=== PATIENT | male | born 1965 | race Caucasian/White ===

== ENCOUNTER 2017-02-12 08:46 | Observation (INO) | payer MEDICAID, SELFPAY ==
[2017-02-12] VITALS (17 sets, daily range): BP systolic 129–164; BP diastolic 74–84; PULSE 72–109; RESP 16–27; TEMP 36.2–36.5; O2SAT 93–100; BMI 53.9; BMI 54.1
--- NOTE | 2017-02-12 09:08 | EKG12_ITS ---
Test Reason : Blood Pressure : / mmHG Vent. Rate : 099 BPM Atrial Rate : 099 BPM P-R Int : 132 ms QRS Dur : 088 ms QT Int : 342 ms P-R-T Axes : 042 042 032 degrees QTc Int : 438 ms Normal sinus rhythm Poor R wave progression Confirmed by PAUL WINSTON, GENI ([id number]), story editor BOAZ SANTOS ([id number]) on 02/14/2017 3:32:41 PM Referred By: CHRISTAL Confirmed By:GENI MILLER MD
--- NOTE | 2017-02-12 09:09 | CT_ITS ---
STUDY: CTA CHEST REASON FOR EXAM: Male, 51 years old. Shortness of breath. Chest pain. History of lung cancer. RADIATION DOSAGE (If Supplied By Facility): CTDIvol = ( 24.25 ) mGy, DLP = ( 1231.60 ) mGycm TECHNIQUE: The examination was performed with the intravenous administration of 100ml ml of Isovue 370 contrast material. Post-processing of the angiographic images was performed, with multiplanar reformation and 3D reconstruction. Individualized dose optimization techniques were used for this CT. COMPARISON: Comparison is made with prior study dated January 03, 2017. FINDINGS: Normal enhancement of the main pulmonary artery and right and left pulmonary arteries. Normal enhancement of the bilateral peripheral pulmonary arteries. There is no demonstrated pulmonary embolism. There is narrowing of the superior vena cava. Collateral venous circulation is seen in the overlying subcutaneous tissues. Partial vena cava obstruction and vena caval syndrome should be ruled out. There is narrowing of the trachea. There is no demonstrated aortic dissection. Normal heart and pericardium. Diffuse mediastinal lymphadenopathy involving the anterior and middle mediastinum as well as the right paratracheal and subcarinal regions. This extends into both hilar regions worse on the right side. Normal visualized trachea and bronchi. There is elevation of the right hemidiaphragm. Airspace disease is seen in the right lower lobe. Mild increased markings in the right middle lobe. Normal pleura. Normal chest wall structures. There are degenerative changes of thoracic spine. Fluid distention of the stomach. CT/CTA Chest W/WO Contrast IMPRESSION: Since prior study, there has been progression of the diffuse mediastinal and bilateral hilar lymphadenopathy worse on the right side. Infiltration in the right lower lobe. Electronically Signed: Fabricio Lyn MD at 11:32 EST Tel [phone], Service support ,
--- NOTE | 2017-02-12 09:10 | ED.VISSUMM ---
- ER Visit Summary Date of Service: 02/12/17 Chief Complaint: [Chest pain] History of Present Illness: The patient is a 51 M [resents the emergency department with chief complaint of chest discomfort that started about a half an hour ago. Patient describes the pain as sharp and stabbing. Patient was at the cancer center next door when he developed the discomfort. Patient was supposed to have a PET scan performed today which was delayed a week. Patient has not had a fever. He denies any significant cough. Patient states that in December he was diagnosed with small cell lung cancer involving upper lobes of both lungs. Patient states that he is also had a stress test, and an echocardiogram within the last several months all of which were unremarkable. Patient states that he has had this similar type pain in the past but just has not lasted as long. Patient states that moving around certain way sometimes helps to relieve the pain. She denies any hemoptysis or fever.] Physical Examination: [HEENT-PERRLA, EOMI. Cranial nerves II through XII grossly intact. TMs clear. Mucous membranes moist. No adenopathy. Cardiovascular-regular rate and rhythm without murmur or ectopy Lungs-diminished bilaterally. Patient has some faint expiratory wheezes noted bilaterally. Patient has some mild tachypnea. No accessory muscle use or retractions. Abdomen-normoactive bowel sounds, soft, nontender, no rebound or rigidity, no peritoneal signs. Patient is morbidly obese. Extremities-intact ?4, normal range of motion, normal pulses, atraumatic] Test Results: [] Emergency Department Course and Treatment: [] Treatment Plan: [] Disposition: [] Impression: [] This note was generated with Micro[employer] dictation software. It may contain incorrect words, spelling, and punctuation that were not noted in review of the chart prior to signing ED Disposition - Plan for ED Patient: Chief Complaint: Chest Pain Referrals: Gray Kelley [Primary Care Provider] -
[2017-02-12] MEDS: Ipratropium/Albuterol Sulfate 3 ML AMPUL.NEB INHALATION ×3 (09:16→23:00)
[2017-02-12 09:20] LABS: Absolute Lymphocyte Count 1.72 X10^3/ul (0.83-4.51); Absolute Neutrophil Count 13.2 X10^3/uL (2.0-7.7); Basophil# 0.03 X10^3/uL; Basophil% 0.2 % (0-1); Eosinophil# 0.05 X10^3/uL; Eosinophils% 0.3 % (0-5); Hematocrit 44.3 % (40-54); Hemoglobin 13.8 g/dl (13.0-16.5); Lymphocyte # 1.72 X10^3/ul (4.0); Lymphocyte % 10.3 % (19-41); Mean Corp Hgb Conc 31.2 g/gl (32-36); Mean Corpuscular Hgb 30.5 pg (27.0-32.0); Mean Platelet Vol. 11.8 fl (6.2-12.0); Monocyte# 1.64 X10^3/uL; Monocyte% 9.8 % (0-10); Neutrophil # 13.23 X10^3/uL (2.7-7.7); Platelet Count 263 K/mm3 (150-450); RBC Distribution Width CV 14.8 % (11.6-14.6); RBC Distribution Width SD 51.6 fl (35.1-43.9); Red Blood Count 4.52 M/mm3 (4.6-6.2); White Blood Count 16.7 K/mm3 (4.4-11.0)
[2017-02-12 09:22] LABS: Differential Indicated SCAN CRITERIA MET; POSITIVE COUNT NO; POSITIVE DIFFERENTIAL YES; POSITIVE MORPHOLOGY NO
[2017-02-12 09:32] LABS: Anion Gap 4 (5-15); BUN 15 mg/dL (7-18); BUN/Creat Ratio 23.4 RATIO (10-20); Calcium,Total 9.4 mg/dL (8.5-10.1); Chloride 97 mmol/L (98-107); Creatinine, Serum 0.64 mg/dL (0.70-1.30); EST Glomerular Filtration Rate 140 mL/min (>60); Est Glom Filt Rate - Afr Amer 169 mL/min (>60); Estimated Creatinine Clearance 149.88 ml/min; Glucose 120 mg/dL (70-110); Potassium 4.4 mmol/L (3.5-5.1); Sodium Level 139 mmol/L (136-145)
[2017-02-12] MEDS: 0.9% Normal Saline 1,000 ML 150 ML IV (10:54)
[2017-02-12] MEDS: Ondansetron 4 MG/2 ML Vial IV (10:55)
--- NOTE | 2017-02-12 12:41 | ED.VISSUMM ---
- ER Visit Summary Date of Service: 02/12/17 Chief Complaint: [Chest pain] History of Present Illness: The patient is a 51 M [presents to the emergency department via EMS from the [facility] with complaint of chest discomfort.] Patient states that he was at the [facility] to have a PET scan performed to evaluate his small cell lung cancer. Patient developed discomfort in the mid to right chest that he has had in the past. Patient states the pain more persistent than usual. Patient states he has a large mass in his right lower lobe. Patient does complain of cough that at times is productive and also complains of exertional dyspnea. Patient has not had any chemo or radiation for his cancer as of yet. Patient is normally on 2-3 L of oxygen. Patient denies any fevers. Physical Examination: [HEENT-PERRLA, EOMI. Cranial nerves II through XII grossly intact. TMs clear. Mucous membranes moist. No adenopathy. Cardiovascular-regular rate and rhythm without murmur or ectopy Lungs-John bilaterally with expiratory wheezes throughout. Patient is tachypneic. No accessory muscle use or retractions. Abdomen-normoactive bowel sounds, soft, nontender, no rebound or rigidity, no peritoneal signs. Extremities-intact ?4, normal range of motion, normal pulses, atraumatic] Test Results: [EKG obtained on arrival shows sinus rhythm with a rate of 99 bpm. CBC with differential showed an elevated white blood cell count 16.7, hemoglobin 13.8, hematocrit 44, platelets 263. Chemistries unremarkable. Troponin was less than 0.02. Chest CT was obtained to rule out PE this was negative for PE however he did have increase in his adenopathy as well as partial compression of his vena cava. Patient has right lower lobe infiltrate noted.] Emergency Department Course and Treatment: [Patient was started on Levaquin IV. Patient also received a DuoNeb aerosol.] Treatment Plan: [] Disposition: [Admit] Impression: [Pneumonia Chest pain Small cell lung cancer] This note was generated with T[employer] dictation software. It may contain incorrect words, spelling, and punctuation that were not noted in review of the chart prior to signing ED Disposition - Plan for ED Patient: Chief Complaint: Chest Pain Referrals: Gray Kelley [Primary Care Provider] -
--- NOTE | 2017-02-12 12:46 | ED.DCSUM_ITS ---
- ER Visit Summary Date of Service: 02/12/17 Chief Complaint: [Chest pain] History of Present Illness: The patient is a 51 M [presents to the emergency department via EMS from the [facility] center with complaint of chest discomfort.] Patient states that he was at the [facility] to have a PET scan performed to evaluate his small cell lung cancer. Patient developed discomfort in the mid to right chest that he has had in the past. Patient states the pain more persistent than usual. Patient states he has a large mass in his right lower lobe. Patient does complain of cough that at times is productive and also complains of exertional dyspnea. Patient has not had any chemo or radiation for his cancer as of yet. Patient is normally on 2-3 L of oxygen. Patient denies any fevers. Physical Examination: [HEENT-PERRLA, EOMI. Cranial nerves II through XII grossly intact. TMs clear. Mucous membranes moist. No adenopathy. Cardiovascular-regular rate and rhythm without murmur or ectopy Lungs-John bilaterally with expiratory wheezes throughout. Patient is tachypneic. No accessory muscle use or retractions. Abdomen-normoactive bowel sounds, soft, nontender, no rebound or rigidity, no peritoneal signs. Extremities-intact ?4, normal range of motion, normal pulses, atraumatic] Test Results: [EKG obtained on arrival shows sinus rhythm with a rate of 99 bpm. CBC with differential showed an elevated white blood cell count 16.7, hemoglobin 13.8, hematocrit 44, platelets 263. Chemistries unremarkable. Troponin was less than 0.02. Chest CT was obtained to rule out PE this was negative for PE however he did have increase in his adenopathy as well as partial compression of his vena cava. Patient has right lower lobe infiltrate noted.] Emergency Department Course and Treatment: [Patient was started on Levaquin IV. Patient also received a DuoNeb aerosol.] Treatment Plan: [] Disposition: [Admit] Impression: [Pneumonia Chest pain Small cell lung cancer] This note was generated with Gr[employer] dictation software. It may contain incorrect words, spelling, and punctuation that were not noted in review of the chart prior to signing ED Disposition - Plan for ED Patient: Chief Complaint: Chest Pain Referrals: Gray Kelley [Primary Care Provider] -
--- NOTE | 2017-02-12 14:52 | NURSING ---
Diet order left on vm as per pts wishes.
--- NOTE | 2017-02-12 17:38 | ONC.CONSUL2 ---
(1) SCLC (small cell lung carcinoma) Status: Acute (2) Regional lymph node metastasis present Status: Acute (3) Chest pain Status: Acute (4) SVC obstruction Status: Acute (5) Sepsis Status: Acute (6) Pneumonia Status: Acute Consult Referring Physician: Dr Bermudez Consult Results: Lung cancer Subjective Date of Service:: 02/12/17 Chief Complaint: Chest pain History of Present Illness: Patient is a 51-year-old male with newly diagnosed small cell lung cancer admitted because of right sided pleuritic type chest pain and increasing dyspnea. His medical history is notable for being a smoker, COPD, oxygen dependent chronic respiratory failure, morbid obesity. He presented end of December 2016 was acute on chronic respiratory failure and at that time a large right hilar mediastinal mass was seen. After stabilization he underwent an EPS on January 2019 with FNA at lymph node stations 4L and 7 both of which revealed metastatic small cell lung cancer. Patient was first seen by me on February 07 and scheduled for a staging PET/CT on the morning of February 12. That morning patient presented to the outpatient facility for his scheduled PET/CT however he had forgotten his instructions to be n.p.o. and the study had to be rescheduled and incidentally complained of increasing dyspnea and right sided pleuritic type chest pain which prompted sending him to the ER and admitted with a suspected right lower lobe pneumonia and sepsis. Power of Mold Hoister: No Living Will: No Health History: Social History Smoking Status Former smoker Allergies/Adverse Reactions: Allergy/AdvReac Type Severity Reaction Status Date / Time bee pollen Allergy Swelling Verified 02/12/17 08:53 Home Medications Medication Instructions Recorded Losartan Potassium [Cozaar] 100 mg PO DAILY 01/03/17 Ipratropium/Albuterol Sulfate 3 ml INHALATION Q6H PRN PRN #60 01/07/17 [Duoneb] ampul.neb Omeprazole Magnesium [Prilosec Otc] 20 mg PO DAILY 01/17/17 umeclidinium 62.5 mcg/actuation 1 inh INHALATION DAILY #1 device 01/30/17 blister powder for inhalation Albuterol Sulfate [Ventolin Hfa] 2 puff INHALATION Q4H PRN 02/12/17 Fluticasone/Vilanterol [Breo 1 inh INHALATION Q24H 02/12/17 Ellipta 200-25 Mcg INH] Prednisone 60 mg PO QDAY 02/12/17 Review of Systems Constitutional:: Reports: Weakness, Fatigue, Weight loss, Appetite change, Pain - Right side of the chest sharp stabbing worse with inspiration, - - Lady friend reported recent increasing facial puffiness. Denies: Fever, Sweats, Chills Cardiovascular:: Reports: Ankle swelling, Dyspnea on exertion, Orthopnea - Cannot lay flat, ongoing for months, partly attributed to his size, Peripheral edema, Shortness of breath. Denies: Chest pain - No retrosternal chest pain, Palpitations, PND Respiratory: Reports: Cough, Pleuritic Pain, Shortness of Breath, Shortness of breath at rest, Shortness of breath upon exertion, Wheezing. Denies: Hemoptysis Gastrointestinal:: Reports: Constipation. Denies: Abdominal pain, Nausea, Vomiting, Diarrhea, Hematochezia Genitourinary: Denies: Dysuria, Hematuria, 15, Flank pain Musculoskeletal:: Denies: Back pain, Myalgia, Arthralgia Skin: Denies: Rash, Skin Changes, Wounds Neurological:: Denies: Headache, Dizziness, Visual changes, Tinnitus, Hearing loss Psychiatric: Denies: Anxiety, Depression, Homicidal Ideations, Suicidal Ideations Vital Signs Height 6 ft Weight: 181 kg Weight in Pounds 399.0 lbs Pulse Ox 100 Temperature 97.2 F Pulse Rate 102 Respiratory Rate 20 Blood Pressure 132/84 Blood Pressure Position Semi-Fowlers - Physical Exam General: Alert, Oriented x3, Cooperative, - - Morbidly obese, on oxygen, face is puffy HEENT: Atraumatic, PERRLA, EOMI, Normocephalic, - - Facial puffiness Oropharynx:: Dry mucosa - Coated tongue Neck:: Supple, - - JVD cannot be assessed due to body habitus Cardiac:: Regular rate, Regular rhythm, Normal S1, Normal S2. Negative for: Murmur Lungs: Diminished, Excusion symmetrical Abdomen:: Soft, Non-tender, Non-distended. Negative for: Hepatosplenomegaly Extremities:: Edema - Gross nonpitting. Negative for: Cyanosis Neurological: Neuro grossly intact Skin:: Negative for: Lesions, Rash, Petechiae, Ecchymosis Psychiatric:: Anxious, Appropriate affect Lymphatics:: Negative for: Supraclavicular lymphadenopathy, Axillary lymphadenopathy Diagnostic Data: Diagnostic Data Chest CTA 02/12/17 09:09 IMPRESSION: Since prior study, there has been progression of the diffuse mediastinal and bilateral hilar lymphadenopathy worse on the right side. Infiltration in the right lower lobe. Electronically Signed: Fabricio Lyn MD at 11:32 EST Tel [phone], Service support , I personally reviewed patient's CT images and concur with reported findings Assessment and Plan 51-year-old male smoker with small cell lung cancer presenting with increasing mediastinal adenopathy and impending SVC compression. Patient was scheduled for outpatient staging PET/CT the morning he was admitted which had to be canceled when the patient forgot to remain n.p.o. for the study. He presented with right-sided pleuritic type chest pain with what appears to be a right lower lobe infiltrate, possible pneumonia with sepsis on top of his progressive and aggressive lung cancer. Comorbid conditions include morbid obesity, active smoker, severe COPD with chronic oxygen requiring respiratory failure. Plan: #1 CT scan of the abdomen and pelvis and bone scan to stage the disease while inpatient. No #2 Treat pneumonia and sepsis as by hospitalist service #3 Obtain adequate venous access in anticipation for need to start systemic chemotherapy soon as felt safe due to impending SVC complete compression Patient was seen with his lady friend impression and plan discussed. Discussed with attending hospitalist. Medications: Prescriptions This Visit Medication Instructions Recorded Albuterol Sulfate [Ventolin Hfa] 2 puff INHALATION Q4H PRN 02/12/17 Fluticasone/Vilanterol [Breo 1 inh INHALATION Q24H 02/12/17 Ellipta 200-25 Mcg INH] Prednisone 60 mg PO QDAY 02/12/17 Medications Added to Medication List This Visit Category Date Time Status 0.9% Saline Lock Med 02/12/17 16:07 Active 5 - 30 ml IV UD PRN Acetaminophen [Tylenol] Med 02/12/17 15:33 Active 650 mg PO Q6H PRN PRN Albuterol Aerosols [Ventolin Aerosols] Med 02/12/17 15:33 Active 2.5 mg INHALATION Q2H PRN PRN Albuterol Aerosols [Ventolin Aerosols] Med 02/12/17 15:45 Hold 2.5 mg INHALATION Q6HWA.RT Budesonide Aerosol [Pulmicort Aerosol] Med 02/12/17 15:45 Active 0.5 mg INHALATION Q12H.RT Enoxaparin [Lovenox] Med 02/13/17 10:00 Active 40 mg SC DAILY@1000 Guaifenesin [Mucinex] Med 02/12/17 22:00 Active 1,200 mg PO BID Ipratropium/Albuterol Sulfate [Duoneb] Med 02/12/17 15:33 Active 3 ml INHALATION Q4H.RT Levofloxacin [Levaquin] Med 02/13/17 10:00 Active 750 mg in 150 ml IV Q24 Magnesium Hydroxide [Milk Of Magnesia] Med 02/12/17 15:33 Active 30 ml PO DAILY PRN Ondansetron [Zofran] Med 02/12/17 15:33 Active 4 mg IV Q8H PRN PRN Primary Care Provider: Gray Kelley Referring Provider:
--- NOTE | 2017-02-12 17:39 | NM_ITS ---
CLINICAL: 51-year-old male with reported history of carcinoma of the lung. WHOLE BODY 99m Tc MDP RADIONUCLIDE BONE SCINTIGRAPHY COMPARISON: CTA of the chest report 02/12/2017, CT of the abdomen pelvis report 02/13/2017 FINDINGS: Following the intravenous administration of 26.0 mCi of 99m Tc MDP, whole body bone images reveal: 1. Increased radiopharmaceutical concentration is identified in the region of the left posterior eighth-ninth ribs, left glenoid and right posterior sacrum. 2. Enhanced uptake appears evident in the acromioclavicular compartment of the right shoulder, sternoclavicular compartments of both shoulders, the bilateral knees, left sacroiliac joint. 3. The remaining skeletal structures are scintigraphically unremarkable with normal-appearing renal images and urinary bladder activity identified. NM/Bone Scan Whole Body IMPRESSION: 1. The increase in radiopharmaceutical concentration identified in the left posterior eighth-ninth ribs, left glenoid, right posterior sacrum may represent limited skeletal metastatic disease. Plain film radiography correlation is recommended in the setting of known lung carcinoma.. 2. Degenerative arthritis is otherwise defined in the right shoulder, bilateral knees, the left sacroiliac joint. Electronically Signed: Sonido Tobias DO at 14:23 EST Tel , Service support ,
--- NOTE | 2017-02-12 18:47 | HP.PCM_ITS ---
Problem List (1) Sepsis Status: Acute (2) Pneumonia Status: Acute (3) DM (diabetes mellitus) Status: Chronic (4) SCLC (small cell lung carcinoma) Status: Acute (5) Regional lymph node metastasis present Status: Acute (6) COPD (chronic obstructive pulmonary disease) Status: Chronic (7) Sleep disorder breathing Status: Chronic (8) Tobacco dependence in remission Status: Chronic (9) Morbid obesity with BMI of 50.0-59.9, adult Status: Chronic (10) Hypertension Status: Chronic (11) Asthmatic bronchitis with exacerbation Status: Acute History of Present Illness Date of Admission: 02/12/17 Chief Complaint: shortness of breath The patient is a 51 year old M w known h/o SCLC presents with 4 day h/o SOB. Had a CTA, no PE, but RLL infiltrate. Started on LVQ.[] Past Medical History Past Medical History (Chronic Problems): Chronic Problems (Last Reviewed 02/09/17 @ 14:49 by Rachell Martinez) DM (diabetes mellitus) (Chronic) COPD (chronic obstructive pulmonary disease) (Chronic) Sleep disorder breathing (Chronic) Tobacco dependence in remission (Chronic) Dyspnea (Chronic) Chronic hypoxemic respiratory failure (Chronic) Morbid obesity with BMI of 50.0-59.9, adult (Chronic) Hypertension (Chronic) Allergies bee pollen Allergy (Verified 02/12/17 08:53) Swelling Home Medications: Ambulatory Orders Medication Instructions Recorded Losartan Potassium [Cozaar] 100 mg PO DAILY 01/03/17 Ipratropium/Albuterol Sulfate 3 ml INHALATION Q6H PRN PRN #60 01/07/17 [Duoneb] ampul.neb Omeprazole Magnesium [Prilosec Otc] 20 mg PO DAILY 01/17/17 umeclidinium 62.5 mcg/actuation 1 inh INHALATION DAILY #1 device 01/30/17 blister powder for inhalation Albuterol Sulfate [Ventolin Hfa] 2 puff INHALATION Q4H PRN 02/12/17 Fluticasone/Vilanterol [Breo 1 inh INHALATION Q24H 02/12/17 Ellipta 200-25 Mcg INH] Prednisone 60 mg PO QDAY 02/12/17 Surgical History: no surgical history - Reported Psychiatric History: No pertinent psych hx Smoking Status: Former smoker - *Family History Maternal Family History: Family History (Last Reviewed 02/09/17 @ 14:49 by Rachell Martinez) Other Adopted History Items: Hypertension Review of Systems Constitutional: Denies: Chills, Fever Eyes: Denies: Blurred vision, Double vision HEENT: Denies: Head Aches, Sinus Congestion, Sinus Drainage Cardiovascular: Reports: Chest Pain Respiratory: Reports: Cough, Shortness of Breath Gastrointestinal: Denies: Abdominal Pain, Nausea, Vomiting Genitourinary: Denies: Dysuria Musculoskeletal: Denies: Joint Pain, Joint Tenderness Skin: Denies: Rash, Wounds Neurological: Denies: Numbness, Tingling, Focal weakness Psychiatric: Denies: Anxiety, Depression, Homicidal Ideations, Suicidal Ideations Hematologic/ Lymphatic: Denies: Easy Bruising, Easy Bleeding, Hx of blood clot VTE Information - Inpt Only VTE Present on Admission: No VTE Pharm Prophylaxis ordered?: Yes Patient Problems: Active and Suspected Problems (Last Reviewed 02/09/17 @ 14:49 by Rachell Martinez) Sepsis (Acute) Pneumonia (Acute) - Physical Exam General: Alert, Cooperative, No apparent distress HEENT: Atraumatic, Normocephalic Neck: No Nodes, Thyroid Normal Size and Texture Lungs: Diminished, - - crackles RLL Cardiovascular: Regular rate, Regular Rhythm, Normal S1, Normal S2, No murmurs Abdomen: Bowel Sounds Present, Soft, Non Tender, Non-Distended, No Hepato- splenomegaly Extremities: No Calf Tenderness, Edema - trace Skin: - - stasis dermatitis BLE Musculoskeletal: No Tenderness to Palpation of Joints or Extremities, No Muscle Wasting Psych/Mental Status: Normal Affect, Appropriate Vital Signs Temp Pulse Resp BP Pulse Ox 36.2 C L 102 H 20 H 132/84 H 100 02/12/17 15:49 02/12/17 16:35 02/12/17 16:08 02/12/17 15:49 02/12/17 15:49 Oxygen Flow Rate 4 Oxygen Delivery Method Nasal Cannula Weight: 181 kg Body Mass Index (BMI) 54.1 Laboratory Tests Past 24 Hrs 02/12/17 16:56 Troponin I < 0.02 Assessment/Plan Active and Suspected Problems (Last Reviewed 02/09/17 @ 14:49 by Rachell Martinez) Sepsis (Acute) Pneumonia (Acute) 1. sepsis POA 2/2 pneumonia 2. pneumonia, presumed Pneumococcal lvq BDs 3. SCLC d/w oncology CT a/p, bone scan, picc chemo pending those results (for staging) and if pt improved from pneumonia 4. DVT proph: LMWH. Code Visit Inpatient E&M: 26814 Init Hosp L2
[2017-02-12] MEDS: Budesonide Respules 0.5 MG/2 ML AMPUL.NEB. INHALATION (19:23)
[2017-02-12] MEDS: guaiFENesin 600 MG Tablet 1200 MG PO (22:18)
[2017-02-13] VITALS (15 sets, daily range): BP systolic 130–180; BP diastolic 69–90; PULSE 94–110; RESP 16–22; TEMP 36.3–36.8; O2SAT 95–98
[2017-02-13] MEDS: Ipratropium/Albuterol Sulfate 3 ML AMPUL.NEB INHALATION ×5 (04:31→22:16)
--- NOTE | 2017-02-13 05:55 | CT_ITS ---
STUDY: CT ABDOMEN AND PELVIS WITH CONTRAST REASON FOR EXAM: Male, 51 years old. Staging for lung cancer. RADIATION DOSAGE (If Supplied By Facility): CTDIvol = ( 24.33 ) mGy, DLP = ( 2185.08 ) mGycm TECHNIQUE: Transaxial images were obtained from the dome of the diaphragm to the symphysis pubis with oral contrast. 100 ml of Isovue 300 contrast was administered. Sagittal and coronal images were reconstructed. Individualized dose optimization techniques were used for this CT. COMPARISON: None. FINDINGS: Infiltration in the right middle lobe and right lower lobe. Mediastinal lymphadenopathy. Right hilar lymphadenopathy. This was seen on prior CT chest examination. Pericardial thickening in keeping with a small pericardial effusion. There is decreased attenuation of the liver consistent with steatosis. Normal gallbladder and extrahepatic biliary system. Normal spleen. Normal pancreas. Normal bilateral adrenal glands. Normal right kidney. Normal left kidney. There is a small hiatal hernia. Normal small intestine. Normal colon. The appendix is visualized and appears normal. Normal abdominal aorta. Normal inferior vena cava. There is borderline retroperitoneal lymphadenopathy with enlarged nodes no greater than 10mm in the short axis diameter. Normal urinary bladder. There are prostatic calcifications. There is a small umbilical hernia containing fat. Small benign-appearing bilateral inguinal lymph nodes. There are diffuse degenerative changes of the visualized lumbar spine. CT/Abdomen/Pelvis WITH Contrast IMPRESSION: Mediastinal and right hilar lymphadenopathy. Right middle lobe and right lower lobe infiltration. Electronically Signed: Fabricio Lyn MD at 12:45 EST Tel [phone], Service support ,
[2017-02-13] MEDS: Budesonide Respules 0.5 MG/2 ML AMPUL.NEB. INHALATION (07:33)
[2017-02-13 08:15] LABS: Hematocrit 43.8 % (40-54); Hemoglobin 13.5 g/dl (13.0-16.5); Mean Corp Hgb Conc 30.8 g/gl (32-36); Mean Corpuscular Hgb 30.8 pg (27.0-32.0); Mean Platelet Vol. 11.8 fl (6.2-12.0); Platelet Count 192 K/mm3 (150-450); RBC Distribution Width CV 14.5 % (11.6-14.6); RBC Distribution Width SD 52.3 fl (35.1-43.9); Red Blood Count 4.38 M/mm3 (4.6-6.2); White Blood Count 14.2 K/mm3 (4.4-11.0)
[2017-02-13 08:19] LABS: Scan Indicated on CBC? Y/N NO
[2017-02-13 08:26] LABS: Anion Gap 9 (5-15); BUN 12 mg/dL (7-18); BUN/Creat Ratio 17.6 RATIO (10-20); Calcium,Total 9.4 mg/dL (8.5-10.1); Chloride 93 mmol/L (98-107); Creatinine, Serum 0.68 mg/dL (0.70-1.30); EST Glomerular Filtration Rate 130 mL/min (>60); Est Glom Filt Rate - Afr Amer 157 mL/min (>60); Estimated Creatinine Clearance 141.06 ml/min; Glucose 125 mg/dL (70-110); Potassium 4.3 mmol/L (3.5-5.1); Sodium Level 138 mmol/L (136-145)
[2017-02-13] MEDS: Losartan Potassium 100 MG Tablet PO (09:23)
[2017-02-13] MEDS: Pantoprazole Sodium 20 MG Tablet PO (09:23)
[2017-02-13] MEDS: Enoxaparin 40 MG/0.4 ML Syringe SC (09:23)
[2017-02-13] MEDS: guaiFENesin 600 MG Tablet 1200 MG PO ×2 (09:23→21:11)
[2017-02-13] MEDS: Allopurinol 300 MG Tablet PO (10:44)
[2017-02-13] MEDS: 0.9% NaCl Peripheral Flush Adult/Peds IV ×2 (10:46→21:12)
--- NOTE | 2017-02-13 13:42 | CASEMGMT ---
Face to Face with patient for initial transition planning/care coordination assessment. AISHA KC introduced self and role at [facility], pt voices understanding and consents to assessment at this time. Pt sitting up in bed with venti mask in place in no distress at this time. Pt A/O x4 at this time and answers all questions appropriately at this time. Care providers, pharmacy, and demographics verified. See attached link. Pt voices no further concerns/needs at this time. Advised pt to ask for CM for any further questions/concerns/needs arise, voices understanding. CM to follow for any further discharge planning/needs. PLAN: [place] AISHA [facility]
--- NOTE | 2017-02-13 13:59 | PCM.PN.HOSP ---
Patient Problems: Active and Suspected Problems (Last Reviewed 02/09/17 @ 14:49 by Rachell Martinez) Chest pain (Acute) SVC obstruction (Acute) Sepsis (Acute) Pneumonia (Acute) Subjective: Put on nonrebreather but states that he is breathing better overall. Vitals/I&O's: Vital Signs Temp Pulse Resp BP Pulse Ox 36.8 C 103 H 16 180/90 H 97 02/13/17 09:20 02/13/17 12:54 02/13/17 11:01 02/13/17 09:20 02/13/17 09:20 Oxygen Flow Rate 4 Oxygen Delivery Method Venturi Mask Weight: 181 kg Body Mass Index (BMI) 54.1 Intake and Output for Last 24 Hours 02/11/17 02/12/17 02/13/17 23:59 23:59 23:59 Intake Total 890 / 890 Balance 890 / 890 General: Alert, Cooperative HEENT: Atraumatic, Normocephalic Neck: No Nodes, Thyroid Normal Size and Texture Lungs: Diminished, - - Crackles in the bases Cardiovascular: Regular rate, Regular Rhythm, Normal S1, Normal S2, - - Distant heart sounds Abdomen: Bowel Sounds Present, Soft, Non Tender, Non-Distended Extremities: No Calf Tenderness, Edema Psych/Mental Status: Normal Affect, Appropriate Microbiology Past 72 Hours 02/12/17 17:30 Urine, Clean Catch Streptococcus pneumoniae Antigen (M - Final 02/12/17 17:30 Urine, Clean Catch Legionella Antigen - Final Laboratory Results 02/12/17 16:56: Troponin I < 0.02 02/12/17 20:46: Troponin I < 0.02 02/13/17 07:37: WBC 14.2 H, RBC 4.38 L, Hgb 13.5, Hct 43.8, MCV 100.0 H, MCH 30.8, MCHC 30.8 L, RDW 14.5, RDW Differential 52.3 H, Plt Count 192, MPV 11.8 02/13/17 07:37: Sodium 138, Potassium 4.3, Chloride 93 L, Carbon Dioxide 36.0 H, Anion Gap 9, BUN 12, Creatinine 0.68 L, Estim Creat Clear Calc 141.06, Est GFR (MDRD) Af Amer 157, Est GFR (MDRD) Non-Af 130, BUN/Creatinine Ratio 17.6, Glucose 125 H, Calcium 9.4 Current Medications Acetaminophen (Tylenol) 650 mg PO Q6H PRN PRN PRN Reason: Mild Pain (1-3)/Temp > 100.7 F Albuterol Sulfate (Ventolin Aerosols) 2.5 mg INHALATION Q2H PRN PRN PRN Reason: SHORTNESS OF BREATH Albuterol Sulfate (Ventolin Aerosols) 2.5 mg INHALATION Q6HWA.RT [facility] Albuterol/Ipratropium (Duoneb) 3 ml INHALATION Q4H.RT [facility] Last Admin: 02/13/17 10:56 Dose: 3 ml Allopurinol (Zyloprim) 300 mg PO DAILYCM [facility] Stop: 02/20/17 08:01 Last Admin: 02/13/17 10:44 Dose: 300 mg Budesonide (Pulmicort Aerosol) 0.5 mg INHALATION Q12H.RT [facility] Last Admin: 02/13/17 07:33 Dose: 0.5 mg Enoxaparin Sodium (Lovenox) 40 mg SC DAILY@1000 [facility] Last Admin: 02/13/17 09:23 Dose: 40 mg Guaifenesin (Mucinex) 1,200 mg PO BID [facility] Last Admin: 02/13/17 09:23 Dose: 1,200 mg Levofloxacin (Levaquin) 750 mg in 150 mls @ 100 mls/hr IV Q24 [facility] Last Admin: 02/13/17 10:46 Dose: 100 mls/hr Ipratropium [place] (Atrovent) 0.5 mg INHALATION Q6HWA.RT [facility] Losartan Potassium (Cozaar) 100 mg PO DAILY [facility] Last Admin: 02/13/17 09:23 Dose: 100 mg Magnesium Hydroxide (Milk Of Magnesia) 30 ml PO DAILY PRN PRN Reason: Constipation Ondansetron HCl (Zofran) 4 mg IV Q8H PRN PRN PRN Reason: NAUSEA Pantoprazole Sodium (Protonix) 20 mg PO DAILY [facility] Last Admin: 02/13/17 09:23 Dose: 20 mg Prednisone (Prednisone) 60 mg PO DAILY@0800 [facility] Last Admin: 02/13/17 08:00 Dose: 60 mg Sodium Chloride () 5 - 30 ml IV UD PRN PRN Reason: SALINE FLUSH Last Admin: 02/13/17 10:46 Dose: 20 ml Assessment/Plan Active and Suspected Problems (Last Reviewed 02/09/17 @ 14:49 by Rachell Martinez) Chest pain (Acute) SVC obstruction (Acute) Sepsis (Acute) Pneumonia (Acute) 1. sepsis POA 2/2 pneumonia 2. pneumonia, presumed Pneumococcal lvq BDs Legionella and strep antigens negative Sputum culture ordered, not obtained yet. 3. SCLC d/w oncology CT of the abdomen pelvis showed no acute process. Bone scan currently pending. 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 chemo pending those results (for staging) and if pt improved from pneumonia 4. DVT proph: LMWH. Code Visit Inpatient E&M: 20426 Subs Hosp L2
--- NOTE | 2017-02-13 14:02 | PN_ITS ---
Patient Problems: Active and Suspected Problems (Last Reviewed 02/09/17 @ 14:49 by Rachell Martinez) Chest pain (Acute) SVC obstruction (Acute) Sepsis (Acute) Pneumonia (Acute) Subjective: Put on nonrebreather but states that he is breathing better overall. Vitals/I&O's: Vital Signs Temp Pulse Resp BP Pulse Ox 36.8 C 103 H 16 180/90 H 97 02/13/17 09:20 02/13/17 12:54 02/13/17 11:01 02/13/17 09:20 02/13/17 09:20 Oxygen Flow Rate 4 Oxygen Delivery Method Venturi Mask Weight: 181 kg Body Mass Index (BMI) 54.1 Intake and Output for Last 24 Hours 02/11/17 02/12/17 02/13/17 23:59 23:59 23:59 Intake Total 890 / 890 Balance 890 / 890 General: Alert, Cooperative HEENT: Atraumatic, Normocephalic Neck: No Nodes, Thyroid Normal Size and Texture Lungs: Diminished, - - Crackles in the bases Cardiovascular: Regular rate, Regular Rhythm, Normal S1, Normal S2, - - Distant heart sounds Abdomen: Bowel Sounds Present, Soft, Non Tender, Non-Distended Extremities: No Calf Tenderness, Edema Psych/Mental Status: Normal Affect, Appropriate Microbiology Past 72 Hours 02/12/17 17:30 Urine, Clean Catch Streptococcus pneumoniae Antigen (M - Final 02/12/17 17:30 Urine, Clean Catch Legionella Antigen - Final Laboratory Results 02/12/17 16:56: Troponin I < 0.02 02/12/17 20:46: Troponin I < 0.02 02/13/17 07:37: WBC 14.2 H, RBC 4.38 L, Hgb 13.5, Hct 43.8, MCV 100.0 H, MCH 30.8, MCHC 30.8 L, RDW 14.5, RDW Differential 52.3 H, Plt Count 192, MPV 11.8 02/13/17 07:37: Sodium 138, Potassium 4.3, Chloride 93 L, Carbon Dioxide 36.0 H , Anion Gap 9, BUN 12, Creatinine 0.68 L, Estim Creat Clear Calc 141.06, Est GFR (MDRD) Af Amer 157, Est GFR (MDRD) Non-Af 130, BUN/Creatinine Ratio 17.6, Glucose 125 H, Calcium 9.4 Current Medications Acetaminophen (Tylenol) 650 mg PO Q6H PRN PRN PRN Reason: Mild Pain (1-3)/Temp > 100.7 F Albuterol Sulfate (Ventolin Aerosols) 2.5 mg INHALATION Q2H PRN PRN PRN Reason: SHORTNESS OF BREATH Albuterol Sulfate (Ventolin Aerosols) 2.5 mg INHALATION Q6HWA.RT [facility] Albuterol/Ipratropium (Duoneb) 3 ml INHALATION Q4H.RT [facility] Last Admin: 02/13/17 10:56 Dose: 3 ml Allopurinol (Zyloprim) 300 mg PO DAILYCM [facility] Stop: 02/20/17 08:01 Last Admin: 02/13/17 10:44 Dose: 300 mg Budesonide (Pulmicort Aerosol) 0.5 mg INHALATION Q12H.RT [facility] Last Admin: 02/13/17 07:33 Dose: 0.5 mg Enoxaparin Sodium (Lovenox) 40 mg SC DAILY@1000 [facility] Last Admin: 02/13/17 09:23 Dose: 40 mg Guaifenesin (Mucinex) 1,200 mg PO BID [facility] Last Admin: 02/13/17 09:23 Dose: 1,200 mg Levofloxacin (Levaquin) 750 mg in 150 mls @ 100 mls/hr IV Q24 [facility] Last Admin: 02/13/17 10:46 Dose: 100 mls/hr Ipratropium [place] (Atrovent) 0.5 mg INHALATION Q6HWA.RT [facility] Losartan Potassium (Cozaar) 100 mg PO DAILY [facility] Last Admin: 02/13/17 09:23 Dose: 100 mg Magnesium Hydroxide (Milk Of Magnesia) 30 ml PO DAILY PRN PRN Reason: Constipation Ondansetron HCl (Zofran) 4 mg IV Q8H PRN PRN PRN Reason: NAUSEA Pantoprazole Sodium (Protonix) 20 mg PO DAILY [facility] Last Admin: 02/13/17 09:23 Dose: 20 mg Prednisone (Prednisone) 60 mg PO DAILY@0800 [facility] Last Admin: 02/13/17 08:00 Dose: 60 mg Sodium Chloride () 5 - 30 ml IV UD PRN PRN Reason: SALINE FLUSH Last Admin: 02/13/17 10:46 Dose: 20 ml Assessment/Plan Active and Suspected Problems (Last Reviewed 02/09/17 @ 14:49 by Rachell Martinez) Chest pain (Acute) SVC obstruction (Acute) Sepsis (Acute) Pneumonia (Acute) 1. sepsis POA 2/2 pneumonia 2. pneumonia, presumed Pneumococcal lvq BDs Legionella and strep antigens negative Sputum culture ordered, not obtained yet. 3. SCLC d/w oncology CT of the abdomen pelvis showed no acute process. Bone scan currently pending. 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 chemo pending those results (for staging) and if pt improved from pneumonia 4. DVT proph: LMWH. Code Visit Inpatient E&M: 45641 Subs Hosp L2
--- NOTE | 2017-02-13 17:52 | PCM.PROGNOTE ---
Patient Problems: Active and Suspected Problems (Last Updated 02/13/17 @ 17:53 by Bob Fofana MD) Bone lesion (Acute) Chest pain (Acute) SVC obstruction (Acute) Sepsis (Acute) Pneumonia (Acute) SCLC (small cell lung carcinoma) (Acute) Regional lymph node metastasis present (Acute) Subjective: No fevers Remains tired and weak, anorexic Dyspneic, cough no hemoptysis. Cannot lay flat due to increasing dyspnea (chronic) No midsternal chest pain and right-sided chest pain is better controlled No nausea or vomiting, positive constipation No urinary complaints No skin rash or itch No headache or other focal [employer] complaints No no bone pain - Physical Exam General: Alert, Oriented x3, Cooperative, - - Morbidly obese ECOG 4 HEENT: Atraumatic, PERRLA, EOMI, Normocephalic, - - Face remains puffy Neck: - - JVD cannot be assessed due to body habitus Lungs: Diminished, Short of Breath Cardiovascular: Regular rate, No murmurs Abdomen: Soft, Non Tender Extremities: Edema - Gross nonpitting Skin: No rashes, No breakdown Lymphatic: - - No cervical or supraclavicular adenopathy Neurological: Cranial nerves II-XII grossly intact Psych/Mental Status: Appropriate, Anxious Vital Signs Temp Pulse Resp BP Pulse Ox 97.4 F L 101 H 20 H 155/84 H 98 02/13/17 14:50 02/13/17 15:29 02/13/17 14:50 02/13/17 14:50 02/13/17 14:50 Oxygen Flow Rate 4 Oxygen Delivery Method Nasal Cannula Weight: 181 kg Body Mass Index (BMI) 54.1 Intake and Output for Last 24 Hours 02/11/17 02/12/17 02/13/17 23:59 23:59 23:59 Intake Total 1740 / 1740 Balance 1740 / 1740 Microbiology Past 72 Hours 02/12/17 17:30 Streptococcus pneumoniae Antigen (M - Final Urine, Clean Catch 02/12/17 17:30 Legionella Antigen - Final Urine, Clean Catch Laboratory Tests Past 24 Hrs 02/12/17 02/13/17 02/13/17 20:46 07:37 07:37 WBC 14.2 H RBC 4.38 L Hgb 13.5 Hct 43.8 MCV 100.0 H MCH 30.8 MCHC 30.8 L RDW 14.5 RDW Differential 52.3 H Plt Count 192 MPV 11.8 Sodium 138 Potassium 4.3 Chloride 93 L Carbon Dioxide 36.0 H Anion Gap 9 BUN 12 Creatinine 0.68 L Estim Creat Clear Calc 141.06 Est GFR (MDRD) Af Amer 157 Est GFR (MDRD) Non-Af 130 BUN/Creatinine Ratio 17.6 Glucose 125 H Calcium 9.4 Troponin I < 0.02 CT scan of the abdomen and pelvis showed no evidence of metastatic disease in the abdominal organs. Bone scan showed multiple nonspecific abnormalities in the ribs, glenoid and sacrum and plain x-ray films to correlate for the Assessment/Plan Active and Suspected Problems (Last Updated 02/13/17 @ 17:53 by Bob Fofana MD) Bone lesion (Acute) Chest pain (Acute) SVC obstruction (Acute) Sepsis (Acute) Pneumonia (Acute) SCLC (small cell lung carcinoma) (Acute) Regional lymph node metastasis present (Acute) 51-year-old male smoker with small cell lung cancer presenting with increasing mediastinal adenopathy and impending SVC compression. Patient was scheduled for outpatient staging PET/CT the morning he was admitted which had to be canceled when the patient forgot to remain n.p.o. for the study. He presented with right-sided pleuritic type chest pain with what appears to be a right lower lobe infiltrate, possible pneumonia with sepsis on top of his progressive and aggressive lung cancer. Staging CT scan of the abdomen did not show metastases in the liver or adrenals. Bone scan showed nonspecific abnormalities that further workup with his correlation was plain imaging to rule out bone metastatic disease. Comorbid conditions include morbid obesity, active smoker, severe COPD with chronic oxygen requiring respiratory failure. Plan: 1. we will start systemic chemotherapy was carboplatin etoposide on February 14 without delay due to progressive SVC compression and worsening respiratory status. Discussed with his primary hospitalist service and agreed on no further delay of treatment. 2. Continue treatment for possible pneumonia and sepsis as per primary service. 3. Patient has a bulky chemotherapy sensitive disease and therefore tumor lysis prophylaxis started February 13. 4. Supported with steroids, antiemetics and primary prophylaxis against febrile neutropenia with growth factor support. Patient was seen with 2 of his sons at the bedside impression and plan discussed. Risks of therapy discussed and the rationale for starting treatment before completely clearing a possible pneumonia discussed due to risk of a rapid downhill spiral was progression of his aggressive disease if treatment is not initiated as soon as can be. Discussed with attending hospitalist.
[2017-02-14] VITALS (19 sets, daily range): BP systolic 127–162; BP diastolic 65–86; PULSE 88–112; RESP 16–20; TEMP 36.4–37.1; O2SAT 93–97
[2017-02-14] MEDS: ALPRAZolam 0.5 MG Tablet PO ×2 (00:16→22:27)
[2017-02-14] MEDS: Ipratropium/Albuterol Sulfate 3 ML AMPUL.NEB INHALATION ×5 (02:57→23:25)
[2017-02-14 07:15] LABS: Basophil# 0.02 X10^3/uL; Basophil% 0.2 % (0-1); Eosinophil# 0.07 X10^3/uL; Eosinophils% 0.5 % (0-5); Hematocrit 45.2 % (40-54); Hemoglobin 13.7 g/dl (13.0-16.5); Lymphocyte % 11.4 % (19-41); Mean Corp Hgb Conc 30.3 g/gl (32-36); Mean Corpuscular Hgb 30.5 pg (27.0-32.0); Mean Corpuscular Volume 100.7 fL (80-94); Mean Platelet Vol. 11.3 fl (6.2-12.0); Monocyte# 1.51 X10^3/uL; Monocyte% 11.5 % (0-10); Neutrophil # 9.99 X10^3/uL (2.7-7.7); Neutrophil % 76.1 % (47-70); Platelet Count 209 K/mm3 (150-450); RBC Distribution Width CV 14.5 % (11.6-14.6); RBC Distribution Width SD 52.6 fl (35.1-43.9); Red Blood Count 4.49 M/mm3 (4.6-6.2); White Blood Count 13.1 K/mm3 (4.4-11.0)
[2017-02-14 07:16] LABS: Differential Indicated SCAN CRITERIA MET; POSITIVE COUNT NO; POSITIVE DIFFERENTIAL YES; POSITIVE MORPHOLOGY NO
[2017-02-14] MEDS: Budesonide Respules 0.5 MG/2 ML AMPUL.NEB. INHALATION ×2 (07:26→19:37)
[2017-02-14 07:28] LABS: Anion Gap 2 (5-15); BUN 15 mg/dL (7-18); BUN/Creat Ratio 21.9 RATIO (10-20); Calcium,Total 9.6 mg/dL (8.5-10.1); Chloride 94 mmol/L (98-107); Creatinine, Serum 0.69 mg/dL (0.70-1.30); EST Glomerular Filtration Rate 129 mL/min (>60); Est Glom Filt Rate - Afr Amer 156 mL/min (>60); Estimated Creatinine Clearance 139.02 ml/min; Glucose 126 mg/dL (70-110); Potassium 4.1 mmol/L (3.5-5.1); Sodium Level 137 mmol/L (136-145)
[2017-02-14 07:46] LABS: Differential Comment SCANNED; Platelet Estimate ADEQUATE (ADEQ); Platelet Morphology LARGE
[2017-02-14] MEDS: Allopurinol 300 MG Tablet PO (09:27)
[2017-02-14] MEDS: Losartan Potassium 100 MG Tablet PO (09:28)
[2017-02-14] MEDS: guaiFENesin 600 MG Tablet 1200 MG PO ×2 (09:29→22:27)
[2017-02-14] MEDS: Enoxaparin 40 MG/0.4 ML Syringe SC (09:30)
[2017-02-14] MEDS: 0.9% Normal Saline 1,000 ML 100 ML IV ×2 (09:30→19:27)
[2017-02-14] MEDS: Pantoprazole Sodium 20 MG Tablet PO (09:30)
--- NOTE | 2017-02-14 10:31 | PCM.PN.HOSP ---
Patient Problems: Active and Suspected Problems (Last Updated 02/13/17 @ 17:53 by Bob Fofana MD) Bone lesion (Acute) Chest pain (Acute) SVC obstruction (Acute) Sepsis (Acute) Pneumonia (Acute) SCLC (small cell lung carcinoma) (Acute) Regional lymph node metastasis present (Acute) Subjective: Weaned down to nasal cannula but still short of breath. No other new complaints at this time. States that he cannot cough anything up at this time. Vitals/I&O's: Vital Signs Temp Pulse Resp BP Pulse Ox 36.6 C 107 H 16 155/65 H 93 02/14/17 09:12 02/14/17 09:12 02/14/17 09:12 02/14/17 09:12 02/14/17 09:12 Oxygen Flow Rate 3.5 Oxygen Delivery Method Nasal Cannula Weight: 181 kg Body Mass Index (BMI) 54.1 Intake and Output for Last 24 Hours 02/12/17 02/13/17 02/14/17 23:59 23:59 23:59 Intake Total 2290 / 2290 700 / 700 Balance 2290 / 2290 700 / 700 General: Alert, Cooperative, No apparent distress HEENT: Atraumatic, Normocephalic Neck: No Nodes, Thyroid Normal Size and Texture Lungs: Normal air movement, No wheeze, Diminished Cardiovascular: Regular rate, Regular Rhythm, Normal S1, Normal S2 Abdomen: Bowel Sounds Present, Soft, Non Tender, Non-Distended, Obese Extremities: No Calf Tenderness, Edema Psych/Mental Status: Normal Affect, Appropriate Microbiology Past 72 Hours 02/12/17 17:30 Urine, Clean Catch Streptococcus pneumoniae Antigen (M - Final 02/12/17 17:30 Urine, Clean Catch Legionella Antigen - Final Laboratory Results 02/14/17 06:50: WBC 13.1 H, RBC 4.49 L, Hgb 13.7, Hct 45.2, MCV 100.7 H, MCH 30.5, MCHC 30.3 L, RDW 14.5, RDW Differential 52.6 H, Plt Count 209, MPV 11.3, Immature Gran % (Auto) 0.300, Neut % (Auto) 76.1 H, Lymph % (Auto) 11.4 L, [place] % (Auto) 11.5 H, Eos % (Auto) 0.5, Baso % (Auto) 0.2, Absolute Neuts (auto) 10.0 H, Absolute Lymphs (auto) 1.50, Total Counted Not Reportable, Differential Comment SCANNED, Platelet Estimate ADEQUATE, Plt Morphology Comment LARGE 02/14/17 06:50: Sodium 137, Potassium 4.1, Chloride 94 L, Carbon Dioxide 41.0 H, Anion Gap 2 L, BUN 15, Creatinine 0.69 L, Estim Creat Clear Calc 139.02, Est GFR (MDRD) Af Amer 156, Est GFR (MDRD) Non-Af 129, BUN/Creatinine Ratio 21.9 H, Glucose 126 H, Calcium 9.6 Current Medications Acetaminophen (Tylenol) 650 mg PO Q6H PRN PRN PRN Reason: Mild Pain (1-3)/Temp > 100.7 F Albuterol Sulfate (Ventolin Aerosols) 2.5 mg INHALATION Q2H PRN PRN PRN Reason: SHORTNESS OF BREATH Albuterol Sulfate (Ventolin Aerosols) 2.5 mg INHALATION Q6HWA.RT [facility] Albuterol/Ipratropium (Duoneb) 3 ml INHALATION Q4H.RT [facility] Last Admin: 02/14/17 07:26 Dose: 3 ml Allopurinol (Zyloprim) 300 mg PO DAILYCM [facility] Stop: 02/20/17 08:01 Last Admin: 02/14/17 09:27 Dose: 300 mg Alprazolam (Xanax) 0.5 mg PO BID PRN PRN PRN Reason: ANXIETY Last Admin: 02/14/17 00:16 Dose: 0.5 mg Budesonide (Pulmicort Aerosol) 0.5 mg INHALATION Q12H.RT [facility] Last Admin: 02/14/17 07:26 Dose: 0.5 mg Enoxaparin Sodium (Lovenox) 40 mg SC DAILY@1000 [facility] Last Admin: 02/14/17 09:30 Dose: 40 mg Guaifenesin (Mucinex) 1,200 mg PO BID [facility] Last Admin: 02/14/17 09:29 Dose: 1,200 mg Levofloxacin (Levaquin) 750 mg in 150 mls @ 100 mls/hr IV Q24 [facility] Last Admin: 02/14/17 09:40 Dose: 100 mls/hr Sodium Chloride () 1,000 mls @ 100 mls/hr IV .Q10H [facility] Stop: 02/17/17 06:00 Last Admin: 02/14/17 09:30 Dose: 100 mls/hr Ipratropium [place] (Atrovent) 0.5 mg INHALATION Q6HWA.RT [facility] Losartan Potassium (Cozaar) 100 mg PO DAILY [facility] Last Admin: 02/14/17 09:28 Dose: 100 mg Magnesium Hydroxide (Milk Of Magnesia) 30 ml PO DAILY PRN PRN Reason: Constipation Ondansetron HCl (Zofran) 4 mg IV Q8H PRN PRN PRN Reason: NAUSEA Pantoprazole Sodium (Protonix) 20 mg PO DAILY [facility] Last Admin: 02/14/17 09:30 Dose: 20 mg Prednisone (Prednisone) 60 mg PO DAILY@0800 [facility] Last Admin: 02/14/17 09:27 Dose: 60 mg Sodium Chloride () 5 - 30 ml IV UD PRN PRN Reason: SALINE FLUSH Last Admin: 02/13/17 21:12 Dose: 10 ml Assessment/Plan Active and Suspected Problems (Last Updated 02/13/17 @ 17:53 by Bob Fofana MD) Bone lesion (Acute) Chest pain (Acute) SVC obstruction (Acute) Sepsis (Acute) Pneumonia (Acute) SCLC (small cell lung carcinoma) (Acute) Regional lymph node metastasis present (Acute) 1. sepsis POA 2/2 pneumonia 2. pneumonia, presumed Pneumococcal lvq BDs Legionella and strep antigens negative Sputum culture ordered, not obtained yet. Could be a post obstructive process or even malignancy itself causing pneumonia. 3. SCLC d/w oncology CT of the abdomen pelvis showed no acute process. Bone scan showing increased concentration in the left posterior eighth and ninth ribs, left glenoid, right posterior sacrum may be related with metastatic disease. 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 So in light of the pneumonia feel that the benefits of chemotherapy outweigh the risk of immunosuppression at this time so patient will have chemotherapy today. This is DrSom discussed with oncology yesterday. The patient will be monitored in the hospital to assess for progression. Anticipate patient remaining in the hospital for at least another 48-72 hours from this time. 4. DVT proph: LMWH. Code Visit Inpatient E&M: 73974 Subs Hosp L2
--- NOTE | 2017-02-14 10:35 | PN_ITS ---
Patient Problems: Active and Suspected Problems (Last Updated 02/13/17 @ 17:53 by Bob Fofana MD) Bone lesion (Acute) Chest pain (Acute) SVC obstruction (Acute) Sepsis (Acute) Pneumonia (Acute) SCLC (small cell lung carcinoma) (Acute) Regional lymph node metastasis present (Acute) Subjective: Weaned down to nasal cannula but still short of breath. No other new complaints at this time. States that he cannot cough anything up at this time. Vitals/I&O's: Vital Signs Temp Pulse Resp BP Pulse Ox 36.6 C 107 H 16 155/65 H 93 02/14/17 09:12 02/14/17 09:12 02/14/17 09:12 02/14/17 09:12 02/14/17 09:12 Oxygen Flow Rate 3.5 Oxygen Delivery Method Nasal Cannula Weight: 181 kg Body Mass Index (BMI) 54.1 Intake and Output for Last 24 Hours 02/12/17 02/13/17 02/14/17 23:59 23:59 23:59 Intake Total 2290 / 2290 700 / 700 Balance 2290 / 2290 700 / 700 General: Alert, Cooperative, No apparent distress HEENT: Atraumatic, Normocephalic Neck: No Nodes, Thyroid Normal Size and Texture Lungs: Normal air movement, No wheeze, Diminished Cardiovascular: Regular rate, Regular Rhythm, Normal S1, Normal S2 Abdomen: Bowel Sounds Present, Soft, Non Tender, Non-Distended, Obese Extremities: No Calf Tenderness, Edema Psych/Mental Status: Normal Affect, Appropriate Microbiology Past 72 Hours 02/12/17 17:30 Urine, Clean Catch Streptococcus pneumoniae Antigen (M - Final 02/12/17 17:30 Urine, Clean Catch Legionella Antigen - Final Laboratory Results 02/14/17 06:50: WBC 13.1 H, RBC 4.49 L, Hgb 13.7, Hct 45.2, MCV 100.7 H, MCH 30.5, MCHC 30.3 L, RDW 14.5, RDW Differential 52.6 H, Plt Count 209, MPV 11.3, Immature Gran % (Auto) 0.300, Neut % (Auto) 76.1 H, Lymph % (Auto) 11.4 L, [place] % (Auto) 11.5 H, Eos % (Auto) 0.5, Baso % (Auto) 0.2, Absolute Neuts (auto) 10.0 H, Absolute Lymphs (auto) 1.50, Total Counted Not Reportable, Differential Comment SCANNED, Platelet Estimate ADEQUATE, Plt Morphology Comment LARGE 02/14/17 06:50: Sodium 137, Potassium 4.1, Chloride 94 L, Carbon Dioxide 41.0 H , Anion Gap 2 L, BUN 15, Creatinine 0.69 L, Estim Creat Clear Calc 139.02, Est GFR (MDRD) Af Amer 156, Est GFR (MDRD) Non-Af 129, BUN/Creatinine Ratio 21.9 H, Glucose 126 H, Calcium 9.6 Current Medications Acetaminophen (Tylenol) 650 mg PO Q6H PRN PRN PRN Reason: Mild Pain (1-3)/Temp > 100.7 F Albuterol Sulfate (Ventolin Aerosols) 2.5 mg INHALATION Q2H PRN PRN PRN Reason: SHORTNESS OF BREATH Albuterol Sulfate (Ventolin Aerosols) 2.5 mg INHALATION Q6HWA.RT JULIANNE Albuterol/Ipratropium (Duoneb) 3 ml INHALATION Q4H.RT [facility] Last Admin: 02/14/17 07:26 Dose: 3 ml Allopurinol (Zyloprim) 300 mg PO DAILYCM JULIANNE Stop: 02/20/17 08:01 Last Admin: 02/14/17 09:27 Dose: 300 mg Alprazolam (Xanax) 0.5 mg PO BID PRN PRN PRN Reason: ANXIETY Last Admin: 02/14/17 00:16 Dose: 0.5 mg Budesonide (Pulmicort Aerosol) 0.5 mg INHALATION Q12H.RT [facility] Last Admin: 02/14/17 07:26 Dose: 0.5 mg Enoxaparin Sodium (Lovenox) 40 mg SC DAILY@1000 JULIANNE Last Admin: 02/14/17 09:30 Dose: 40 mg Guaifenesin (Mucinex) 1,200 mg PO BID [facility] Last Admin: 02/14/17 09:29 Dose: 1,200 mg Levofloxacin (Levaquin) 750 mg in 150 mls @ 100 mls/hr IV Q24 JULIANNE Last Admin: 02/14/17 09:40 Dose: 100 mls/hr Sodium Chloride () 1,000 mls @ 100 mls/hr IV .Q10H JULIANNE Stop: 02/17/17 06:00 Last Admin: 02/14/17 09:30 Dose: 100 mls/hr Ipratropium [place] (Atrovent) 0.5 mg INHALATION Q6HWA.RT [facility] Losartan Potassium (Cozaar) 100 mg PO DAILY [facility] Last Admin: 02/14/17 09:28 Dose: 100 mg Magnesium Hydroxide (Milk Of Magnesia) 30 ml PO DAILY PRN PRN Reason: Constipation Ondansetron HCl (Zofran) 4 mg IV Q8H PRN PRN PRN Reason: NAUSEA Pantoprazole Sodium (Protonix) 20 mg PO DAILY [facility] Last Admin: 02/14/17 09:30 Dose: 20 mg Prednisone (Prednisone) 60 mg PO DAILY@0800 [facility] Last Admin: 02/14/17 09:27 Dose: 60 mg Sodium Chloride () 5 - 30 ml IV UD PRN PRN Reason: SALINE FLUSH Last Admin: 02/13/17 21:12 Dose: 10 ml Assessment/Plan Active and Suspected Problems (Last Updated 02/13/17 @ 17:53 by Bob Fofana MD) Bone lesion (Acute) Chest pain (Acute) SVC obstruction (Acute) Sepsis (Acute) Pneumonia (Acute) SCLC (small cell lung carcinoma) (Acute) Regional lymph node metastasis present (Acute) 1. sepsis POA 2/2 pneumonia 2. pneumonia, presumed Pneumococcal lvq BDs Legionella and strep antigens negative Sputum culture ordered, not obtained yet. Could be a post obstructive process or even malignancy itself causing pneumonia. 3. SCLC d/w oncology CT of the abdomen pelvis showed no acute process. Bone scan showing increased concentration in the left posterior eighth and ninth ribs, left glenoid, right posterior sacrum may be related with metastatic disease. 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 So in light of the pneumonia feel that the benefits of chemotherapy outweigh the risk of immunosuppression at this time so patient will have chemotherapy today. This is DrSom discussed with oncology yesterday. The patient will be monitored in the hospital to assess for progression. Anticipate patient remaining in the hospital for at least another 48-72 hours from this time. 4. DVT proph: LMWH. Code Visit Inpatient E&M: 04742 Subs Hosp L2
--- NOTE | 2017-02-14 13:27 | CHAPLAIN ---
Type of Pastoral Visit _x__ Initial Visit ___ Follow-up Visit ___ On-call Visit ___ General Patient Visit ___ Spiritual Assessment ___ Family Conference ___ Bereavement ___ Rapid Response ___ Code Blue ___ Other (describe below) Pastoral Care Referral From _x__ Patient ___ Family _x__ Nurse ___ Physician ___ Classroom Instructional Aide ___ Judicial Law Clerk ___ Other (describe below) Sacrament/Intervention _x__ Active listening ___ Anointing ___ Alevism ___ Bereavement ___ Communion _x__ Bessie exploration ___ ___ Life review _x__ Prayer ___ Reconciliation ___ Sacrament of Sick _x__ Supportive presence ___ Wedding ___ Other (describe below) Pastoral Comments patient requested support from business support specialist after learning of diagnosis and advanced degree of cancer; pt is tearful with difficulty even speaking the words; pt has questions about his future; pt expresses I will not give up; parents of pt are with him during this visit; mother of pt expresses bessie in God and says that son was brought up in voodoo; pt admits to having a foundation of bessie but has not practiced that in recent years; pt admits to praying a lot right now; we discuss prayer and seeking God for his life at this time; time and presence given so pt can reveal his feelings and needs; pt says that his family is his greatest source of support; pt has a girlfriend and children/grandchildren; offer of support given for the future; prayer is welcomed by pt
[2017-02-14] MEDS: Palonosetron HCl 0.25 MG/5 ML Vial IV (14:42)
--- NOTE | 2017-02-14 15:07 | PCM.PROGNOTE ---
Patient Problems: Active and Suspected Problems (Last Updated 02/13/17 @ 17:53 by Bob Fofana MD) Bone lesion (Acute) Chest pain (Acute) SVC obstruction (Acute) Sepsis (Acute) Pneumonia (Acute) SCLC (small cell lung carcinoma) (Acute) Regional lymph node metastasis present (Acute) Subjective: No fevers Remains tired and weak, anorexic Dyspneic, cough no hemoptysis. Cannot lay flat due to increasing dyspnea (chronic) No midsternal chest pain and right-sided chest pain is better controlled No nausea or vomiting, positive constipation No urinary complaints No skin rash or itch No headache or other focal MANAGER MISSION complaints No no bone pain - Physical Exam General: Alert, Oriented x3, Cooperative HEENT: Atraumatic, PERRLA, EOMI, Normocephalic, - - Facial puffiness unchanged Vital Signs Temp Pulse Resp BP Pulse Ox 98.4 F 101 H 18 162/79 H 94 02/14/17 12:17 02/14/17 14:49 02/14/17 14:49 02/14/17 12:17 02/14/17 12:17 Oxygen Flow Rate 3.5 Oxygen Delivery Method Nasal Cannula Weight: 181 kg Body Mass Index (BMI) 54.1 Intake and Output for Last 24 Hours 02/12/17 02/13/17 02/14/17 23:59 23:59 23:59 Intake Total 2290 / 2290 1512 / 1512 Balance 2290 / 2290 1512 / 1512 Microbiology Past 72 Hours 02/12/17 17:30 Streptococcus pneumoniae Antigen (M - Final Urine, Clean Catch 02/12/17 17:30 Legionella Antigen - Final Urine, Clean Catch Laboratory Tests Past 24 Hrs 02/14/17 02/14/17 06:50 06:50 WBC 13.1 H RBC 4.49 L Hgb 13.7 Hct 45.2 MCV 100.7 H MCH 30.5 MCHC 30.3 L RDW 14.5 RDW Differential 52.6 H Plt Count 209 MPV 11.3 Immature Gran % (Auto) 0.300 Neut % (Auto) 76.1 H Lymph % (Auto) 11.4 L [place] % (Auto) 11.5 H Eos % (Auto) 0.5 Baso % (Auto) 0.2 Absolute Neuts (auto) 10.0 H Absolute Lymphs (auto) 1.50 Total Counted Not Reportable Differential Comment SCANNED Platelet Estimate ADEQUATE Plt Morphology Comment LARGE Sodium 137 Potassium 4.1 Chloride 94 L Carbon Dioxide 41.0 H Anion Gap 2 L BUN 15 Creatinine 0.69 L Estim Creat Clear Calc 139.02 Est GFR (MDRD) Af Amer 156 Est GFR (MDRD) Non-Af 129 BUN/Creatinine Ratio 21.9 H Glucose 126 H Calcium 9.6 Assessment/Plan Active and Suspected Problems (Last Updated 02/13/17 @ 17:53 by Bob Fofana MD) Bone lesion (Acute) Chest pain (Acute) SVC obstruction (Acute) Sepsis (Acute) Pneumonia (Acute) SCLC (small cell lung carcinoma) (Acute) Regional lymph node metastasis present (Acute) 51-year-old male smoker with small cell lung cancer presenting with increasing mediastinal adenopathy and impending SVC compression. Patient was scheduled for outpatient staging PET/CT the morning he was admitted which had to be canceled when the patient forgot to remain n.p.o. for the study. He presented with right-sided pleuritic type chest pain with what appears to be a right lower lobe infiltrate, possible pneumonia with sepsis on top of his progressive and aggressive lung cancer. Staging CT scan of the abdomen did not show metastases in the liver or adrenals. Bone scan showed nonspecific abnormalities that further workup with his correlation was plain imaging to rule out bone metastatic disease. Comorbid conditions include morbid obesity, active smoker, severe COPD with chronic oxygen requiring respiratory failure. Plan: 1. Day 1 of systemic chemotherapy was carboplatin etoposide without delay due to progressive SVC compression and worsening respiratory status. 2. Continue treatment for possible pneumonia and sepsis as per primary service. 3. Patient has a bulky chemotherapy sensitive disease and therefore tumor lysis prophylaxis was started February 13. 4. Supported with steroids, antiemetics and primary prophylaxis against febrile neutropenia with growth factor support. Patient was seen with lady friend. Risks of therapy discussed and the rationale for starting treatment before completely clearing a possible pneumonia discussed due to risk of a rapid downhill spiral was progression of his aggressive disease if treatment is not initiated as soon as can be.Do not advise primary R.T. unless unresponsive to chemotherapy (large radiation field, unable to lay down, and would leave metastatic disease unchecked)
--- NOTE | 2017-02-14 18:57 | NURSING ---
REVIEWED AND AGREED WEmmy LEBLANC'S CHARTING.
[2017-02-15] VITALS (16 sets, daily range): BP systolic 148–156; BP diastolic 72–96; PULSE 98–115; RESP 18–24; TEMP 36.2–36.8; O2SAT 92–100
[2017-02-15] MEDS: 0.9% Normal Saline 1,000 ML 100 ML IV ×2 (04:20→18:40)
[2017-02-15] MEDS: 0.9% NaCl Peripheral Flush Adult/Peds IV ×2 (05:24→05:25)
[2017-02-15 06:38] LABS: ALB/GLOB Ratio 0.9 RATIO (0.9-2.4); AST(SGOT) 37 U/L (15-37); Alanine Aminotransfer ALT/SGPT 91 U/L (12-78); Albumin, Serum 3.5 g/dL (3.4-5.0); Alkaline Phosphatase 44 U/L (45-117); Anion Gap 7 (5-15); BUN 13 mg/dL (7-18); BUN/Creat Ratio 21.8 RATIO (10-20); Calcium,Total 8.9 mg/dL (8.5-10.1); Chloride 93 mmol/L (98-107); EST Glomerular Filtration Rate 152 mL/min (>60); Est Glom Filt Rate - Afr Amer 184 mL/min (>60); Estimated Creatinine Clearance 159.87 ml/min; Glucose 133 mg/dL (70-110); Potassium 4.3 mmol/L (3.5-5.1); Protein, Total 7.5 g/dL (6.4-8.2); Sodium Level 138 mmol/L (136-145)
[2017-02-15 06:53] LABS: Absolute Lymphocyte Count 0.56 X10^3/ul (0.83-4.51); Absolute Neutrophil Count 10.4 X10^3/uL (2.0-7.7); Hematocrit 45.9 % (40-54); Hemoglobin 13.5 g/dl (13.0-16.5); Lymphocyte # 0.56 X10^3/ul (4.0); Lymphocyte % 4.8 % (19-41); Mean Corp Hgb Conc 29.4 g/gl (32-36); Mean Corpuscular Hgb 30.2 pg (27.0-32.0); Mean Corpuscular Volume 102.7 fL (80-94); Monocyte# 0.65 X10^3/uL; Monocyte% 5.6 % (0-10); Neutrophil # 10.36 X10^3/uL (2.7-7.7); Neutrophil % 89.3 % (47-70); Platelet Count 219 K/mm3 (150-450); RBC Distribution Width CV 14.5 % (11.6-14.6); RBC Distribution Width SD 54.2 fl (35.1-43.9); Red Blood Count 4.47 M/mm3 (4.6-6.2); White Blood Count 11.6 K/mm3 (4.4-11.0)
[2017-02-15 06:55] LABS: Differential Indicated SCAN CRITERIA MET; POSITIVE COUNT NO; POSITIVE DIFFERENTIAL YES; POSITIVE MORPHOLOGY NO
[2017-02-15] MEDS: Allopurinol 300 MG Tablet PO (08:03)
[2017-02-15] MEDS: Losartan Potassium 100 MG Tablet PO (10:37)
[2017-02-15] MEDS: Enoxaparin 40 MG/0.4 ML Syringe SC (10:37)
[2017-02-15] MEDS: guaiFENesin 600 MG Tablet 1200 MG PO ×2 (10:37→22:00)
[2017-02-15] MEDS: Pantoprazole Sodium 20 MG Tablet PO (10:38)
[2017-02-15] MEDS: Furosemide 20 MG/2 ML VIAL IV (11:57)
--- NOTE | 2017-02-15 15:45 | RAD_ITS ---
STUDY: X-RAY BONE SURVEY COMPLETE REASON FOR EXAM: Male, 51 years old. Small cell lung cancer. TECHNIQUE: One view of the pelvis was obtained. 2 views of the cervical spine were obtained. 2 views of the thoracic spine were obtained. 2 views of the lumbar spine were obtained. 2 views of the femur. 2 views of the humerus. : 2 views of the skull were obtained. COMPARISON: None. FINDINGS: CHEST: The lungs are clear and expanded. There is no demonstrated pleural abnormality. Normal size heart. Normal mediastinum and mary. Normal visualized pulmonary arteries. Normal visualized aortic arch and descending thoracic aorta. Normal visualized thoracic spine. Normal visualized ribs, clavicles, and shoulders. There is no demonstrated abnormality of the visualized soft tissue structures of the upper abdomen. PELVIS: There is a non-specific bowel gas pattern. Normal visualized soft tissue structures. Normal bilateral iliac wings, sacroiliac joints and visualized sacrum. Normal visualized bilateral superior and inferior pubic rami. Normal pubic symphysis. Normal ischial tuberosities. Normal visualized right femoral head. Normal right acetabulum. Normal right hip joint. Normal visualized left femoral head. Normal left acetabulum. Normal left hip joint. CERVICAL SPINE: Normal anterior atlantoaxial articulation. Normal odontoid process. Normal cervical lordosis. There is multi-level endplate spondylosis. There is multi-level degenerative disc disease with multilevel disc space narrowing. Normal visualized intervertebral neuroforamina. The soft tissue structures are unremarkable. THORACIC SPINE: Normal kyphosis of the thoracic spine. There is no substantial scoliosis. Normal thoracic vertebrae and endplates. There is multilevel disc space narrowing of the thoracic spine. The soft tissue structures are unremarkable. LUMBAR SPINE: Normal lumbar lordosis. There is a dextroscoliosis of the lumbar spine. There is a normal alignment of the vertebrae. There is multilevel endplate spondylosis of the lumbar vertebrae. There is multi-level degenerative disc disease with multi-level disc space narrowing. The soft tissue structures are unremarkable. RIGHT FEMUR: Normal visualized femur. Normal visualized soft tissue structure. LEFT FEMUR: Normal visualized femur. Normal visualized soft tissue structure. RIGHT HUMERUS :Normal visualized humerus. There is no demonstrated fracture or osseous destructive process. There is no demonstrated soft tissue abnormality. LEFT HUMERUS:Normal visualized humerus. There is no demonstrated fracture or osseous destructive process. There is no demonstrated soft tissue abnormality. SKULL: There is no demonstrated soft tissue swelling. Normal osseous calvarium. Normal visualized facial bones. Normal visualized paranasal sinuses. RAD/Bone Survey Limited IMPRESSION: No radiographic evidence of metastatic disease. Electronically Signed: Fabricio Lyn MD at 10:48 EST Tel [phone], Service support ,
--- NOTE | 2017-02-15 15:51 | PN_ITS ---
Patient Problems: Active and Suspected Problems (Last Updated 02/13/17 @ 17:53 by Bob Fofana MD) Bone lesion (Acute) SVC obstruction (Acute) Sepsis (Acute) Pneumonia (Acute) SCLC (small cell lung carcinoma) (Acute) Regional lymph node metastasis present (Acute) Subjective: No fevers Remains tired and weak, anorexic Dyspneic, cough no hemoptysis. Cannot lay flat due to increasing dyspnea ( chronic) No midsternal chest pain and right-sided chest pain is better controlled No nausea or vomiting, positive constipation No urinary complaints No skin rash or itch No headache or other focal BRIM BUSTER complaints No no bone pain Objective: General: Alert, Oriented x3, Cooperative, - - Morbidly obese, on oxygen, face is puffy HEENT: Atraumatic, PERRLA, EOMI, Normocephalic, - - Facial puffiness Oropharynx:: Dry mucosa - Coated tongue Neck:: Supple, - - JVD cannot be assessed due to body habitus Cardiac:: Regular rate, Regular rhythm, Normal S1, Normal S2. Negative for: Murmur Lungs: Diminished, Excusion symmetrical Abdomen:: Soft, Non-tender, Non-distended. Extremities:: Edema - Gross nonpitting. Negative for: Cyanosis Neurological: Neuro grossly intact Skin:: Negative for: Lesions, Rash, Petechiae, Ecchymosis Psychiatric:: Anxious, Appropriate affect Lymphatics:: Negative for: Supraclavicular lymphadenopathy, but exam is limited by body habitus - Physical Exam Vital Signs Temp Pulse Resp BP Pulse Ox 97.7 F L 104 H 18 156/96 H 100 02/15/17 11:58 02/15/17 11:58 02/15/17 11:58 02/15/17 11:58 02/15/17 11:58 Oxygen Flow Rate 3.5 Oxygen Delivery Method Room Air Weight: 180.847 kg Body Mass Index (BMI) 54.1 Intake and Output for Last 24 Hours 02/13/17 02/14/17 02/15/17 23:59 23:59 23:59 Intake Total 2290 / 2290 2399 / 2399 1895 / 1895 Balance 2290 / 2290 2399 / 2399 1895 / 1895 Microbiology Past 72 Hours 02/12/17 17:30 Streptococcus pneumoniae Antigen (M - Final Urine, Clean Catch 02/12/17 17:30 Legionella Antigen - Final Urine, Clean Catch Laboratory Tests Past 24 Hrs 02/15/17 02/15/17 05:00 05:00 WBC 11.6 H RBC 4.47 L Hgb 13.5 Hct 45.9 MCV 102.7 H MCH 30.2 MCHC 29.4 L RDW 14.5 RDW Differential 54.2 H Plt Count 219 MPV 12.0 Immature Gran % (Auto) 0.300 Neut % (Auto) 89.3 H Lymph % (Auto) 4.8 L [place] % (Auto) 5.6 Eos % (Auto) 0.0 Baso % (Auto) 0.0 Absolute Neuts (auto) 10.4 H Absolute Lymphs (auto) 0.56 L Total Counted Not Reportable Sodium 138 Potassium 4.3 Chloride 93 L Carbon Dioxide 38.0 H Anion Gap 7 BUN 13 Creatinine 0.60 L Estim Creat Clear Calc 159.87 Est GFR (MDRD) Af Amer 184 Est GFR (MDRD) Non-Af 152 BUN/Creatinine Ratio 21.8 H Glucose 133 H Calcium 8.9 Total Bilirubin 0.60 AST 37 ALT 91 H Alkaline Phosphatase 44 L Total Protein 7.5 Albumin 3.5 Globulin 4.0 Albumin/Globulin Ratio 0.9 Assessment/Plan Active and Suspected Problems (Last Updated 02/13/17 @ 17:53 by Bob Fofana MD) Bone lesion (Acute) SVC obstruction (Acute) Sepsis (Acute) Pneumonia (Acute) SCLC (small cell lung carcinoma) (Acute) Regional lymph node metastasis present (Acute) 51-year-old male smoker with small cell lung cancer presenting with increasing mediastinal adenopathy and impending SVC compression. Patient was scheduled for outpatient staging PET/CT the morning he was admitted which had to be canceled when the patient forgot to remain n.p.o. for the study. He presented with right-sided pleuritic type chest pain with what appears to be a right lower lobe infiltrate, possible pneumonia with sepsis on top of his progressive and aggressive lung cancer. Staging CT scan of the abdomen did not show metastases in the liver or adrenals. Bone scan showed nonspecific abnormalities that with further workup and correlation was plain and CT imaging do not suggest metastatic disease to bone. Based on this information he appears to have a local regional bulky disease with extensive mediastinal and supraclavicular adenopathy making a radiation field at this time extensive and toxic (discussed on courtesy basis with Dr. Epperson) Comorbid conditions include morbid obesity, active smoker, severe COPD with chronic oxygen requiring respiratory failure. Plan: 1. Day 2 of systemic chemotherapy was carboplatin etoposide without delay due to progressive SVC compression and worsening respiratory status. 2. Continue treatment for possible pneumonia and sepsis as per primary service. 3. Patient has a bulky chemotherapy sensitive disease and therefore tumor lysis prophylaxis was started February 13. We will continue with oral and IV fluid hydration with Lasix added as needed to maintain fluid balance 4. Supported with steroids, antiemetics and primary prophylaxis against febrile neutropenia with growth factor support (Neulasta as outpatient on February 19, if patient still hospitalized will use short acting Neupogen daily for 10 days starting then as pair insurance coverage guidelines). Patient was seen with lady friend.
--- NOTE | 2017-02-15 16:31 | PCM.PN.HOSP ---
Patient Problems: Active and Suspected Problems (Last Updated 02/15/17 @ 15:50 by Bob Fofana MD) Bone lesion (Acute) SVC obstruction (Acute) Sepsis (Acute) Pneumonia (Acute) SCLC (small cell lung carcinoma) (Acute) Regional lymph node metastasis present (Acute) Subjective: Heartedly 1 day of chemotherapy and states that he is feeling much better today breathing better overall. Vitals/I&O's: Vital Signs Temp Pulse Resp BP Pulse Ox 36.5 C L 107 H 18 156/96 H 100 02/15/17 11:58 02/15/17 15:09 02/15/17 11:58 02/15/17 11:58 02/15/17 11:58 Oxygen Flow Rate 3.5 Oxygen Delivery Method Room Air Weight: 180.847 kg Body Mass Index (BMI) 54.1 Intake and Output for Last 24 Hours 02/13/17 02/14/17 02/15/17 23:59 23:59 23:59 Intake Total 2290 / 2290 2399 / 2399 1895 / 1895 Balance 2290 / 2290 2399 / 2399 1895 / 1895 General: Alert, Cooperative, No apparent distress HEENT: Atraumatic, Normocephalic Neck: No Nodes, Thyroid Normal Size and Texture Lungs: Normal air movement, - - Coarse upper respiratory breath sounds bilaterally Cardiovascular: Regular rate, Regular Rhythm, Normal S1, Normal S2, No murmurs Abdomen: Bowel Sounds Present, Soft, Non Tender, Non-Distended, Obese Extremities: No Calf Tenderness, Edema Psych/Mental Status: Normal Affect, Appropriate Microbiology Past 72 Hours 02/12/17 17:30 Urine, Clean Catch Streptococcus pneumoniae Antigen (M - Final 02/12/17 17:30 Urine, Clean Catch Legionella Antigen - Final Laboratory Results 02/15/17 05:00: WBC 11.6 H, RBC 4.47 L, Hgb 13.5, Hct 45.9, MCV 102.7 H, MCH 30.2, MCHC 29.4 L, RDW 14.5, RDW Differential 54.2 H, Plt Count 219, MPV 12.0, Immature Gran % (Auto) 0.300, Neut % (Auto) 89.3 H, Lymph % (Auto) 4.8 L, [place] % (Auto) 5.6, Eos % (Auto) 0.0, Baso % (Auto) 0.0, Absolute Neuts (auto) 10.4 H, Absolute Lymphs (auto) 0.56 L, Total Counted Not Reportable 02/15/17 05:00: Sodium 138, Potassium 4.3, Chloride 93 L, Carbon Dioxide 38.0 H, Anion Gap 7, BUN 13, Creatinine 0.60 L, Estim Creat Clear Calc 159.87, Est GFR (MDRD) Af Amer 184, Est GFR (MDRD) Non-Af 152, BUN/Creatinine Ratio 21.8 H, Glucose 133 H, Calcium 8.9, Total Bilirubin 0.60, AST 37, ALT 91 H, Alkaline Phosphatase 44 L, Total Protein 7.5, Albumin 3.5, Globulin 4.0, Albumin/Globulin Ratio 0.9 Current Medications Acetaminophen (Tylenol) 650 mg PO Q6H PRN PRN PRN Reason: Mild Pain (1-3)/Temp > 100.7 F Albuterol Sulfate (Ventolin Aerosols) 2.5 mg INHALATION Q2H PRN PRN PRN Reason: SHORTNESS OF BREATH Albuterol Sulfate (Ventolin Aerosols) 2.5 mg INHALATION Q6HWA.RT [facility] Albuterol/Ipratropium (Duoneb) 3 ml INHALATION Q4H.RT [facility] Last Admin: 02/15/17 15:22 Dose: Not Given Allopurinol (Zyloprim) 300 mg PO DAILYCM [facility] Stop: 02/20/17 08:01 Last Admin: 02/15/17 08:03 Dose: 300 mg Alprazolam (Xanax) 0.5 mg PO BID PRN PRN PRN Reason: ANXIETY Last Admin: 02/14/17 22:27 Dose: 0.5 mg Budesonide (Pulmicort Aerosol) 0.5 mg INHALATION Q12H.RT [facility] Last Admin: 02/15/17 07:05 Dose: Not Given Diphenhydramine HCl (Benadryl) 50 mg IV UD PRN PRN Reason: Hypersensitivity Reaction Enoxaparin Sodium (Lovenox) 40 mg SC DAILY@1000 [facility] Last Admin: 02/15/17 10:37 Dose: 40 mg Epinephrine HCl (Epi Pen) 0.3 mg IM UD PRN PRN Reason: Anaphylaxis Reaction Guaifenesin (Mucinex) 1,200 mg PO BID [facility] Last Admin: 02/15/17 10:37 Dose: 1,200 mg Hydrocortisone Sodium Succinate (Solu-Cortef) 100 mg IV UD PRN PRN Reason: Hypersensitivity Reaction Levofloxacin (Levaquin) 750 mg in 150 mls @ 100 mls/hr IV Q24 [facility] Last Admin: 02/15/17 10:43 Dose: 100 mls/hr Sodium Chloride () 1,000 mls @ 100 mls/hr IV .Q10H [facility] Stop: 02/17/17 06:00 Last Admin: 02/15/17 04:20 Dose: 100 mls/hr Ipratropium [place] (Atrovent) 0.5 mg INHALATION Q6HWA.RT [facility] Losartan Potassium (Cozaar) 100 mg PO DAILY [facility] Last Admin: 02/15/17 10:37 Dose: 100 mg Magnesium Hydroxide (Milk Of Magnesia) 30 ml PO DAILY PRN PRN Reason: Constipation Ondansetron HCl (Zofran) 4 mg IV Q8H PRN PRN PRN Reason: NAUSEA Pantoprazole Sodium (Protonix) 20 mg PO DAILY [facility] Last Admin: 02/15/17 10:38 Dose: 20 mg Prednisone (Prednisone) 60 mg PO DAILY@0800 [facility] Last Admin: 02/15/17 08:03 Dose: 60 mg Sodium Chloride () 5 - 30 ml IV UD PRN PRN Reason: SALINE FLUSH Last Admin: 02/15/17 05:25 Dose: 10 ml Assessment/Plan Active and Suspected Problems (Last Updated 02/15/17 @ 15:50 by Bob Fofana MD) Bone lesion (Acute) SVC obstruction (Acute) Sepsis (Acute) Pneumonia (Acute) SCLC (small cell lung carcinoma) (Acute) Regional lymph node metastasis present (Acute) 1. sepsis POA 2/2 pneumonia 2. pneumonia, presumed Pneumococcal lvq BDs Legionella and strep antigens negative Sputum culture ordered, not obtained yet. Could be a post obstructive process or even malignancy itself causing pneumonia. 3. SCLC d/w oncology CT of the abdomen pelvis showed no acute process. Bone scan showing increased concentration in the left posterior eighth and ninth ribs, left glenoid, right posterior sacrum may be related with metastatic disease. 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 So in light of the pneumonia feel that the benefits of chemotherapy outweigh the risk of immunosuppression at this time so patient will have chemotherapy today. This is discussed with oncology yesterday. The patient will be monitored in the hospital to assess for progression. Patient on day 2 of systemic chemotherapy. On IV fluids and allopurinol to help prevent tumor lysis syndrome. 4. DVT proph: LMWH. Code Visit Inpatient E&M: 05038 Subs Hosp L2
--- NOTE | 2017-02-15 16:34 | PN_ITS ---
Patient Problems: Active and Suspected Problems (Last Updated 02/15/17 @ 15:50 by Bob Fofana MD) Bone lesion (Acute) SVC obstruction (Acute) Sepsis (Acute) Pneumonia (Acute) SCLC (small cell lung carcinoma) (Acute) Regional lymph node metastasis present (Acute) Subjective: Heartedly 1 day of chemotherapy and states that he is feeling much better today breathing better overall. Vitals/I&O's: Vital Signs Temp Pulse Resp BP Pulse Ox 36.5 C L 107 H 18 156/96 H 100 02/15/17 11:58 02/15/17 15:09 02/15/17 11:58 02/15/17 11:58 02/15/17 11:58 Oxygen Flow Rate 3.5 Oxygen Delivery Method Room Air Weight: 180.847 kg Body Mass Index (BMI) 54.1 Intake and Output for Last 24 Hours 02/13/17 02/14/17 02/15/17 23:59 23:59 23:59 Intake Total 2290 / 2290 2399 / 2399 1895 / 1895 Balance 2290 / 2290 2399 / 2399 1895 / 1895 General: Alert, Cooperative, No apparent distress HEENT: Atraumatic, Normocephalic Neck: No Nodes, Thyroid Normal Size and Texture Lungs: Normal air movement, - - Coarse upper respiratory breath sounds bilaterally Cardiovascular: Regular rate, Regular Rhythm, Normal S1, Normal S2, No murmurs Abdomen: Bowel Sounds Present, Soft, Non Tender, Non-Distended, Obese Extremities: No Calf Tenderness, Edema Psych/Mental Status: Normal Affect, Appropriate Microbiology Past 72 Hours 02/12/17 17:30 Urine, Clean Catch Streptococcus pneumoniae Antigen (M - Final 02/12/17 17:30 Urine, Clean Catch Legionella Antigen - Final Laboratory Results 02/15/17 05:00: WBC 11.6 H, RBC 4.47 L, Hgb 13.5, Hct 45.9, MCV 102.7 H, MCH 30.2, MCHC 29.4 L, RDW 14.5, RDW Differential 54.2 H, Plt Count 219, MPV 12.0, Immature Gran % (Auto) 0.300, Neut % (Auto) 89.3 H, Lymph % (Auto) 4.8 L, [place] % (Auto) 5.6, Eos % (Auto) 0.0, Baso % (Auto) 0.0, Absolute Neuts (auto) 10.4 H , Absolute Lymphs (auto) 0.56 L, Total Counted Not Reportable 02/15/17 05:00: Sodium 138, Potassium 4.3, Chloride 93 L, Carbon Dioxide 38.0 H , Anion Gap 7, BUN 13, Creatinine 0.60 L, Estim Creat Clear Calc 159.87, Est GFR (MDRD) Af Amer 184, Est GFR (MDRD) Non-Af 152, BUN/Creatinine Ratio 21.8 H, Glucose 133 H, Calcium 8.9, Total Bilirubin 0.60, AST 37, ALT 91 H, Alkaline Phosphatase 44 L, Total Protein 7.5, Albumin 3.5, Globulin 4.0, Albumin/ Globulin Ratio 0.9 Current Medications Acetaminophen (Tylenol) 650 mg PO Q6H PRN PRN PRN Reason: Mild Pain (1-3)/Temp > 100.7 F Albuterol Sulfate (Ventolin Aerosols) 2.5 mg INHALATION Q2H PRN PRN PRN Reason: SHORTNESS OF BREATH Albuterol Sulfate (Ventolin Aerosols) 2.5 mg INHALATION Q6HWA.RT [facility] Albuterol/Ipratropium (Duoneb) 3 ml INHALATION Q4H.RT [facility] Last Admin: 02/15/17 15:22 Dose: Not Given Allopurinol (Zyloprim) 300 mg PO DAILYCM [facility] Stop: 02/20/17 08:01 Last Admin: 02/15/17 08:03 Dose: 300 mg Alprazolam (Xanax) 0.5 mg PO BID PRN PRN PRN Reason: ANXIETY Last Admin: 02/14/17 22:27 Dose: 0.5 mg Budesonide (Pulmicort Aerosol) 0.5 mg INHALATION Q12H.RT [facility] Last Admin: 02/15/17 07:05 Dose: Not Given Diphenhydramine HCl (Benadryl) 50 mg IV UD PRN PRN Reason: Hypersensitivity Reaction Enoxaparin Sodium (Lovenox) 40 mg SC DAILY@1000 [facility] Last Admin: 02/15/17 10:37 Dose: 40 mg Epinephrine HCl (Epi Pen) 0.3 mg IM UD PRN PRN Reason: Anaphylaxis Reaction Guaifenesin (Mucinex) 1,200 mg PO BID [facility] Last Admin: 02/15/17 10:37 Dose: 1,200 mg Hydrocortisone Sodium Succinate (Solu-Cortef) 100 mg IV UD PRN PRN Reason: Hypersensitivity Reaction Levofloxacin (Levaquin) 750 mg in 150 mls @ 100 mls/hr IV Q24 [facility] Last Admin: 02/15/17 10:43 Dose: 100 mls/hr Sodium Chloride () 1,000 mls @ 100 mls/hr IV .Q10H [facility] Stop: 02/17/17 06:00 Last Admin: 02/15/17 04:20 Dose: 100 mls/hr Ipratropium [place] (Atrovent) 0.5 mg INHALATION Q6HWA.RT [facility] Losartan Potassium (Cozaar) 100 mg PO DAILY [facility] Last Admin: 02/15/17 10:37 Dose: 100 mg Magnesium Hydroxide (Milk Of Magnesia) 30 ml PO DAILY PRN PRN Reason: Constipation Ondansetron HCl (Zofran) 4 mg IV Q8H PRN PRN PRN Reason: NAUSEA Pantoprazole Sodium (Protonix) 20 mg PO DAILY [facility] Last Admin: 02/15/17 10:38 Dose: 20 mg Prednisone (Prednisone) 60 mg PO DAILY@0800 [facility] Last Admin: 02/15/17 08:03 Dose: 60 mg Sodium Chloride () 5 - 30 ml IV UD PRN PRN Reason: SALINE FLUSH Last Admin: 02/15/17 05:25 Dose: 10 ml Assessment/Plan Active and Suspected Problems (Last Updated 02/15/17 @ 15:50 by Bob Fofana MD) Bone lesion (Acute) SVC obstruction (Acute) Sepsis (Acute) Pneumonia (Acute) SCLC (small cell lung carcinoma) (Acute) Regional lymph node metastasis present (Acute) 1. sepsis POA 2/2 pneumonia 2. pneumonia, presumed Pneumococcal lvq BDs Legionella and strep antigens negative Sputum culture ordered, not obtained yet. Could be a post obstructive process or even malignancy itself causing pneumonia. 3. SCLC d/w oncology CT of the abdomen pelvis showed no acute process. Bone scan showing increased concentration in the left posterior eighth and ninth ribs, left glenoid, right posterior sacrum may be related with metastatic disease. 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 So in light of the pneumonia feel that the benefits of chemotherapy outweigh the risk of immunosuppression at this time so patient will have chemotherapy today. This is discussed with oncology yesterday. The patient will be monitored in the hospital to assess for progression. Patient on day 2 of systemic chemotherapy. On IV fluids and allopurinol to help prevent tumor lysis syndrome. 4. DVT proph: LMWH. Code Visit Inpatient E&M: 10728 Subs Hosp L2
[2017-02-15] MEDS: Ipratropium/Albuterol Sulfate 3 ML AMPUL.NEB INHALATION ×3 (16:48→22:19)
--- NOTE | 2017-02-15 18:39 | NURSING ---
REVIEWED AND AGREED WEmmy LEBLANC'S CHARTING.
[2017-02-15] MEDS: Budesonide Respules 0.5 MG/2 ML AMPUL.NEB. INHALATION (19:14)
--- NOTE | 2017-02-15 22:28 | CPS ---
Pt stated he does PEP on own
[2017-02-16] VITALS (22 sets, daily range): BP systolic 115–158; BP diastolic 65–100; PULSE 98–115; RESP 16–24; TEMP 36.3–36.9; O2SAT 3–95
[2017-02-16] MEDS: 0.9% Normal Saline 1,000 ML 100 ML IV ×2 (04:27→14:45)
[2017-02-16 05:46] LABS: Anion Gap 4 (5-15); BUN 17 mg/dL (7-18); BUN/Creat Ratio 31.1 RATIO (10-20); Calcium,Total 8.6 mg/dL (8.5-10.1); Chloride 94 mmol/L (98-107); Creatinine, Serum 0.55 mg/dL (0.70-1.30); EST Glomerular Filtration Rate 168 mL/min (>60); Est Glom Filt Rate - Afr Amer 203 mL/min (>60); Glucose 124 mg/dL (70-110); Potassium 4.5 mmol/L (3.5-5.1); Sodium Level 136 mmol/L (136-145)
[2017-02-16] MEDS: Ipratropium/Albuterol Sulfate 3 ML AMPUL.NEB INHALATION ×5 (07:10→23:00)
[2017-02-16] MEDS: Budesonide Respules 0.5 MG/2 ML AMPUL.NEB. INHALATION ×2 (07:10→19:55)
[2017-02-16 07:20] LABS: Absolute Neutrophil Count 11.3 X10^3/uL (2.0-7.7); Eosinophil# 0.01 X10^3/uL; Eosinophils% 0.1 % (0-5); Hematocrit 45.3 % (40-54); Hemoglobin 13.3 g/dl (13.0-16.5); Lymphocyte % 5.2 % (19-41); Mean Corp Hgb Conc 29.4 g/gl (32-36); Mean Corpuscular Hgb 30.1 pg (27.0-32.0); Mean Corpuscular Volume 102.5 fL (80-94); Mean Platelet Vol. 11.5 fl (6.2-12.0); Monocyte# 1.35 X10^3/uL; Monocyte% 10.1 % (0-10); Neutrophil # 11.25 X10^3/uL (2.7-7.7); Neutrophil % 84.4 % (47-70); Platelet Count 194 K/mm3 (150-450); RBC Distribution Width CV 14.4 % (11.6-14.6); RBC Distribution Width SD 54.2 fl (35.1-43.9); Red Blood Count 4.42 M/mm3 (4.6-6.2); White Blood Count 13.3 K/mm3 (4.4-11.0)
[2017-02-16 07:32] LABS: POSITIVE COUNT NO; POSITIVE DIFFERENTIAL NO; POSITIVE MORPHOLOGY NO
--- NOTE | 2017-02-16 09:03 | PCM.PN.HOSP ---
Patient Problems: Active and Suspected Problems (Last Updated 02/15/17 @ 15:50 by Bob Fofana MD) Sepsis (Acute) Pneumonia (Acute) Subjective: Feels tired today. Short of breath. Feels worse when he did yesterday when I had seen him. Coughing up some clear phlegm. Vitals/I&O's: Vital Signs Temp Pulse Resp BP Pulse Ox 36.6 C 102 H 20 H 143/78 H 95 02/16/17 04:52 02/16/17 07:15 02/16/17 07:15 02/16/17 04:52 02/16/17 07:47 Oxygen Flow Rate 4 Oxygen Delivery Method Nasal Cannula Weight: 182.3 kg Body Mass Index (BMI) 54.1 Intake and Output for Last 24 Hours 02/14/17 02/15/17 02/16/17 23:59 23:59 23:59 Intake Total 2399 / 2399 3622 / 3622 1379 / 1379 Balance 2399 / 2399 3622 / 3622 1379 / 1379 General: Alert, Cooperative, No apparent distress, - - Listless. Afebrile. HEENT: Atraumatic, Normocephalic Neck: No Nodes, Thyroid Normal Size and Texture Lungs: Diminished, - - Course of her respiratory breath sounds radiate to her lung aguilar. Cardiovascular: Regular rate, Regular Rhythm, Normal S1, Normal S2 Abdomen: Bowel Sounds Present, Soft, Non Tender, Distended, Obese Extremities: No Calf Tenderness, Edema Skin: No rashes, No breakdown Psych/Mental Status: Normal Affect, Appropriate Laboratory Results 02/16/17 05:15: WBC Cancelled, Corrected WBC Cancelled, RBC Cancelled, Hgb Cancelled, Hct Cancelled, MCV Cancelled, MCH Cancelled, MCHC Cancelled, RDW Cancelled, RDW Differential Cancelled, Plt Count Cancelled, MPV Cancelled, Immature Gran % (Auto) Cancelled, Neut % (Auto) Cancelled, Lymph % (Auto) Cancelled, [place] % (Auto) Cancelled, Eos % (Auto) Cancelled, Baso % (Auto) Cancelled, Immature Gran # (Auto) Cancelled, Absolute Neuts (auto) Cancelled, Absolute Lymphs (auto) Cancelled, Absolute Monos (auto) Cancelled, Total Counted Cancelled, Neutrophils % (Manual) Cancelled, Band Neutrophils % Cancelled, Lymphocytes % (Manual) Cancelled, Monocytes % (Manual) Cancelled, Eosinophils % (Manual) Cancelled, Basophils % (Manual) Cancelled, Metamyelocytes % Cancelled, Myelocytes % Cancelled, Promyelocytes % Cancelled, Blast Cells % Cancelled, Plasma Cell % (Manual) Cancelled, Other Cells % Cancelled, Lymphocytes # Cancelled, Nucleated RBCs/100 WBC Cancelled, Differential Comment Cancelled, Diff Path Review Cancelled, Hypersegmented Neuts Cancelled, Atypical Lymphocytes Cancelled, Reactive Lymphocytes Cancelled, Smudge Cells Cancelled, Eosinophilia # Cancelled, Basophilia # Cancelled, Toxic Granulation Cancelled, Dohle Bodies Cancelled, Donato Rods Cancelled, Platelet Estimate Cancelled, Plt Morphology Comment Cancelled, RBC Morphology Cancelled, Polychromasia Cancelled, Hypochromasia Cancelled, Poikilocytosis Cancelled, Basophilic Stippling Cancelled, Anisocytosis Cancelled, Microcytosis Cancelled, Macrocytosis Cancelled, Spherocytes Cancelled, Sickle Cells Cancelled, Target Cells Cancelled, Tear Drop Cells Cancelled, Ovalocytes Cancelled, Stomatocytes Cancelled, [place] Bodies Cancelled, Cristina Cells Cancelled, Bite Cells Cancelled, Acanthocytes (Spur) Cancelled, Rouleaux Cancelled, Schistocytes Cancelled 02/16/17 05:15: Sodium 136, Potassium 4.5, Chloride 94 L, Carbon Dioxide 38.0 H, Anion Gap 4 L, BUN 17, Creatinine 0.55 L, Estim Creat Clear Calc 174.40, Est GFR (MDRD) Af Amer 203, Est GFR (MDRD) Non-Af 168, BUN/Creatinine Ratio 31.1 H, Glucose 124 H, Calcium 8.6 02/16/17 07:05: WBC 13.3 H, RBC 4.42 L, Hgb 13.3, Hct 45.3, MCV 102.5 H, MCH 30.1, MCHC 29.4 L, RDW 14.4, RDW Differential 54.2 H, Plt Count 194, MPV 11.5, Immature Gran % (Auto) 0.200, Neut % (Auto) 84.4 H, Lymph % (Auto) 5.2 L, [place] % (Auto) 10.1 H, Eos % (Auto) 0.1, Baso % (Auto) 0.0, Absolute Neuts (auto) 11.3 H, Absolute Lymphs (auto) 0.70 L, Total Counted Not Reportable Current Medications Acetaminophen (Tylenol) 650 mg PO Q6H PRN PRN PRN Reason: Mild Pain (1-3)/Temp > 100.7 F Albuterol Sulfate (Ventolin Aerosols) 2.5 mg INHALATION Q2H PRN PRN PRN Reason: SHORTNESS OF BREATH Albuterol Sulfate (Ventolin Aerosols) 2.5 mg INHALATION Q6HWA.RT [facility] Albuterol/Ipratropium (Duoneb) 3 ml INHALATION Q4H.RT [facility] Last Admin: 02/16/17 07:10 Dose: 3 ml Allopurinol (Zyloprim) 300 mg PO DAILYCM [facility] Stop: 02/20/17 08:01 Last Admin: 02/15/17 08:03 Dose: 300 mg Alprazolam (Xanax) 0.5 mg PO BID PRN PRN PRN Reason: ANXIETY Last Admin: 02/14/17 22:27 Dose: 0.5 mg Budesonide (Pulmicort Aerosol) 0.5 mg INHALATION Q12H.RT [facility] Last Admin: 02/16/17 07:10 Dose: 0.5 mg Diphenhydramine HCl (Benadryl) 50 mg IV UD PRN PRN Reason: Hypersensitivity Reaction Enoxaparin Sodium (Lovenox) 40 mg SC DAILY@1000 [facility] Last Admin: 02/15/17 10:37 Dose: 40 mg Epinephrine HCl (Epi Pen) 0.3 mg IM UD PRN PRN Reason: Anaphylaxis Reaction Guaifenesin (Mucinex) 1,200 mg PO BID [facility] Last Admin: 02/15/17 22:00 Dose: 1,200 mg Hydrocortisone Sodium Succinate (Solu-Cortef) 100 mg IV UD PRN PRN Reason: Hypersensitivity Reaction Levofloxacin (Levaquin) 750 mg in 150 mls @ 100 mls/hr IV Q24 [facility] Last Admin: 02/15/17 10:43 Dose: 100 mls/hr Sodium Chloride () 1,000 mls @ 100 mls/hr IV .Q10H [facility] Stop: 02/17/17 06:00 Last Admin: 02/16/17 04:27 Dose: 100 mls/hr Dexamethasone Sodium Phosphate (20 mg/ Sodium Chloride) 55 mls @ 220 mls/hr IV X1 ONE PRN Reason: 220 MLS/HR Stop: 02/16/17 11:44 Ipratropium [place] (Atrovent) 0.5 mg INHALATION Q6HWA.RT [facility] Losartan Potassium (Cozaar) 100 mg PO DAILY [facility] Last Admin: 02/15/17 10:37 Dose: 100 mg Magnesium Hydroxide (Milk Of Magnesia) 30 ml PO DAILY PRN PRN Reason: Constipation Ondansetron HCl (Zofran) 4 mg IV Q8H PRN PRN PRN Reason: NAUSEA Pantoprazole Sodium (Protonix) 20 mg PO DAILY [facility] Last Admin: 02/15/17 10:38 Dose: 20 mg Prednisone (Prednisone) 60 mg PO DAILY@0800 [facility] Last Admin: 02/15/17 08:03 Dose: 60 mg Sodium Chloride () 5 - 30 ml IV UD PRN PRN Reason: SALINE FLUSH Last Admin: 02/15/17 05:25 Dose: 10 ml Assessment/Plan Active and Suspected Problems (Last Updated 02/15/17 @ 15:50 by Bob Fofana MD) Sepsis (Acute) Pneumonia (Acute) 1. sepsis POA 2/2 pneumonia 2. pneumonia, presumed Pneumococcal lvq BDs Legionella and strep antigens negative Sputum culture ordered, not obtained yet. Could be a post obstructive process or even malignancy itself causing pneumonia. 3. SCLC d/w oncology CT of the abdomen pelvis showed no acute process. Bone scan showing increased concentration in the left posterior eighth and ninth ribs, left glenoid, right posterior sacrum may be related with metastatic disease. 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 So in light of the pneumonia feel that the benefits of chemotherapy outweigh the risk of immunosuppression at this time so patient will have chemotherapy today. This is DrSom discussed with oncology yesterday. The patient will be monitored in the hospital to assess for progression. Patient on day 2 of systemic chemotherapy. On IV fluids and allopurinol to help prevent tumor lysis syndrome. 4. Edema Patient has been on for 2 kg since his admission. Patient's seems to think that he is put on 30 pounds but I would not dispute that. Patient is chronically more edematous than he had been. Will initiate IV Lasix. Check an echocardiogram. 5. DVT proph: LMWH. Discussed with the patient's at bedside. Code Visit Inpatient E&M: 70997 Subs Hosp L2
--- NOTE | 2017-02-16 09:06 | PN_ITS ---
Patient Problems: Active and Suspected Problems (Last Updated 02/15/17 @ 15:50 by Bob Fofana MD) Sepsis (Acute) Pneumonia (Acute) Subjective: Feels tired today. Short of breath. Feels worse when he did yesterday when I had seen him. Coughing up some clear phlegm. Vitals/I&O's: Vital Signs Temp Pulse Resp BP Pulse Ox 36.6 C 102 H 20 H 143/78 H 95 02/16/17 04:52 02/16/17 07:15 02/16/17 07:15 02/16/17 04:52 02/16/17 07:47 Oxygen Flow Rate 4 Oxygen Delivery Method Nasal Cannula Weight: 182.3 kg Body Mass Index (BMI) 54.1 Intake and Output for Last 24 Hours 02/14/17 02/15/17 02/16/17 23:59 23:59 23:59 Intake Total 2399 / 2399 3622 / 3622 1379 / 1379 Balance 2399 / 2399 3622 / 3622 1379 / 1379 General: Alert, Cooperative, No apparent distress, - - Listless. Afebrile. HEENT: Atraumatic, Normocephalic Neck: No Nodes, Thyroid Normal Size and Texture Lungs: Diminished, - - Course of her respiratory breath sounds radiate to her lung aguilar. Cardiovascular: Regular rate, Regular Rhythm, Normal S1, Normal S2 Abdomen: Bowel Sounds Present, Soft, Non Tender, Distended, Obese Extremities: No Calf Tenderness, Edema Skin: No rashes, No breakdown Psych/Mental Status: Normal Affect, Appropriate Laboratory Results 02/16/17 05:15: WBC Cancelled, Corrected WBC Cancelled, RBC Cancelled, Hgb Cancelled, Hct Cancelled, MCV Cancelled, MCH Cancelled, MCHC Cancelled, RDW Cancelled, RDW Differential Cancelled, Plt Count Cancelled, MPV Cancelled, Immature Gran % (Auto) Cancelled, Neut % (Auto) Cancelled, Lymph % (Auto) Cancelled, [place] % (Auto) Cancelled, Eos % (Auto) Cancelled, Baso % (Auto) Cancelled, Immature Gran # (Auto) Cancelled, Absolute Neuts (auto) Cancelled, Absolute Lymphs (auto) Cancelled, Absolute Monos (auto) Cancelled, Total Counted Cancelled, Neutrophils % (Manual) Cancelled, Band Neutrophils % Cancelled, Lymphocytes % (Manual) Cancelled, Monocytes % (Manual) Cancelled, Eosinophils % (Manual) Cancelled, Basophils % (Manual) Cancelled, Metamyelocytes % Cancelled, Myelocytes % Cancelled, Promyelocytes % Cancelled, Blast Cells % Cancelled, Plasma Cell % (Manual) Cancelled, Other Cells % Cancelled, Lymphocytes # Cancelled, Nucleated RBCs/100 WBC Cancelled, Differential Comment Cancelled, Diff Path Review Cancelled, Hypersegmented Neuts Cancelled, Atypical Lymphocytes Cancelled, Reactive Lymphocytes Cancelled , Smudge Cells Cancelled, Eosinophilia # Cancelled, Basophilia # Cancelled, Toxic Granulation Cancelled, Dohle Bodies Cancelled, Donato Rods Cancelled, Platelet Estimate Cancelled, Plt Morphology Comment Cancelled, RBC Morphology Cancelled, Polychromasia Cancelled, Hypochromasia Cancelled, Poikilocytosis Cancelled, Basophilic Stippling Cancelled, Anisocytosis Cancelled, Microcytosis Cancelled, Macrocytosis Cancelled, Spherocytes Cancelled, Sickle Cells Cancelled , Target Cells Cancelled, Tear Drop Cells Cancelled, Ovalocytes Cancelled, Stomatocytes Cancelled, [place] Bodies Cancelled, [place] Cells Cancelled, Bite Cells Cancelled, Acanthocytes (Spur) Cancelled, Rouleaux Cancelled, Schistocytes Cancelled 02/16/17 05:15: Sodium 136, Potassium 4.5, Chloride 94 L, Carbon Dioxide 38.0 H , Anion Gap 4 L, BUN 17, Creatinine 0.55 L, Estim Creat Clear Calc 174.40, Est GFR (MDRD) Af Amer 203, Est GFR (MDRD) Non-Af 168, BUN/Creatinine Ratio 31.1 H, Glucose 124 H, Calcium 8.6 02/16/17 07:05: WBC 13.3 H, RBC 4.42 L, Hgb 13.3, Hct 45.3, MCV 102.5 H, MCH 30.1, MCHC 29.4 L, RDW 14.4, RDW Differential 54.2 H, Plt Count 194, MPV 11.5, Immature Gran % (Auto) 0.200, Neut % (Auto) 84.4 H, Lymph % (Auto) 5.2 L, [place] % (Auto) 10.1 H, Eos % (Auto) 0.1, Baso % (Auto) 0.0, Absolute Neuts (auto) 11.3 H, Absolute Lymphs (auto) 0.70 L, Total Counted Not Reportable Current Medications Acetaminophen (Tylenol) 650 mg PO Q6H PRN PRN PRN Reason: Mild Pain (1-3)/Temp > 100.7 F Albuterol Sulfate (Ventolin Aerosols) 2.5 mg INHALATION Q2H PRN PRN PRN Reason: SHORTNESS OF BREATH Albuterol Sulfate (Ventolin Aerosols) 2.5 mg INHALATION Q6HWA.RT [facility] Albuterol/Ipratropium (Duoneb) 3 ml INHALATION Q4H.RT [facility] Last Admin: 02/16/17 07:10 Dose: 3 ml Allopurinol (Zyloprim) 300 mg PO DAILYCM [facility] Stop: 02/20/17 08:01 Last Admin: 02/15/17 08:03 Dose: 300 mg Alprazolam (Xanax) 0.5 mg PO BID PRN PRN PRN Reason: ANXIETY Last Admin: 02/14/17 22:27 Dose: 0.5 mg Budesonide (Pulmicort Aerosol) 0.5 mg INHALATION Q12H.RT [facility] Last Admin: 02/16/17 07:10 Dose: 0.5 mg Diphenhydramine HCl (Benadryl) 50 mg IV UD PRN PRN Reason: Hypersensitivity Reaction Enoxaparin Sodium (Lovenox) 40 mg SC DAILY@1000 [facility] Last Admin: 02/15/17 10:37 Dose: 40 mg Epinephrine HCl (Epi Pen) 0.3 mg IM UD PRN PRN Reason: Anaphylaxis Reaction Guaifenesin (Mucinex) 1,200 mg PO BID [facility] Last Admin: 02/15/17 22:00 Dose: 1,200 mg Hydrocortisone Sodium Succinate (Solu-Cortef) 100 mg IV UD PRN PRN Reason: Hypersensitivity Reaction Levofloxacin (Levaquin) 750 mg in 150 mls @ 100 mls/hr IV Q24 [facility] Last Admin: 02/15/17 10:43 Dose: 100 mls/hr Sodium Chloride () 1,000 mls @ 100 mls/hr IV .Q10H [facility] Stop: 02/17/17 06:00 Last Admin: 02/16/17 04:27 Dose: 100 mls/hr Dexamethasone Sodium Phosphate (20 mg/ Sodium Chloride) 55 mls @ 220 mls/hr IV X1 ONE PRN Reason: 220 MLS/HR Stop: 02/16/17 11:44 Ipratropium [place] (Atrovent) 0.5 mg INHALATION Q6HWA.RT JULIANNE Losartan Potassium (Cozaar) 100 mg PO DAILY [facility] Last Admin: 02/15/17 10:37 Dose: 100 mg Magnesium Hydroxide (Milk Of Magnesia) 30 ml PO DAILY PRN PRN Reason: Constipation Ondansetron HCl (Zofran) 4 mg IV Q8H PRN PRN PRN Reason: NAUSEA Pantoprazole Sodium (Protonix) 20 mg PO DAILY [facility] Last Admin: 02/15/17 10:38 Dose: 20 mg Prednisone (Prednisone) 60 mg PO DAILY@0800 [facility] Last Admin: 02/15/17 08:03 Dose: 60 mg Sodium Chloride () 5 - 30 ml IV UD PRN PRN Reason: SALINE FLUSH Last Admin: 02/15/17 05:25 Dose: 10 ml Assessment/Plan Active and Suspected Problems (Last Updated 02/15/17 @ 15:50 by Bob Fofana MD) Sepsis (Acute) Pneumonia (Acute) 1. sepsis POA 2/2 pneumonia 2. pneumonia, presumed Pneumococcal lvq BDs Legionella and strep antigens negative Sputum culture ordered, not obtained yet. Could be a post obstructive process or even malignancy itself causing pneumonia. 3. SCLC d/w oncology CT of the abdomen pelvis showed no acute process. Bone scan showing increased concentration in the left posterior eighth and ninth ribs, left glenoid, right posterior sacrum may be related with metastatic disease. 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 So in light of the pneumonia feel that the benefits of chemotherapy outweigh the risk of immunosuppression at this time so patient will have chemotherapy today. This is DrSom discussed with oncology yesterday. The patient will be monitored in the hospital to assess for progression. Patient on day 2 of systemic chemotherapy. On IV fluids and allopurinol to help prevent tumor lysis syndrome. 4. Edema Patient has been on for 2 kg since his admission. Patient's seems to think that he is put on 30 pounds but I would not dispute that. Patient is chronically more edematous than he had been. Will initiate IV Lasix. Check an echocardiogram. 5. DVT proph: LMWH. Discussed with the patient's at bedside. Code Visit Inpatient E&M: 44386 Subs Hosp L2
[2017-02-16] MEDS: Allopurinol 300 MG Tablet PO (09:25)
--- NOTE | 2017-02-16 10:27 | ONC.PN.ESTAB ---
- Date of Service Date of Service:: 02/16/17 - Chief Complaint f/u for SCLC therapy. - History of Present Illness Patient is a 51-year-old male with newly diagnosed small cell lung cancer admitted because of right sided pleuritic type chest pain and increasing dyspnea. His medical history is notable for being a smoker, COPD, oxygen dependent chronic respiratory failure, morbid obesity. He presented end of December 2016 was acute on chronic respiratory failure and at that time a large right hilar mediastinal mass was seen. After stabilization he underwent an EPS on January 2019 with FNA at lymph node stations 4L and 7 both of which revealed metastatic small cell lung cancer. Patient was first seen by me on February 07 and scheduled for a staging PET/CT on the morning of February 12. That morning patient presented to the outpatient facility for his scheduled PET/CT however he had forgotten his instructions to be n.p.o. and the study had to be rescheduled and incidentally complained of increasing dyspnea and right sided pleuritic type chest pain which prompted sending him to the ER and admitted with a suspected right lower lobe pneumonia and sepsis. He started chemotherapy with Carboplatin and Etoposide on 02/14/2017, due for C1D3 Etoposide today. - Past Medical/Social History Social History Smoking Status Former smoker Review of Systems Constitutional:: Reports: Fatigue. Denies: Fever, Sweats Cardiovascular:: Denies: Chest pain, Palpitations, Dyspnea on exertion, Orthopnea, PND, Shortness of breath Respiratory: Denies: Cough, Hemoptysis, Shortness of Breath, Wheezing Gastrointestinal:: Denies: Abdominal pain, Nausea, Vomiting, Diarrhea, Constipation, Hematochezia Genitourinary: Denies: Dysuria, Hematuria, 15, Flank pain Vital Signs Height 6 ft Weight: 182.3 kg Weight in Pounds 401.9 lbs Pulse Ox 95 Temperature 97.8 F Pulse Rate 102 Respiratory Rate 20 Blood Pressure 143/78 Blood Pressure Position Semi-Fowlers - Physical Exam General: Alert, Oriented x3, No apparent distress, - - Obese. HEENT: Atraumatic, PERRLA, EOMI, Normocephalic Neck:: Supple, Trachea midline. Negative for: JVD, bilateral Cardiac:: Regular rate, Regular rhythm, Normal S1, Normal S2. Negative for: Murmur Lungs: Clear to auscultation, Excusion symmetrical. Negative for: Rhonchi, Wheezes Lymphatics:: Supraclavicular lymphadenopathy - Right supraclavicular Laboratory Data: Laboratory Tests 02/16/17 02/16/17 02/16/17 Range/Units 07:05 05:15 05:15 WBC 13.3 H Cancelled Corrected WBC Cancelled RBC 4.42 L Cancelled Hgb 13.3 Cancelled Hct 45.3 Cancelled MCV 102.5 H Cancelled MCH 30.1 Cancelled MCHC 29.4 L Cancelled RDW 14.4 Cancelled RDW Differential 54.2 H Cancelled Plt Count 194 Cancelled MPV 11.5 Cancelled Immature Gran % (Auto) 0.200 Cancelled Neut % (Auto) 84.4 H Cancelled Lymph % (Auto) 5.2 L Cancelled [place] % (Auto) 10.1 H Cancelled Eos % (Auto) 0.1 Cancelled Baso % (Auto) 0.0 Cancelled Immature Gran # (Auto) Cancelled Absolute Neuts (auto) 11.3 H Cancelled Absolute Lymphs (auto) 0.70 L Cancelled Absolute Monos (auto) Cancelled Total Counted Not Reportable Cancelled Neutrophils % (Manual) Cancelled Band Neutrophils % Cancelled Lymphocytes % (Manual) Cancelled Monocytes % (Manual) Cancelled Eosinophils % (Manual) Cancelled Basophils % (Manual) Cancelled Metamyelocytes % Cancelled Myelocytes % Cancelled Promyelocytes % Cancelled Blast Cells % Cancelled Plasma Cell % (Manual) Cancelled Other Cells % Cancelled Lymphocytes # Cancelled Nucleated RBCs/100 WBC Cancelled Differential Comment Cancelled Diff Path Review Cancelled Hypersegmented Neuts Cancelled Atypical Lymphocytes Cancelled Reactive Lymphocytes Cancelled Smudge Cells Cancelled Eosinophilia # Cancelled Basophilia # Cancelled Toxic Granulation Cancelled Dohle Bodies Cancelled [place] Rods Cancelled Platelet Estimate Cancelled Plt Morphology Comment Cancelled RBC Morphology Cancelled Polychromasia Cancelled Hypochromasia Cancelled Poikilocytosis Cancelled Basophilic Stippling Cancelled Anisocytosis Cancelled Microcytosis Cancelled Macrocytosis Cancelled Spherocytes Cancelled Sickle Cells Cancelled Target Cells Cancelled Tear Drop Cells Cancelled Ovalocytes Cancelled Stomatocytes Cancelled [place] Bodies Cancelled [place] Cells Cancelled Bite Cells Cancelled Acanthocytes (Spur) Cancelled Rouleaux Cancelled Schistocytes Cancelled Sodium 136 (136-145) mmol/L Potassium 4.5 (3.5-5.1) mmol/L Chloride 94 L (98-107) mmol/L Carbon Dioxide 38.0 H (21.0-32.0) mmol/L Anion Gap 4 L (5-15) BUN 17 (7-18) mg/dL Creatinine 0.55 L (0.70-1.30) mg/dL Estim Creat Clear Calc 174.40 ml/min Est GFR (MDRD) Af Amer 203 (>60) mL/min Est GFR (MDRD) Non-Af 168 (>60) mL/min BUN/Creatinine Ratio 31.1 H (10-20) RATIO Glucose 124 H (70-110) mg/dL Calcium 8.6 (8.5-10.1) mg/dL Diagnostic Data: Diagnostic Data Chest CTA 02/12/17 09:09 IMPRESSION: Since prior study, there has been progression of the diffuse mediastinal and bilateral hilar lymphadenopathy worse on the right side. Infiltration in the right lower lobe. Electronically Signed: Fabricio Lyn MD at 11:32 EST Tel [phone], Service support , Bone Scan Nuclear Medicine 02/12/17 17:39 IMPRESSION: 1. The increase in radiopharmaceutical concentration identified in the left posterior eighth-ninth ribs, left glenoid, right posterior sacrum may represent limited skeletal metastatic disease. Plain film radiography correlation is recommended in the setting of known lung carcinoma.. 2. Degenerative arthritis is otherwise defined in the right shoulder, bilateral knees, the left sacroiliac joint. Electronically Signed: Sonido Tobias DO at 14:23 EST Tel , Service support , Abdomen/Pelvis CT 02/13/17 05:55 IMPRESSION: Mediastinal and right hilar lymphadenopathy. Right middle lobe and right lower lobe infiltration. Electronically Signed: Fabricio Lyn MD at 12:45 EST Tel [phone], Service support , Bone Osseous Survey 02/15/17 15:45 IMPRESSION: No radiographic evidence of metastatic disease. Electronically Signed: Fabricio Lyn MD at 10:48 EST Tel [phone], Service support , Assessment and Plan Small cell lung cancer-Extensive disease with SVC syndrome, Right pleural effusion, Left perivascular and paraaortic adenopathy. Respiratory distress. Prognosis is guarded, depends on response to chemotherapy. He is due for C1D3 Etoposide today. Plan is to proceed with C1D3 Etoposide infusion today. If he is clinically stable, can be discharge home and follow up in the clinic on Sunday02/19/2017. Medications: Prescriptions This Visit Medication Instructions Recorded Albuterol Sulfate [Ventolin Hfa] 2 puff INHALATION Q4H PRN 02/12/17 Fluticasone/Vilanterol [Breo 1 inh INHALATION Q24H 02/12/17 Ellipta 200-25 Mcg INH] Prednisone 60 mg PO QDAY 02/12/17 Medications Added to Medication List This Visit Category Date Time Status Dexamethasone [Decadron] 20 mg Med 02/16/17 11:30 Active 0.9% Normal Saline 50 ml IV X1 Furosemide [Lasix] Med 02/16/17 10:00 Active 40 mg IV BID@1000,1800 (1) Regional lymph node metastasis present Status: Acute (2) SCLC (small cell lung carcinoma) Status: Acute (3) SVC obstruction Status: Acute Code Visit Inpatient E&M: 58888 Subs Hosp L3
--- NOTE | 2017-02-16 10:39 | PN_ITS ---
- Date of Service Date of Service:: 02/16/17 - Chief Complaint f/u for SCLC therapy. - History of Present Illness Patient is a 51-year-old male with newly diagnosed small cell lung cancer admitted because of right sided pleuritic type chest pain and increasing dyspnea. His medical history is notable for being a smoker, COPD, oxygen dependent chronic respiratory failure, morbid obesity. He presented end of December 2016 was acute on chronic respiratory failure and at that time a large right hilar mediastinal mass was seen. After stabilization he underwent an EPS on January 2019 with FNA at lymph node stations 4L and 7 both of which revealed metastatic small cell lung cancer. Patient was first seen by me on February 07 and scheduled for a staging PET/CT on the morning of February 12. That morning patient presented to the outpatient facility for his scheduled PET/CT however he had forgotten his instructions to be n.p.o. and the study had to be rescheduled and incidentally complained of increasing dyspnea and right sided pleuritic type chest pain which prompted sending him to the ER and admitted with a suspected right lower lobe pneumonia and sepsis. He started chemotherapy with Carboplatin and Etoposide on 02/14/2017, due for C1D3 Etoposide today. - Past Medical/Social History Social History Smoking Status Former smoker Review of Systems Constitutional:: Reports: Fatigue. Denies: Fever, Sweats Cardiovascular:: Denies: Chest pain, Palpitations, Dyspnea on exertion, Orthopnea, PND, Shortness of breath Respiratory: Denies: Cough, Hemoptysis, Shortness of Breath, Wheezing Gastrointestinal:: Denies: Abdominal pain, Nausea, Vomiting, Diarrhea, Constipation, Hematochezia Genitourinary: Denies: Dysuria, Hematuria, 15, Flank pain Vital Signs Height 6 ft Weight: 182.3 kg Weight in Pounds 401.9 lbs Pulse Ox 95 Temperature 97.8 F Pulse Rate 102 Respiratory Rate 20 Blood Pressure 143/78 Blood Pressure Position Semi-Fowlers - Physical Exam General: Alert, Oriented x3, No apparent distress, - - Obese. HEENT: Atraumatic, PERRLA, EOMI, Normocephalic Neck:: Supple, Trachea midline. Negative for: JVD, bilateral Cardiac:: Regular rate, Regular rhythm, Normal S1, Normal S2. Negative for: Murmur Lungs: Clear to auscultation, Excusion symmetrical. Negative for: Rhonchi, Wheezes Lymphatics:: Supraclavicular lymphadenopathy - Right supraclavicular Laboratory Data: Laboratory Tests 3 02/16/17 02/16/17 02/16/17 Range/Units 07:05 05:15 05:15 WBC 13.3 H Cancelled Corrected WBC Cancelled RBC 4.42 L Cancelled Hgb 13.3 Cancelled Hct 45.3 Cancelled MCV 102.5 H Cancelled MCH 30.1 Cancelled MCHC 29.4 L Cancelled RDW 14.4 Cancelled RDW Differential 54.2 H Cancelled Plt Count 194 Cancelled MPV 11.5 Cancelled Immature Gran % (Auto) 0.200 Cancelled Neut % (Auto) 84.4 H Cancelled Lymph % (Auto) 5.2 L Cancelled [place] % (Auto) 10.1 H Cancelled Eos % (Auto) 0.1 Cancelled Baso % (Auto) 0.0 Cancelled Immature Gran # (Auto) Cancelled Absolute Neuts (auto) 11.3 H Cancelled Absolute Lymphs (auto) 0.70 L Cancelled Absolute Monos (auto) Cancelled Total Counted Not Reportable Cancelled Neutrophils % (Manual) Cancelled Band Neutrophils % Cancelled Lymphocytes % (Manual) Cancelled Monocytes % (Manual) Cancelled Eosinophils % (Manual) Cancelled Basophils % (Manual) Cancelled Metamyelocytes % Cancelled Myelocytes % Cancelled Promyelocytes % Cancelled Blast Cells % Cancelled Plasma Cell % (Manual) Cancelled Other Cells % Cancelled Lymphocytes # Cancelled Nucleated RBCs/100 WBC Cancelled Differential Comment Cancelled Diff Path Review Cancelled Hypersegmented Neuts Cancelled Atypical Lymphocytes Cancelled Reactive Lymphocytes Cancelled Sm[place] Cells Cancelled Eosinophilia # Cancelled Basophilia # Cancelled Toxic Granulation Cancelled Dohle Bodies Cancelled [place] Rods Cancelled Platelet Estimate Cancelled Plt Morphology Comment Cancelled RBC Morphology Cancelled Polychromasia Cancelled Hypochromasia Cancelled Poikilocytosis Cancelled Basophilic Stippling Cancelled Anisocytosis Cancelled Microcytosis Cancelled Macrocytosis Cancelled Spherocytes Cancelled Sickle Cells Cancelled Target Cells Cancelled Tear Drop Cells Cancelled Ovalocytes Cancelled Stomatocytes Cancelled [place] Bodies Cancelled [place] Cells Cancelled Bite Cells Cancelled Acanthocytes (Spur) Cancelled Rouleaux Cancelled Schistocytes Cancelled Sodium 136 (136-145) mmol/L Potassium 4.5 (3.5-5.1) mmol/L Chloride 94 L (98-107) mmol/L Carbon Dioxide 38.0 H (21.0-32.0) mmol/L Anion Gap 4 L (5-15) BUN 17 (7-18) mg/dL Creatinine 0.55 L (0.70-1.30) mg/dL Estim Creat Clear Calc 174.40 ml/min Est GFR (MDRD) Af Amer 203 (>60) mL/min Est GFR (MDRD) Non-Af 168 (>60) mL/min BUN/Creatinine Ratio 31.1 H (10-20) RATIO Glucose 124 H (70-110) mg/dL Calcium 8.6 (8.5-10.1) mg/dL Diagnostic Data: Diagnostic Data Chest CTA 02/12/17 09:09 IMPRESSION: Since prior study, there has been progression of the diffuse mediastinal and bilateral hilar lymphadenopathy worse on the right side. Infiltration in the right lower lobe. Electronically Signed: Fabricio Lyn MD at 11:32 EST Tel [phone], Service support , Bone Scan Nuclear Medicine 02/12/17 17:39 IMPRESSION: 1. The increase in radiopharmaceutical concentration identified in the left posterior eighth-ninth ribs, left glenoid, right posterior sacrum may represent limited skeletal metastatic disease. Plain film radiography correlation is recommended in the setting of known lung carcinoma.. 2. Degenerative arthritis is otherwise defined in the right shoulder, bilateral knees, the left sacroiliac joint. Electronically Signed: Sonido Tobias DO at 14:23 EST Tel , Service support , Abdomen/Pelvis CT 02/13/17 05:55 IMPRESSION: Mediastinal and right hilar lymphadenopathy. Right middle lobe and right lower lobe infiltration. Electronically Signed: Fabricio Lyn MD at 12:45 EST Tel [phone], Service support , Bone Osseous Survey 02/15/17 15:45 IMPRESSION: No radiographic evidence of metastatic disease. Electronically Signed: Fabricio Lyn MD at 10:48 EST Tel [phone], Service support , Assessment and Plan Small cell lung cancer-Extensive disease with SVC syndrome, Right pleural effusion, Left perivascular and paraaortic adenopathy. Respiratory distress. Prognosis is guarded, depends on response to chemotherapy. He is due for C1D3 Etoposide today. Plan is to proceed with C1D3 Etoposide infusion today. If he is clinically stable, can be discharge home and follow up in the clinic on Sunday02/19/2017. Medications: Prescriptions This Visit Medication Instructions Recorded Albuterol Sulfate [Ventolin Hfa] 2 puff INHALATION Q4H PRN 02/12/17 Fluticasone/Vilanterol [Breo 1 inh INHALATION Q24H 02/12/17 Ellipta 200-25 Mcg INH] Prednisone 60 mg PO QDAY 02/12/17 Medications Added to Medication List This Visit Category Date Time Status Dexamethasone [Decadron] 20 mg Med 02/16/17 11:30 Active 0.9% Normal Saline 50 ml IV X1 Furosemide [Lasix] Med 02/16/17 10:00 Active 40 mg IV BID@1000,1800 (1) Regional lymph node metastasis present Status: Acute (2) SCLC (small cell lung carcinoma) Status: Acute (3) SVC obstruction Status: Acute Code Visit Inpatient E&M: 40601 Subs Hosp L3
[2017-02-16] MEDS: guaiFENesin 600 MG Tablet 1200 MG PO ×2 (11:02→21:59)
[2017-02-16] MEDS: Losartan Potassium 100 MG Tablet PO (11:02)
[2017-02-16] MEDS: Enoxaparin 40 MG/0.4 ML Syringe SC (11:02)
[2017-02-16] MEDS: Pantoprazole Sodium 20 MG Tablet PO (11:02)
[2017-02-16] MEDS: Furosemide 40 MG/4 ML Vial IV ×2 (11:25→17:06)
[2017-02-17] VITALS (19 sets, daily range): BP systolic 118–159; BP diastolic 73–95; PULSE 98–114; RESP 18–24; TEMP 36.6–36.8; O2SAT 93–95
[2017-02-17] MEDS: 0.9% Normal Saline 1,000 ML 100 ML IV (03:13)
[2017-02-17] MEDS: Ipratropium/Albuterol Sulfate 3 ML AMPUL.NEB INHALATION ×5 (07:33→22:58)
[2017-02-17] MEDS: Budesonide Respules 0.5 MG/2 ML AMPUL.NEB. INHALATION ×2 (07:33→19:25)
[2017-02-17] MEDS: Allopurinol 300 MG Tablet PO (07:58)
[2017-02-17] MEDS: Pantoprazole Sodium 20 MG Tablet PO (08:49)
[2017-02-17] MEDS: Furosemide 40 MG/4 ML Vial IV (08:49)
[2017-02-17] MEDS: Enoxaparin 40 MG/0.4 ML Syringe SC (08:49)
[2017-02-17] MEDS: guaiFENesin 600 MG Tablet 1200 MG PO ×2 (08:49→21:09)
[2017-02-17] MEDS: Losartan Potassium 100 MG Tablet PO (08:49)
[2017-02-17 08:58] LABS: Absolute Lymphocyte Count 1.12 X10^3/ul (0.83-4.51); Absolute Neutrophil Count 8.5 X10^3/uL (2.0-7.7); Eosinophil# 0.01 X10^3/uL; Eosinophils% 0.1 % (0-5); Hematocrit 42.3 % (40-54); Lymphocyte # 1.12 X10^3/ul (4.0); Lymphocyte % 10.8 % (19-41); Mean Corp Hgb Conc 30.7 g/gl (32-36); Mean Corpuscular Hgb 31.4 pg (27.0-32.0); Mean Corpuscular Volume 102.2 fL (80-94); Mean Platelet Vol. 11.1 fl (6.2-12.0); Monocyte# 0.75 X10^3/uL; Monocyte% 7.2 % (0-10); Neutrophil # 8.47 X10^3/uL (2.7-7.7); Neutrophil % 81.8 % (47-70); Platelet Count 174 K/mm3 (150-450); RBC Distribution Width CV 14.1 % (11.6-14.6); RBC Distribution Width SD 52.1 fl (35.1-43.9); Red Blood Count 4.14 M/mm3 (4.6-6.2); White Blood Count 10.4 K/mm3 (4.4-11.0)
[2017-02-17 08:59] LABS: POSITIVE COUNT NO; POSITIVE DIFFERENTIAL NO; POSITIVE MORPHOLOGY NO
[2017-02-17 09:11] LABS: Anion Gap 5 (5-15); BUN 19 mg/dL (7-18); BUN/Creat Ratio 28.7 RATIO (10-20); Chloride 90 mmol/L (98-107); Creatinine, Serum 0.66 mg/dL (0.70-1.30); EST Glomerular Filtration Rate 134 mL/min (>60); Est Glom Filt Rate - Afr Amer 162 mL/min (>60); Estimated Creatinine Clearance 145.34 ml/min; Glucose 125 mg/dL (70-110); Potassium 4.2 mmol/L (3.5-5.1); Sodium Level 136 mmol/L (136-145)
--- NOTE | 2017-02-17 10:32 | PCM.PN.HOSP ---
Patient Problems: Active and Suspected Problems (Last Updated 02/15/17 @ 15:50 by Bob Fofana MD) Sepsis (Acute) Pneumonia (Acute) Subjective: Breathing better today. Decrease edema today. Has been coughing up some phlegm but denies any vomiting. Vitals/I&O's: Vital Signs Temp Pulse Resp BP Pulse Ox 36.6 C 106 H 20 H 155/87 H 95 02/17/17 08:56 02/17/17 08:56 02/17/17 08:56 02/17/17 08:56 02/17/17 08:56 Oxygen Flow Rate 4 Oxygen Delivery Method Nasal Cannula Weight: 182.3 kg Body Mass Index (BMI) 54.1 Intake and Output for Last 24 Hours 02/15/17 02/16/17 02/17/17 23:59 23:59 23:59 Intake Total 3622 / 3622 4286 / 4286 1417 / 1417 Balance 3622 / 3622 4286 / 4286 1417 / 1417 General: Alert, Cooperative, No apparent distress, - - Seen hunched over a garbage pale. HEENT: Atraumatic, Normocephalic Neck: No Nodes, Thyroid Normal Size and Texture Lungs: Diminished, - - Bibasilar crackles Cardiovascular: Regular rate, Regular Rhythm, Normal S1, Normal S2 Abdomen: Bowel Sounds Present, Soft, Non Tender, Non-Distended, Obese Extremities: No Calf Tenderness, Edema - Decreased from yesterday. Skin: No rashes, No breakdown Psych/Mental Status: Normal Affect, Appropriate Laboratory Results 02/17/17 08:35: WBC 10.4, RBC 4.14 L, Hgb 13.0, Hct 42.3, MCV 102.2 H, MCH 31.4, MCHC 30.7 L, RDW 14.1, RDW Differential 52.1 H, Plt Count 174, MPV 11.1, Immature Gran % (Auto) 0.100, Neut % (Auto) 81.8 H, Lymph % (Auto) 10.8 L, [place] % (Auto) 7.2, Eos % (Auto) 0.1, Baso % (Auto) 0.0, Absolute Neuts (auto) 8.5 H, Absolute Lymphs (auto) 1.12, Total Counted Not Reportable 02/17/17 08:35: Sodium 136, Potassium 4.2, Chloride 90 L, Carbon Dioxide 41.0 H, Anion Gap 5, BUN 19 H, Creatinine 0.66 L, Estim Creat Clear Calc 145.34, Est GFR (MDRD) Af Amer 162, Est GFR (MDRD) Non-Af 134, BUN/Creatinine Ratio 28.7 H, Glucose 125 H, Calcium 9.0 Current Medications Acetaminophen (Tylenol) 650 mg PO Q6H PRN PRN PRN Reason: Mild Pain (1-3)/Temp > 100.7 F Albuterol Sulfate (Ventolin Aerosols) 2.5 mg INHALATION Q2H PRN PRN PRN Reason: SHORTNESS OF BREATH Albuterol/Ipratropium (Duoneb) 3 ml INHALATION Q4H.RT [facility] Last Admin: 02/17/17 07:33 Dose: 3 ml Allopurinol (Zyloprim) 300 mg PO DAILYCM [facility] Stop: 02/20/17 08:01 Last Admin: 02/17/17 07:58 Dose: 300 mg Alprazolam (Xanax) 0.5 mg PO BID PRN PRN PRN Reason: ANXIETY Last Admin: 02/14/17 22:27 Dose: 0.5 mg Budesonide (Pulmicort Aerosol) 0.5 mg INHALATION Q12H.RT [facility] Last Admin: 02/17/17 07:33 Dose: 0.5 mg Diphenhydramine HCl (Benadryl) 50 mg IV UD PRN PRN Reason: Hypersensitivity Reaction Enoxaparin Sodium (Lovenox) 40 mg SC DAILY@1000 [facility] Last Admin: 02/17/17 08:49 Dose: 40 mg Epinephrine HCl (Epi Pen) 0.3 mg IM UD PRN PRN Reason: Anaphylaxis Reaction Furosemide (Lasix) 40 mg IV BID@1000,1800 [facility] Last Admin: 02/17/17 08:49 Dose: 40 mg Guaifenesin (Mucinex) 1,200 mg PO BID [facility] Last Admin: 02/17/17 08:49 Dose: 1,200 mg Hydrocortisone Sodium Succinate (Solu-Cortef) 100 mg IV UD PRN PRN Reason: Hypersensitivity Reaction Levofloxacin (Levaquin) 750 mg in 150 mls @ 100 mls/hr IV Q24 [facility] Last Admin: 02/17/17 08:52 Dose: 100 mls/hr Losartan Potassium (Cozaar) 100 mg PO DAILY [facility] Last Admin: 02/17/17 08:49 Dose: 100 mg Magnesium Hydroxide (Milk Of Magnesia) 30 ml PO DAILY PRN PRN Reason: Constipation Ondansetron HCl (Zofran) 4 mg IV Q8H PRN PRN PRN Reason: NAUSEA Pantoprazole Sodium (Protonix) 20 mg PO DAILY [facility] Last Admin: 02/17/17 08:49 Dose: 20 mg Prednisone (Prednisone) 60 mg PO DAILY@0800 [facility] Last Admin: 02/17/17 07:58 Dose: 60 mg Sodium Chloride () 5 - 30 ml IV UD PRN PRN Reason: SALINE FLUSH Last Admin: 02/15/17 05:25 Dose: 10 ml Assessment/Plan Active and Suspected Problems (Last Updated 02/15/17 @ 15:50 by Bob Fofana MD) Sepsis (Acute) Pneumonia (Acute) 1. sepsis POA 2/2 pneumonia 2. pneumonia, presumed Pneumococcal lvq continue with IV Y is here for better tissue perfusion. Transition over to oral upon discharge. Patient will be on it through the . BDs Legionella and strep antigens negative Sputum culture ordered, not obtained yet. Could be a post obstructive process or even malignancy itself causing pneumonia. 3. SCLC d/w oncology CT of the abdomen pelvis showed no acute process. Bone scan showing increased concentration in the left posterior eighth and ninth ribs, left glenoid, right posterior sacrum may be related with metastatic disease. 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 So in light of the pneumonia feel that the benefits of chemotherapy outweigh the risk of immunosuppression at this time so patient will have chemotherapy today. This is DrSom discussed with oncology yesterday. The patient will be monitored in the hospital to assess for progression. Patient on day 2 of systemic chemotherapy. On IV fluids and allopurinol to help prevent tumor lysis syndrome. 4. Edema Patient has been on for 2 kg since his admission. Patient's seems to think that he is put on 30 pounds but I would not dispute that. Patient is chronically more edematous than he had been. Will initiate IV Lasix. Check an echocardiogram. Edema improved today. Transition the patient over to oral Lasix. 5. DVT proph: LMWH. Discussed with the patient's at bedside. Plan watch patient overnight and if he is doing well anticipate him being discharged tomorrow. I discussed also that the patient may have some obstructive sleep apnea and follow-up with pulmonology and have a polysomnogram as outpatient. The part of that will depend on goals of care and patient's overall response. If the patient is not responding to chemotherapy then polysomnogram sent to be futile. Code Visit Inpatient E&M: 77261 Subs Hosp L2
--- NOTE | 2017-02-17 10:35 | PN_ITS ---
Patient Problems: Active and Suspected Problems (Last Updated 02/15/17 @ 15:50 by Bob Fofana MD) Sepsis (Acute) Pneumonia (Acute) Subjective: Breathing better today. Decrease edema today. Has been coughing up some phlegm but denies any vomiting. Vitals/I&O's: Vital Signs Temp Pulse Resp BP Pulse Ox 36.6 C 106 H 20 H 155/87 H 95 02/17/17 08:56 02/17/17 08:56 02/17/17 08:56 02/17/17 08:56 02/17/17 08:56 Oxygen Flow Rate 4 Oxygen Delivery Method Nasal Cannula Weight: 182.3 kg Body Mass Index (BMI) 54.1 Intake and Output for Last 24 Hours 02/15/17 02/16/17 02/17/17 23:59 23:59 23:59 Intake Total 3622 / 3622 4286 / 4286 1417 / 1417 Balance 3622 / 3622 4286 / 4286 1417 / 1417 General: Alert, Cooperative, No apparent distress, - - Seen hunched over a garbage pale. HEENT: Atraumatic, Normocephalic Neck: No Nodes, Thyroid Normal Size and Texture Lungs: Diminished, - - Bibasilar crackles Cardiovascular: Regular rate, Regular Rhythm, Normal S1, Normal S2 Abdomen: Bowel Sounds Present, Soft, Non Tender, Non-Distended, Obese Extremities: No Calf Tenderness, Edema - Decreased from yesterday. Skin: No rashes, No breakdown Psych/Mental Status: Normal Affect, Appropriate Laboratory Results 02/17/17 08:35: WBC 10.4, RBC 4.14 L, Hgb 13.0, Hct 42.3, MCV 102.2 H, MCH 31.4 , MCHC 30.7 L, RDW 14.1, RDW Differential 52.1 H, Plt Count 174, MPV 11.1, Immature Gran % (Auto) 0.100, Neut % (Auto) 81.8 H, Lymph % (Auto) 10.8 L, [place] % (Auto) 7.2, Eos % (Auto) 0.1, Baso % (Auto) 0.0, Absolute Neuts (auto) 8.5 H, Absolute Lymphs (auto) 1.12, Total Counted Not Reportable 02/17/17 08:35: Sodium 136, Potassium 4.2, Chloride 90 L, Carbon Dioxide 41.0 H , Anion Gap 5, BUN 19 H, Creatinine 0.66 L, Estim Creat Clear Calc 145.34, Est GFR (MDRD) Af Amer 162, Est GFR (MDRD) Non-Af 134, BUN/Creatinine Ratio 28.7 H, Glucose 125 H, Calcium 9.0 Current Medications Acetaminophen (Tylenol) 650 mg PO Q6H PRN PRN PRN Reason: Mild Pain (1-3)/Temp > 100.7 F Albuterol Sulfate (Ventolin Aerosols) 2.5 mg INHALATION Q2H PRN PRN PRN Reason: SHORTNESS OF BREATH Albuterol/Ipratropium (Duoneb) 3 ml INHALATION Q4H.RT [facility] Last Admin: 02/17/17 07:33 Dose: 3 ml Allopurinol (Zyloprim) 300 mg PO DAILYCM [facility] Stop: 02/20/17 08:01 Last Admin: 02/17/17 07:58 Dose: 300 mg Alprazolam (Xanax) 0.5 mg PO BID PRN PRN PRN Reason: ANXIETY Last Admin: 02/14/17 22:27 Dose: 0.5 mg Budesonide (Pulmicort Aerosol) 0.5 mg INHALATION Q12H.RT [facility] Last Admin: 02/17/17 07:33 Dose: 0.5 mg Diphenhydramine HCl (Benadryl) 50 mg IV UD PRN PRN Reason: Hypersensitivity Reaction Enoxaparin Sodium (Lovenox) 40 mg SC DAILY@1000 [facility] Last Admin: 02/17/17 08:49 Dose: 40 mg Epinephrine HCl (Epi Pen) 0.3 mg IM UD PRN PRN Reason: Anaphylaxis Reaction Furosemide (Lasix) 40 mg IV BID@1000,1800 [facility] Last Admin: 02/17/17 08:49 Dose: 40 mg Guaifenesin (Mucinex) 1,200 mg PO BID [facility] Last Admin: 02/17/17 08:49 Dose: 1,200 mg Hydrocortisone Sodium Succinate (Solu-Cortef) 100 mg IV UD PRN PRN Reason: Hypersensitivity Reaction Levofloxacin (Levaquin) 750 mg in 150 mls @ 100 mls/hr IV Q24 [facility] Last Admin: 02/17/17 08:52 Dose: 100 mls/hr Losartan Potassium (Cozaar) 100 mg PO DAILY [facility] Last Admin: 02/17/17 08:49 Dose: 100 mg Magnesium Hydroxide (Milk Of Magnesia) 30 ml PO DAILY PRN PRN Reason: Constipation Ondansetron HCl (Zofran) 4 mg IV Q8H PRN PRN PRN Reason: NAUSEA Pantoprazole Sodium (Protonix) 20 mg PO DAILY [facility] Last Admin: 02/17/17 08:49 Dose: 20 mg Prednisone (Prednisone) 60 mg PO DAILY@0800 [facility] Last Admin: 02/17/17 07:58 Dose: 60 mg Sodium Chloride () 5 - 30 ml IV UD PRN PRN Reason: SALINE FLUSH Last Admin: 02/15/17 05:25 Dose: 10 ml Assessment/Plan Active and Suspected Problems (Last Updated 02/15/17 @ 15:50 by Bob Fofana MD) Sepsis (Acute) Pneumonia (Acute) 1. sepsis POA 2/2 pneumonia 2. pneumonia, presumed Pneumococcal lvq continue with IV Y is here for better tissue perfusion. Transition over to oral upon discharge. Patient will be on it through the . BDs Legionella and strep antigens negative Sputum culture ordered, not obtained yet. Could be a post obstructive process or even malignancy itself causing pneumonia. 3. SCLC d/w oncology CT of the abdomen pelvis showed no acute process. Bone scan showing increased concentration in the left posterior eighth and ninth ribs, left glenoid, right posterior sacrum may be related with metastatic disease. 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 So in light of the pneumonia feel that the benefits of chemotherapy outweigh the risk of immunosuppression at this time so patient will have chemotherapy today. This is DrSom discussed with oncology yesterday. The patient will be monitored in the hospital to assess for progression. Patient on day 2 of systemic chemotherapy. On IV fluids and allopurinol to help prevent tumor lysis syndrome. 4. Edema Patient has been on for 2 kg since his admission. Patient's seems to think that he is put on 30 pounds but I would not dispute that. Patient is chronically more edematous than he had been. Will initiate IV Lasix. Check an echocardiogram. Edema improved today. Transition the patient over to oral Lasix. 5. DVT proph: LMWH. Discussed with the patient's at bedside. Plan watch patient overnight and if he is doing well anticipate him being discharged tomorrow. I discussed also that the patient may have some obstructive sleep apnea and follow-up with pulmonology and have a polysomnogram as outpatient. The part of that will depend on goals of care and patient's overall response. If the patient is not responding to chemotherapy then polysomnogram sent to be futile. Code Visit Inpatient E&M: 94746 Subs Hosp L2
[2017-02-18] VITALS (8 sets, daily range): BP systolic 114–133; BP diastolic 57–68; PULSE 103–109; RESP 18–20; TEMP 36.1–36.8; O2SAT 90–96
[2017-02-18 06:16] LABS: Absolute Lymphocyte Count 1.45 X10^3/ul (0.83-4.51); Absolute Neutrophil Count 6.3 X10^3/uL (2.0-7.7); Eosinophil# 0.03 X10^3/uL; Eosinophils% 0.4 % (0-5); Hematocrit 43.1 % (40-54); Hemoglobin 13.2 g/dl (13.0-16.5); Lymphocyte # 1.45 X10^3/ul (4.0); Mean Corp Hgb Conc 30.6 g/gl (32-36); Mean Corpuscular Hgb 31.1 pg (27.0-32.0); Mean Corpuscular Volume 101.4 fL (80-94); Monocyte# 0.27 X10^3/uL; Monocyte% 3.3 % (0-10); Neutrophil % 78.2 % (47-70); Platelet Count 169 K/mm3 (150-450); RBC Distribution Width CV 14.2 % (11.6-14.6); RBC Distribution Width SD 52.2 fl (35.1-43.9); Red Blood Count 4.25 M/mm3 (4.6-6.2); White Blood Count 8.1 K/mm3 (4.4-11.0)
[2017-02-18 06:26] LABS: POSITIVE COUNT NO; POSITIVE DIFFERENTIAL NO; POSITIVE MORPHOLOGY NO
[2017-02-18 06:31] LABS: Anion Gap 6 (5-15); BUN 19 mg/dL (7-18); BUN/Creat Ratio 29.5 RATIO (10-20); Calcium,Total 8.8 mg/dL (8.5-10.1); Chloride 89 mmol/L (98-107); Creatinine, Serum 0.64 mg/dL (0.70-1.30); EST Glomerular Filtration Rate 139 mL/min (>60); Est Glom Filt Rate - Afr Amer 168 mL/min (>60); Estimated Creatinine Clearance 149.88 ml/min; Glucose 120 mg/dL (70-110); Potassium 3.8 mmol/L (3.5-5.1); Sodium Level 135 mmol/L (136-145)
[2017-02-18] MEDS: Budesonide Respules 0.5 MG/2 ML AMPUL.NEB. INHALATION (07:20)
[2017-02-18] MEDS: Ipratropium/Albuterol Sulfate 3 ML AMPUL.NEB INHALATION ×2 (07:20→10:59)
[2017-02-18] MEDS: Furosemide 40 MG Tablet PO (08:50)
[2017-02-18] MEDS: Allopurinol 300 MG Tablet PO (08:50)
[2017-02-18] MEDS: Losartan Potassium 100 MG Tablet PO (08:50)
[2017-02-18] MEDS: Enoxaparin 40 MG/0.4 ML Syringe SC (08:51)
[2017-02-18] MEDS: Pantoprazole Sodium 20 MG Tablet PO (08:51)
[2017-02-18] MEDS: guaiFENesin 600 MG Tablet 1200 MG PO (08:51)
--- NOTE | 2017-02-18 09:35 | PCM.PN.HOSP ---
Patient Problems: Active and Suspected Problems (Last Updated 02/15/17 @ 15:50 by Bob Fofana MD) Sepsis (Acute) Pneumonia (Acute) Subjective: Breathing better. Still with lower extremity edema. No new events. Vitals/I&O's: Vital Signs Temp Pulse Resp BP Pulse Ox 36.5 C L 107 H 18 123/68 H 93 02/18/17 08:47 02/18/17 08:47 02/18/17 08:47 02/18/17 08:47 02/18/17 08:47 Oxygen Flow Rate 4 Oxygen Delivery Method Nasal Cannula Weight: 182.4 kg Body Mass Index (BMI) 54.1 Intake and Output for Last 24 Hours 02/16/17 02/17/17 02/18/17 23:59 23:59 23:59 Intake Total 4286 / 4286 2213 / 2213 120 / 120 Balance 4286 / 4286 2213 / 2213 120 / 120 General: Alert HEENT: Atraumatic, Normocephalic Neck: No Nodes, Thyroid Normal Size and Texture Lungs: Normal air movement, - - Coarse breath sounds bilaterally Cardiovascular: Regular rate, Regular Rhythm, Normal S1, Normal S2 Abdomen: Bowel Sounds Present, Soft, Non Tender, Non-Distended, Obese Extremities: No Calf Tenderness, Edema Psych/Mental Status: Normal Affect, Appropriate Laboratory Results 02/18/17 05:28: WBC 8.1, RBC 4.25 L, Hgb 13.2, Hct 43.1, MCV 101.4 H, MCH 31.1, MCHC 30.6 L, RDW 14.2, RDW Differential 52.2 H, Plt Count 169, MPV 12.0, Immature Gran % (Auto) 0.100, Neut % (Auto) 78.2 H, Lymph % (Auto) 18.0 L, [place] % (Auto) 3.3, Eos % (Auto) 0.4, Baso % (Auto) 0.0, Absolute Neuts (auto) 6.3, Absolute Lymphs (auto) 1.45, Total Counted Not Reportable 02/18/17 05:28: Sodium 135 L, Potassium 3.8, Chloride 89 L, Carbon Dioxide 40.0 H, Anion Gap 6, BUN 19 H, Creatinine 0.64 L, Estim Creat Clear Calc 149.88, Est GFR (MDRD) Af Amer 168, Est GFR (MDRD) Non-Af 139, BUN/Creatinine Ratio 29.5 H, Glucose 120 H, Calcium 8.8 Current Medications Acetaminophen (Tylenol) 650 mg PO Q6H PRN PRN PRN Reason: Mild Pain (1-3)/Temp > 100.7 F Albuterol Sulfate (Ventolin Aerosols) 2.5 mg INHALATION Q2H PRN PRN PRN Reason: SHORTNESS OF BREATH Albuterol/Ipratropium (Duoneb) 3 ml INHALATION Q4H.RT [facility] Last Admin: 02/18/17 07:20 Dose: 3 ml Allopurinol (Zyloprim) 300 mg PO DAILYCM [facility] Stop: 02/20/17 08:01 Last Admin: 02/18/17 08:50 Dose: 300 mg Alprazolam (Xanax) 0.5 mg PO BID PRN PRN PRN Reason: ANXIETY Last Admin: 02/14/17 22:27 Dose: 0.5 mg Budesonide (Pulmicort Aerosol) 0.5 mg INHALATION Q12H.RT [facility] Last Admin: 02/18/17 07:20 Dose: 0.5 mg Diphenhydramine HCl (Benadryl) 50 mg IV UD PRN PRN Reason: Hypersensitivity Reaction Enoxaparin Sodium (Lovenox) 40 mg SC DAILY@1000 [facility] Last Admin: 02/18/17 08:51 Dose: 40 mg Epinephrine HCl (Epi Pen) 0.3 mg IM UD PRN PRN Reason: Anaphylaxis Reaction Furosemide (Lasix) 40 mg PO DAILY [facility] Last Admin: 02/18/17 08:50 Dose: 40 mg Guaifenesin (Mucinex) 1,200 mg PO BID [facility] Last Admin: 02/18/17 08:51 Dose: 1,200 mg Hydrocortisone Sodium Succinate (Solu-Cortef) 100 mg IV UD PRN PRN Reason: Hypersensitivity Reaction Levofloxacin (Levaquin) 750 mg in 150 mls @ 100 mls/hr IV Q24 [facility] Last Admin: 02/18/17 08:51 Dose: 100 mls/hr Losartan Potassium (Cozaar) 100 mg PO DAILY [facility] Last Admin: 02/18/17 08:50 Dose: 100 mg Magnesium Hydroxide (Milk Of Magnesia) 30 ml PO DAILY PRN PRN Reason: Constipation Ondansetron HCl (Zofran) 4 mg IV Q8H PRN PRN PRN Reason: NAUSEA Pantoprazole Sodium (Protonix) 20 mg PO DAILY [facility] Last Admin: 02/18/17 08:51 Dose: 20 mg Prednisone (Prednisone) 60 mg PO DAILY@0800 [facility] Last Admin: 02/18/17 08:50 Dose: 60 mg Sodium Chloride () 5 - 30 ml IV UD PRN PRN Reason: SALINE FLUSH Last Admin: 02/15/17 05:25 Dose: 10 ml Assessment/Plan Active and Suspected Problems (Last Updated 02/15/17 @ 15:50 by Bob Fofana MD) Sepsis (Acute) Pneumonia (Acute) 1. sepsis POA 2/2 pneumonia 2. pneumonia, presumed Pneumococcal lvq continue with IV Y is here for better tissue perfusion. Transition over to oral upon discharge. Patient will be on it through the . BDs Legionella and strep antigens negative Sputum culture ordered, not obtained yet. Could be a post obstructive process or even malignancy itself causing pneumonia. 3. SCLC d/w oncology CT of the abdomen pelvis showed no acute process. Bone scan showing increased concentration in the left posterior eighth and ninth ribs, left glenoid, right posterior sacrum may be related with metastatic disease. 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 So in light of the pneumonia feel that the benefits of chemotherapy outweigh the risk of immunosuppression at this time so patient will have chemotherapy today. This is Dr. discussed with oncology yesterday. The patient will be monitored in the hospital to assess for progression. Patient pleaded 3 days of systemic chemotherapy. Continue with allopurinol to help prevent tumor lysis syndrome. 4. Edema Patient has been on for 2 kg since his admission. Patient's seems to think that he is put on 30 pounds but I would not dispute that. Patient is chronically more edematous than he had been. Will initiate IV Lasix. Echocardiogram done but not interpreted Edema improved today. Continue with oral Lasix. 5. DVT proph: LMWH. Discussed with the patient's at bedside. Discharge home. Patient already has oxygen at home with condenser and tanks.
--- NOTE | 2017-02-18 09:39 | PN_ITS ---
Patient Problems: Active and Suspected Problems (Last Updated 02/15/17 @ 15:50 by Bob Fofana MD) Sepsis (Acute) Pneumonia (Acute) Subjective: Breathing better. Still with lower extremity edema. No new events. Vitals/I&O's: Vital Signs Temp Pulse Resp BP Pulse Ox 36.5 C L 107 H 18 123/68 H 93 02/18/17 08:47 02/18/17 08:47 02/18/17 08:47 02/18/17 08:47 02/18/17 08:47 Oxygen Flow Rate 4 Oxygen Delivery Method Nasal Cannula Weight: 182.4 kg Body Mass Index (BMI) 54.1 Intake and Output for Last 24 Hours 02/16/17 02/17/17 02/18/17 23:59 23:59 23:59 Intake Total 4286 / 4286 2213 / 2213 120 / 120 Balance 4286 / 4286 2213 / 2213 120 / 120 General: Alert HEENT: Atraumatic, Normocephalic Neck: No Nodes, Thyroid Normal Size and Texture Lungs: Normal air movement, - - Coarse breath sounds bilaterally Cardiovascular: Regular rate, Regular Rhythm, Normal S1, Normal S2 Abdomen: Bowel Sounds Present, Soft, Non Tender, Non-Distended, Obese Extremities: No Calf Tenderness, Edema Psych/Mental Status: Normal Affect, Appropriate Laboratory Results 02/18/17 05:28: WBC 8.1, RBC 4.25 L, Hgb 13.2, Hct 43.1, MCV 101.4 H, MCH 31.1, MCHC 30.6 L, RDW 14.2, RDW Differential 52.2 H, Plt Count 169, MPV 12.0, Immature Gran % (Auto) 0.100, Neut % (Auto) 78.2 H, Lymph % (Auto) 18.0 L, [place] % (Auto) 3.3, Eos % (Auto) 0.4, Baso % (Auto) 0.0, Absolute Neuts (auto) 6.3, Absolute Lymphs (auto) 1.45, Total Counted Not Reportable 02/18/17 05:28: Sodium 135 L, Potassium 3.8, Chloride 89 L, Carbon Dioxide 40.0 H, Anion Gap 6, BUN 19 H, Creatinine 0.64 L, Estim Creat Clear Calc 149.88, Est GFR (MDRD) Af Amer 168, Est GFR (MDRD) Non-Af 139, BUN/Creatinine Ratio 29.5 H, Glucose 120 H, Calcium 8.8 Current Medications Acetaminophen (Tylenol) 650 mg PO Q6H PRN PRN PRN Reason: Mild Pain (1-3)/Temp > 100.7 F Albuterol Sulfate (Ventolin Aerosols) 2.5 mg INHALATION Q2H PRN PRN PRN Reason: SHORTNESS OF BREATH Albuterol/Ipratropium (Duoneb) 3 ml INHALATION Q4H.RT [facility] Last Admin: 02/18/17 07:20 Dose: 3 ml Allopurinol (Zyloprim) 300 mg PO DAILYCM [facility] Stop: 02/20/17 08:01 Last Admin: 02/18/17 08:50 Dose: 300 mg Alprazolam (Xanax) 0.5 mg PO BID PRN PRN PRN Reason: ANXIETY Last Admin: 02/14/17 22:27 Dose: 0.5 mg Budesonide (Pulmicort Aerosol) 0.5 mg INHALATION Q12H.RT [facility] Last Admin: 02/18/17 07:20 Dose: 0.5 mg Diphenhydramine HCl (Benadryl) 50 mg IV UD PRN PRN Reason: Hypersensitivity Reaction Enoxaparin Sodium (Lovenox) 40 mg SC DAILY@1000 [facility] Last Admin: 02/18/17 08:51 Dose: 40 mg Epinephrine HCl (Epi Pen) 0.3 mg IM UD PRN PRN Reason: Anaphylaxis Reaction Furosemide (Lasix) 40 mg PO DAILY [facility] Last Admin: 02/18/17 08:50 Dose: 40 mg Guaifenesin (Mucinex) 1,200 mg PO BID [facility] Last Admin: 02/18/17 08:51 Dose: 1,200 mg Hydrocortisone Sodium Succinate (Solu-Cortef) 100 mg IV UD PRN PRN Reason: Hypersensitivity Reaction Levofloxacin (Levaquin) 750 mg in 150 mls @ 100 mls/hr IV Q24 [facility] Last Admin: 02/18/17 08:51 Dose: 100 mls/hr Losartan Potassium (Cozaar) 100 mg PO DAILY [facility] Last Admin: 02/18/17 08:50 Dose: 100 mg Magnesium Hydroxide (Milk Of Magnesia) 30 ml PO DAILY PRN PRN Reason: Constipation Ondansetron HCl (Zofran) 4 mg IV Q8H PRN PRN PRN Reason: NAUSEA Pantoprazole Sodium (Protonix) 20 mg PO DAILY [facility] Last Admin: 02/18/17 08:51 Dose: 20 mg Prednisone (Prednisone) 60 mg PO DAILY@0800 [facility] Last Admin: 02/18/17 08:50 Dose: 60 mg Sodium Chloride () 5 - 30 ml IV UD PRN PRN Reason: SALINE FLUSH Last Admin: 02/15/17 05:25 Dose: 10 ml Assessment/Plan Active and Suspected Problems (Last Updated 02/15/17 @ 15:50 by Bob Fofana MD) Sepsis (Acute) Pneumonia (Acute) 1. sepsis POA 2/2 pneumonia 2. pneumonia, presumed Pneumococcal lvq continue with IV Y is here for better tissue perfusion. Transition over to oral upon discharge. Patient will be on it through the . BDs Legionella and strep antigens negative Sputum culture ordered, not obtained yet. Could be a post obstructive process or even malignancy itself causing pneumonia. 3. SCLC d/w oncology CT of the abdomen pelvis showed no acute process. Bone scan showing increased concentration in the left posterior eighth and ninth ribs, left glenoid, right posterior sacrum may be related with metastatic disease. 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 So in light of the pneumonia feel that the benefits of chemotherapy outweigh the risk of immunosuppression at this time so patient will have chemotherapy today. This is Dr. discussed with oncology yesterday. The patient will be monitored in the hospital to assess for progression. Patient pleaded 3 days of systemic chemotherapy. Continue with allopurinol to help prevent tumor lysis syndrome. 4. Edema Patient has been on for 2 kg since his admission. Patient's seems to think that he is put on 30 pounds but I would not dispute that. Patient is chronically more edematous than he had been. Will initiate IV Lasix. Echocardiogram done but not interpreted Edema improved today. Continue with oral Lasix. 5. DVT proph: LMWH. Discussed with the patient's at bedside. Discharge home. Patient already has oxygen at home with condenser and tanks.
--- NOTE | 2017-02-18 09:43 | PCM.DC ---
- Discharge Diagnoses Current Active Problems: Current Active and Chronic Problems (Last Updated 02/15/17 @ 15:50 by Bob Fofana MD) Sepsis (Acute) Pneumonia (Acute) DM (diabetes mellitus) (Chronic) You will use the following diet at home:: Cardiac Your food should be the consistency of: Regular Your liquids should be the consistency of: Regular/Thin Discharge Activity: Return to Normal Activity Call your doctor if you observe: Fever of 101 or Higher, Shortness of breath Additional Dressing/Incision Instructions:: oxygen continuous 2-4 liters/minute Allergies/Adverse Reactions: Allergies bee pollen Allergy (Verified 02/12/17 08:53) Swelling Medications to take at Discharge Losartan Potassium [Cozaar] 100 mg PO DAILY 01/03/17 Omeprazole Magnesium [Prilosec Otc] 20 mg PO DAILY 01/17/17 umeclidinium 62.5 mcg/actuation blister powder for inhalation 1 inh INHALATION DAILY #1 device 01/30/17 Fluticasone/Vilanterol [Breo Ellipta 200-25 Mcg INH] 1 inh INHALATION Q24H 02/12/17 Prednisone 60 mg PO QDAY 02/12/17 Acetaminophen [Tylenol Tablet] 650 mg PO Q6H PRN PRN tablet 02/18/17 Albuterol Aerosols [Ventolin Aerosols] 2.5 mg INHALATION Q2H PRN PRN #30 vial.neb. 02/18/17 Albuterol Sulfate [Ventolin Hfa] 2 puff INHALATION Q4H PRN #1 hfa.aer.ad 02/18/17 Allopurinol [Zyloprim] 300 mg PO DAILYCM #30 tab 02/18/17 Furosemide [Lasix] 40 mg PO DAILY #30 tablet 02/18/17 Guaifenesin [Mucinex] 1,200 mg PO BID #10 tab 02/18/17 Ipratropium/Albuterol Sulfate [Duoneb] 3 ml INHALATION Q6H PRN #60 ampul.neb 02/18/17 Levofloxacin [Levaquin] 750 mg PO DAILY #2 tab 02/18/17 The following prescriptions were given: Albuterol Aerosols [Ventolin Aerosols] 2.5 mg INHALATION Q2H PRN PRN #30 vial.neb. PRN Reason: Shortness Of Breath Ipratropium/Albuterol Sulfate [Duoneb] 3 ml INHALATION Q6H PRN #60 ampul.neb Albuterol Sulfate [Ventolin Hfa] 2 puff INHALATION Q4H PRN #1 hfa.aer.ad PRN Reason: Sob &/Or Wheezing Allopurinol [Zyloprim] 300 mg PO DAILYCM #30 tab Levofloxacin [Levaquin] 750 mg PO DAILY #2 tab Guaifenesin [Mucinex] 1,200 mg PO BID #10 tab Primary Care Physician: Gray Kelley [Primary Care Provider] - Within 2 Weeks Please Follow Up With: Bob Fofana MD When: 1-2 weeks Proposed Discharge Date: 02/18/17
--- NOTE | 2017-02-18 09:46 | DCINST_ITS ---
- Discharge Diagnoses Current Active Problems: Current Active and Chronic Problems (Last Updated 02/15/17 @ 15:50 by Bob Fofana MD) Sepsis (Acute) Pneumonia (Acute) DM (diabetes mellitus) (Chronic) You will use the following diet at home:: Cardiac Your food should be the consistency of: Regular Your liquids should be the consistency of: Regular/Thin Discharge Activity: Return to Normal Activity Call your doctor if you observe: Fever of 101 or Higher, Shortness of breath Additional Dressing/Incision Instructions:: oxygen continuous 2-4 liters/minute Allergies/Adverse Reactions: Allergies bee pollen Allergy (Verified 02/12/17 08:53) Swelling Medications to take at Discharge Losartan Potassium [Cozaar] 100 mg PO DAILY 01/03/17 Omeprazole Magnesium [Prilosec Otc] 20 mg PO DAILY 01/17/17 umeclidinium 62.5 mcg/actuation blister powder for inhalation 1 inh INHALATION DAILY #1 device 01/30/17 Fluticasone/Vilanterol [Breo Ellipta 200-25 Mcg INH] 1 inh INHALATION Q24H 02/12 Prednisone 60 mg PO QDAY 02/12/17 Acetaminophen [Tylenol Tablet] 650 mg PO Q6H PRN PRN tablet 02/18/17 Albuterol Aerosols [Ventolin Aerosols] 2.5 mg INHALATION Q2H PRN PRN #30 vial.neb. 02/18/17 Albuterol Sulfate [Ventolin Hfa] 2 puff INHALATION Q4H PRN #1 hfa.aer.ad Allopurinol [Zyloprim] 300 mg PO DAILYCM #30 tab 02/18/17 Furosemide [Lasix] 40 mg PO DAILY #30 tablet 02/18/17 Guaifenesin [Mucinex] 1,200 mg PO BID #10 tab 02/18/17 Ipratropium/Albuterol Sulfate [Duoneb] 3 ml INHALATION Q6H PRN #60 ampul.neb Levofloxacin [Levaquin] 750 mg PO DAILY #2 tab 02/18/17 The following prescriptions were given: Albuterol Aerosols [Ventolin Aerosols] 2.5 mg INHALATION Q2H PRN PRN #30 vial.neb. PRN Reason: Shortness Of Breath Ipratropium/Albuterol Sulfate [Duoneb] 3 ml INHALATION Q6H PRN #60 ampul.neb Albuterol Sulfate [Ventolin Hfa] 2 puff INHALATION Q4H PRN #1 hfa.aer.ad PRN Reason: Sob &/Or Wheezing Allopurinol [Zyloprim] 300 mg PO DAILYCM #30 tab Levofloxacin [Levaquin] 750 mg PO DAILY #2 tab Guaifenesin [Mucinex] 1,200 mg PO BID #10 tab Primary Care Physician: Gray Kelley [Primary Care Provider] - Within 2 Weeks Please Follow Up With: Bob Fofana MD When: 1-2 weeks Proposed Discharge Date: 02/18/17
--- NOTE | 2017-02-18 09:46 | PCM.DC.SUM ---
Discharge Date and Diagnosis - Problem List Patient Problems: Active and Suspected Problems (Last Updated 02/15/17 @ 15:50 by Bob Fofana MD) Sepsis (Acute) Pneumonia (Acute) Date of Admission: 02/12/17 Date of Discharge: 02/18/17 - Primary Discharge Diagnosis Active and Suspected Problems (Last Updated 02/15/17 @ 15:50 by Bob Fofana MD) Sepsis (Acute) Pneumonia (Acute) 1. sepsis POA 2/2 pneumonia 2. pneumonia, presumed Pneumococcal Levaquin through the . BDs Legionella and strep antigens negative Sputum culture ordered, not obtained yet. Could be a post obstructive process or even malignancy itself causing pneumonia. 3. SCLC d/w oncology CT of the abdomen pelvis showed no acute process. Bone scan showing increased concentration in the left posterior eighth and ninth ribs, left glenoid, right posterior sacrum may be related with metastatic disease. 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 So in light of the pneumonia feel that the benefits of chemotherapy outweigh the risk of immunosuppression at this time so patient will have chemotherapy today. This is DrSom discussed with oncology yesterday. The patient will be monitored in the hospital to assess for progression. Patient pleaded 3 days of systemic chemotherapy. Continue with allopurinol to help prevent tumor lysis syndrome. 4. Edema Patient has been on for 2 kg since his admission. Patient's seems to think that he is put on 30 pounds but I would not dispute that. Patient is chronically more edematous than he had been. Will initiate IV Lasix. Echocardiogram done but not interpreted Edema improved today. Continue with oral Lasix. - Secondary Discharge Diagnosis Chronic Problems (Last Updated 02/15/17 @ 15:50 by Bob Fofana MD) DM (diabetes mellitus) (Chronic) COPD (chronic obstructive pulmonary disease) (Chronic) Sleep disorder breathing (Chronic) Tobacco dependence in remission (Chronic) Dyspnea (Chronic) Chronic hypoxemic respiratory failure (Chronic) Morbid obesity with BMI of 50.0-59.9, adult (Chronic) Hypertension (Chronic) Hospital Course and Treatment Imaging Results: Clinical Impression(s) from Imaging Studies Chest CTA 02/12/17 09:09 IMPRESSION: Since prior study, there has been progression of the diffuse mediastinal and bilateral hilar lymphadenopathy worse on the right side. Infiltration in the right lower lobe. Electronically Signed: Fabricio Lyn MD at 11:32 EST Tel [phone], Service support , Bone Scan Nuclear Medicine 02/12/17 17:39 IMPRESSION: 1. The increase in radiopharmaceutical concentration identified in the left posterior eighth-ninth ribs, left glenoid, right posterior sacrum may represent limited skeletal metastatic disease. Plain film radiography correlation is recommended in the setting of known lung carcinoma.. 2. Degenerative arthritis is otherwise defined in the right shoulder, bilateral knees, the left sacroiliac joint. Electronically Signed: Sonido Tobias DO at 14:23 EST Tel , Service support , Abdomen/Pelvis CT 02/13/17 05:55 IMPRESSION: Mediastinal and right hilar lymphadenopathy. Right middle lobe and right lower lobe infiltration. Electronically Signed: Fabricio Lyn MD at 12:45 EST Tel [phone], Service support , Bone Osseous Survey 02/15/17 15:45 IMPRESSION: No radiographic evidence of metastatic disease. Electronically Signed: Fabricio Lyn MD at 10:48 EST Tel [phone], Service support , [place] Operations: None Procedures: 2-D Echocardiogram Summary of Care Provided: The patient is a 51 year old M with known history of small cell lung cancer presents with 4 day history of shortness of breath. Patient had a CT injury of the chest in the emergency room that did not show PE but did show right lower lobe infiltrate. Patient was started on Levaquin. 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 So oncology was consulted and patient was started on chemotherapy because it felt that the benefits would outweigh the risks. Patient did note improvement of his symptoms though slowly did have slight effervescence while he was here but overall has improved. Patient will continue with Levaquin for 2 more days. Patient was septic upon arrival as well. Patient had completed his first round of 3 days of chemotherapy for small cell lung cancer. Patient will follow up with oncology as outpatient and resume his second round likely in 3 weeks after the first round. Patient did note some edema in his legs patient was getting fluids to help prevent tumor lysis syndrome patient is also on allopurinol to help with tumor lysis syndrome as well. Patient has been given some Lasix which has helped his edema somewhat patient will continue with Lasix as well. Patient is otherwise doing well and will be discharged home. Patient is on oxygen but does have oxygen set up already at home. Patient also has what sounds like sleep apnea. Goals of care and progression response to chemotherapy was really way into whether or not there be any utility to getting a polysomnogram as outpatient or not. [] Discharge Diet: Low fat/ Low Cholesterol Discharge Activity: Return to Normal Activity Call your doctor if you observe: Fever of 101 or Higher, Shortness of breath Additional Dressing/Incision Instructions:: oxygen continuous 2-4 liters/minute Home Medications: Medications to take at Discharge Losartan Potassium [Cozaar] 100 mg PO DAILY 01/03/17 Omeprazole Magnesium [Prilosec Otc] 20 mg PO DAILY 01/17/17 umeclidinium 62.5 mcg/actuation blister powder for inhalation 1 inh INHALATION DAILY #1 device 01/30/17 Fluticasone/Vilanterol [Breo Ellipta 200-25 Mcg INH] 1 inh INHALATION Q24H 02/12/17 Prednisone 60 mg PO QDAY 02/12/17 Acetaminophen [Tylenol Tablet] 650 mg PO Q6H PRN PRN tablet 02/18/17 Albuterol Aerosols [Ventolin Aerosols] 2.5 mg INHALATION Q2H PRN PRN #30 vial.neb. 02/18/17 Albuterol Sulfate [Ventolin Hfa] 2 puff INHALATION Q4H PRN #1 hfa.aer.ad 02/18/17 Allopurinol [Zyloprim] 300 mg PO DAILYCM #30 tab 02/18/17 Furosemide [Lasix] 40 mg PO DAILY #30 tablet 02/18/17 Guaifenesin [Mucinex] 1,200 mg PO BID #10 tab 02/18/17 Ipratropium/Albuterol Sulfate [Duoneb] 3 ml INHALATION Q6H PRN #60 ampul.neb 02/18/17 Levofloxacin [Levaquin] 750 mg PO DAILY #2 tab 02/18/17 Following Prescrptions Were Given to Patient: Albuterol Aerosols [Ventolin Aerosols] 2.5 mg INHALATION Q2H PRN PRN #30 vial.neb. PRN Reason: Shortness Of Breath Ipratropium/Albuterol Sulfate [Duoneb] 3 ml INHALATION Q6H PRN #60 ampul.neb Albuterol Sulfate [Ventolin Hfa] 2 puff INHALATION Q4H PRN #1 hfa.aer.ad PRN Reason: Sob &/Or Wheezing Allopurinol [Zyloprim] 300 mg PO DAILYCM #30 tab Levofloxacin [Levaquin] 750 mg PO DAILY #2 tab Guaifenesin [Mucinex] 1,200 mg PO BID #10 tab Primary Care Physician: Gray Kelley [Primary Care Provider] - Within 2 Weeks Please Follow Up With: Bob Fofana MD When: 1-2 weeks Disposition: Home Minutes spent on discharge:: 35 Patient Condition:: Fair Meaningful Use Info Meaningful Use Diagnoses (Choose all that apply): None applicable Code Visit Inpatient E&M: 52132 Disch Hosp
--- NOTE | 2017-02-18 09:50 | DS.PCM_ITS ---
Discharge Date and Diagnosis - Problem List Patient Problems: Active and Suspected Problems (Last Updated 02/15/17 @ 15:50 by Bob Fofana MD) Sepsis (Acute) Pneumonia (Acute) Date of Admission: 02/12/17 Date of Discharge: 02/18/17 - Primary Discharge Diagnosis Active and Suspected Problems (Last Updated 02/15/17 @ 15:50 by Bob Fofana MD) Sepsis (Acute) Pneumonia (Acute) 1. sepsis POA 2/2 pneumonia 2. pneumonia, presumed Pneumococcal Levaquin through the . BDs Legionella and strep antigens negative Sputum culture ordered, not obtained yet. Could be a post obstructive process or even malignancy itself causing pneumonia. 3. SCLC d/w oncology CT of the abdomen pelvis showed no acute process. Bone scan showing increased concentration in the left posterior eighth and ninth ribs, left glenoid, right posterior sacrum may be related with metastatic disease. 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 So in light of the pneumonia feel that the benefits of chemotherapy outweigh the risk of immunosuppression at this time so patient will have chemotherapy today. This is DrSom discussed with oncology yesterday. The patient will be monitored in the hospital to assess for progression. Patient pleaded 3 days of systemic chemotherapy. Continue with allopurinol to help prevent tumor lysis syndrome. 4. Edema Patient has been on for 2 kg since his admission. Patient's seems to think that he is put on 30 pounds but I would not dispute that. Patient is chronically more edematous than he had been. Will initiate IV Lasix. Echocardiogram done but not interpreted Edema improved today. Continue with oral Lasix. - Secondary Discharge Diagnosis Chronic Problems (Last Updated 02/15/17 @ 15:50 by Bob Fofana MD) DM (diabetes mellitus) (Chronic) COPD (chronic obstructive pulmonary disease) (Chronic) Sleep disorder breathing (Chronic) Tobacco dependence in remission (Chronic) Dyspnea (Chronic) Chronic hypoxemic respiratory failure (Chronic) Morbid obesity with BMI of 50.0-59.9, adult (Chronic) Hypertension (Chronic) Hospital Course and Treatment Imaging Results: Clinical Impression(s) from Imaging Studies Chest CTA 02/12/17 09:09 IMPRESSION: Since prior study, there has been progression of the diffuse mediastinal and bilateral hilar lymphadenopathy worse on the right side. Infiltration in the right lower lobe. Electronically Signed: Fabricio Lyn MD at 11:32 EST Tel [phone], Service support , Bone Scan Nuclear Medicine 02/12/17 17:39 IMPRESSION: 1. The increase in radiopharmaceutical concentration identified in the left posterior eighth-ninth ribs, left glenoid, right posterior sacrum may represent limited skeletal metastatic disease. Plain film radiography correlation is recommended in the setting of known lung carcinoma.. 2. Degenerative arthritis is otherwise defined in the right shoulder, bilateral knees, the left sacroiliac joint. Electronically Signed: Sonido Tobias DO at 14:23 EST Tel , Service support , Abdomen/Pelvis CT 02/13/17 05:55 IMPRESSION: Mediastinal and right hilar lymphadenopathy. Right middle lobe and right lower lobe infiltration. Electronically Signed: Fabricio Lyn MD at 12:45 EST Tel [phone], Service support , Bone Osseous Survey 02/15/17 15:45 IMPRESSION: No radiographic evidence of metastatic disease. Electronically Signed: Fabricio Lyn MD at 10:48 EST Tel [phone], Service support , [place] Operations: None Procedures: 2-D Echocardiogram Summary of Care Provided: The patient is a 51 year old M with known history of small cell lung cancer presents with 4 day history of shortness of breath. Patient had a CT injury of the chest in the emergency room that did not show PE but did show right lower lobe infiltrate. Patient was started on Levaquin. 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 So oncology was consulted and patient was started on chemotherapy because it felt that the benefits would outweigh the risks. Patient did note improvement of his symptoms though slowly did have slight effervescence while he was here but overall has improved. Patient will continue with Levaquin for 2 more days. Patient was septic upon arrival as well. Patient had completed his first round of 3 days of chemotherapy for small cell lung cancer. Patient will follow up with oncology as outpatient and resume his second round likely in 3 weeks after the first round. Patient did note some edema in his legs patient was getting fluids to help prevent tumor lysis syndrome patient is also on allopurinol to help with tumor lysis syndrome as well. Patient has been given some Lasix which has helped his edema somewhat patient will continue with Lasix as well. Patient is otherwise doing well and will be discharged home. Patient is on oxygen but does have oxygen set up already at home. Patient also has what sounds like sleep apnea. Goals of care and progression response to chemotherapy was really way into whether or not there be any utility to getting a polysomnogram as outpatient or not. [] Discharge Diet: Low fat/ Low Cholesterol Discharge Activity: Return to Normal Activity Call your doctor if you observe: Fever of 101 or Higher, Shortness of breath Additional Dressing/Incision Instructions:: oxygen continuous 2-4 liters/minute Home Medications: Medications to take at Discharge Losartan Potassium [Cozaar] 100 mg PO DAILY 01/03/17 Omeprazole Magnesium [Prilosec Otc] 20 mg PO DAILY 01/17/17 umeclidinium 62.5 mcg/actuation blister powder for inhalation 1 inh INHALATION DAILY #1 device 01/30/17 Fluticasone/Vilanterol [Breo Ellipta 200-25 Mcg INH] 1 inh INHALATION Q24H 02/12 Prednisone 60 mg PO QDAY 02/12/17 Acetaminophen [Tylenol Tablet] 650 mg PO Q6H PRN PRN tablet 02/18/17 Albuterol Aerosols [Ventolin Aerosols] 2.5 mg INHALATION Q2H PRN PRN #30 vial.neb. 02/18/17 Albuterol Sulfate [Ventolin Hfa] 2 puff INHALATION Q4H PRN #1 hfa.aer.ad Allopurinol [Zyloprim] 300 mg PO DAILYCM #30 tab 02/18/17 Furosemide [Lasix] 40 mg PO DAILY #30 tablet 02/18/17 Guaifenesin [Mucinex] 1,200 mg PO BID #10 tab 02/18/17 Ipratropium/Albuterol Sulfate [Duoneb] 3 ml INHALATION Q6H PRN #60 ampul.neb Levofloxacin [Levaquin] 750 mg PO DAILY #2 tab 02/18/17 Following Prescrptions Were Given to Patient: Albuterol Aerosols [Ventolin Aerosols] 2.5 mg INHALATION Q2H PRN PRN #30 vial.neb. PRN Reason: Shortness Of Breath Ipratropium/Albuterol Sulfate [Duoneb] 3 ml INHALATION Q6H PRN #60 ampul.neb Albuterol Sulfate [Ventolin Hfa] 2 puff INHALATION Q4H PRN #1 hfa.aer.ad PRN Reason: Sob &/Or Wheezing Allopurinol [Zyloprim] 300 mg PO DAILYCM #30 tab Levofloxacin [Levaquin] 750 mg PO DAILY #2 tab Guaifenesin [Mucinex] 1,200 mg PO BID #10 tab Primary Care Physician: Gray Kelley [Primary Care Provider] - Within 2 Weeks Please Follow Up With: Bob Fofana MD When: 1-2 weeks Disposition: Home Minutes spent on discharge:: 35 Patient Condition:: Fair Meaningful Use Info Meaningful Use Diagnoses (Choose all that apply): None applicable Code Visit Inpatient E&M: 81592 Disch Hosp
== END 2017-02-18 12:31 | disposition home or self-care (01) | DRG 416 ==
LOC: ED 09:20 → PCU 18:52
PROVIDERS: Emergency Provider Emergency Medicine; Family Provider Physician Assistant; PCP Physician Assistant
DX: A41.9 Sepsis, unspecified organism (principal); J96.11 Chronic respiratory failure with hypoxia; J18.9 Pneumonia, unspecified organism; C77.9 Secondary and unspecified malignant neoplasm of lymph node, unspecified; Z99.81 Dependence on supplemental oxygen; C34.90 Malignant neoplasm of unspecified part of unspecified bronchus or lung; E66.01 Morbid (severe) obesity due to excess calories; Z68.43 Body mass index [BMI] 50.0-59.9, adult; Z87.891 Personal history of nicotine dependence; J44.0 Chronic obstructive pulmonary disease with (acute) lower respiratory infection; Z79.899 Other long term (current) drug therapy; Z79.52 Long term (current) use of systemic steroids; E11.9 Type 2 diabetes mellitus without complications; I10 Essential (primary) hypertension
CPT/HCPCS: 36415; 71275; 74177; 77074; 78306; 80048; 80053; 84484; 85025; 85027; 87449; 93005; 93306; 94640; 94667; 94668; 96365; 96366; 96367; 96372; 96375; 96376; 97802; 99218; 99285; J7030; J7040; J9045; Q9957; Q9967; A4216; C8929; G0378; J1940; J2405; J2469; J3490; J9181

== ENCOUNTER 2017-03-06 08:32 | Day surgery (SDC) | payer MEDICAID, SELFPAY ==
[2017-03-01 11:31] VITALS: BMI 53.3
[2017-03-06 09:05] VITALS: BP 154/95; PULSE 101; RESP 22; TEMP 36.4; O2SAT 96; BMI 54.0
[2017-03-06 09:16] LABS: Bedside Glucose 154 mg/dL (70-110)
[2017-03-06 11:38] VITALS: BP 154/95; BP 159/88; PULSE 103; RESP 20; TEMP 36.1; O2SAT 93
--- NOTE | 2017-03-06 11:44 | PCM.DC.POR ---
Discharge Diet: No Restrictions - Pain medication may cause nausea. You should typically eat light foods as you take your pain medication. Discharge Activity: Return to Normal Activity, May Shower - with your bandage in place in 1-2 days after surgery. DO NOT SHOWER WHEN YOUR PORT IS ACCESSED. Call your doctor if your incision/area has: Continuous Slow Oozing, Sudden Increased Bleeding, Increased Pain/ Swelling, Increased Redness Call your doctor if you observe: Fever of 101 or Higher Remove Dressing in (days):: 1 - ok to use port Allergies/Adverse Reactions: Allergies bee pollen Allergy (Verified 03/05/17 08:42) Swelling Medications to take at Discharge Omeprazole Magnesium [Prilosec Otc] 20 mg PO DAILY 01/17/17 umeclidinium 62.5 mcg/actuation blister powder for inhalation 1 inh INHALATION DAILY #1 device 01/30/17 Fluticasone/Vilanterol [Breo Ellipta 200-25 Mcg INH] 1 inh INHALATION Q24H 02/12/17 Prednisone 30 mg PO QDAY 02/12/17 Acetaminophen [Tylenol Tablet] 650 mg PO Q6H PRN PRN tablet 02/18/17 Albuterol Aerosols [Ventolin Aerosols] 2.5 mg INHALATION Q2H PRN PRN #30 vial.neb. 02/18/17 Albuterol Sulfate [Ventolin Hfa] 2 puff INHALATION Q4H PRN #1 hfa.aer.ad 02/18/17 Allopurinol [Zyloprim] 300 mg PO DAILYCM #30 tab 02/18/17 Furosemide [Lasix] 40 mg PO DAILY #30 tablet 02/18/17 Guaifenesin [Mucinex] 1,200 mg PO BID #10 tab 02/18/17 Ipratropium/Albuterol Sulfate [Duoneb] 3 ml INHALATION Q6H PRN #60 ampul.neb 02/18/17 Hydrocodone/Acetaminophen [[place] 5-325 Tablet] 1 each PO Q4H PRN PRN 03/05/17 Insulin Glargine [Lantus (BKC)] 1 - 2 units SC DAILY PRN PRN 03/05/17 Primary Care Physician: Gray Kelley [Primary Care Provider] - Please Follow Up With: Zack Santana MD When: call tomorrow to make 10 day follow up appt [phone]
[2017-03-06 11:45] VITALS: BP 148/101; BP 154/95; PULSE 102; RESP 20; O2SAT 92
[2017-03-06 11:50] VITALS: BP 154/95; BP 170/80; PULSE 101; RESP 18; O2SAT 92
--- NOTE | 2017-03-06 11:54 | OP.PCM_ITS ---
Problem List (1) Encounter for adjustment or management of vascular access device Status: Acute (2) SCLC (small cell lung carcinoma) Status: Acute Qualifiers: Laterality: unspecified laterality Qualified Code(s): C34.90 - Malignant neoplasm of unspecified part of unspecified bronchus or lung Report of Operation Date of Procedure: 03/06/17 Pre-Operative Diagnosis: Small cell lung carcinoma, need for port for chemotherapy Post-Operative Diagnosis: Same Surgery/Procedure Performed:: Ultrasound and fluoroscopy-guided placement of left arm port Description of Procedure: After discussing the procedure in detail with the patient including the risks, benefits and alternatives, the patient was brought back to the operating room. The patient's left arm was selected as the site of port insertion. The patient due to his lung cancer had to sit at a 45? angle for the procedure. He was unable to lay flat. Ultrasound was used to evaluate several veins in the arm for port placement and the brachial vein was selected. Next, 1% lidocaine with epinephrine was injected into the skin, and a small david was made with 11 blade scalpel. The micropuncture needle was used to cannulate the brachial vein. The 0.018 guidewire was advanced into the vein and observed under fluoroscopy. Next, the needle was removed and the micropuncture sheath was advanced over the guidewire. The inner sheath and guidewire were removed and a Bentson wire was introduced into the micro-sheath. This was guided to the superior vena cava under fluoroscopy. Next, local anesthesia was injected in the area distal to the puncture site where the pocket was to be formed. An 11 blade scalpel was used to make a transverse incision at the puncture site. Metzenbaum scissors were used to form a pocket large enough to fit the pad of the index finger. Next, the hub of the port was placed into the pocket to ensure that it fit and then it was removed. Next, the micro-sheath was removed and the introducer is placed over the Bentson wire. The catheter was flushed and then placed over the Bentson wire and positioned in the left subclavian under fluoroscopy. I did not want to place the catheter all the way into the SVC due to his disease and tightness of his SVC. The introducer was removed, and the port hub was attached to the catheter and locked in place with the locking piece. The catheter was then flushed with saline. Using 2-0 Vicryl suture, port was secured in place and placed into the pocket. Next, the skin was closed with interrupted subdermal 3-0 Vicryl sutures, and 3-0 nylon sutures externally. The port was then flushed with heparin and dressing was applied. The port was left accessed as the patient is going to have chemotherapy tomorrow. The patient was taken to PACU in stable condition. X-rays were taken of the final placement of the chest and of the port in the arm. Grafts/Implants Used: 6.6 [place] arm port - Complications None - Admit VTE Documentation VTE Mechan Device Prophylaxis: SCD's
[2017-03-06 11:55] VITALS: BP 154/95; BP 177/87; PULSE 102; RESP 20; TEMP 36.1; O2SAT 92
[2017-03-06 12:39] VITALS: BP 154/95
== END 2017-03-06 12:41 | disposition home or self-care (01) ==
LOC: SDC 08:32 → AC 08:33
PROVIDERS: Family Provider Physician Assistant; PCP Physician Assistant; Visit Provider Surgery
PROC: (CPT 36561; principal; 2017-03-06 09:45)
DX: Z45.2 Encounter for adjustment and management of vascular access device (principal); C34.12 Malignant neoplasm of upper lobe, left bronchus or lung; C34.11 Malignant neoplasm of upper lobe, right bronchus or lung; C77.9 Secondary and unspecified malignant neoplasm of lymph node, unspecified; J96.11 Chronic respiratory failure with hypoxia; J44.9 Chronic obstructive pulmonary disease, unspecified; E11.9 Type 2 diabetes mellitus without complications; I10 Essential (primary) hypertension; G25.81 Restless legs syndrome; K21.9 Gastro-esophageal reflux disease without esophagitis; E66.01 Morbid (severe) obesity due to excess calories; Z68.43 Body mass index [BMI] 50.0-59.9, adult; Z99.81 Dependence on supplemental oxygen; Z79.52 Long term (current) use of systemic steroids; Z79.899 Other long term (current) drug therapy; Z87.891 Personal history of nicotine dependence
CPT/HCPCS: 36561; 76937; 77001; 82962; J7120

== ENCOUNTER → 2017-03-12 12:03 | Outpatient (CLI) | payer MEDICAID, SELFPAY ==
[2017-03-01 11:31] VITALS: BMI 53.3
[2017-03-12 12:03] VITALS: BP 136/77; BMI 53.1
--- NOTE | 2017-03-12 12:05 | RAD_ITS ---
STUDY: X-RAY CHEST REASON FOR EXAM: Male, 51 years old. Bilateral lung cancer. Shortness of breath. TECHNIQUE: PA and lateral chest. COMPARISON: Chest x-ray January 17, 2017. PET/CT scan February 26, 2017. FINDINGS: Borderline cardiomegaly. Widening of the mediastinum compatible with extensive lymphadenopathy. Inferior trachea is slightly deviated to the right. Elevated right hemidiaphragm. Right middle and right lower lobe subsegmental atelectasis. A small right pleural effusion cannot be excluded. Linear right upper lobe density representing subsegmental atelectasis unchanged. Left lung well aerated. No pneumothorax. Normal visualized thoracic spine. Normal visualized ribs, clavicles, and shoulders. There is no demonstrated abnormality of the visualized soft tissue structures of the upper abdomen. RAD/Chest PA and Lateral IMPRESSION: Known extensive mediastinal lymphadenopathy. Elevated right hemidiaphragm with right lower lobe and right middle lobe subsegmental atelectasis not significantly changed as compared to the PET CT scan. A small right pleural effusion may be present. Electronically Signed: Luis Carlos Villalpando MD at 7:26 EST , Service support ,
== END ==
PROVIDERS: Family Provider Physician Assistant; PCP Physician Assistant; Visit Provider Nurse Practitioner Acute Care
DX: R06.00 Dyspnea, unspecified (principal)
CPT/HCPCS: 71046

== ENCOUNTER → 2017-03-21 12:33 | Outpatient (CLI) | payer MEDICAID, SELFPAY ==
[2017-03-01 11:31] VITALS: BMI 53.3
[2017-03-12 10:17] VITALS: BP 136/77; BMI 53.1
--- NOTE | 2017-03-21 13:07 | CT_ITS ---
STUDY: CT BRAIN WITH AND WITHOUT CONTRAST REASON FOR EXAM: Male, 51 years old. Small cell lung CA RADIATION DOSAGE (If Supplied By Facility): CTDIvol = ( 44.99 ) mGy, DLP = ( 1693.46 ) mGycm TECHNIQUE: Transaxial CT imaging of the brain was performed pre and post contrast administration. The examination was performed with intravenous administration of 50ML ml of Isovue 370 contrast material. Individualized dose optimization techniques were used for this CT. COMPARISON: None. FINDINGS: Normal soft tissue structures. Normal calvarium. Normal size ventricles and extra-axial spaces for the patient's age. Normal white matter tracts of the cerebral hemispheres. Normal basal ganglia and thalami. Normal brainstem. Normal cerebellum. There is no intracranial hemorrhage. There are no findings of an acute ischemic infarction. Probable retention cyst in the left maxillary sinus. CT/Brain/Head W/WO Contrast IMPRESSION: Normal unenhanced and enhanced CT scan of the brain. Electronically Signed: Sly Back DO at 23:39 EST Tel [phone], Service support ,
[2017-03-21 13:38] VITALS: PULSE 107; PULSE 110; PULSE 113; PULSE 114; PULSE 116; PULSE 118; PULSE 119; O2SAT 91; O2SAT 92; O2SAT 93; O2SAT 95
--- NOTE | 2017-03-21 13:42 | CPS ---
Patient wears 3-4 lpm continuous at home, wears 6 lpm demand dose when out. Patient was 87-88% on room air. Placed patient back on own 6 lpm demand dose for testing. Patient took several breaks and did not walk between the 3rd and 4th minute. Patient was obviously short of breath and tried to walk again as soon as he could.
--- NOTE | 2017-03-23 11:30 | PCM.PSN.6M ---
PSN 6 Minute Walk Test - 6 Minute Walk Test 6 Minute Walk Test: 6 Minute Walk Test PSN:6-Minute Walk Test Start: 03/21/17 13:38 Freq: Status: Active Protocol: RESP.6MINW Document 03/21/17 13:38 RUBY (Rec: 03/21/17 14:02 AUBREYON [id number]) 6 Minute Walk Test Date Performed 03/21/17 Time Performed 12:45 Height 6 ft Weight: 395 lb Weight in Pounds 395.[address]: Devin Kennedy Assistive device used: Cane Pre-test Oxygen Flow Rate (L/min) 6 Oxygen Delivery Method Nasal Cannula Pulse Ox (%) 93 Pulse Rate (60-100 beats/min) 107 H Dyspnea Denita Scale (0-10) 0 Exertion Denita Scale (6-20) 6 1st minute Oxygen Flow Rate (L/min) 6 Oxygen Delivery Method Nasal Cannula Pulse Ox (%) 91 Pulse Rate (60-100 beats/min) 110 H Number of Rests Taken 2 2nd minute Oxygen Flow Rate (L/min) 6 Oxygen Delivery Method Nasal Cannula Pulse Ox (%) 91 Pulse Rate (60-100 beats/min) 114 H Number of Rests Taken 1 3rd minute Oxygen Flow Rate (L/min) 6 Oxygen Delivery Method Nasal Cannula Pulse Ox (%) 91 Pulse Rate (60-100 beats/min) 119 H Number of Rests Taken 1 4th minute Oxygen Flow Rate (L/min) 6 Oxygen Delivery Method Nasal Cannula Pulse Ox (%) 92 Pulse Rate (60-100 beats/min) 118 H Number of Rests Taken 1 5th minute Oxygen Flow Rate (L/min) 6 Oxygen Delivery Method Nasal Cannula Pulse Ox (%) 93 Pulse Rate (60-100 beats/min) 116 H 6th minute Oxygen Flow Rate (L/min) 6 Oxygen Delivery Method Nasal Cannula Pulse Ox (%) 91 Pulse Rate (60-100 beats/min) 118 H Dyspnea Denita Scale (0-10) 5 Exertion Denita Scale (6-20) 14 Post-test Oxygen Flow Rate (L/min) 6 Oxygen Delivery Method Nasal Cannula Pulse Ox (%) 95 Pulse Rate (60-100 beats/min) 113 H Full Laps Walked 4 Partial Lap, Number of Tiles Walked 48 Total Distance Walked (ft) 284 03/21/17 13:42 Cardiopulmonary Services by Ashley Alvarez Patient wears 3-4 lpm continuous at home, wears 6 lpm demand dose when out. Patient was 87-88% on room air. Placed patient back on own 6 lpm demand dose for testing. Patient took several breaks and did not walk between the 3rd and 4th minute. Patient was obviously short of breath and tried to walk again as soon as he could. Initialized on 03/21/17 13:42 - END OF NOTE - Interpretation Interpretation: The patient ambulated 284 feet over the course of 6 minutes beginning on room air with the use of a cane. Pretesting oxygen saturation was noted to be 87-88% on room air. Prior to the initiation of the test, the patient was placed back on his 6 L/min demand flow. Oxygen saturation improved to 93%. With ambulation, the karine oxygen saturation was 91%. The patient did take several breaks and was notably short of breath with ambulation. This test demonstrates the presence of resting and exertional hypoxia, along with impaired walk distance. - Recommendations Recommendations: 6 L/min of supplemental oxygen should be utilized both at rest and with exertion.
--- NOTE | 2017-03-23 11:33 | WT_ITS ---
PSN 6 Minute Walk Test - 6 Minute Walk Test 6 Minute Walk Test: 6 Minute Walk Test PSN:6-Minute Walk Test Start: 03/21/17 13: 38 Freq: Status: Active Protocol: RESP.6MINW Document 03/21/17 13:38 RUBY (Rec: 03/21/17 14:02 AUBREYON [id number]) 6 Minute Walk Test Date Performed 03/21/17 Time Performed 12:45 Height 6 ft Weight: 395 lb Weight in Pounds 395.[address]: Devin Kennedy Assistive device used: Cane Pre-test Oxygen Flow Rate (L/min) 6 Oxygen Delivery Method Nasal Cannula Pulse Ox (%) 93 Pulse Rate (60-100 beats/min) 107 H Dyspnea Denita Scale (0-10) 0 Exertion Denita Scale (6-20) 6 1st minute Oxygen Flow Rate (L/min) 6 Oxygen Delivery Method Nasal Cannula Pulse Ox (%) 91 Pulse Rate (60-100 beats/min) 110 H Number of Rests Taken 2 2nd minute Oxygen Flow Rate (L/min) 6 Oxygen Delivery Method Nasal Cannula Pulse Ox (%) 91 Pulse Rate (60-100 beats/min) 114 H Number of Rests Taken 1 3rd minute Oxygen Flow Rate (L/min) 6 Oxygen Delivery Method Nasal Cannula Pulse Ox (%) 91 Pulse Rate (60-100 beats/min) 119 H Number of Rests Taken 1 4th minute Oxygen Flow Rate (L/min) 6 Oxygen Delivery Method Nasal Cannula Pulse Ox (%) 92 Pulse Rate (60-100 beats/min) 118 H Number of Rests Taken 1 5th minute Oxygen Flow Rate (L/min) 6 Oxygen Delivery Method Nasal Cannula Pulse Ox (%) 93 Pulse Rate (60-100 beats/min) 116 H 6th minute Oxygen Flow Rate (L/min) 6 Oxygen Delivery Method Nasal Cannula Pulse Ox (%) 91 Pulse Rate (60-100 beats/min) 118 H Dyspnea Denita Scale (0-10) 5 Exertion Denita Scale (6-20) 14 Post-test Oxygen Flow Rate (L/min) 6 Oxygen Delivery Method Nasal Cannula Pulse Ox (%) 95 Pulse Rate (60-100 beats/min) 113 H Full Laps Walked 4 Partial Lap, Number of Tiles Walked 48 Total Distance Walked (ft) 284 03/21/17 13:42 Cardiopulmonary Services by Ashley Alvarez Patient wears 3-4 lpm continuous at home, wears 6 lpm demand dose when out. Patient was 87-88% on room air. Placed patient back on own 6 lpm demand dose for testing. Patient took several breaks and did not walk between the 3rd and 4th minute. Patient was obviously short of breath and tried to walk again as soon as he could. Initialized on 03/21/17 13:42 - END OF NOTE - Interpretation Interpretation: The patient ambulated 284 feet over the course of 6 minutes beginning on room air with the use of a cane. Pretesting oxygen saturation was noted to be 87-88 % on room air. Prior to the initiation of the test, the patient was placed back on his 6 L/min demand flow. Oxygen saturation improved to 93%. With ambulation, the karine oxygen saturation was 91%. The patient did take several breaks and was notably short of breath with ambulation. This test demonstrates the presence of resting and exertional hypoxia, along with impaired walk distance. - Recommendations Recommendations: 6 L/min of supplemental oxygen should be utilized both at rest and with exertion.
== END ==
PROVIDERS: Family Provider Physician Assistant; PCP Physician Assistant; Visit Provider Nurse Practitioner Acute Care
DX: C34.90 Malignant neoplasm of unspecified part of unspecified bronchus or lung (principal); R06.00 Dyspnea, unspecified
CPT/HCPCS: 70470; 94618; Q9967

== ENCOUNTER 2017-04-28 20:29 | Emergency (ER) | payer MEDICAID, SELFPAY ==
[2017-03-01 11:31] VITALS: BMI 53.3
[2017-04-28 20:30] VITALS: BP 145/99; PULSE 119; RESP 16; TEMP 37; O2SAT 97; BMI 46.0
[2017-04-28] MEDS: 0.9% Normal Saline 1,000 ML 1000 ML IV ×2 (21:47→22:38)
[2017-04-28] MEDS: Ondansetron 4 MG/2 ML Vial IV (21:57)
[2017-04-28 22:30] LABS: Anion Gap 10 (5-15); BUN 15 mg/dL (7-18); BUN/Creat Ratio 31.1 RATIO (10-20); Calcium,Total 8.8 mg/dL (8.5-10.1); Chloride 100 mmol/L (98-107); Creatinine, Serum 0.48 mg/dL (0.70-1.30); EST Glomerular Filtration Rate 194 mL/min (>60); Est Glom Filt Rate - Afr Amer 234 mL/min (>60); Estimated Creatinine Clearance 199.84 ml/min; Glucose 114 mg/dL (74-106); Potassium 3.9 mmol/L (3.5-5.1); Sodium Level 142 mmol/L (136-145)
[2017-04-28 22:32] LABS: Absolute Lymphocyte Count 0.15 X10^3/ul (0.83-4.51); Absolute Neutrophil Count 7.3 X10^3/uL (2.0-7.7); Basophil# 0.01 X10^3/uL; Basophil% 0.1 % (0-1); Eosinophil# 0.05 X10^3/uL; Eosinophils% 0.7 % (0-5); Hematocrit 41.4 % (40-54); Hemoglobin 12.8 g/dl (13.0-16.5); Lymphocyte # 0.15 X10^3/ul (4.0); Mean Corp Hgb Conc 30.9 g/gl (32-36); Mean Corpuscular Hgb 30.6 pg (27.0-32.0); Mean Platelet Vol. 10.4 fl (6.2-12.0); Monocyte# 0.04 X10^3/uL; Monocyte% 0.5 % (0-10); Neutrophil # 7.33 X10^3/uL (2.7-7.7); Neutrophil % 96.6 % (47-70); Platelet Count 153 K/mm3 (150-450); RBC Distribution Width CV 16.1 % (11.6-14.6); RBC Distribution Width SD 57.1 fl (35.1-43.9); Red Blood Count 4.18 M/mm3 (4.6-6.2); White Blood Count 7.6 K/mm3 (4.4-11.0)
[2017-04-28 22:33] LABS: Differential Indicated SCAN CRITERIA MET; POSITIVE COUNT NO; POSITIVE DIFFERENTIAL YES; POSITIVE MORPHOLOGY NO
[2017-04-28 22:37] VITALS: BP 131/96; PULSE 105; O2SAT 98
[2017-04-28 22:56] LABS: Differential Comment SCANNED
[2017-04-28] MEDS: proMETHazine 25 MG/ML Syringe 12.5 MG IV (23:33)
--- NOTE | 2017-04-28 23:41 | NURSING ---
PATIENT DID END UP DRY HEAVING AFTER ICE CHIPS. DR. MCCAULEY MADE AWARE AND ORDERED PHENERGAN FOR THE PATIENT.
--- NOTE | 2017-04-28 23:52 | ED.VISSUMM ---
- ER Visit Summary Date of Service: 04/28/17 Chief Complaint: Nausea vomiting dehydration History of Present Illness: The patient is a 51 M presenting for evaluation due to concern for dehydration. Patient has an underlying history of lung cancer, and is undergoing treatment with both chemotherapy and radiation. Last treatment for chemo was Sunday radiation was . Patient states that over the course of the last 2 days he has had significant nausea and vomiting. Patient states that he is having difficulty with keeping things down, does not necessarily feel as if he has trouble swallowing feels it is more associated with problems with nausea. Denies any presence of fevers. He does have some intermittent loose stools that are unchanged. No blood in his emesis or blood in his stool. Review of systems otherwise negative. Physical Examination: Obese male no acute distress vital signs notable for heart rate of 119. Dry mucous membranes noted. Neck supple. Heart was minimally tachycardic and regular. Lung sounds clear. There are post radiation changes noted of the patient's anterior chest. Abdomen was soft and nontender. Extremities nontender. Skin rashes noted. Nonlateralizing neurologic exam. Test Results: CBC essentially unremarkable, hemoglobin 12.8 there is a neutrophilic predominance but no evidence of leukocytosis. Chemistry is unremarkable no evidence of significant dehydration Emergency Department Course and Treatment: Patient presented for evaluation secondary to vomiting in the setting of chemotherapy and radiation. Patient's laboratory studies are essentially unremarkable, and his abdomen is benign I do not believe that imaging is necessary at this point. Patient was given Zofran and a liter normal saline repeat evaluation showed he did have symptomatic improvement. He did request an additional dose of nausea medication was given dose of Phenergan. Patient passed p.o. challenge at this point I believe that he is safe for discharge. Patient has oral Zofran and Phenergan at home, I will discharge him with a prescription for rectal Phenergan to be used as needed. Patient was recommended on gentle hydration, and follow-up with his oncologist. Disposition: Discharge Impression: 1. Nausea and vomiting 2. History of lung cancer receiving chemotherapy and radiation This note was generated with [employer] software. It may contain incorrect words, spelling, and punctuation that were not noted in review of the chart prior to signing ED Disposition - Plan for ED Patient: Disposition: Home or Assisted Living Chief Complaint: Nausea/Vomiting/Diarrhea Diagnosis: Nausea and vomiting Instructions: ED Vomiting Diarrhea Nonspecific Ad Prescriptions: proMETHazine suppository [Phenergan Suppository] 25 mg RECTAL Q6H PRN PRN #6 suppos. PRN Reason: Nausea Additional Instructions: Followup with your oncologist
[2017-04-29 00:14] VITALS: BP 137/92; PULSE 80; RESP 20; O2SAT 94
== END 2017-04-29 00:15 | disposition home or self-care (01) ==
PROVIDERS: Emergency Provider Emergency Medicine
DX: R11.2 Nausea with vomiting, unspecified (principal); C34.90 Malignant neoplasm of unspecified part of unspecified bronchus or lung; R00.0 Tachycardia, unspecified; E66.9 Obesity, unspecified; Z79.811 Long term (current) use of aromatase inhibitors; Z79.891 Long term (current) use of opiate analgesic; Z79.52 Long term (current) use of systemic steroids; Z79.899 Other long term (current) drug therapy
CPT/HCPCS: 80048; 85025; 96361; 96374; 96375; 99283; J7030; A4216; J2405

== ENCOUNTER 2017-04-30 15:26 | Inpatient (IN) | payer MEDICAID, SELFPAY ==
[2017-03-01 11:31] VITALS: BMI 53.3
[2017-04-30 15:27] VITALS: BP 124/93; PULSE 117; RESP 16; TEMP 37; O2SAT 96; BMI 46.2
[2017-04-30 16:26] LABS: Absolute Lymphocyte Count 0.24 X10^3/ul (0.83-4.51); Absolute Neutrophil Count 4.7 X10^3/uL (2.0-7.7); Basophil# 0.01 X10^3/uL; Basophil% 0.2 % (0-1); Eosinophil# 0.02 X10^3/uL; Eosinophils% 0.4 % (0-5); Hematocrit 39.9 % (40-54); Hemoglobin 12.4 g/dl (13.0-16.5); Lymphocyte # 0.24 X10^3/ul (4.0); Lymphocyte % 4.7 % (19-41); Mean Corp Hgb Conc 31.1 g/gl (32-36); Mean Corpuscular Hgb 30.8 pg (27.0-32.0); Mean Platelet Vol. 9.7 fl (6.2-12.0); Monocyte# 0.05 X10^3/uL; Neutrophil # 4.73 X10^3/uL (2.7-7.7); Neutrophil % 93.3 % (47-70); Platelet Count 95 K/mm3 (150-450); RBC Distribution Width CV 16.1 % (11.6-14.6); RBC Distribution Width SD 58.4 fl (35.1-43.9); Red Blood Count 4.03 M/mm3 (4.6-6.2); White Blood Count 5.1 K/mm3 (4.4-11.0)
[2017-04-30 16:29] LABS: Differential Indicated SCAN CRITERIA MET; POSITIVE COUNT NO; POSITIVE DIFFERENTIAL YES; POSITIVE MORPHOLOGY NO
[2017-04-30] MEDS: Ondansetron 4 MG/2 ML Vial IV (16:34)
[2017-04-30] MEDS: 0.9% Normal Saline 1,000 ML 1000 ML IV (16:34)
[2017-04-30 16:39] LABS: AST(SGOT) 51 U/L (15-37); Alanine Aminotransfer ALT/SGPT 136 U/L (16-61); Albumin, Serum 3.4 g/dL (3.2-5.0); Alkaline Phosphatase 66 U/L (45-117); Anion Gap 5 (5-15); BUN 16 mg/dL (7-18); Bilirubin, Direct 0.37 mg/dL (0.00-0.30); Chloride 103 mmol/L (98-107); Creatinine, Serum 0.55 mg/dL (0.70-1.30); EST Glomerular Filtration Rate 166 mL/min (>60); Est Glom Filt Rate - Afr Amer 200 mL/min (>60); Globulin 3.9 g/dL (2.2-4.2); Glucose 104 mg/dL (74-106); Potassium 3.5 mmol/L (3.5-5.1); Protein, Total 7.3 g/dL (6.4-8.2); Sodium Level 141 mmol/L (136-145)
[2017-04-30 17:06] LABS: Platelet Estimate MOD DEC (ADEQ)
[2017-04-30 18:44] VITALS: BP 167/85; PULSE 114; RESP 20; O2SAT 96; O2SAT 99
--- NOTE | 2017-04-30 18:44 | ED.DCSUM_ITS ---
- ER Visit Summary Date of Service: 04/30/17 Chief Complaint: Nausea, vomiting, diarrhea History of Present Illness: The patient is a 51 M with a 5 day history of nausea , vomiting, diarrhea. Patient does complain of generalized abdominal pain and states he feels like a bowling ball is in my stomach. Patient is currently on chemotherapy for small cell lung cancer. His last treatment was April 25. Patient is currently on Phenergan, Zofran, and Haldol at home for nausea. Physical Examination: Blood pressure is 02/29/1992, temperature 98.6, heart rate 117, respiratory rate 16, pulse ox 96% on 3 L nasal cannula. She is obese female sitting upright in bed. He appears ill but not toxic. Head neck examination is significant for skin erythema on the lower neck and upper chest. Heart is slightly tachycardic and regular. Lung sounds are grossly clear. Abdomen is soft with mild diffuse tenderness to palpation. There is no guarding or rebound. Skin examination reveals slight pallor. Test Results: CBC was normal white count with hemoglobin 12.4. Chemistry studies are significant for bicarb of 33, otherwise normal. LFTs revealed ALT 136 and AST of 51. Emergency Department Course and Treatment: Patient is given IV fluids and Zofran. On repeat evaluation he felt improved but was not able to keep water down on p.o. challenge. At this time he will be admitted for further hydration and treatment. Treatment Plan: [] Disposition: Admit Impression: Intractable vomiting This note was generated with [employer] dictation software. It may contain incorrect words, spelling, and punctuation that were not noted in review of the chart prior to signing ED Disposition - Plan for ED Patient: Disposition: Acute Care Hospital [facility] Chief Complaint: Nausea/Vomiting/Diarrhea
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
[2017-04-30 19:41] VITALS: BP 153/90; PULSE 115; RESP 14; TEMP 36.5; O2SAT 98
[2017-04-30 19:43] VITALS: BMI 44.4
--- NOTE | 2017-04-30 19:43 | US_ITS ---
STUDY: ABDOMINAL ULTRASOUND - RIGHT UPPER QUADRANT REASON FOR VISIT: Male, 51 years old. Elevated LFTs TECHNIQUE: Ultrasound evaluation of the right upper quadrant was performed with real-time and static friedman-scale imaging. TECHNICAL QUALITY: Limited. Examination limited due to a combination of factors including obesity and bowel gas. COMPARISON: None. FINDINGS: Liver: The liver measures 16.9 cm. There is increased echogenicity consistent with fatty infiltration. The bile ducts are within normal limits. There is hepatic color flow. The direction of portal flow is hepatopetal. There is no demonstrated mass lesion. Gallbladder: Normal distended gallbladder. The gallbladder wall measures 2 mm. There is a negative sonographic Morgan's sign. There is no pericholecystic fluid. There is biliary sludge dependent within the gallbladder. Common Bile Duct (C.B.D.): The common bile duct measures 6 mm. Pancreas: There is nonvisualization of the pancreas. Right Kidney: Normal size of the right kidney. The right kidney measures 12.5 cm. Normal renal cortex. The right cortex measures 2.5 cm. There is no demonstrated renal mass or cyst. There is no right hydronephrosis. US/Liver IMPRESSION: Fatty infiltration of liver. Gallbladder sludge. No liver lesions. No ascites. Electronically Signed: Mati Bernardo DO at 23:42 EDT , Service support ,
[2017-04-30 19:50] VITALS: BMI 44.4
[2017-04-30] MEDS: 0.9% Normal Saline 1,000 ML 125 ML IV (19:59)
[2017-04-30] MEDS: proMETHazine 25 MG/ML Syringe 12.5 MG IV (20:08)
[2017-04-30] MEDS: Ipratropium/Albuterol Sulfate 3 ML AMPUL.NEB INHALATION (20:23)
[2017-04-30 20:25] VITALS: PULSE 107; RESP 18; O2SAT 98
[2017-04-30 20:25] LABS: Phosphorus 2.9 mg/dL (2.5-4.9)
[2017-04-30 22:01] LABS: Hemoglobin A1c 6.9 % (4.2-6.3)
[2017-04-30] MEDS: Benzonatate 100 MG Capsule PO (23:08)
[2017-04-30] MEDS: guaiFENesin 600 MG Tablet 1200 MG PO (23:08)
[2017-04-30] MEDS: Famotidine 20 MG Tablet PO (23:08)
[2017-05-01] VITALS (7 sets, daily range): BP systolic 117–160; BP diastolic 74–91; PULSE 107–110; RESP 14–19; TEMP 36.3–37; O2SAT 92–100
[2017-05-01] MEDS: proMETHazine 25 MG/ML Syringe IV ×4 (00:16→19:29)
[2017-05-01] MEDS: Morphine 2 MG/ML Syringe IV ×2 (00:50→14:00)
[2017-05-01] MEDS: 0.9% Normal Saline 1,000 ML 125 ML IV ×3 (04:11→20:41)
[2017-05-01] MEDS: Benzonatate 100 MG Capsule PO (05:33)
[2017-05-01] MEDS: 0.9% NaCl VAD Flush 10 ML IV (05:33)
[2017-05-01 06:10] LABS: ALB/GLOB Ratio 0.8 RATIO (0.9-2.4); AST(SGOT) 46 U/L (15-37); Alanine Aminotransfer ALT/SGPT 121 U/L (16-61); Albumin, Serum 2.8 g/dL (3.2-5.0); Alkaline Phosphatase 58 U/L (45-117); Anion Gap 7 (5-15); BUN 16 mg/dL (7-18); Calcium,Total 8.3 mg/dL (8.5-10.1); Chloride 106 mmol/L (98-107); Creatinine, Serum 0.43 mg/dL (0.70-1.30); EST Glomerular Filtration Rate 220 mL/min (>60); Est Glom Filt Rate - Afr Amer 266 mL/min (>60); Estimated Creatinine Clearance 223.07 ml/min; Globulin 3.5 g/dL (2.2-4.2); Glucose 109 mg/dL (74-106); Potassium 3.6 mmol/L (3.5-5.1); Protein, Total 6.3 g/dL (6.4-8.2); Sodium Level 144 mmol/L (136-145)
[2017-05-01 06:28] LABS: Absolute Lymphocyte Count 0.25 X10^3/ul (0.83-4.51); Absolute Neutrophil Count 3.7 X10^3/uL (2.0-7.7); Basophil# 0.01 X10^3/uL; Basophil% 0.3 % (0-1); Eosinophil# 0.03 X10^3/uL; Eosinophils% 0.8 % (0-5); Hematocrit 36.2 % (40-54); Hemoglobin 11.1 g/dl (13.0-16.5); Lymphocyte # 0.25 X10^3/ul (4.0); Lymphocyte % 6.3 % (19-41); Mean Corp Hgb Conc 30.7 g/gl (32-36); Mean Corpuscular Hgb 30.7 pg (27.0-32.0); Mean Platelet Vol. 10.9 fl (6.2-12.0); Monocyte# 0.04 X10^3/uL; Neutrophil # 3.65 X10^3/uL (2.7-7.7); Neutrophil % 91.3 % (47-70); Platelet Count 80 K/mm3 (150-450); RBC Distribution Width CV 16.3 % (11.6-14.6); RBC Distribution Width SD 59.9 fl (35.1-43.9); Red Blood Count 3.62 M/mm3 (4.6-6.2)
[2017-05-01 06:30] LABS: Differential Indicated SCAN CRITERIA MET; POSITIVE COUNT NO; POSITIVE DIFFERENTIAL YES; POSITIVE MORPHOLOGY NO
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
--- NOTE | 2017-05-01 16:05 | CON.PCM_ITS ---
Consult Referring Physician: Dr. Grullon Subjective Date of Service:: 05/01/17 Chief Complaint: N/V/D History of Present Illness: Patient is a 51-year-old male smoker with COPD and oxygen dependent chronic respiratory failure was hospitalized in December 2016 was acute on chronic respiratory failure and is CT scan of the chest January 03, 2017 showed a Large right suprahilar mass infiltrating the right hilum and mediastinum in association with multiple enlarged nodes in the left superior mediastinum in the prevascular space. On January 23, 2017 he underwent EBUS procedure with FNA at lymph node stations 4L and 7 both of which revealed malignant cells consistent with small cell lung cancer. The large right-sided lung mass was visualized that extended from the paratracheal region into the more distal right hilar structures with extrinsic compression noted at the orifice of the right upper lobe takeoff. On February 12, 2017 and before completing staging for his newly diagnosed cancer patient was hospitalized with progressive cancer, SVC compression and pneumonia. During this hospital stay patient received his first cycle of carboplatin etoposide starting on February 14, 2017 and after improvement was discharged and was able to have a PET CT for initial staging that revealed extensive adenopathy in the mediastinum and extending into the supraclavicular lymph nodes. There was no evidence for distant metastatic disease. Brain CT showed no evidence of metastatic disease. A brain MRI has not been done because the patient has been unable to lay flat on his back for imaging because of dyspnea. In order to try to reduce the volume of the disease and also to allow for improved positioning with laying flat, concurrent radiation therapy was delayed and initiated with cycle 3 of chemotherapy, received Carbo-etoposide 02/14/2017- (2 cycles) Followed by Cisplatin-etoposide (concomitant with RT). Most recent administration 04/23/17-04/25/17. Admitted 04/30/17 for management of intractable nausea, emesis, loose stools x 5 days despite administration of PO supportive medications and antiemetics at home. Upon assessment today, he is tearful stating I just feel so bad citing severe malaise and fatigue, last emesis approx 1100 and diarrhea continues as well. Reports he is able to take sips of clear liquids, ice. Denies bloody/ mucous stool. Diarrhea preceded by mild abd cramping, otherwise denies abd pain. Further denies headaches, dizziness and vision changes. Past Medical History: Chronic Problems (Last Reviewed 04/25/17 @ 15:18 by Natalie Vance) Morbid obesity with BMI of 45.0-49.9, adult (Chronic) Prediabetes (Chronic) 01/04/17 HgbA1c 6.4%. Shortness of breath (Chronic) SCLC (small cell lung carcinoma) (Chronic) DM (diabetes mellitus) (Chronic) COPD (chronic obstructive pulmonary disease) (Chronic) Sleep disorder breathing (Chronic) Tobacco dependence in remission (Chronic) Dyspnea (Chronic) Chronic hypoxemic respiratory failure (Chronic) Morbid obesity with BMI of 50.0-59.9, adult (Chronic) Hypertension (Chronic) Past Medical/Surgical History: Past Medical History - Most Recent Inpatient Visit Past Medical History Start: 04/30/17 19: 40 Text: Status: Complete Freq: ONCE Protocol: Document 04/30/17 19:50 [facility] [place] (Rec: 04/30/17 19:53 [facility] [place] [id number]) BMI Required to complete PMH What is Patient's BMI 44.4 Past Medical History Unable History Recalled No Query Text:Pt Unable/Family Not Present Neurologic Medical History Hx Stroke/TIA No Hx Dementia/Alzheimer's No Hx Parkinson's Disease No Hx Seizures No Hx Multiple Sclerosis No Hx Migraines No Cardiac Medical History VTE Present on Admission No Hx of Deep Vein Thrombosis/VTE/PE No Hx Hypertension Yes: OFF MED Hx Chest Pain/Angina No Hx Heart Attack No Hx Cardiac Surgery/Stents/Etc. No Hx Heart Failure No Hx Pacemaker/AICD No Hx Irregular Heartbeat and/or Afib No Hx Anticoagulant Therapy No Query Text:(Coumadin, Aspirin, Plavix, Xarelto, etc.) Hx Pain in Legs when Walking/Leg Cramps Yes Respiratory Medical History Hx COPD Yes Hx Emphysema No Hx Smoking Yes: quit 2016 Smoking Status Former smoker Hx Smoking Cessation Date 2016 Hx Tobacco Use in last 12 months No Hx of Pipe Smoking No Hx Sleep Apnea No CPAP No BIPAP No Do you snore loudly (louder than talking No or can be heard through closed doors)? Do you often feel tired/ fatigued/ Yes sleepy during daytime? Has anyone observed you stop breathing No during sleep? STOP Results Positive GI Medical History Hx Ulcer No Hx Hepatitis No Hx Cirrhosis No Hx GI Bleed No Hx Unplanned Weight Loss Yes Genitourinary Medical History Indwelling Catheter in Place on Arrival/ No Admission Hx Renal Disease No Hx Dialysis No Musculoskeletal History Hx Arthritis No Hx Rheumatoid Arthritis No Endocrine Medical History Hx Diabetes Yes: not on meds Hx Thyroid Disease No Hematologic Medical History Hx of Blood Transfusion No Hx of Transfusion in last 3 Months No Ever experience any problems with No transfusion(s)? Hx of Preganancy in last 3 Months N/A Nurse Filling Out Transfusion & SGESSEL Questions: Date: 04/30/17 Time: 19:53 Psycho/Social Medical History Hx Depression No Hx Anxiety No Hx Behavior Disorder No Hx Alcohol Use No Hx Substance Use Yes: marijuana Other Medical History Hx Blood Disorders No Hx Anemia No Hx Cancer Yes: STAGE 4 SINGLE CELL LUNG CA Hx Drug Resistant Organism No Wound/Pressure Injury Present on Arrival Yes: radiation burn to chest /Admission Query Text:If yes, chart assessment in Shift/Clinical Findings Central Line/PICC/VAD Present on Arrival Yes /Admission Antibiotics within last 7 days? No Risk for Readmission Number of Risk Factors 6 At Risk for Readmission Patient is At Risk For Readmission Patient is eligible for Call Back Y Past Medical History (Last Reviewed 04/25/17 @ 15:18 by Natalie Vance) Regional lymph node metastasis present (Acute) COPD (chronic obstructive pulmonary disease) (Chronic) Sleep disorder breathing (Chronic) Dyspnea (Chronic) Chronic hypoxemic respiratory failure (Chronic) Acute respiratory failure with hypoxia and hypercapnia (Acute) Morbid obesity with BMI of 50.0-59.9, adult (Chronic) Acute encephalopathy (Resolved) Hypertension (Chronic) Asthmatic bronchitis with exacerbation (Acute) Past Surgical History (Last Reviewed 04/25/17 @ 15:18 by Natalie Vance) EBUS (Resolved) Maternal Family History: Family History (Last Reviewed 04/25/17 @ 15:18 by Natalie Vance) Other Adopted Family History: - - Denies knowledge of biological maternal and paternal family history secondary to adoption. Paternal Family History: Family History (Last Reviewed 04/25/17 @ 15:18 by Natalie Vance) Other Adopted Family History: - - Denies knowledge of biological maternal and paternal family history secondary to adoption. - Social History Lives: Spouse/ Significant Other Smoking Status: Former smoker Tobacco Use: Non-smoker Alcohol: None Drugs: None Allergies/Adverse Reactions: Allergy/AdvReac Type Severity Reaction Status Date / Time bee venom protein (honey bee) Allergy Severe Swelling Verified 04/30/17 15:29 Home Medications Medication Instructions Recorded Omeprazole Magnesium [Prilosec Otc] 20 mg PO DAILY 01/17/17 umeclidinium 62.5 mcg/actuation 1 inh INHALATION DAILY #1 device 01/30/17 blister powder for inhalation Fluticasone/Vilanterol [Breo 1 inh INHALATION Q24H 02/12/17 Ellipta 200-25 Mcg INH] Prednisone 10 mg PO DAILY 02/12/17 Albuterol Aerosols [Ventolin 2.5 mg INHALATION Q2H PRN PRN #30 02/18/17 Aerosols] vial.neb. Albuterol Sulfate [Ventolin Hfa] 2 puff INHALATION Q4H PRN #1 02/18/17 hfa.aer.ad Ondansetron HCl [Zofran] 8 mg PO Q8H PRN PRN #30 tab 03/27/17 Magic Mouth Wash 15 ml PO Q6H PRN PRN #340 ml 03/29/17 Benzonatate [Tessalon Perle] 100 mg PO BID 04/23/17 Haloperidol 0.5 mg PO Q4H PRN PRN 04/23/17 proMETHazine suppository 25 mg RECTAL Q6H PRN PRN #6 suppos. 04/28/17 [Phenergan Suppository] Allopurinol [Zyloprim] 300 mg PO DAILYCM 04/30/17 Ipratropium/Albuterol Sulfate 3 ml INHALATION Q6H PRN 04/30/17 [Duoneb] Oxycodone [Oxyir] 10 mg PO Q4H PRN PRN 04/30/17 Review of Systems Constitutional:: Reports: Weakness, Fatigue, Weight loss, Appetite change. Denies: Fever, Sweats, Chills Cardiovascular:: Reports: Dyspnea on exertion. Denies: Chest pain, Palpitations , Orthopnea, PND Respiratory: Reports: Shortness of Breath. Denies: Cough, Hemoptysis, Wheezing Gastrointestinal:: Reports: Nausea, Vomiting, Diarrhea. Denies: Abdominal pain , Constipation, Hematochezia Genitourinary: Denies: Dysuria, Hematuria, Urinary frequency, Flank pain Musculoskeletal:: Denies: Back pain, Myalgia, Arthralgia Skin: Reports: Rash - radiation dermatitis Neurological:: Denies: Headache, Dizziness, Visual changes, Tinnitus, Hearing loss Psychiatric: Denies: Anxiety, Depression, Homicidal Ideations, Suicidal Ideations Vital Signs Height 6 ft Weight: 327 lb 3.185 oz Weight in Pounds 327.2 lbs Pulse Ox 97 Temperature 98.5 F Pulse Rate 108 Respiratory Rate 18 Blood Pressure 156/91 Blood Pressure Position Semi-Fowlers - Physical Exam General: Alert, Oriented x3, No apparent distress HEENT: Atraumatic, Normocephalic Oropharynx:: Dry mucosa. Negative for: Ulcerated lesions Neck:: Supple, Trachea midline. Negative for: JVD, bilateral Cardiac:: Regular rate, Regular rhythm, Normal S1, Normal S2. Negative for: Murmur Lungs: Clear to auscultation, Diminished, Excusion symmetrical. Negative for: Rhonchi, Wheezes, Increased respiratory effort Abdomen:: Bowel sounds x 4, Soft, Non-tender, Non-distended. Negative for: Hepatosplenomegaly - difficult to discern d/t large body habitus Extremities:: Negative for: Cyanosis, Edema, Calf tenderness Neurological: Neuro grossly intact Skin:: Lesions - severe erythema with desquamation neck anteriorly and bilat, coated with Aquaphor. Negative for: Petechiae, Ecchymosis Psychiatric:: Appropriate affect, Euthymic Lymphatics:: Negative for: Cervical lymphadenopathy, Supraclavicular lymphadenopathy, Axillary lymphadenopathy Laboratory Data: Microbiology 04/30/17 19:43 Enteric Bacteriology - Final Stool 04/30/17 19:43 C. difficile DNA Amplification - Final Stool Laboratory Tests 3 05/01/17 05/01/17 Range/Units 05:33 05:33 WBC 4.0 L (4.4-11.0) K/mm3 RBC 3.62 L (4.6-6.2) M/mm3 Hgb 11.1 L (13.0-16.5) g/dl Hct 36.2 L (40-54) % MCV 100.0 H (80-94) fL MCH 30.7 (27.0-32.0) pg MCHC 30.7 L (32-36) g/gl RDW 16.3 H (11.6-14.6) % RDW Differential 59.9 H (35.1-43.9) fl Plt Count 80 L (150-450) K/mm3 MPV 10.9 (6.2-12.0) fl Immature Gran % (Auto) 0.300 (0.0-0.9) % Neut % (Auto) 91.3 H (47-70) % Lymph % (Auto) 6.3 L (19-41) % Sargent % (Auto) 1.0 (0-10) % Eos % (Auto) 0.8 (0-5) % Baso % (Auto) 0.3 (0-1) % Absolute Neuts (auto) 3.7 (2.0-7.7) X10^3/uL Absolute Lymphs (auto) 0.25 L (0.83-4.51) X10^3/ul Total Counted Not Reportable Sodium 144 (136-145) mmol/L Potassium 3.6 (3.5-5.1) mmol/L Chloride 106 (98-107) mmol/L Carbon Dioxide 31.0 (21.0-32.0) mmol/L Anion Gap 7 (5-15) BUN 16 (7-18) mg/dL Creatinine 0.43 L (0.70-1.30) mg/dL Estim Creat Clear Calc 223.07 ml/min Est GFR (MDRD) Af Amer 266 (>60) mL/min Est GFR (MDRD) Non-Af 220 (>60) mL/min BUN/Creatinine Ratio 37.0 H (10-20) RATIO Glucose 109 H (74-106) mg/dL Calcium 8.3 L (8.5-10.1) mg/dL Total Bilirubin 0.70 (0.20-1.00) mg/dL AST 46 H (15-37) U/L ALT 121 H (16-61) U/L Alkaline Phosphatase 58 (45-117) U/L Total Protein 6.3 L (6.4-8.2) g/dL Albumin 2.8 L (3.2-5.0) g/dL Globulin 3.5 (2.2-4.2) g/dL Albumin/Globulin Ratio 0.8 L (0.9-2.4) RATIO Diagnostic Data: Diagnostic Data Liver Ultrasound 04/30/17 19:43 IMPRESSION: Fatty infiltration of liver. Gallbladder sludge. No liver lesions. No ascites. Electronically Signed: Mati Bernardo, DO at 23:42 EDT , Service support , Assessment and Plan Mr. Alberts is a very pleasant 51 y/o man with a past medical history positive for obesity, chronic anemia, COPD w/ chronic hypoxic respiratory failure, HTN, morbid obesity recently diagnosed with Small Cell Lung CA presently receiving concomitant chemoradiation with last chemotherapy treatment 04/25/17 and last radiation 04/26/[address] [facility] on 04/30/17 with ongoing nausea, emesis and loose stools (1-2/day). 1. Stage IIIB LS SCLC- S/p 2 cycles carboplatin/etoposide, presently receiving concomitant chemoradiation with Cisplatin/etoposide. Last administration - 04/25/18. Radiation on hold d/t admission. 2. 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 Continue Aquaphor. 3. Intractable nausea/vomiting- Presumably chemotherapy induced. Overall unchanged from degree of nausea on admission. Continue IVFs, prn Zofran and add olanzapine 10 mg QD x 3 days. 4. Diarrhea- C diff toxin and enteric panel negative. Orders placed for prn loperamide. 5. Chronic Anemia, Thrombocytopenia: Expect counts to trend downward with anticipation of KATHLEEN. Will continue to monitor. Platelets 80,000. Patient educated platelet count of 80,000 is not a contraindication to receive Lovenox for VTE prophylaxis. This is recommended. He will consider SQ Lovenox tomorrow. Emotional support provided. Dulce Maria Alexander, MSN, [employer], AOCNP Medications: Prescriptions This Visit Medication Instructions Recorded Allopurinol [Zyloprim] 300 mg PO DAILYCM 04/30/17 Ipratropium/Albuterol Sulfate 3 ml INHALATION Q6H PRN 04/30/17 [Duoneb] Oxycodone [Oxyir] 10 mg PO Q4H PRN PRN 04/30/17 Medications Added to Medication List This Visit Category Date Time Status Allopurinol [Zyloprim] Med 05/01/17 08:00 Active 300 mg PO DAILYCM Mineral Oil/Petrolatum Cr [Aquaphor] Med 05/01/17 11:18 Active 1 applic TOPICAL PRN PRN predniSONE tablet Med 05/01/17 08:00 Active 10 mg PO DAILY@0800 Primary Care Provider: No Primary Care Phys Referring Provider:
[2017-05-01] MEDS: Ipratropium/Albuterol Sulfate 3 ML AMPUL.NEB INHALATION (19:09)
[2017-05-02] MEDS: Ondansetron 4 MG/2 ML Vial IV ×3 (01:28→17:55)
[2017-05-02 03:37] VITALS: BP 159/98; PULSE 103; RESP 20; TEMP 36.3; O2SAT 96
[2017-05-02] MEDS: 0.9% Normal Saline 1,000 ML 125 ML IV (05:21)
[2017-05-02] MEDS: proMETHazine 25 MG/ML Syringe IV (05:52)
[2017-05-02] MEDS: Benzonatate 100 MG Capsule PO ×2 (05:52→21:41)
[2017-05-02] MEDS: 0.9% NaCl VAD Flush 10 ML IV (05:53)
[2017-05-02 05:58] LABS: Hematocrit 34.4 % (40-54); Hemoglobin 10.6 g/dl (13.0-16.5); Mean Corp Hgb Conc 30.8 g/gl (32-36); Mean Corpuscular Hgb 31.1 pg (27.0-32.0); Mean Corpuscular Volume 100.9 fL (80-94); Mean Platelet Vol. 11.1 fl (6.2-12.0); Platelet Count 63 K/mm3 (150-450); RBC Distribution Width CV 15.8 % (11.6-14.6); RBC Distribution Width SD 56.6 fl (35.1-43.9); Red Blood Count 3.41 M/mm3 (4.6-6.2); White Blood Count 2.1 K/mm3 (4.4-11.0)
[2017-05-02 06:03] LABS: Scan Indicated on CBC? Y/N NO
[2017-05-02 06:18] LABS: Anion Gap 7 (5-15); BUN 12 mg/dL (7-18); BUN/Creat Ratio 35.5 RATIO (10-20); Calcium,Total 8.3 mg/dL (8.5-10.1); Chloride 108 mmol/L (98-107); Creatinine, Serum 0.34 mg/dL (0.70-1.30); EST Glomerular Filtration Rate 292 mL/min (>60); Est Glom Filt Rate - Afr Amer 353 mL/min (>60); Estimated Creatinine Clearance 282.12 ml/min; Glucose 98 mg/dL (74-106); Potassium 3.5 mmol/L (3.5-5.1); Sodium Level 144 mmol/L (136-145)
[2017-05-02 07:45] VITALS: O2SAT 96
--- NOTE | 2017-05-02 07:49 | NURSING ---
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 Stated he would be stopping by today and wanted to know if he could do a round of radiation. Per pt's sx of intractable N/V during shift Francois felt he would 'rather see the nausea under control first'. Also offered to inquire about getting 0.5 mg of ativan on board as an option as well as Decadron? Informed Maryana Charge nurse for dayshift communication.
[2017-05-02 08:56] VITALS: BP 137/81; PULSE 108; RESP 18; TEMP 37.1; O2SAT 95
--- NOTE | 2017-05-02 12:19 | PCM.PROGNOTE ---
Subjective: He is feeling somewhat better, but still has recurrent nausea. He had tried water, but unable to hold it in. No abdominal pain, loose stool x 3 yesterday. No hematemesis or hematochezia. Excoriated skin of neck from radiation dermatitis. - Physical Exam General: Alert, Oriented x3, Cooperative, Well developed, Well nourished HEENT: Atraumatic, PERRLA, Normocephalic Oral: Moist Mucosa Neck: Supple, No JVD, Negative Carotid Bruits Lungs: Clear to auscultation, Normal air movement, Rhonchi Cardiovascular: Regular rate, Regular Rhythm, Normal S1, Normal S2, No murmurs, No Ectopic Activity Abdomen: Bowel Sounds Present, Soft, Non Tender, Non-Distended, Obese Extremities: No clubbing, No cyanosis, No edema Skin: No rashes, Burn - anterior upper chest/neck radiation burn with yellow slough / excoriation. Musculoskeletal: No Tenderness to Palpation of Joints or Extremities, No Muscle Wasting Lymphatic: No Cervical, Supraclavicular, or Inguinal Adenopathy Neurological: Cranial nerves II-XII grossly intact, Neuro grossly intact Psych/Mental Status: Normal Affect - Physical Exam Vital Signs Temp Pulse Resp BP Pulse Ox 98.8 F 108 H 18 137/81 H 95 05/02/17 08:56 05/02/17 08:56 05/02/17 08:56 05/02/17 08:56 05/02/17 08:56 Oxygen Flow Rate (L/min) 2 Oxygen Delivery Method Nasal Cannula Weight: 327 lb 3.185 oz Body Mass Index (BMI) 44.4 Intake and Output for Last 24 Hours 04/30/17 05/01/17 05/02/17 23:59 23:59 23:59 Intake Total 3244 / 3244 2268 / 2268 Output Total 220 / 220 Balance 3024 / 3024 2268 / 2268 Microbiology Past 72 Hours 04/30/17 19:43 Enteric Bacteriology - Final Stool 04/30/17 19:43 C. difficile DNA Amplification - Final Stool Laboratory Tests Past 24 Hrs 05/02/17 05/02/17 05:45 05:45 WBC 2.1 L RBC 3.41 L Hgb 10.6 L Hct 34.4 L MCV 100.9 H MCH 31.1 MCHC 30.8 L RDW 15.8 H RDW Differential 56.6 H Plt Count 63 L MPV 11.1 Sodium 144 Potassium 3.5 Chloride 108 H Carbon Dioxide 29.0 Anion Gap 7 BUN 12 Creatinine 0.34 L Estim Creat Clear Calc 282.12 Est GFR (MDRD) Af Amer 353 Est GFR (MDRD) Non-Af 292 BUN/Creatinine Ratio 35.5 H Glucose 98 Calcium 8.3 L Diagnostic Data Liver Ultrasound 04/30/17 19:43 IMPRESSION: Fatty infiltration of liver. Gallbladder sludge. No liver lesions. No ascites. Electronically Signed: Mati Bernardo DO at 23:42 EDT , Service support , Active Medications Acetaminophen (Tylenol) 650 mg PO Q6H PRN PRN PRN Reason: Non-cardiac pain (mod-severe) Al Hydroxide/Mg Hydroxide (Mylanta Ii) 30 ml PO Q6H PRN PRN PRN Reason: Gastric burning Albuterol Sulfate (Ventolin Aerosols) 2.5 mg INHALATION Q2H PRN PRN PRN Reason: dyspnea, wheezing Albuterol/Ipratropium (Duoneb) 3 ml INHALATION Q6HWA.RT [facility] Last Admin: 05/02/17 07:20 Dose: Not Given [facility] Admin: 05/02/17 08:56 Dose: Not Given Benzonatate (Tessalon Perle) 100 mg PO TID [facility] Last Admin: 05/02/17 05:52 Dose: 100 mg Enoxaparin Sodium (Lovenox) 40 mg SC DAILY@1000 [facility] Last Admin: 05/02/17 09:23 Dose: Not Given Guaifenesin (Mucinex) 1,200 mg PO BID [facility] Last Admin: 05/02/17 09:22 Dose: Not Given Haloperidol Lactate (Haldol) 1 mg IV Q6H PRN PRN PRN Reason: NAUSEA Heparin Sodium (Beef Lung) (Heparin 500 Unit/5 Ml (100/Ml)) 500 unit IV UD PRN PRN Reason: HEPARIN FLUSH Hydralazine HCl (Apresoline Iv) 10 mg IV Q4H PRN PRN PRN Reason: SBP > 160 Sodium Chloride () 250 mls @ 15 mls/hr IV .[id number] PRN PRN Reason: SALINE FLUSH Pantoprazole Sodium 40 mg/ (Sodium Chloride) 110 mls @ 330 mls/hr IV DAILY [facility] Last Admin: 05/02/17 00:50 Dose: 330 mls/hr Potassium Chloride 10 meq/ (Dextrose/Sodium Chloride) 1,005 mls @ 125 mls/hr IV .[id number] [facility] Lidocaine/Diphenhydr/Alum/Mg/Simeth () 15 ml PO Q6H PRN PRN PRN Reason: PAIN Loperamide HCl (Imodium) 2 mg PO Q4H PRN PRN PRN Reason: Diarrhea Lorazepam (Ativan) 0.5 mg IV Q6H PRN PRN PRN Reason: NAUSEA Magnesium Hydroxide (Milk Of Magnesia) 30 ml PO DAILY PRN PRN PRN Reason: Constipation Morphine Sulfate () 1 - 2 mg IV Q4H PRN PRN PRN Reason: PAIN Last Admin: 05/01/17 14:00 Dose: 2 mg Multi-Ingredient Ointment (Aquaphor) 1 applic TOPICAL PRN PRN; Protocol PRN Reason: WOUND CARE Nutritional Formula (Lactose Free) (Glucerna Shake) 120 ml PO 4X/DAY [facility] Last Admin: 05/02/17 09:22 Dose: Not Given Ondansetron HCl (Zofran) 4 mg IV Q6H PRN PRN PRN Reason: NAUSEA Oxycodone HCl (Oxyir) 10 mg PO Q4H PRN PRN PRN Reason: PAIN Prednisone () 10 mg PO DAILY@0800 [facility] Last Admin: 05/02/17 08:56 Dose: Not Given Prochlorperazine Edisylate (Compazine Iv) 10 mg IV Q6H PRN PRN PRN Reason: NAUSEA Sodium Chloride () 10 ml IV UD PRN PRN Reason: VAD FLUSH Last Admin: 05/02/17 05:53 Dose: 10 ml Medical Necessity - Tobacco Use Smoking Status: Former smoker Tobacco Use: Non-smoker Assessment/Plan The patient is a 51 y/o M w/ PMHx: Obesity, Chronic Normocytic Anemia, Chronic COPD w/ Chronic Hypoxic Respiratory Failure, HTN Noted prior, Morbid Obesity, Prior noted Pre-diabetes mellitus, Small Cell Lung CA w/ active ongoing chemotherapy and radiation with last treatment chemotherapy 04/25/17 and last radiation prior w/ Neck merida with treatment ongoing who presents to the [facility] on 04/30/17 with ongoing nausea, emesis and loose stools (1-2/day) since recent completion chemotherapy without improvement. #1 Intractable Nausea, vomiting, Loose Stool: Likely due to chemotherapy. C diff toxin and enteric panel were negative. On Phenergan 25 mg IVP, Zofran 4 mg IVP. Unable to tolerate clear liquid. Change Phenergan to Compazine. Add Ativan 0.5 mg IVP q6h prn and Haldol 1 mg q6h prn for nausea. Start Zyprexa 10 mg IM qhs x 3 days. #2 Small Cell Lung CA: On chemotherapy and radiation, most recent chemotherapy 04/25/17 as noted, most recent radiation treatment on 04/26. Radiation dermatitis of neck, treated conservatively with Aquaphor. Plan to radiation treatment today. #3 Chronic Anemia, Thrombocytopenia: WBC 5.1, Platelets 95,000, and WBC 12.4 on admission. WBC and platelets trending down slightly. Continue to monitor CBC. #4 Elevated LFTs: AST 51, ALT 136 on admission. Repeated AST/ALT stable. Ultrasound liver is unremarkable. #5 Chronic COPD w/ Chronic Hypoxic Respiratory Failure: Continue oxygen via [place]. He has home oxygen already. Bronchodilator: DuoNeb and PRN albuterol. #6 Prediabetes mellitus type II: Sliging scale insulin. Change IVF from NS to D5 0.45NS at 125 ml/hr. #7 Hypertension (denied history, noted HTN in prior history also) with elevated BP: Blood pressure is adequate / stable. #8 Morbid Obesity: Weight loss and lifestyle changes encouraged, nutrition consulted. #9 Suspected/High Risk JADYN: Given habitus, thickened neck, high risk JADYN. Consider sleep study as outpatient. DVT Prophylaxis: SCD, Lovenox with platelet monitoring. GI prophylaxis: PPI iv. Patient is full code. Disposition: home in 2 to 3 days. Code Visit Inpatient E&M: 49334 Subs Hosp L3
--- NOTE | 2017-05-02 12:27 | PN_ITS ---
Subjective: He is feeling somewhat better, but still has recurrent nausea. He had tried water, but unable to hold it in. No abdominal pain, loose stool x 3 yesterday. No hematemesis or hematochezia. Excoriated skin of neck from radiation dermatitis. - Physical Exam General: Alert, Oriented x3, Cooperative, Well developed, Well nourished HEENT: Atraumatic, PERRLA, Normocephalic Oral: Moist Mucosa Neck: Supple, No JVD, Negative Carotid Bruits Lungs: Clear to auscultation, Normal air movement, Rhonchi Cardiovascular: Regular rate, Regular Rhythm, Normal S1, Normal S2, No murmurs, No Ectopic Activity Abdomen: Bowel Sounds Present, Soft, Non Tender, Non-Distended, Obese Extremities: No clubbing, No cyanosis, No edema Skin: No rashes, Burn - anterior upper chest/neck radiation burn with yellow slough / excoriation. Musculoskeletal: No Tenderness to Palpation of Joints or Extremities, No Muscle Wasting Lymphatic: No Cervical, Supraclavicular, or Inguinal Adenopathy Neurological: Cranial nerves II-XII grossly intact, Neuro grossly intact Psych/Mental Status: Normal Affect - Physical Exam Vital Signs Temp Pulse Resp BP Pulse Ox 98.8 F 108 H 18 137/81 H 95 05/02/17 08:56 05/02/17 08:56 05/02/17 08:56 05/02/17 08:56 05/02/17 08:56 Oxygen Flow Rate (L/min) 2 Oxygen Delivery Method Nasal Cannula Weight: 327 lb 3.185 oz Body Mass Index (BMI) 44.4 Intake and Output for Last 24 Hours 04/30/17 05/01/17 05/02/17 23:59 23:59 23:59 Intake Total 3244 / 3244 2268 / 2268 Output Total 220 / 220 Balance 3024 / 3024 2268 / 2268 Microbiology Past 72 Hours 04/30/17 19:43 Enteric Bacteriology - Final Stool 04/30/17 19:43 C. difficile DNA Amplification - Final Stool Laboratory Tests Past 24 Hrs 05/02/17 05/02/17 05:45 05:45 WBC 2.1 L RBC 3.41 L Hgb 10.6 L Hct 34.4 L MCV 100.9 H MCH 31.1 MCHC 30.8 L RDW 15.8 H RDW Differential 56.6 H Plt Count 63 L MPV 11.1 Sodium 144 Potassium 3.5 Chloride 108 H Carbon Dioxide 29.0 Anion Gap 7 BUN 12 Creatinine 0.34 L Estim Creat Clear Calc 282.12 Est GFR (MDRD) Af Amer 353 Est GFR (MDRD) Non-Af 292 BUN/Creatinine Ratio 35.5 H Glucose 98 Calcium 8.3 L Diagnostic Data Liver Ultrasound 04/30/17 19:43 IMPRESSION: Fatty infiltration of liver. Gallbladder sludge. No liver lesions. No ascites. Electronically Signed: Mati Bernardo DO at 23:42 EDT , Service support , Active Medications Acetaminophen (Tylenol) 650 mg PO Q6H PRN PRN PRN Reason: Non-cardiac pain (mod-severe) Al Hydroxide/Mg Hydroxide (Mylanta Ii) 30 ml PO Q6H PRN PRN PRN Reason: Gastric burning Albuterol Sulfate (Ventolin Aerosols) 2.5 mg INHALATION Q2H PRN PRN PRN Reason: dyspnea, wheezing Albuterol/Ipratropium (Duoneb) 3 ml INHALATION Q6HWA.RT [facility] Last Admin: 05/02/17 07:20 Dose: Not Given Allopurinol (Zyloprim) [facility] Last Admin: 05/02/17 08:56 Dose: Not Given Benzonatate (Tessalon Perle) 100 mg PO TID [facility] Last Admin: 05/02/17 05:52 Dose: 100 mg Enoxaparin Sodium (Lovenox) 40 mg SC DAILY@1000 [facility] Last Admin: 05/02/17 09:23 Dose: Not Given Guaifenesin (Mucinex) 1,200 mg PO BID [facility] Last Admin: 05/02/17 09:22 Dose: Not Given Haloperidol Lactate (Haldol) 1 mg IV Q6H PRN PRN PRN Reason: NAUSEA Heparin Sodium (Beef Lung) (Heparin 500 Unit/5 Ml (100/Ml)) 500 unit IV UD PRN PRN Reason: HEPARIN FLUSH Hydralazine HCl (Apresoline Iv) 10 mg IV Q4H PRN PRN PRN Reason: SBP > 160 Sodium Chloride () 250 mls @ 15 mls/hr IV .[id number] PRN PRN Reason: SALINE FLUSH Pantoprazole Sodium 40 mg/ (Sodium Chloride) 110 mls @ 330 mls/hr IV DAILY [facility] Last Admin: 05/02/17 00:50 Dose: 330 mls/hr Potassium Chloride 10 meq/ (Dextrose/Sodium Chloride) 1,005 mls @ 125 mls/hr IV .Q8H3M [facility] Lidocaine/Diphenhydr/Alum/Mg/Simeth () 15 ml PO Q6H PRN PRN PRN Reason: PAIN Loperamide HCl (Imodium) 2 mg PO Q4H PRN PRN PRN Reason: Diarrhea Lorazepam (Ativan) 0.5 mg IV Q6H PRN PRN PRN Reason: NAUSEA Magnesium Hydroxide (Milk Of Magnesia) 30 ml PO DAILY PRN PRN PRN Reason: Constipation Morphine Sulfate () 1 - 2 mg IV Q4H PRN PRN PRN Reason: PAIN Last Admin: 05/01/17 14:00 Dose: 2 mg Multi-Ingredient Ointment (Aquaphor) 1 applic TOPICAL PRN PRN; Protocol PRN Reason: WOUND CARE Nutritional Formula (Lactose Free) (Glucerna Shake) 120 ml PO 4X/DAY [facility] Last Admin: 05/02/17 09:22 Dose: Not Given Ondansetron HCl (Zofran) 4 mg IV Q6H PRN PRN PRN Reason: NAUSEA Oxycodone HCl (Oxyir) 10 mg PO Q4H PRN PRN PRN Reason: PAIN Prednisone () 10 mg PO DAILY@0800 [facility] Last Admin: 05/02/17 08:56 Dose: Not Given Prochlorperazine Edisylate (Compazine Iv) 10 mg IV Q6H PRN PRN PRN Reason: NAUSEA Sodium Chloride () 10 ml IV UD PRN PRN Reason: VAD FLUSH Last Admin: 05/02/17 05:53 Dose: 10 ml Medical Necessity - Tobacco Use Smoking Status: Former smoker Tobacco Use: Non-smoker Assessment/Plan The patient is a 51 y/o M w/ PMHx: Obesity, Chronic Normocytic Anemia, Chronic COPD w/ Chronic Hypoxic Respiratory Failure, HTN Noted prior, Morbid Obesity, Prior noted Pre-diabetes mellitus, Small Cell Lung CA w/ active ongoing chemotherapy and radiation with last treatment chemotherapy 04/25/17 and last radiation prior w/ Neck merida with treatment ongoing who presents to the [facility] on 04/30/17 with ongoing nausea, emesis and loose stools (1-2/day) since recent completion chemotherapy without improvement. #1 Intractable Nausea, vomiting, Loose Stool: Likely due to chemotherapy. C diff toxin and enteric panel were negative. On Phenergan 25 mg IVP, Zofran 4 mg IVP. Unable to tolerate clear liquid. Change Phenergan to Compazine. Add Ativan 0.5 mg IVP q6h prn and Haldol 1 mg q6h prn for nausea. Start Zyprexa 10 mg IM qhs x 3 days. #2 Small Cell Lung CA: On chemotherapy and radiation, most recent chemotherapy 04/25/17 as noted, most recent radiation treatment on 04/26. Radiation dermatitis of neck, treated conservatively with Aquaphor. Plan to radiation treatment today. #3 Chronic Anemia, Thrombocytopenia: WBC 5.1, Platelets 95,000, and WBC 12.4 on admission. WBC and platelets trending down slightly. Continue to monitor CBC. #4 Elevated LFTs: AST 51, ALT 136 on admission. Repeated AST/ALT stable. Ultrasound liver is unremarkable. #5 Chronic COPD w/ Chronic Hypoxic Respiratory Failure: Continue oxygen via NC. He has home oxygen already. Bronchodilator: DuoNeb and PRN albuterol. #6 Prediabetes mellitus type II: Sliging scale insulin. Change IVF from NS to D5 0.45NS at 125 ml/hr. #7 Hypertension (denied history, noted HTN in prior history also) with elevated BP: Blood pressure is adequate / stable. #8 Morbid Obesity: Weight loss and lifestyle changes encouraged, nutrition consulted. #9 Suspected/High Risk JADYN: Given habitus, thickened neck, high risk JADYN. Consider sleep study as outpatient. DVT Prophylaxis: SCD, Lovenox with platelet monitoring. GI prophylaxis: PPI iv. Patient is full code. Disposition: home in 2 to 3 days. Code Visit Inpatient E&M: 98709 Subs Hosp L3
[2017-05-02] MEDS: Potassium Chloride 10 MEQ in Dext 5%-0.45% NS 1,000 ML 125 MEQ IV ×2 (13:50→22:30)
[2017-05-02] MEDS: proCHLORPERazine 10 MG/2 ML Vial IV (13:51)
[2017-05-02] MEDS: LORazepam 2 MG/ML Syringe 0.5 MG IV ×2 (13:51→22:16)
[2017-05-02 13:54] VITALS: BP 138/82; PULSE 109; RESP 16; TEMP 37.1; O2SAT 96
--- NOTE | 2017-05-02 15:21 | CASEMGMT ---
CM Assessment: Patient is sleeping at this time. Significant other, Mira Serna, is present and agreeable to assist with questions. PCP: Mira states his PCP resigned and a new PCP has agreed to assume his care. She does not know provider's name at this time. Practice is located in [place]. Specialists: Brent (pulmonology) and Ct / Paige (oncology) The patient lives in a 2-story home with first floor setup. There are four steps into the home. He has palliative care setup and home health aide services with [facility]. Patient uses 2L continuous oxygen at home. He uses a cane for ambulating. Mira states that he does have living will and POA paperwork. She states that son, Khoi is medical power of boat wrapper and that [facility] should have these documents on file. Mira states the patient can drive but does not do so. Mira states that [facility] has assisted her with completing a 1099 form with hopes of being approved for additional aide hours and increased accessibility within their home. DC Plan: Home with resumption of [facility] aide services.
--- NOTE | 2017-05-02 17:26 | ONC.PN.INPT ---
- Problem List (1) SCLC (small cell lung carcinoma) Status: Chronic (2) Chemotherapy induced nausea and vomiting Status: Acute Subjective Date of Service:: 05/02/17 N/V/D Patient is a 51-year-old male smoker with COPD and oxygen dependent chronic respiratory failure was hospitalized in December 2016 was acute on chronic respiratory failure and is CT scan of the chest January 03, 2017 showed a Large right suprahilar mass infiltrating the right hilum and mediastinum in association with multiple enlarged nodes in the left superior mediastinum in the prevascular space. On January 23, 2017 he underwent EBUS procedure with FNA at lymph node stations 4L and 7 both of which revealed malignant cells consistent with small cell lung cancer. The large right-sided lung mass was visualized that extended from the paratracheal region into the more distal right hilar structures with extrinsic compression noted at the orifice of the right upper lobe takeoff. On February 12, 2017 and before completing staging for his newly diagnosed cancer patient was hospitalized with progressive cancer, SVC compression and pneumonia. During this hospital stay patient received his first cycle of carboplatin etoposide starting on February 14, 2017 and after improvement was discharged and was able to have a PET CT for initial staging that revealed extensive adenopathy in the mediastinum and extending into the supraclavicular lymph nodes. There was no evidence for distant metastatic disease. Brain CT showed no evidence of metastatic disease. A brain MRI has not been done because the patient has been unable to lay flat on his back for imaging because of dyspnea. In order to try to reduce the volume of the disease and also to allow for improved positioning with laying flat, concurrent radiation therapy was delayed and initiated with cycle 3 of chemotherapy, received Carbo-etoposide 02/14/2017- (2 cycles) Followed by Cisplatin-etoposide 03/26/2017 (concomitant with RT). Most recent administration 04/23/17-04/25/17. Admitted 04/30/17 for management of intractable nausea, emesis, loose stools x 5 days despite administration of PO supportive medications and antiemetics at home. Sleeping during much of assessment, reports continued nausea. Attributes drowsiness to recent dose of Ativan. No emesis since forenoon. Diarrhea resolved. Past Medical History: Chronic Problems (Last Reviewed 04/25/17 @ 15:18 by Natalie Vance) Morbid obesity with BMI of 45.0-49.9, adult (Chronic) Prediabetes (Chronic) 01/04/17 HgbA1c 6.4%. Shortness of breath (Chronic) SCLC (small cell lung carcinoma) (Chronic) DM (diabetes mellitus) (Chronic) COPD (chronic obstructive pulmonary disease) (Chronic) Sleep disorder breathing (Chronic) Tobacco dependence in remission (Chronic) Dyspnea (Chronic) Chronic hypoxemic respiratory failure (Chronic) Morbid obesity with BMI of 50.0-59.9, adult (Chronic) Hypertension (Chronic) Past Medical History - Most Recent Inpatient Visit Past Medical History Start: 04/30/17 19:40 Text: Status: Complete Freq: ONCE Protocol: Document 04/30/17 19:50 [facility] [place] (Rec: 04/30/17 19:53 [facility] [id number]) BMI Required to complete PMH What is Patient's BMI 44.4 Past Medical History Unable History Recalled No Query Text:Pt Unable/Family Not Present Neurologic Medical History Hx Stroke/TIA No Hx Dementia/Alzheimer's No Hx Parkinson's Disease No Hx Seizures No Hx Multiple Sclerosis No Hx Migraines No Cardiac Medical History VTE Present on Admission No Hx of Deep Vein Thrombosis/VTE/PE No Hx Hypertension Yes: OFF MED Hx Chest Pain/Angina No Hx Heart Attack No Hx Cardiac Surgery/Stents/Etc. No Hx Heart Failure No Hx Pacemaker/AICD No Hx Irregular Heartbeat and/or Afib No Hx Anticoagulant Therapy No Query Text:(Coumadin, Aspirin, Plavix, Xarelto, etc.) Hx Pain in Legs when Walking/Leg Cramps Yes Respiratory Medical History Hx COPD Yes Hx Emphysema No Hx Smoking Yes: quit 2016 Smoking Status Former smoker Hx Smoking Cessation Date 2016 Hx Tobacco Use in last 12 months No Hx of Pipe Smoking No Hx Sleep Apnea No CPAP No BIPAP No Do you snore loudly (louder than talking No or can be heard through closed doors)? Do you often feel tired/ fatigued/ Yes sleepy during daytime? Has anyone observed you stop breathing No during sleep? STOP Results Positive GI Medical History Hx Ulcer No Hx Hepatitis No Hx Cirrhosis No Hx GI Bleed No Hx Unplanned Weight Loss Yes Genitourinary Medical History Indwelling Catheter in Place on Arrival/ No Admission Hx Renal Disease No Hx Dialysis No Musculoskeletal History Hx Arthritis No Hx Rheumatoid Arthritis No Endocrine Medical History Hx Diabetes Yes: not on meds Hx Thyroid Disease No Hematologic Medical History Hx of Blood Transfusion No Hx of Transfusion in last 3 Months No Ever experience any problems with No transfusion(s)? Hx of Preganancy in last 3 Months N/A Nurse Filling Out Transfusion & SGESSEL Questions: Date: 04/30/17 Time: 19:53 Psycho/Social Medical History Hx Depression No Hx Anxiety No Hx Behavior Disorder No Hx Alcohol Use No Hx Substance Use Yes: marijuana Other Medical History Hx Blood Disorders No Hx Anemia No Hx Cancer Yes: STAGE 4 SINGLE CELL LUNG CA Hx Drug Resistant Organism No Wound/Pressure Injury Present on Arrival Yes: radiation burn to chest /Admission Query Text:If yes, chart assessment in Shift/Clinical Findings Central Line/PICC/VAD Present on Arrival Yes /Admission Antibiotics within last 7 days? No Risk for Readmission Number of Risk Factors 6 At Risk for Readmission Patient is At Risk For Readmission Patient is eligible for Call Back Y Past Medical History (Last Reviewed 04/25/17 @ 15:18 by Natalie Vance) Regional lymph node metastasis present (Acute) COPD (chronic obstructive pulmonary disease) (Chronic) Sleep disorder breathing (Chronic) Dyspnea (Chronic) Chronic hypoxemic respiratory failure (Chronic) Acute respiratory failure with hypoxia and hypercapnia (Acute) Morbid obesity with BMI of 50.0-59.9, adult (Chronic) Acute encephalopathy (Resolved) Hypertension (Chronic) Asthmatic bronchitis with exacerbation (Acute) Past Surgical History (Last Reviewed 04/25/17 @ 15:18 by Natalie Vance) EBUS (Resolved) Maternal Family History: Family History (Last Reviewed 04/25/17 @ 15:18 by Natalie Vance) Other Adopted Family History: - - Denies knowledge of biological maternal and paternal family history secondary to adoption. Paternal Family History: Family History (Last Reviewed 04/25/17 @ 15:18 by Natalie Vance) Other Adopted Family History: - - Denies knowledge of biological maternal and paternal family history secondary to adoption. - Social History Lives: Spouse/ Significant Other Smoking Status: Former smoker Tobacco Use: Non-smoker Alcohol: None Drugs: None Review of Systems Constitutional:: Reports: Weakness, Fatigue, Weight loss, Appetite change. Denies: Fever, Sweats, Chills Cardiovascular:: Denies: Chest pain, Palpitations, Dyspnea on exertion, Orthopnea, PND, Shortness of breath Respiratory: Denies: Cough, Hemoptysis, Shortness of Breath, Wheezing Gastrointestinal:: Reports: Nausea, Vomiting. Denies: Abdominal pain, Diarrhea, Constipation, Melena, Hematochezia Genitourinary: Denies: Dysuria, Hematuria, 15, Flank pain Skin: Reports: Rash. Denies: Skin Changes, Wounds Neurological:: Denies: Headache, Dizziness, Numbness, Tingling, Visual changes, Tinnitus, Hearing loss Vital Signs Height 6 ft Weight: 327 lb 3.185 oz Weight in Pounds 327.2 lbs Pulse Ox 96 Temperature 98.8 F Pulse Rate 109 Respiratory Rate 16 Blood Pressure 138/82 Blood Pressure Position Semi-Fowlers - Physical Exam General: Alert, Oriented x3, No apparent distress HEENT: Atraumatic, Normocephalic Oropharynx:: Dry mucosa. Negative for: Ulcerated lesions Neck:: Supple, Trachea midline. Negative for: JVD, bilateral Cardiac:: Regular rate, Regular rhythm, Normal S1, Normal S2. Negative for: Murmur Lungs: Rales, Excusion symmetrical. Negative for: Rhonchi, Wheezes, Increased respiratory effort Abdomen:: Bowel sounds x 4, Soft, Non-tender, Non-distended. Negative for: Hepatosplenomegaly - difficult to discern d/t large body habitus Extremities:: Negative for: Cyanosis, Edema, Calf tenderness Skin:: - - Severe erythema of the upper anterior chest wall and desquamation. Covered with Aquaphor. Negative for: Rash, Petechiae, Ecchymosis Psychiatric:: Appropriate affect, Euthymic Laboratory Data: Microbiology 04/30/17 19:43 Enteric Bacteriology - Final Stool 04/30/17 19:43 C. difficile DNA Amplification - Final Stool Laboratory Tests 05/02/17 05/02/17 Range/Units 05:45 05:45 WBC 2.1 L (4.4-11.0) K/mm3 RBC 3.41 L (4.6-6.2) M/mm3 Hgb 10.6 L (13.0-16.5) g/dl Hct 34.4 L (40-54) % MCV 100.9 H (80-94) fL MCH 31.1 (27.0-32.0) pg MCHC 30.8 L (32-36) g/gl RDW 15.8 H (11.6-14.6) % RDW Differential 56.6 H (35.1-43.9) fl Plt Count 63 L (150-450) K/mm3 MPV 11.1 (6.2-12.0) fl Sodium 144 (136-145) mmol/L Potassium 3.5 (3.5-5.1) mmol/L Chloride 108 H (98-107) mmol/L Carbon Dioxide 29.0 (21.0-32.0) mmol/L Anion Gap 7 (5-15) BUN 12 (7-18) mg/dL Creatinine 0.34 L (0.70-1.30) mg/dL Estim Creat Clear Calc 282.12 ml/min Est GFR (MDRD) Af Amer 353 (>60) mL/min Est GFR (MDRD) Non-Af 292 (>60) mL/min BUN/Creatinine Ratio 35.5 H (10-20) RATIO Glucose 98 (74-106) mg/dL Calcium 8.3 L (8.5-10.1) mg/dL Diagnostic Data: Diagnostic Data Liver Ultrasound 04/30/17 19:43 IMPRESSION: Fatty infiltration of liver. Gallbladder sludge. No liver lesions. No ascites. Electronically Signed: Mati Bernardo DO at 23:42 EDT , Service support , Assessment and Plan Mr. Alberts is a very pleasant 51 y/o man with a past medical history positive for obesity, chronic anemia, COPD w/ chronic hypoxic respiratory failure, HTN, morbid obesity recently diagnosed with Small Cell Lung CA presently receiving concomitant chemoradiation with last chemotherapy treatment 04/25/17 and last radiation 04/26/17 who presents to the [facility] on 04/30/17 with ongoing nausea, emesis and loose stools (1-2/day). 1. Stage IIIB LS SCLC- S/p 2 cycles carboplatin/etoposide, presently receiving concomitant chemoradiation with Cisplatin/etoposide. Last administration 04/23/17- 04/25/18. Radiation on hold d/t admission, although examined by Dr. Gibson earlier today. Patient will consider resuming XRT possibly tomorrow. 2. 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 Continue Aquaphor and topical lidocaine per Dr. Gibson. 3. Intractable nausea/vomiting- Chemotherapy induced. Overall unchanged from degree of nausea on admission. Continue IVFs, prn Zofran. Not able to take PO olanzapine, thus discontinue. Orders placed for 10 mg dexamethasone. 4. Diarrhea- Resolved. C diff toxin and enteric panel negative. Continue prn loperamide. 5. Chronic Anemia, Thrombocytopenia: Expect counts to trend downward with anticipation of KATHLEEN. WBC 2.1, hgb 10.6 and platelets 63,000 Will continue to monitor. CBC with diff tomorrow am. Emotional support provided. Dulce Maria Alexander, MSN, [employer], AOCNP Medications: Prescriptions This Visit Medication Instructions Recorded Allopurinol [Zyloprim] 300 mg PO DAILYCM 04/30/17 Ipratropium/Albuterol Sulfate 3 ml INHALATION Q6H PRN 04/30/17 [Duoneb] Oxycodone [Oxyir] 10 mg PO Q4H PRN PRN 04/30/17 Medications Added to Medication List This Visit Category Date Time Status Dexamethasone 10 MG in 0.9% Normal Saline Med 05/02/17 16:57 Ordered Dexamethasone [Decadron] 10 mg 0.9% Normal Saline 50 ml IV X1 Dext 5%-0.45% NS 1,000 ml Med 05/02/17 13:30 Active Potassium Chloride 10 meq IV 125 mls/hr Haloperidol Lactate [Haldol] Med 05/02/17 12:14 Active 1 mg IV Q6H PRN PRN Lidocaine [Lidocaine 5%] Med 05/02/17 15:31 Active 0 gm TOPICAL PRN PRN Lorazepam [Ativan] Med 05/02/17 12:15 Active 0.5 mg IV Q6H PRN PRN Ondansetron [Zofran] Med 05/02/17 15:00 Active 4 mg IV Q6H PRN PRN proCHLORPERazine IV [Compazine IV] Med 05/02/17 12:12 Active 10 mg IV Q6H PRN PRN Primary Care Provider: No Primary Care Phys Referring Provider:
--- NOTE | 2017-05-02 17:35 | PN_ITS ---
- Problem List (1) SCLC (small cell lung carcinoma) Status: Chronic (2) Chemotherapy induced nausea and vomiting Status: Acute Subjective Date of Service:: 05/02/17 N/V/D Patient is a 51-year-old male smoker with COPD and oxygen dependent chronic respiratory failure was hospitalized in December 2016 was acute on chronic respiratory failure and is CT scan of the chest January 03, 2017 showed a Large right suprahilar mass infiltrating the right hilum and mediastinum in association with multiple enlarged nodes in the left superior mediastinum in the prevascular space. On January 23, 2017 he underwent EBUS procedure with FNA at lymph node stations 4L and 7 both of which revealed malignant cells consistent with small cell lung cancer. The large right-sided lung mass was visualized that extended from the paratracheal region into the more distal right hilar structures with extrinsic compression noted at the orifice of the right upper lobe takeoff. On February 12, 2017 and before completing staging for his newly diagnosed cancer patient was hospitalized with progressive cancer, SVC compression and pneumonia. During this hospital stay patient received his first cycle of carboplatin etoposide starting on February 14, 2017 and after improvement was discharged and was able to have a PET CT for initial staging that revealed extensive adenopathy in the mediastinum and extending into the supraclavicular lymph nodes. There was no evidence for distant metastatic disease. Brain CT showed no evidence of metastatic disease. A brain MRI has not been done because the patient has been unable to lay flat on his back for imaging because of dyspnea. In order to try to reduce the volume of the disease and also to allow for improved positioning with laying flat, concurrent radiation therapy was delayed and initiated with cycle 3 of chemotherapy, received Carbo-etoposide 02/14/2017- (2 cycles) Followed by Cisplatin-etoposide (concomitant with RT). Most recent administration 04/23/17-04/25/17. Admitted 04/30/17 for management of intractable nausea, emesis, loose stools x 5 days despite administration of PO supportive medications and antiemetics at home. Sleeping during much of assessment, reports continued nausea. Attributes drowsiness to recent dose of Ativan. No emesis since forenoon. Diarrhea resolved. Past Medical History: Chronic Problems (Last Reviewed 04/25/17 @ 15:18 by Natalie Vance) Morbid obesity with BMI of 45.0-49.9, adult (Chronic) Prediabetes (Chronic) 01/04/17 HgbA1c 6.4%. Shortness of breath (Chronic) SCLC (small cell lung carcinoma) (Chronic) DM (diabetes mellitus) (Chronic) COPD (chronic obstructive pulmonary disease) (Chronic) Sleep disorder breathing (Chronic) Tobacco dependence in remission (Chronic) Dyspnea (Chronic) Chronic hypoxemic respiratory failure (Chronic) Morbid obesity with BMI of 50.0-59.9, adult (Chronic) Hypertension (Chronic) Past Medical History - Most Recent Inpatient Visit Past Medical History Start: 04/30/17 19: 40 Text: Status: Complete Freq: ONCE Protocol: Document 04/30/17 19:50 [facility] [place] (Rec: 04/30/17 19:53 [facility] [place] [id number]) BMI Required to complete PMH What is Patient's BMI 44.4 Past Medical History Unable History Recalled No Query Text:Pt Unable/Family Not Present Neurologic Medical History Hx Stroke/TIA No Hx Dementia/Alzheimer's No Hx Parkinson's Disease No Hx Seizures No Hx Multiple Sclerosis No Hx Migraines No Cardiac Medical History VTE Present on Admission No Hx of Deep Vein Thrombosis/VTE/PE No Hx Hypertension Yes: OFF MED Hx Chest Pain/Angina No Hx Heart Attack No Hx Cardiac Surgery/Stents/Etc. No Hx Heart Failure No Hx Pacemaker/AICD No Hx Irregular Heartbeat and/or Afib No Hx Anticoagulant Therapy No Query Text:(Coumadin, Aspirin, Plavix, Xarelto, etc.) Hx Pain in Legs when Walking/Leg Cramps Yes Respiratory Medical History Hx COPD Yes Hx Emphysema No Hx Smoking Yes: quit 2016 Smoking Status Former smoker Hx Smoking Cessation Date 2016 Hx Tobacco Use in last 12 months No Hx of Pipe Smoking No Hx Sleep Apnea No CPAP No BIPAP No Do you snore loudly (louder than talking No or can be heard through closed doors)? Do you often feel tired/ fatigued/ Yes sleepy during daytime? Has anyone observed you stop breathing No during sleep? STOP Results Positive GI Medical History Hx Ulcer No Hx Hepatitis No Hx Cirrhosis No Hx GI Bleed No Hx Unplanned Weight Loss Yes Genitourinary Medical History Indwelling Catheter in Place on Arrival/ No Admission Hx Renal Disease No Hx Dialysis No Musculoskeletal History Hx Arthritis No Hx Rheumatoid Arthritis No Endocrine Medical History Hx Diabetes Yes: not on meds Hx Thyroid Disease No Hematologic Medical History Hx of Blood Transfusion No Hx of Transfusion in last 3 Months No Ever experience any problems with No transfusion(s)? Hx of Preganancy in last 3 Months N/A Nurse Filling Out Transfusion & SGESSEL Questions: Date: 04/30/17 Time: 19:53 Psycho/Social Medical History Hx Depression No Hx Anxiety No Hx Behavior Disorder No Hx Alcohol Use No Hx Substance Use Yes: marijuana Other Medical History Hx Blood Disorders No Hx Anemia No Hx Cancer Yes: STAGE 4 SINGLE CELL LUNG CA Hx Drug Resistant Organism No Wound/Pressure Injury Present on Arrival Yes: radiation burn to chest /Admission Query Text:If yes, chart assessment in Shift/Clinical Findings Central Line/PICC/VAD Present on Arrival Yes /Admission Antibiotics within last 7 days? No Risk for Readmission Number of Risk Factors 6 At Risk for Readmission Patient is At Risk For Readmission Patient is eligible for Call Back Y Past Medical History (Last Reviewed 04/25/17 @ 15:18 by Natalie Vance) Regional lymph node metastasis present (Acute) COPD (chronic obstructive pulmonary disease) (Chronic) Sleep disorder breathing (Chronic) Dyspnea (Chronic) Chronic hypoxemic respiratory failure (Chronic) Acute respiratory failure with hypoxia and hypercapnia (Acute) Morbid obesity with BMI of 50.0-59.9, adult (Chronic) Acute encephalopathy (Resolved) Hypertension (Chronic) Asthmatic bronchitis with exacerbation (Acute) Past Surgical History (Last Reviewed 04/25/17 @ 15:18 by Natalie Vance) EBUS (Resolved) Maternal Family History: Family History (Last Reviewed 04/25/17 @ 15:18 by Natalie Vance) Other Adopted Family History: - - Denies knowledge of biological maternal and paternal family history secondary to adoption. Paternal Family History: Family History (Last Reviewed 04/25/17 @ 15:18 by Natalie Vance) Other Adopted Family History: - - Denies knowledge of biological maternal and paternal family history secondary to adoption. - Social History Lives: Spouse/ Significant Other Smoking Status: Former smoker Tobacco Use: Non-smoker Alcohol: None Drugs: None Review of Systems Constitutional:: Reports: Weakness, Fatigue, Weight loss, Appetite change. Denies: Fever, Sweats, Chills Cardiovascular:: Denies: Chest pain, Palpitations, Dyspnea on exertion, Orthopnea, PND, Shortness of breath Respiratory: Denies: Cough, Hemoptysis, Shortness of Breath, Wheezing Gastrointestinal:: Reports: Nausea, Vomiting. Denies: Abdominal pain, Diarrhea , Constipation, Melena, Hematochezia Genitourinary: Denies: Dysuria, Hematuria, 15, Flank pain Skin: Reports: Rash. Denies: Skin Changes, Wounds Neurological:: Denies: Headache, Dizziness, Numbness, Tingling, Visual changes, Tinnitus, Hearing loss Vital Signs Height 6 ft Weight: 327 lb 3.185 oz Weight in Pounds 327.2 lbs Pulse Ox 96 Temperature 98.8 F Pulse Rate 109 Respiratory Rate 16 Blood Pressure 138/82 Blood Pressure Position Semi-Fowlers - Physical Exam General: Alert, Oriented x3, No apparent distress HEENT: Atraumatic, Normocephalic Oropharynx:: Dry mucosa. Negative for: Ulcerated lesions Neck:: Supple, Trachea midline. Negative for: JVD, bilateral Cardiac:: Regular rate, Regular rhythm, Normal S1, Normal S2. Negative for: Murmur Lungs: Rales, Excusion symmetrical. Negative for: Rhonchi, Wheezes, Increased respiratory effort Abdomen:: Bowel sounds x 4, Soft, Non-tender, Non-distended. Negative for: Hepatosplenomegaly - difficult to discern d/t large body habitus Extremities:: Negative for: Cyanosis, Edema, Calf tenderness Skin:: - - Severe erythema of the upper anterior chest wall and desquamation. Covered with Aquaphor. Negative for: Rash, Petechiae, Ecchymosis Psychiatric:: Appropriate affect, Euthymic Laboratory Data: Microbiology 04/30/17 19:43 Enteric Bacteriology - Final Stool 04/30/17 19:43 C. difficile DNA Amplification - Final Stool Laboratory Tests 3 05/02/17 05/02/17 Range/Units 05:45 05:45 WBC 2.1 L (4.4-11.0) K/mm3 RBC 3.41 L (4.6-6.2) M/mm3 Hgb 10.6 L (13.0-16.5) g/dl Hct 34.4 L (40-54) % MCV 100.9 H (80-94) fL MCH 31.1 (27.0-32.0) pg MCHC 30.8 L (32-36) g/gl RDW 15.8 H (11.6-14.6) % RDW Differential 56.6 H (35.1-43.9) fl Plt Count 63 L (150-450) K/mm3 MPV 11.1 (6.2-12.0) fl Sodium 144 (136-145) mmol/L Potassium 3.5 (3.5-5.1) mmol/L Chloride 108 H (98-107) mmol/L Carbon Dioxide 29.0 (21.0-32.0) mmol/L Anion Gap 7 (5-15) BUN 12 (7-18) mg/dL Creatinine 0.34 L (0.70-1.30) mg/dL Estim Creat Clear Calc 282.12 ml/min Est GFR (MDRD) Af Amer 353 (>60) mL/min Est GFR (MDRD) Non-Af 292 (>60) mL/min BUN/Creatinine Ratio 35.5 H (10-20) RATIO Glucose 98 (74-106) mg/dL Calcium 8.3 L (8.5-10.1) mg/dL Diagnostic Data: Diagnostic Data Liver Ultrasound 04/30/17 19:43 IMPRESSION: Fatty infiltration of liver. Gallbladder sludge. No liver lesions. No ascites. Electronically Signed: Mati Bernardo DO at 23:42 EDT , Service support , Assessment and Plan Mr. Alberts is a very pleasant 51 y/o man with a past medical history positive for obesity, chronic anemia, COPD w/ chronic hypoxic respiratory failure, HTN, morbid obesity recently diagnosed with Small Cell Lung CA presently receiving concomitant chemoradiation with last chemotherapy treatment 04/25/17 and last radiation 04/26/17 who presents to the [facility] on 04/30/17 with ongoing nausea, emesis and loose stools (1-2/day). 1. Stage IIIB LS SCLC- S/p 2 cycles carboplatin/etoposide, presently receiving concomitant chemoradiation with Cisplatin/etoposide. Last administration - 04/25/18. Radiation on hold d/t admission, although examined by Dr. Gibson earlier today. Patient will consider resuming XRT possibly tomorrow. 2. 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 Continue Aquaphor and topical lidocaine per Dr. Gibson. 3. Intractable nausea/vomiting- Chemotherapy induced. Overall unchanged from degree of nausea on admission. Continue IVFs, prn Zofran. Not able to take PO olanzapine, thus discontinue. Orders placed for 10 mg dexamethasone. 4. Diarrhea- Resolved. C diff toxin and enteric panel negative. Continue prn loperamide. 5. Chronic Anemia, Thrombocytopenia: Expect counts to trend downward with anticipation of KATHLEEN. WBC 2.1, hgb 10.6 and platelets 63,000 Will continue to monitor. CBC with diff tomorrow am. Emotional support provided. Dulce Maria Alexander, MSN, [employer], AOCNP Medications: Prescriptions This Visit Medication Instructions Recorded Allopurinol [Zyloprim] 300 mg PO DAILYCM 04/30/17 Ipratropium/Albuterol Sulfate 3 ml INHALATION Q6H PRN 04/30/17 [Duoneb] Oxycodone [Oxyir] 10 mg PO Q4H PRN PRN 04/30/17 Medications Added to Medication List This Visit Category Date Time Status Dexamethasone 10 MG in 0.9% Normal Saline Med 05/02/17 16:57 Ordered Dexamethasone [Decadron] 10 mg 0.9% Normal Saline 50 ml IV X1 Dext 5%-0.45% NS 1,000 ml Med 05/02/17 13:30 Active Potassium Chloride 10 meq IV 125 mls/hr Haloperidol Lactate [Haldol] Med 05/02/17 12:14 Active 1 mg IV Q6H PRN PRN Lidocaine [Lidocaine 5%] Med 05/02/17 15:31 Active 0 gm TOPICAL PRN PRN Lorazepam [Ativan] Med 05/02/17 12:15 Active 0.5 mg IV Q6H PRN PRN Ondansetron [Zofran] Med 05/02/17 15:00 Active 4 mg IV Q6H PRN PRN proCHLORPERazine IV [Compazine IV] Med 05/02/17 12:12 Active 10 mg IV Q6H PRN PRN Primary Care Provider: No Primary Care Phys Referring Provider:
[2017-05-02] MEDS: Mineral Oil/Petrolatum Cr 1.75oz Bottle 1 APPLIC TOPICAL (18:11)
[2017-05-02] MEDS: Morphine 2 MG/ML Syringe IV (19:29)
[2017-05-02 21:35] VITALS: BP 134/90; PULSE 103; RESP 18; TEMP 37.1; O2SAT 98
[2017-05-02 22:25] VITALS: PULSE 103; RESP 18; O2SAT 98
[2017-05-03] VITALS (8 sets, daily range): BP systolic 124–141; BP diastolic 84–92; PULSE 96–113; RESP 16–18; TEMP 36.6–37.1; O2SAT 95–99
[2017-05-03] MEDS: Mineral Oil/Petrolatum Cr 1.75oz Bottle 1 APPLIC TOPICAL (03:21)
[2017-05-03] MEDS: Morphine 2 MG/ML Syringe IV ×2 (03:28→20:16)
[2017-05-03] MEDS: Benzonatate 100 MG Capsule PO ×3 (06:18→20:23)
[2017-05-03 06:59] LABS: Differential Comment SCAN
[2017-05-03] MEDS: Potassium Chloride 10 MEQ in Dext 5%-0.45% NS 1,000 ML 125 MEQ IV ×2 (07:09→20:31)
[2017-05-03 07:29] LABS: Anion Gap 6 (5-15); BUN 6 mg/dL (7-18); BUN/Creat Ratio 16.7 RATIO (10-20); Calcium,Total 8.5 mg/dL (8.5-10.1); Chloride 101 mmol/L (98-107); Creatinine, Serum 0.36 mg/dL (0.70-1.30); EST Glomerular Filtration Rate 272 mL/min (>60); Est Glom Filt Rate - Afr Amer 329 mL/min (>60); Estimated Creatinine Clearance 266.45 ml/min; Glucose 195 mg/dL (74-106); Potassium 3.8 mmol/L (3.5-5.1); Sodium Level 138 mmol/L (136-145)
[2017-05-03 08:59] LABS: Hematocrit 34.3 % (40-54); Mean Corp Hgb Conc 32.1 g/gl (32-36); Mean Corpuscular Hgb 31.6 pg (27.0-32.0); Mean Corpuscular Volume 98.6 fL (80-94); Mean Platelet Vol. 11.3 fl (6.2-12.0); RBC Distribution Width CV 15.1 % (11.6-14.6); RBC Distribution Width SD 52.7 fl (35.1-43.9); Red Blood Count 3.48 M/mm3 (4.6-6.2)
[2017-05-03 09:00] LABS: Absolute Lymphocyte Count 0.08 X10^3/ul (0.83-4.51); Absolute Neutrophil Count 0.6 X10^3/uL (2.0-7.7); Differential Indicated SCAN CRITERIA MET; Lymphocyte # 0.08 X10^3/ul (4.0); Lymphocyte % 10.3 % (19-41); Monocyte# 0.07 X10^3/uL; Neutrophil # 0.62 X10^3/uL (2.7-7.7); Neutrophil % 79.4 % (47-70); POSITIVE COUNT YES; POSITIVE DIFFERENTIAL YES; POSITIVE MORPHOLOGY YES
[2017-05-03 09:02] LABS: Platelet Count 48 K/mm3 (150-450); White Blood Count 0.8 K/mm3 (4.4-11.0)
[2017-05-03 09:03] LABS: Differential Comment SCAN
--- NOTE | 2017-05-03 10:42 | ONC.PN.INPT ---
- Problem List (1) SCLC (small cell lung carcinoma) Status: Chronic (2) Chemotherapy induced nausea and vomiting Status: Acute (3) Chemotherapy induced neutropenia Status: Acute (4) Chemotherapy-induced thrombocytopenia Status: Acute Subjective Date of Service:: 05/03/17 N/V/D Patient is a 51-year-old male smoker with COPD and oxygen dependent chronic respiratory failure was hospitalized in December 2016 was acute on chronic respiratory failure and is CT scan of the chest January 03, 2017 showed a Large right suprahilar mass infiltrating the right hilum and mediastinum in association with multiple enlarged nodes in the left superior mediastinum in the prevascular space. On January 23, 2017 he underwent EBUS procedure with FNA at lymph node stations 4L and 7 both of which revealed malignant cells consistent with small cell lung cancer. The large right-sided lung mass was visualized that extended from the paratracheal region into the more distal right hilar structures with extrinsic compression noted at the orifice of the right upper lobe takeoff. On February 12, 2017 and before completing staging for his newly diagnosed cancer patient was hospitalized with progressive cancer, SVC compression and pneumonia. During this hospital stay patient received his first cycle of carboplatin etoposide starting on February 14, 2017 and after improvement was discharged and was able to have a PET CT for initial staging that revealed extensive adenopathy in the mediastinum and extending into the supraclavicular lymph nodes. There was no evidence for distant metastatic disease. Brain CT showed no evidence of metastatic disease. A brain MRI has not been done because the patient has been unable to lay flat on his back for imaging because of dyspnea. In order to try to reduce the volume of the disease and also to allow for improved positioning with laying flat, concurrent radiation therapy was delayed and initiated with cycle 3 of chemotherapy, received Carbo-etoposide 02/14/2017- (2 cycles) Followed by Cisplatin-etoposide 03/26/2017 (concomitant with RT). Most recent administration 04/23/17-04/25/17. Admitted 04/30/17 for management of intractable nausea, emesis, loose stools x 5 days despite administration of PO supportive medications and antiemetics at home. Past Medical History: Chronic Problems (Last Reviewed 04/25/17 @ 15:18 by Natalie Vance) Morbid obesity with BMI of 45.0-49.9, adult (Chronic) Prediabetes (Chronic) 01/04/17 HgbA1c 6.4%. Shortness of breath (Chronic) SCLC (small cell lung carcinoma) (Chronic) DM (diabetes mellitus) (Chronic) COPD (chronic obstructive pulmonary disease) (Chronic) Sleep disorder breathing (Chronic) Tobacco dependence in remission (Chronic) Dyspnea (Chronic) Chronic hypoxemic respiratory failure (Chronic) Morbid obesity with BMI of 50.0-59.9, adult (Chronic) Hypertension (Chronic) Past Medical History - Most Recent Inpatient Visit Past Medical History Start: 04/30/17 19:40 Text: Status: Complete Freq: ONCE Protocol: Document 04/30/17 19:50 [facility] [place]Rec: 04/30/17 19:53 [facility] [place] [id number][place] BMI Required to complete PMH What is Patient's BMI 44.4 Past Medical History Unable History Recalled No Query Text:Pt Unable/Family Not Present Neurologic Medical History Hx Stroke/TIA No Hx Dementia/Alzheimer's No Hx Parkinson's Disease No Hx Seizures No Hx Multiple Sclerosis No Hx Migraines No Cardiac Medical History VTE Present on Admission No Hx of Deep Vein Thrombosis/VTE/PE No Hx Hypertension Yes: OFF MED Hx Chest Pain/Angina No Hx Heart Attack No Hx Cardiac Surgery/Stents/Etc. No Hx Heart Failure No Hx Pacemaker/AICD No Hx Irregular Heartbeat and/or Afib No Hx Anticoagulant Therapy No Query Text:(Coumadin, Aspirin, Plavix, Xarelto, etc.) Hx Pain in Legs when Walking/Leg Cramps Yes Respiratory Medical History Hx COPD Yes Hx Emphysema No Hx Smoking Yes: quit 2016 Smoking Status Former smoker Hx Smoking Cessation Date 2016 Hx Tobacco Use in last 12 months No Hx of Pipe Smoking No Hx Sleep Apnea No CPAP No BIPAP No Do you snore loudly (louder than talking No or can be heard through closed doors)? Do you often feel tired/ fatigued/ Yes sleepy during daytime? Has anyone observed you stop breathing No during sleep? STOP Results Positive GI Medical History Hx Ulcer No Hx Hepatitis No Hx Cirrhosis No Hx GI Bleed No Hx Unplanned Weight Loss Yes Genitourinary Medical History Indwelling Catheter in Place on Arrival/ No Admission Hx Renal Disease No Hx Dialysis No Musculoskeletal History Hx Arthritis No Hx Rheumatoid Arthritis No Endocrine Medical History Hx Diabetes Yes: not on meds Hx Thyroid Disease No Hematologic Medical History Hx of Blood Transfusion No Hx of Transfusion in last 3 Months No Ever experience any problems with No transfusion(s)? Hx of Preganancy in last 3 Months N/A Nurse Filling Out Transfusion & SGESSEL Questions: Date: 04/30/17 Time: 19:53 Psycho/Social Medical History Hx Depression No Hx Anxiety No Hx Behavior Disorder No Hx Alcohol Use No Hx Substance Use Yes: marijuana Other Medical History Hx Blood Disorders No Hx Anemia No Hx Cancer Yes: STAGE 4 SINGLE CELL LUNG CA Hx Drug Resistant Organism No Wound/Pressure Injury Present on Arrival Yes: radiation burn to chest /Admission Query Text:If yes, chart assessment in Shift/Clinical Findings Central Line/PICC/VAD Present on Arrival Yes /Admission Antibiotics within last 7 days? No Risk for Readmission Number of Risk Factors 6 At Risk for Readmission Patient is At Risk For Readmission Patient is eligible for Call Back Y Past Medical History (Last Reviewed 04/25/17 @ 15:18 by Natalie Vance) Regional lymph node metastasis present (Acute) COPD (chronic obstructive pulmonary disease) (Chronic) Sleep disorder breathing (Chronic) Dyspnea (Chronic) Chronic hypoxemic respiratory failure (Chronic) Acute respiratory failure with hypoxia and hypercapnia (Acute) Morbid obesity with BMI of 50.0-59.9, adult (Chronic) Acute encephalopathy (Resolved) Hypertension (Chronic) Asthmatic bronchitis with exacerbation (Acute) Past Surgical History (Last Reviewed 04/25/17 @ 15:18 by Natalie Vance) EBUS (Resolved) Maternal Family History: Family History (Last Reviewed 04/25/17 @ 15:18 by Natalie Vance) Other Adopted Family History: - - Denies knowledge of biological maternal and paternal family history secondary to adoption. Paternal Family History: Family History (Last Reviewed 04/25/17 @ 15:18 by Natalie Vance) Other Adopted Family History: - - Denies knowledge of biological maternal and paternal family history secondary to adoption. - Social History Lives: Spouse/ Significant Other Smoking Status: Former smoker Tobacco Use: Non-smoker Alcohol: None Drugs: None Review of Systems Constitutional:: Reports: Weakness, Fatigue, Weight loss, Appetite change. Denies: Fever, Sweats, Chills Cardiovascular:: Reports: Dyspnea on exertion. Denies: Chest pain, Palpitations, Orthopnea, PND Respiratory: Denies: Cough, Hemoptysis, Wheezing Gastrointestinal:: Reports: Nausea - improved see HPI, Diarrhea - resolved. Denies: Abdominal pain, Vomiting, Constipation, Hematochezia Genitourinary: Denies: Dysuria, Hematuria, 15, Flank pain Musculoskeletal:: Denies: Back pain, Myalgia, Arthralgia Skin: Reports: Rash, Skin Changes. Denies: Wounds Neurological:: Denies: Headache, Dizziness, Numbness, Tingling, Frequent falls, Visual changes, Tinnitus, Hearing loss Psychiatric: Denies: Anxiety, Depression, Homicidal Ideations, Suicidal Ideations Vital Signs Height 6 ft Weight: 327 lb 3.185 oz Weight in Pounds 327.2 lbs Pulse Ox 95 Temperature 97.8 F Pulse Rate 96 Respiratory Rate 18 Blood Pressure 141/87 Blood Pressure Position Semi-Fowlers - Physical Exam General: Alert, Oriented x3, No apparent distress HEENT: Atraumatic, Normocephalic Oropharynx:: Negative for: Dry mucosa, Ulcerated lesions Neck:: Supple, Trachea midline. Negative for: JVD, bilateral Cardiac:: Regular rate, Regular rhythm, Normal S1, Normal S2. Negative for: Murmur Lungs: Diminished, Excusion symmetrical. Negative for: Rhonchi, Wheezes, Increased respiratory effort Abdomen:: Bowel sounds x 4, Soft, Non-tender, Non-distended. Negative for: Hepatosplenomegaly Extremities:: Negative for: Cyanosis, Edema, Calf tenderness Neurological: Neuro grossly intact Skin:: - - Severe erythema of the upper anterior chest wall and desquamation. One small area of open integument left upper chest. No exudate. Covered with Aquaphor. Negative for: Petechiae, Ecchymosis Psychiatric:: Appropriate affect, Euthymic Laboratory Data: Microbiology 04/30/17 19:43 Enteric Bacteriology - Final Stool 04/30/17 19:43 C. difficile DNA Amplification - Final Stool Laboratory Tests 05/03/17 05/03/17 05/03/17 Range/Units 06:17 06:17 06:17 WBC Cancelled 0.8 L* Corrected WBC Cancelled RBC Cancelled 3.48 L Hgb Cancelled 11.0 L Hct Cancelled 34.3 L MCV Cancelled 98.6 H MCH Cancelled 31.6 MCHC Cancelled 32.1 RDW Cancelled 15.1 H RDW Differential Cancelled 52.7 H Plt Count Cancelled 48 L* MPV Cancelled 11.3 Immature Gran % (Auto) Cancelled 1.300 H (0.0-0.9) % Neut % (Auto) Cancelled 79.4 H (47-70) % Lymph % (Auto) Cancelled 10.3 L (19-41) % [place] % (Auto) Cancelled 9.0 (0-10) % Eos % (Auto) Cancelled 0.0 (0-5) % Baso % (Auto) Cancelled 0.0 (0-1) % Absolute Neuts (auto) Cancelled 0.6 L (2.0-7.7) X10^3/uL Absolute Lymphs (auto) Cancelled 0.08 L (0.83-4.51) X10^3/ul Total Counted Cancelled Not Reportable Neutrophils % (Manual) Cancelled Band Neutrophils % Cancelled Lymphocytes % (Manual) Cancelled Monocytes % (Manual) Cancelled Eosinophils % (Manual) Cancelled Basophils % (Manual) Cancelled Metamyelocytes % Cancelled Myelocytes % Cancelled Promyelocytes % Cancelled Blast Cells % Cancelled Plasma Cell % (Manual) Cancelled Other Cells % Cancelled Nucleated RBCs/100 WBC Cancelled Differential Comment Cancelled SCAN Diff Path Review Cancelled May foll Hypersegmented Neuts Cancelled Atypical Lymphocytes Cancelled Reactive Lymphocytes Cancelled Smudge Cells Cancelled Toxic Granulation Cancelled Dohle Bodies Cancelled Donato Rods Cancelled Platelet Estimate Cancelled Plt Morphology Comment Cancelled RBC Morphology Cancelled Polychromasia Cancelled Hypochromasia Cancelled Poikilocytosis Cancelled Basophilic Stippling Cancelled Anisocytosis Cancelled Microcytosis Cancelled Macrocytosis Cancelled Spherocytes Cancelled Sickle Cells Cancelled Target Cells Cancelled Tear Drop Cells Cancelled Ovalocytes Cancelled Stomatocytes Cancelled [place] Bodies Cancelled Cristina Cells Cancelled Bite Cells Cancelled Acanthocytes (Spur) Cancelled Rouleaux Cancelled Schistocytes Cancelled Sodium 138 (136-145) mmol/L Potassium 3.8 (3.5-5.1) mmol/L Chloride 101 (98-107) mmol/L Carbon Dioxide 31.0 (21.0-32.0) mmol/L Anion Gap 6 (5-15) BUN 6 L (7-18) mg/dL Creatinine 0.36 L (0.70-1.30) mg/dL Estim Creat Clear Calc 266.45 ml/min Est GFR (MDRD) Af Amer 329 (>60) mL/min Est GFR (MDRD) Non-Af 272 (>60) mL/min BUN/Creatinine Ratio 16.7 (10-20) RATIO Glucose 195 H (74-106) mg/dL Calcium 8.5 (8.5-10.1) mg/dL 05/03/17 Range/Units 06:17 WBC Cancelled Corrected WBC Cancelled RBC Cancelled Hgb Cancelled Hct Cancelled MCV Cancelled MCH Cancelled MCHC Cancelled RDW Cancelled RDW Differential Cancelled Plt Count Cancelled MPV Cancelled Immature Gran % (Auto) (0.0-0.9) % Neut % (Auto) (47-70) % Lymph % (Auto) (19-41) % [place] % (Auto) (0-10) % Eos % (Auto) (0-5) % Baso % (Auto) (0-1) % Absolute Neuts (auto) (2.0-7.7) X10^3/uL Absolute Lymphs (auto) (0.83-4.51) X10^3/ul Total Counted Neutrophils % (Manual) Band Neutrophils % Lymphocytes % (Manual) Monocytes % (Manual) Eosinophils % (Manual) Basophils % (Manual) Metamyelocytes % Myelocytes % Promyelocytes % Blast Cells % Plasma Cell % (Manual) Other Cells % Nucleated RBCs/100 WBC Differential Comment SCAN Diff Path Review Cancelled Hypersegmented Neuts Atypical Lymphocytes Reactive Lymphocytes Smudge Cells Toxic Granulation Dohle Bodies Donato Rods Platelet Estimate Plt Morphology Comment RBC Morphology Polychromasia Hypochromasia Poikilocytosis Basophilic Stippling Anisocytosis Microcytosis Macrocytosis Spherocytes Sickle Cells Target Cells Tear Drop Cells Ovalocytes Stomatocytes [place] Bodies [place] Cells Bite Cells Acanthocytes (Spur) Rouleaux Schistocytes Sodium (136-145) mmol/L Potassium (3.5-5.1) mmol/L Chloride (98-107) mmol/L Carbon Dioxide (21.0-32.0) mmol/L Anion Gap (5-15) BUN (7-18) mg/dL Creatinine (0.70-1.30) mg/dL Estim Creat Clear Calc ml/min Est GFR (MDRD) Af Amer (>60) mL/min Est GFR (MDRD) Non-Af (>60) mL/min BUN/Creatinine Ratio (10-20) RATIO Glucose (74-106) mg/dL Calcium (8.5-10.1) mg/dL Diagnostic Data: Diagnostic Data Liver Ultrasound 04/30/17 19:43 IMPRESSION: Fatty infiltration of liver. Gallbladder sludge. No liver lesions. No ascites. Electronically Signed: Mati Bernardo DO at 23:42 EDT , Service support , Assessment and Plan Mr. Alberts is a very pleasant 51 y/o man with a past medical history positive for obesity, chronic anemia, COPD w/ chronic hypoxic respiratory failure, HTN, morbid obesity recently diagnosed with Small Cell Lung CA presently receiving concomitant chemoradiation with last chemotherapy treatment 04/25/17 and last radiation 04/26/17 who presents to the [facility] on 04/30/17 with ongoing nausea, emesis and loose stools (1-2/day). 1. Stage IIIB LS SCLC- S/p 2 cycles carboplatin/etoposide, presently receiving concomitant chemoradiation with Cisplatin/etoposide. Last administration 04/23/17- 04/25/18. Received XRT per Dr. Gibson this morning. Consider second treatment later this afternoon. 2. Radiation dermatitis-One small area of open integument. Silvadene topically. 3. Chemotherapy induced nausea/vomiting- Given dexamethasone yesterday. Improved. Taking PO fluids. Continue IVFs, prn Zofran and lorazepam. 4. Diarrhea- Resolved. C diff toxin and enteric panel negative. Continue prn loperamide if diarrhea recurs. 5. Chronic Anemia, Thrombocytopenia: Expect counts to trend downward with anticipation of KATHLEEN. ANC 0.6, orders placed for Granix daily x 3. Neutropenic precautions. Monitor closely for fever. Lovenox for DVT prophylaxis contraindicated as platelets <50,0000. Repeat CBC with diff 05/04/17 am. Emotional support provided. Dulce Maria Alexander, MSN, [employer], AOCNP Medications: Prescriptions This Visit Medication Instructions Recorded Allopurinol [Zyloprim] 300 mg PO DAILYCM 04/30/17 Ipratropium/Albuterol Sulfate 3 ml INHALATION Q6H PRN 04/30/17 [Duoneb] Oxycodone [Oxyir] 10 mg PO Q4H PRN PRN 04/30/17 Medications Added to Medication List This Visit Category Date Time Status Silver Sulfadiazine 1% Crm [Silvadene ([facility])] Med 05/03/17 14:00 Active 1 applic TOPICAL TID Primary Care Provider: No Primary Care Phys Referring Provider:
--- NOTE | 2017-05-03 10:45 | PN_ITS ---
- Problem List (1) SCLC (small cell lung carcinoma) Status: Chronic (2) Chemotherapy induced nausea and vomiting Status: Acute (3) Chemotherapy induced neutropenia Status: Acute (4) Chemotherapy-induced thrombocytopenia Status: Acute Subjective Date of Service:: 05/03/17 N/V/D Patient is a 51-year-old male smoker with COPD and oxygen dependent chronic respiratory failure was hospitalized in December 2016 was acute on chronic respiratory failure and is CT scan of the chest January 03, 2017 showed a Large right suprahilar mass infiltrating the right hilum and mediastinum in association with multiple enlarged nodes in the left superior mediastinum in the prevascular space. On January 23, 2017 he underwent EBUS procedure with FNA at lymph node stations 4L and 7 both of which revealed malignant cells consistent with small cell lung cancer. The large right-sided lung mass was visualized that extended from the paratracheal region into the more distal right hilar structures with extrinsic compression noted at the orifice of the right upper lobe takeoff. On February 12, 2017 and before completing staging for his newly diagnosed cancer patient was hospitalized with progressive cancer, SVC compression and pneumonia. During this hospital stay patient received his first cycle of carboplatin etoposide starting on February 14, 2017 and after improvement was discharged and was able to have a PET CT for initial staging that revealed extensive adenopathy in the mediastinum and extending into the supraclavicular lymph nodes. There was no evidence for distant metastatic disease. Brain CT showed no evidence of metastatic disease. A brain MRI has not been done because the patient has been unable to lay flat on his back for imaging because of dyspnea. In order to try to reduce the volume of the disease and also to allow for improved positioning with laying flat, concurrent radiation therapy was delayed and initiated with cycle 3 of chemotherapy, received Carbo-etoposide 02/14/2017- (2 cycles) Followed by Cisplatin-etoposide (concomitant with RT). Most recent administration 04/23/17-04/25/17. Admitted 04/30/17 for management of intractable nausea, emesis, loose stools x 5 days despite administration of PO supportive medications and antiemetics at home. Past Medical History: Chronic Problems (Last Reviewed 04/25/17 @ 15:18 by Natalie Vance) Morbid obesity with BMI of 45.0-49.9, adult (Chronic) Prediabetes (Chronic) 01/04/17 HgbA1c 6.4%. Shortness of breath (Chronic) SCLC (small cell lung carcinoma) (Chronic) DM (diabetes mellitus) (Chronic) COPD (chronic obstructive pulmonary disease) (Chronic) Sleep disorder breathing (Chronic) Tobacco dependence in remission (Chronic) Dyspnea (Chronic) Chronic hypoxemic respiratory failure (Chronic) Morbid obesity with BMI of 50.0-59.9, adult (Chronic) Hypertension (Chronic) Past Medical History - Most Recent Inpatient Visit Past Medical History Start: 04/30/17 19: 40 Text: Status: Complete Freq: ONCE Protocol: Document 04/30/17 19:50 [facility] (Rec: 04/30/17 19:53 [facility] [id number]) BMI Required to complete PMH What is Patient's BMI 44.4 Past Medical History Unable History Recalled No Query Text:Pt Unable/Family Not Present Neurologic Medical History Hx Stroke/TIA No Hx Dementia/Alzheimer's No Hx Parkinson's Disease No Hx Seizures No Hx Multiple Sclerosis No Hx Migraines No Cardiac Medical History VTE Present on Admission No Hx of Deep Vein Thrombosis/VTE/PE No Hx Hypertension Yes: OFF MED Hx Chest Pain/Angina No Hx Heart Attack No Hx Cardiac Surgery/Stents/Etc. No Hx Heart Failure No Hx Pacemaker/AICD No Hx Irregular Heartbeat and/or Afib No Hx Anticoagulant Therapy No Query Text:(Coumadin, Aspirin, Plavix, Xarelto, etc.) Hx Pain in Legs when Walking/Leg Cramps Yes Respiratory Medical History Hx COPD Yes Hx Emphysema No Hx Smoking Yes: quit 2016 Smoking Status Former smoker Hx Smoking Cessation Date 2016 Hx Tobacco Use in last 12 months No Hx of Pipe Smoking No Hx Sleep Apnea No CPAP No BIPAP No Do you snore loudly (louder than talking No or can be heard through closed doors)? Do you often feel tired/ fatigued/ Yes sleepy during daytime? Has anyone observed you stop breathing No during sleep? STOP Results Positive GI Medical History Hx Ulcer No Hx Hepatitis No Hx Cirrhosis No Hx GI Bleed No Hx Unplanned Weight Loss Yes Genitourinary Medical History Indwelling Catheter in Place on Arrival/ No Admission Hx Renal Disease No Hx Dialysis No Musculoskeletal History Hx Arthritis No Hx Rheumatoid Arthritis No Endocrine Medical History Hx Diabetes Yes: not on meds Hx Thyroid Disease No Hematologic Medical History Hx of Blood Transfusion No Hx of Transfusion in last 3 Months No Ever experience any problems with No transfusion(s)? Hx of Preganancy in last 3 Months N/A Nurse Filling Out Transfusion & SGESSEL Questions: Date: 04/30/17 Time: 19:53 Psycho/Social Medical History Hx Depression No Hx Anxiety No Hx Behavior Disorder No Hx Alcohol Use No Hx Substance Use Yes: marijuana Other Medical History Hx Blood Disorders No Hx Anemia No Hx Cancer Yes: STAGE 4 SINGLE CELL LUNG CA Hx Drug Resistant Organism No Wound/Pressure Injury Present on Arrival Yes: radiation burn to chest /Admission Query Text:If yes, chart assessment in Shift/Clinical Findings Central Line/PICC/VAD Present on Arrival Yes /Admission Antibiotics within last 7 days? No Risk for Readmission Number of Risk Factors 6 At Risk for Readmission Patient is At Risk For Readmission Patient is eligible for Call Back Y Past Medical History (Last Reviewed 04/25/17 @ 15:18 by Natalie Vance) Regional lymph node metastasis present (Acute) COPD (chronic obstructive pulmonary disease) (Chronic) Sleep disorder breathing (Chronic) Dyspnea (Chronic) Chronic hypoxemic respiratory failure (Chronic) Acute respiratory failure with hypoxia and hypercapnia (Acute) Morbid obesity with BMI of 50.0-59.9, adult (Chronic) Acute encephalopathy (Resolved) Hypertension (Chronic) Asthmatic bronchitis with exacerbation (Acute) Past Surgical History (Last Reviewed 04/25/17 @ 15:18 by Natalie Vance) EBUS (Resolved) Maternal Family History: Family History (Last Reviewed 04/25/17 @ 15:18 by Natalie Vance) Other Adopted Family History: - - Denies knowledge of biological maternal and paternal family history secondary to adoption. Paternal Family History: Family History (Last Reviewed 04/25/17 @ 15:18 by Natalie Vance) Other Adopted Family History: - - Denies knowledge of biological maternal and paternal family history secondary to adoption. - Social History Lives: Spouse/ Significant Other Smoking Status: Former smoker Tobacco Use: Non-smoker Alcohol: None Drugs: None Review of Systems Constitutional:: Reports: Weakness, Fatigue, Weight loss, Appetite change. Denies: Fever, Sweats, Chills Cardiovascular:: Reports: Dyspnea on exertion. Denies: Chest pain, Palpitations , Orthopnea, PND Respiratory: Denies: Cough, Hemoptysis, Wheezing Gastrointestinal:: Reports: Nausea - improved see HPI, Diarrhea - resolved. Denies: Abdominal pain, Vomiting, Constipation, Hematochezia Genitourinary: Denies: Dysuria, Hematuria, 15, Flank pain Musculoskeletal:: Denies: Back pain, Myalgia, Arthralgia Skin: Reports: Rash, Skin Changes. Denies: Wounds Neurological:: Denies: Headache, Dizziness, Numbness, Tingling, Frequent falls, Visual changes, Tinnitus, Hearing loss Psychiatric: Denies: Anxiety, Depression, Homicidal Ideations, Suicidal Ideations Vital Signs Height 6 ft Weight: 327 lb 3.185 oz Weight in Pounds 327.2 lbs Pulse Ox 95 Temperature 97.8 F Pulse Rate 96 Respiratory Rate 18 Blood Pressure 141/87 Blood Pressure Position Semi-Fowlers - Physical Exam General: Alert, Oriented x3, No apparent distress HEENT: Atraumatic, Normocephalic Oropharynx:: Negative for: Dry mucosa, Ulcerated lesions Neck:: Supple, Trachea midline. Negative for: JVD, bilateral Cardiac:: Regular rate, Regular rhythm, Normal S1, Normal S2. Negative for: Murmur Lungs: Diminished, Excusion symmetrical. Negative for: Rhonchi, Wheezes, Increased respiratory effort Abdomen:: Bowel sounds x 4, Soft, Non-tender, Non-distended. Negative for: Hepatosplenomegaly Extremities:: Negative for: Cyanosis, Edema, Calf tenderness Neurological: Neuro grossly intact Skin:: - - Severe erythema of the upper anterior chest wall and desquamation. One small area of open integument left upper chest. No exudate. Covered with Aquaphor. Negative for: Petechiae, Ecchymosis Psychiatric:: Appropriate affect, Euthymic Laboratory Data: Microbiology 04/30/17 19:43 Enteric Bacteriology - Final Stool 04/30/17 19:43 C. difficile DNA Amplification - Final Stool Laboratory Tests 3 05/03/17 05/03/17 05/03/17 Range/Units 06:17 06:17 06:17 WBC Cancelled 0.8 L* Corrected WBC Cancelled RBC Cancelled 3.48 L Hgb Cancelled 11.0 L Hct Cancelled 34.3 L MCV Cancelled 98.6 H MCH Cancelled 31.6 MCHC Cancelled 32.1 RDW Cancelled 15.1 H RDW Differential Cancelled 52.7 H Plt Count Cancelled 48 L* MPV Cancelled 11.3 Immature Gran % (Auto) Cancelled 1.300 H (0.0-0.9) % Neut % (Auto) Cancelled 79.4 H (47-70) % Lymph % (Auto) Cancelled 10.3 L (19-41) % [place] % (Auto) Cancelled 9.0 (0-10) % Eos % (Auto) Cancelled 0.0 (0-5) % Baso % (Auto) Cancelled 0.0 (0-1) % Absolute Neuts (auto) Cancelled 0.6 L (2.0-7.7) X10^3/uL Absolute Lymphs (auto) Cancelled 0.08 L (0.83-4.51) X10^3/ul Total Counted Cancelled Not Reportable Neutrophils % (Manual) Cancelled Band Neutrophils % Cancelled Lymphocytes % (Manual) Cancelled Monocytes % (Manual) Cancelled Eosinophils % (Manual) Cancelled Basophils % (Manual) Cancelled Metamyelocytes % Cancelled Myelocytes % Cancelled Promyelocytes % Cancelled Blast Cells % Cancelled Plasma Cell % (Manual) Cancelled Other Cells % Cancelled Nucleated RBCs/100 WBC Cancelled Differential Comment Cancelled SCAN Diff Path Review Cancelled May foll Hypersegmented Neuts Cancelled Atypical Lymphocytes Cancelled Reactive Lymphocytes Cancelled Smudge Cells Cancelled Toxic Granulation Cancelled Dohle Bodies Cancelled [place] Rods Cancelled Platelet Estimate Cancelled Plt Morphology Comment Cancelled RBC Morphology Cancelled Polychromasia Cancelled Hypochromasia Cancelled Poikilocytosis Cancelled Basophilic Stippling Cancelled Anisocytosis Cancelled Microcytosis Cancelled Macrocytosis Cancelled Spherocytes Cancelled Sickle Cells Cancelled Target Cells Cancelled Tear Drop Cells Cancelled Ovalocytes Cancelled Stomatocytes Cancelled [place] Bodies Cancelled [place] Cells Cancelled Bite Cells Cancelled Acanthocytes (Spur) Cancelled Rouleaux Cancelled Schistocytes Cancelled Sodium 138 (136-145) mmol/L Potassium 3.8 (3.5-5.1) mmol/L Chloride 101 (98-107) mmol/L Carbon Dioxide 31.0 (21.0-32.0) mmol/L Anion Gap 6 (5-15) BUN 6 L (7-18) mg/dL Creatinine 0.36 L (0.70-1.30) mg/dL Estim Creat Clear Calc 266.45 ml/min Est GFR (MDRD) Af Amer 329 (>60) mL/min Est GFR (MDRD) Non-Af 272 (>60) mL/min BUN/Creatinine Ratio 16.7 (10-20) RATIO Glucose 195 H (74-106) mg/dL Calcium 8.5 (8.5-10.1) mg/dL 3 05/03/17 Range/Units 06:17 WBC Cancelled Corrected WBC Cancelled RBC Cancelled Hgb Cancelled Hct Cancelled MCV Cancelled MCH Cancelled MCHC Cancelled RDW Cancelled RDW Differential Cancelled Plt Count Cancelled MPV Cancelled Immature Gran % (Auto) (0.0-0.9) % Neut % (Auto) (47-70) % Lymph % (Auto) (19-41) % [place] % (Auto) (0-10) % Eos % (Auto) (0-5) % Baso % (Auto) (0-1) % Absolute Neuts (auto) (2.0-7.7) X10^3/uL Absolute Lymphs (auto) (0.83-4.51) X10^3/ul Total Counted Neutrophils % (Manual) Band Neutrophils % Lymphocytes % (Manual) Monocytes % (Manual) Eosinophils % (Manual) Basophils % (Manual) Metamyelocytes % Myelocytes % Promyelocytes % Blast Cells % Plasma Cell % (Manual) Other Cells % Nucleated RBCs/100 WBC Differential Comment SCAN Diff Path Review Cancelled Hypersegmented Neuts Atypical Lymphocytes Reactive Lymphocytes Smudge Cells Toxic Granulation Dohle Bodies Donato Rods Platelet Estimate Plt Morphology Comment RBC Morphology Polychromasia Hypochromasia Poikilocytosis Basophilic Stippling Anisocytosis Microcytosis Macrocytosis Spherocytes Sickle Cells Target Cells Tear Drop Cells Ovalocytes Stomatocytes [place] Bodies [place] Cells Bite Cells Acanthocytes (Spur) Rouleaux Schistocytes Sodium (136-145) mmol/L Potassium (3.5-5.1) mmol/L Chloride (98-107) mmol/L Carbon Dioxide (21.0-32.0) mmol/L Anion Gap (5-15) BUN (7-18) mg/dL Creatinine (0.70-1.30) mg/dL Estim Creat Clear Calc ml/min Est GFR (MDRD) Af Amer (>60) mL/min Est GFR (MDRD) Non-Af (>60) mL/min BUN/Creatinine Ratio (10-20) RATIO Glucose (74-106) mg/dL Calcium (8.5-10.1) mg/dL Diagnostic Data: Diagnostic Data Liver Ultrasound 04/30/17 19:43 IMPRESSION: Fatty infiltration of liver. Gallbladder sludge. No liver lesions. No ascites. Electronically Signed: Mati Bernardo DO at 23:42 EDT , Service support , Assessment and Plan Mr. Alberts is a very pleasant 51 y/o man with a past medical history positive for obesity, chronic anemia, COPD w/ chronic hypoxic respiratory failure, HTN, morbid obesity recently diagnosed with Small Cell Lung CA presently receiving concomitant chemoradiation with last chemotherapy treatment 04/25/17 and last radiation 04/26/17 who presents to the [facility] on 04/30/17 with ongoing nausea, emesis and loose stools (1-2/day). 1. Stage IIIB LS SCLC- S/p 2 cycles carboplatin/etoposide, presently receiving concomitant chemoradiation with Cisplatin/etoposide. Last administration - 04/25/18. Received XRT per Dr. Gibson this morning. Consider second treatment later this afternoon. 2. Radiation dermatitis-One small area of open integument. Silvadene topically. 3. Chemotherapy induced nausea/vomiting- Given dexamethasone yesterday. Improved. Taking PO fluids. Continue IVFs, prn Zofran and lorazepam. 4. Diarrhea- Resolved. C diff toxin and enteric panel negative. Continue prn loperamide if diarrhea recurs. 5. Chronic Anemia, Thrombocytopenia: Expect counts to trend downward with anticipation of KATHLEEN. ANC 0.6, orders placed for Granix daily x 3. Neutropenic precautions. Monitor closely for fever. Lovenox for DVT prophylaxis contraindicated as platelets <50,0000. Repeat CBC with diff 05/04/17 am. Emotional support provided. Dulce Maria Alexander, MSN, [employer], AOCNP Medications: Prescriptions This Visit Medication Instructions Recorded Allopurinol [Zyloprim] 300 mg PO DAILYCM 04/30/17 Ipratropium/Albuterol Sulfate 3 ml INHALATION Q6H PRN 04/30/17 [Duoneb] Oxycodone [Oxyir] 10 mg PO Q4H PRN PRN 04/30/17 Medications Added to Medication List This Visit Category Date Time Status Silver Sulfadiazine 1% Crm [Silvadene ([facility])] Med 05/03/17 14:00 Active 1 applic TOPICAL TID Primary Care Provider: No Primary Care Phys Referring Provider:
[2017-05-03] MEDS: Silver Sulfadiazine 1% Crm 50 gm Bottle 1 APPLIC TOPICAL ×2 (11:11→20:24)
[2017-05-03] MEDS: LORazepam 2 MG/ML Syringe 0.5 MG IV ×2 (11:12→17:03)
[2017-05-03] MEDS: predniSONE 10 MG Tablet PO (13:16)
[2017-05-03] MEDS: TBO-FILGRASTIM 480 MCG/0.8 ML ML SC (13:16)
[2017-05-03] MEDS: 0.9% NaCl VAD Flush 10 ML IV (17:03)
--- NOTE | 2017-05-03 18:43 | PCM.PROGNOTE ---
Patient Problems: Active and Suspected Problems (Last Reviewed 04/25/17 @ 15:18 by Natalie Vance) Chemotherapy induced nausea and vomiting (Acute) Chemotherapy-induced thrombocytopenia (Acute) Subjective: She feels better today. He had tolerated some liquid and soft food earlier. - Physical Exam General: Alert, Oriented x3, Cooperative, Well developed, Well nourished HEENT: Atraumatic, PERRLA, Normocephalic Oral: Moist Mucosa Neck: Supple, No JVD, Negative Carotid Bruits Lungs: Clear to auscultation, Normal air movement, Rhonchi Cardiovascular: Regular rate, Regular Rhythm, Normal S1, Normal S2, No murmurs, No Ectopic Activity Abdomen: Bowel Sounds Present, Soft, Non Tender, Non-Distended, Obese Extremities: No clubbing, No cyanosis, No edema Skin: No rashes, Burn - anterior upper chest/neck radiation burn with yellow slough / excoriation. Musculoskeletal: No Tenderness to Palpation of Joints or Extremities, No Muscle Wasting Lymphatic: No Cervical, Supraclavicular, or Inguinal Adenopathy Neurological: Cranial nerves II-XII grossly intact, Neuro grossly intact Psych/Mental Status: Normal Affect - Physical Exam Vital Signs Temp Pulse Resp BP Pulse Ox 98.8 F 104 H 16 133/89 H 98 05/03/17 15:00 05/03/17 15:00 05/03/17 15:00 05/03/17 15:00 05/03/17 15:00 Oxygen Flow Rate (L/min) 2 Oxygen Delivery Method Nasal Cannula Weight: 327 lb 3.185 oz Body Mass Index (BMI) 44.4 Intake and Output for Last 24 Hours 05/01/17 05/02/17 05/03/17 23:59 23:59 23:59 Intake Total 3244 / 3244 4005 / 4005 2631 / 2631 Output Total 220 / 220 0 / 0 0 / 0 Balance 3024 / 3024 4005 / 4005 2631 / 2631 Microbiology Past 72 Hours 04/30/17 19:43 Enteric Bacteriology - Final Stool 04/30/17 19:43 C. difficile DNA Amplification - Final Stool Laboratory Tests Past 24 Hrs 05/03/17 05/03/17 05/03/17 06:17 06:17 06:17 WBC Cancelled 0.8 L* Corrected WBC Cancelled RBC Cancelled 3.48 L Hgb Cancelled 11.0 L Hct Cancelled 34.3 L MCV Cancelled 98.6 H MCH Cancelled 31.6 MCHC Cancelled 32.1 RDW Cancelled 15.1 H RDW Differential Cancelled 52.7 H Plt Count Cancelled 48 L* MPV Cancelled 11.3 Immature Gran % (Auto) 1.300 H Neut % (Auto) 79.4 H Lymph % (Auto) 10.3 L [place] % (Auto) 9.0 Eos % (Auto) 0.0 Baso % (Auto) 0.0 Absolute Neuts (auto) 0.6 L Absolute Lymphs (auto) 0.08 L Total Counted Not Reportable Neutrophils % (Manual) Band Neutrophils % Lymphocytes % (Manual) Monocytes % (Manual) Eosinophils % (Manual) Basophils % (Manual) Metamyelocytes % Myelocytes % Promyelocytes % Blast Cells % Plasma Cell % (Manual) Other Cells % Nucleated RBCs/100 WBC Differential Comment SCAN SCAN Diff Path Review Cancelled May foll Hypersegmented Neuts Atypical Lymphocytes Reactive Lymphocytes Smudge Cells Toxic Granulation Dohle Bodies Donato Rods Platelet Estimate Plt Morphology Comment RBC Morphology Polychromasia Hypochromasia Poikilocytosis Basophilic Stippling Anisocytosis Microcytosis Macrocytosis Spherocytes Sickle Cells Target Cells Tear Drop Cells Ovalocytes Stomatocytes [place] Bodies [place] Cells Bite Cells Acanthocytes (Spur) Rouleaux Schistocytes Sodium 138 Potassium 3.8 Chloride 101 Carbon Dioxide 31.0 Anion Gap 6 BUN 6 L Creatinine 0.36 L Estim Creat Clear Calc 266.45 Est GFR (MDRD) Af Amer 329 Est GFR (MDRD) Non-Af 272 BUN/Creatinine Ratio 16.7 Glucose 195 H Calcium 8.5 05/03/17 06:17 WBC Cancelled Corrected WBC Cancelled RBC Cancelled Hgb Cancelled Hct Cancelled MCV Cancelled MCH Cancelled MCHC Cancelled RDW Cancelled RDW Differential Cancelled Plt Count Cancelled MPV Cancelled Immature Gran % (Auto) Cancelled Neut % (Auto) Cancelled Lymph % (Auto) Cancelled [place] % (Auto) Cancelled Eos % (Auto) Cancelled Baso % (Auto) Cancelled Absolute Neuts (auto) Cancelled Absolute Lymphs (auto) Cancelled Total Counted Cancelled Neutrophils % (Manual) Cancelled Band Neutrophils % Cancelled Lymphocytes % (Manual) Cancelled Monocytes % (Manual) Cancelled Eosinophils % (Manual) Cancelled Basophils % (Manual) Cancelled Metamyelocytes % Cancelled Myelocytes % Cancelled Promyelocytes % Cancelled Blast Cells % Cancelled Plasma Cell % (Manual) Cancelled Other Cells % Cancelled Nucleated RBCs/100 WBC Cancelled Differential Comment Cancelled Diff Path Review Cancelled Hypersegmented Neuts Cancelled Atypical Lymphocytes Cancelled Reactive Lymphocytes Cancelled Smudge Cells Cancelled Toxic Granulation Cancelled Dohle Bodies Cancelled [place] Rods Cancelled Platelet Estimate Cancelled Plt Morphology Comment Cancelled RBC Morphology Cancelled Polychromasia Cancelled Hypochromasia Cancelled Poikilocytosis Cancelled Basophilic Stippling Cancelled Anisocytosis Cancelled Microcytosis Cancelled Macrocytosis Cancelled Spherocytes Cancelled Sickle Cells Cancelled Target Cells Cancelled Tear Drop Cells Cancelled Ovalocytes Cancelled Stomatocytes Cancelled [place] Bodies Cancelled [place] Cells Cancelled Bite Cells Cancelled Acanthocytes (Spur) Cancelled Rouleaux Cancelled Schistocytes Cancelled Sodium Potassium Chloride Carbon Dioxide Anion Gap BUN Creatinine Estim Creat Clear Calc Est GFR (MDRD) Af Amer Est GFR (MDRD) Non-Af BUN/Creatinine Ratio Glucose Calcium Diagnostic Data Liver Ultrasound 04/30/17 19:43 IMPRESSION: Fatty infiltration of liver. Gallbladder sludge. No liver lesions. No ascites. Electronically Signed: Mati Bernardo DO at 23:42 EDT , Service support , Medical Necessity - Tobacco Use Smoking Status: Former smoker Tobacco Use: Non-smoker Assessment/Plan Active and Suspected Problems (Last Reviewed 04/25/17 @ 15:18 by Natalie Vance) Chemotherapy induced nausea and vomiting (Acute) Chemotherapy-induced thrombocytopenia (Acute) The patient is a 51 y/o M w/ PMHx: Obesity, Chronic Normocytic Anemia, Chronic COPD w/ Chronic Hypoxic Respiratory Failure, HTN Noted prior, Morbid Obesity, Prior noted Pre-diabetes mellitus, Small Cell Lung CA w/ active ongoing chemotherapy and radiation with last treatment chemotherapy 04/25/17 and last radiation prior w/ Neck [place] with treatment ongoing who presents to the [facility] on 04/30/17 with ongoing nausea, emesis and loose stools (1-2/day) since recent completion chemotherapy without improvement. #1 Intractable Nausea, vomiting, Loose Stool: Likely due to chemotherapy. C diff toxin and enteric panel were negative. On Phenergan 25 mg IVP, Zofran 4 mg IVP. Change Phenergan to Compazine. Add Ativan 0.5 mg IVP q6h prn and Haldol 1 mg q6h prn for nausea. It appears that he responded to Ativan prn for nausea the most. Start Zyprexa 10 mg IM qhs x 3 days (05/02). He is finally tolerated some liquid (05/03) #2 Small Cell Lung CA: On chemotherapy and radiation, most recent chemotherapy 04/25/17 as noted, most recent radiation treatment on 04/26. Radiation dermatitis of neck, treated conservatively with Aquaphor. Radiation treatment is ongoing. #3 pancytopenia due to chemotherapy. WBC 5.1, Platelets 95,000, and WBC 12.4 on admission. WBC down to 0.8, ANC 600. Neulasta per oncology. Continue to monitor CBC. #4 Elevated LFTs: AST 51, ALT 136 on admission. Repeated AST/ALT stable. Ultrasound liver is unremarkable. #5 Chronic COPD w/ Chronic Hypoxic Respiratory Failure: Continue oxygen via [place]. He has home oxygen already. Bronchodilator: DuoNeb and PRN albuterol. #6 DM II. Sliging scale insulin. Hgb A1c 6.9. Change IVF from NS to D5 0.45NS at 125 ml/hr (05/02) #7 Hypertension (denied history, noted HTN in prior history also) with elevated BP: Blood pressure is adequate / stable. #8 Morbid Obesity: Weight loss and lifestyle changes encouraged, nutrition consulted. #9 Suspected/High Risk JADYN: Given habitus, thickened neck, high risk JADYN. Consider sleep study as outpatient. DVT Prophylaxis: SCD, Lovenox with platelet monitoring. GI prophylaxis: PPI iv. Patient is full code. Disposition: home in 2 to 3 days. Code Visit Inpatient E&M: 72448 Subs Hosp L2
--- NOTE | 2017-05-03 18:49 | PN_ITS ---
Patient Problems: Active and Suspected Problems (Last Reviewed 04/25/17 @ 15:18 by Natalie Vance) Chemotherapy induced nausea and vomiting (Acute) Chemotherapy-induced thrombocytopenia (Acute) Subjective: She feels better today. He had tolerated some liquid and soft food earlier. - Physical Exam General: Alert, Oriented x3, Cooperative, Well developed, Well nourished HEENT: Atraumatic, PERRLA, Normocephalic Oral: Moist Mucosa Neck: Supple, No JVD, Negative Carotid Bruits Lungs: Clear to auscultation, Normal air movement, Rhonchi Cardiovascular: Regular rate, Regular Rhythm, Normal S1, Normal S2, No murmurs, No Ectopic Activity Abdomen: Bowel Sounds Present, Soft, Non Tender, Non-Distended, Obese Extremities: No clubbing, No cyanosis, No edema Skin: No rashes, Burn - anterior upper chest/neck radiation burn with yellow slough / excoriation. Musculoskeletal: No Tenderness to Palpation of Joints or Extremities, No Muscle Wasting Lymphatic: No Cervical, Supraclavicular, or Inguinal Adenopathy Neurological: Cranial nerves II-XII grossly intact, Neuro grossly intact Psych/Mental Status: Normal Affect - Physical Exam Vital Signs Temp Pulse Resp BP Pulse Ox 98.8 F 104 H 16 133/89 H 98 05/03/17 15:00 05/03/17 15:00 05/03/17 15:00 05/03/17 15:00 05/03/17 15:00 Oxygen Flow Rate (L/min) 2 Oxygen Delivery Method Nasal Cannula Weight: 327 lb 3.185 oz Body Mass Index (BMI) 44.4 Intake and Output for Last 24 Hours 05/01/17 05/02/17 05/03/17 23:59 23:59 23:59 Intake Total 3244 / 3244 4005 / 4005 2631 / 2631 Output Total 220 / 220 0 / 0 0 / 0 Balance 3024 / 3024 4005 / 4005 2631 / 2631 Microbiology Past 72 Hours 04/30/17 19:43 Enteric Bacteriology - Final Stool 04/30/17 19:43 C. difficile DNA Amplification - Final Stool Laboratory Tests Past 24 Hrs 05/03/17 05/03/17 05/03/17 06:17 06:17 06:17 WBC Cancelled 0.8 L* Corrected WBC Cancelled RBC Cancelled 3.48 L Hgb Cancelled 11.0 L Hct Cancelled 34.3 L MCV Cancelled 98.6 H MCH Cancelled 31.6 MCHC Cancelled 32.1 RDW Cancelled 15.1 H RDW Differential Cancelled 52.7 H Plt Count Cancelled 48 L* MPV Cancelled 11.3 Immature Gran % (Auto) 1.300 H Neut % (Auto) 79.4 H Lymph % (Auto) 10.3 L [place] % (Auto) 9.0 Eos % (Auto) 0.0 Baso % (Auto) 0.0 Absolute Neuts (auto) 0.6 L Absolute Lymphs (auto) 0.08 L Total Counted Not Reportable Neutrophils % (Manual) Band Neutrophils % Lymphocytes % (Manual) Monocytes % (Manual) Eosinophils % (Manual) Basophils % (Manual) Metamyelocytes % Myelocytes % Promyelocytes % Blast Cells % Plasma Cell % (Manual) Other Cells % Nucleated RBCs/100 WBC Differential Comment SCAN SCAN Diff Path Review Cancelled May foll Hypersegmented Neuts Atypical Lymphocytes Reactive Lymphocytes Smudge Cells Toxic Granulation Dohle Bodies Donato Rods Platelet Estimate Plt Morphology Comment RBC Morphology Polychromasia Hypochromasia Poikilocytosis Basophilic Stippling Anisocytosis Microcytosis Macrocytosis Spherocytes Sickle Cells Target Cells Tear Drop Cells Ovalocytes Stomatocytes [place] Bodies [place] Cells Bite Cells Acanthocytes (Spur) Rouleaux Schistocytes Sodium 138 Potassium 3.8 Chloride 101 Carbon Dioxide 31.0 Anion Gap 6 BUN 6 L Creatinine 0.36 L Estim Creat Clear Calc 266.45 Est GFR (MDRD) Af Amer 329 Est GFR (MDRD) Non-Af 272 BUN/Creatinine Ratio 16.7 Glucose 195 H Calcium 8.5 05/03/17 06:17 WBC Cancelled Corrected WBC Cancelled RBC Cancelled Hgb Cancelled Hct Cancelled MCV Cancelled MCH Cancelled MCHC Cancelled RDW Cancelled RDW Differential Cancelled Plt Count Cancelled MPV Cancelled Immature Gran % (Auto) Cancelled Neut % (Auto) Cancelled Lymph % (Auto) Cancelled [place] % (Auto) Cancelled Eos % (Auto) Cancelled Baso % (Auto) Cancelled Absolute Neuts (auto) Cancelled Absolute Lymphs (auto) Cancelled Total Counted Cancelled Neutrophils % (Manual) Cancelled Band Neutrophils % Cancelled Lymphocytes % (Manual) Cancelled Monocytes % (Manual) Cancelled Eosinophils % (Manual) Cancelled Basophils % (Manual) Cancelled Metamyelocytes % Cancelled Myelocytes % Cancelled Promyelocytes % Cancelled Blast Cells % Cancelled Plasma Cell % (Manual) Cancelled Other Cells % Cancelled Nucleated RBCs/100 WBC Cancelled Differential Comment Cancelled Diff Path Review Cancelled Hypersegmented Neuts Cancelled Atypical Lymphocytes Cancelled Reactive Lymphocytes Cancelled Smudge Cells Cancelled Toxic Granulation Cancelled Dohle Bodies Cancelled [place] Rods Cancelled Platelet Estimate Cancelled Plt Morphology Comment Cancelled RBC Morphology Cancelled Polychromasia Cancelled Hypochromasia Cancelled Poikilocytosis Cancelled Basophilic Stippling Cancelled Anisocytosis Cancelled Microcytosis Cancelled Macrocytosis Cancelled Spherocytes Cancelled Sickle Cells Cancelled Target Cells Cancelled Tear Drop Cells Cancelled Ovalocytes Cancelled Stomatocytes Cancelled [place] Bodies Cancelled [place] Cells Cancelled Bite Cells Cancelled Acanthocytes (Spur) Cancelled Rouleaux Cancelled Schistocytes Cancelled Sodium Potassium Chloride Carbon Dioxide Anion Gap BUN Creatinine Estim Creat Clear Calc Est GFR (MDRD) Af Amer Est GFR (MDRD) Non-Af BUN/Creatinine Ratio Glucose Calcium Diagnostic Data Liver Ultrasound 04/30/17 19:43 IMPRESSION: Fatty infiltration of liver. Gallbladder sludge. No liver lesions. No ascites. Electronically Signed: Mati Bernardo DO at 23:42 EDT , Service support , Medical Necessity - Tobacco Use Smoking Status: Former smoker Tobacco Use: Non-smoker Assessment/Plan Active and Suspected Problems (Last Reviewed 04/25/17 @ 15:18 by Natalie Vance) Chemotherapy induced nausea and vomiting (Acute) Chemotherapy-induced thrombocytopenia (Acute) The patient is a 51 y/o M w/ PMHx: Obesity, Chronic Normocytic Anemia, Chronic COPD w/ Chronic Hypoxic Respiratory Failure, HTN Noted prior, Morbid Obesity, Prior noted Pre-diabetes mellitus, Small Cell Lung CA w/ active ongoing chemotherapy and radiation with last treatment chemotherapy 04/25/17 and last radiation prior w/ Neck merida with treatment ongoing who presents to the [facility] on 04/30/17 with ongoing nausea, emesis and loose stools (1-2/day) since recent completion chemotherapy without improvement. #1 Intractable Nausea, vomiting, Loose Stool: Likely due to chemotherapy. C diff toxin and enteric panel were negative. On Phenergan 25 mg IVP, Zofran 4 mg IVP. Change Phenergan to Compazine. Add Ativan 0.5 mg IVP q6h prn and Haldol 1 mg q6h prn for nausea. It appears that he responded to Ativan prn for nausea the most. Start Zyprexa 10 mg IM qhs x 3 days (05/02). He is finally tolerated some liquid (05/03) #2 Small Cell Lung CA: On chemotherapy and radiation, most recent chemotherapy 04/25/17 as noted, most recent radiation treatment on 04/26. Radiation dermatitis of neck, treated conservatively with Aquaphor. Radiation treatment is ongoing. #3 pancytopenia due to chemotherapy. WBC 5.1, Platelets 95,000, and WBC 12.4 on admission. WBC down to 0.8, ANC 600. Neulasta per oncology. Continue to monitor CBC. #4 Elevated LFTs: AST 51, ALT 136 on admission. Repeated AST/ALT stable. Ultrasound liver is unremarkable. #5 Chronic COPD w/ Chronic Hypoxic Respiratory Failure: Continue oxygen via NC. He has home oxygen already. Bronchodilator: DuoNeb and PRN albuterol. #6 DM II. Sliging scale insulin. Hgb A1c 6.9. Change IVF from NS to D5 0.45NS at 125 ml/hr (05/02) #7 Hypertension (denied history, noted HTN in prior history also) with elevated BP: Blood pressure is adequate / stable. #8 Morbid Obesity: Weight loss and lifestyle changes encouraged, nutrition consulted. #9 Suspected/High Risk JADYN: Given habitus, thickened neck, high risk JAYDN. Consider sleep study as outpatient. DVT Prophylaxis: SCD, Lovenox with platelet monitoring. GI prophylaxis: PPI iv. Patient is full code. Disposition: home in 2 to 3 days. Code Visit Inpatient E&M: 43508 Subs Hosp L2
[2017-05-03] MEDS: proCHLORPERazine 10 MG/2 ML Vial IV (19:28)
[2017-05-03] MEDS: Ondansetron 4 MG/2 ML Vial IV (20:16)
[2017-05-04 02:00] VITALS: BP 123/76; PULSE 108; RESP 18; TEMP 36.9; O2SAT 96
[2017-05-04] MEDS: LORazepam 2 MG/ML Syringe 0.5 MG IV ×3 (02:14→19:10)
[2017-05-04 02:22] VITALS: PULSE 108; RESP 18; O2SAT 96
[2017-05-04] MEDS: Potassium Chloride 10 MEQ in Dext 5%-0.45% NS 1,000 ML 125 MEQ IV ×3 (05:07→21:45)
[2017-05-04] MEDS: Silver Sulfadiazine 1% Crm 50 gm Bottle 1 APPLIC TOPICAL ×3 (05:07→21:27)
[2017-05-04 05:50] LABS: Hematocrit 33.8 % (40-54); Hemoglobin 10.7 g/dl (13.0-16.5); Mean Corp Hgb Conc 31.7 g/gl (32-36); Mean Corpuscular Hgb 30.8 pg (27.0-32.0); Mean Corpuscular Volume 97.4 fL (80-94); Mean Platelet Vol. 12.2 fl (6.2-12.0); RBC Distribution Width CV 15.6 % (11.6-14.6); RBC Distribution Width SD 55.1 fl (35.1-43.9); Red Blood Count 3.47 M/mm3 (4.6-6.2)
[2017-05-04 06:04] LABS: Anion Gap 6 (5-15); BUN 7 mg/dL (7-18); BUN/Creat Ratio 16.9 RATIO (10-20); Calcium,Total 8.4 mg/dL (8.5-10.1); Chloride 102 mmol/L (98-107); Creatinine, Serum 0.42 mg/dL (0.70-1.30); EST Glomerular Filtration Rate 230 mL/min (>60); Est Glom Filt Rate - Afr Amer 279 mL/min (>60); Estimated Creatinine Clearance 228.39 ml/min; Glucose 120 mg/dL (74-106); Potassium 3.6 mmol/L (3.5-5.1); Sodium Level 139 mmol/L (136-145)
[2017-05-04 06:05] LABS: Platelet Count 44 K/mm3 (150-450); Scan Indicated on CBC? Y/N YES- FLAGS NOTED; White Blood Count 0.8 K/mm3 (4.4-11.0)
[2017-05-04 07:02] LABS: Differential Comment SCAN
[2017-05-04 08:26] VITALS: BP 132/79; PULSE 92; RESP 14; TEMP 36.4; O2SAT 96
[2017-05-04] MEDS: predniSONE 10 MG Tablet PO (08:28)
[2017-05-04 10:25] LABS: Absolute Lymphocyte Count 0.18 X10^3/ul (0.83-4.51); Absolute Neutrophil Count 0.5 X10^3/uL (2.0-7.7); Eosinophil# 0.01 X10^3/uL; Eosinophils% 1.2 % (0-5); Hematocrit 33.7 % (40-54); Hemoglobin 10.7 g/dl (13.0-16.5); Lymphocyte # 0.18 X10^3/ul (4.0); Mean Corp Hgb Conc 31.8 g/gl (32-36); Mean Corpuscular Hgb 31.4 pg (27.0-32.0); Mean Corpuscular Volume 98.8 fL (80-94); Mean Platelet Vol. 11.3 fl (6.2-12.0); Monocyte# 0.11 X10^3/uL; Monocyte% 13.4 % (0-10); Neutrophil # 0.51 X10^3/uL (2.7-7.7); Neutrophil % 62.2 % (47-70); Platelet Count 41 K/mm3 (150-450); RBC Distribution Width CV 15.3 % (11.6-14.6); RBC Distribution Width SD 53.1 fl (35.1-43.9); Red Blood Count 3.41 M/mm3 (4.6-6.2); White Blood Count 0.8 K/mm3 (4.4-11.0)
[2017-05-04 10:28] LABS: Differential Indicated SCAN CRITERIA MET; POSITIVE COUNT YES; POSITIVE DIFFERENTIAL YES; POSITIVE MORPHOLOGY YES
[2017-05-04] MEDS: TBO-FILGRASTIM 480 MCG/0.8 ML ML SC (10:45)
[2017-05-04 10:52] LABS: Anisocytosis 1+; Platelet Estimate MOD DEC (ADEQ)
--- NOTE | 2017-05-04 10:59 | NURSING ---
RECEIVED CALL FROM LAB ABOUT CRITICAL WBC COUNT OF 0.8 AND PLT COUNT OF 41. PRIMARY RN TALISHA NOTIFIED.
--- NOTE | 2017-05-04 11:20 | ONC.PN.INPT ---
- Problem List (1) SCLC (small cell lung carcinoma) Status: Chronic (2) Chemotherapy induced nausea and vomiting Status: Acute (3) Chemotherapy-induced thrombocytopenia Status: Acute (4) Chemotherapy induced neutropenia Status: Acute (5) Diarrhea Status: Acute (6) COPD (chronic obstructive pulmonary disease) Status: Chronic Subjective Date of Service:: 05/04/17 N/V/D Patient is a 51-year-old male smoker with COPD and oxygen dependent chronic respiratory failure was hospitalized in December 2016 was acute on chronic respiratory failure and is CT scan of the chest January 03, 2017 showed a Large right suprahilar mass infiltrating the right hilum and mediastinum in association with multiple enlarged nodes in the left superior mediastinum in the prevascular space. On January 23, 2017 he underwent EBUS procedure with FNA at lymph node stations 4L and 7 both of which revealed malignant cells consistent with small cell lung cancer. The large right-sided lung mass was visualized that extended from the paratracheal region into the more distal right hilar structures with extrinsic compression noted at the orifice of the right upper lobe takeoff. On February 12, 2017 and before completing staging for his newly diagnosed cancer patient was hospitalized with progressive cancer, SVC compression and pneumonia. During this hospital stay patient received his first cycle of carboplatin etoposide starting on February 14, 2017 and after improvement was discharged and was able to have a PET CT for initial staging that revealed extensive adenopathy in the mediastinum and extending into the supraclavicular lymph nodes. There was no evidence for distant metastatic disease. Brain CT showed no evidence of metastatic disease. A brain MRI has not been done because the patient has been unable to lay flat on his back for imaging because of dyspnea. In order to try to reduce the volume of the disease and also to allow for improved positioning with laying flat, concurrent radiation therapy was delayed and initiated with cycle 3 of chemotherapy, received Carbo-etoposide 02/14/2017- (2 cycles) Followed by Cisplatin-etoposide 03/26/2017 (concomitant with RT). Most recent administration 04/23/17-04/25/17. Admitted 04/30/17 for management of intractable nausea, emesis, loose stools x 5 days despite administration of PO supportive medications and antiemetics at home. Nausea and vomiting are controlled, painful dysphagia continues, diarrhea better. Past Medical History: Chronic Problems (Last Reviewed 04/25/17 @ 15:18 by Natalie Vance) Morbid obesity with BMI of 45.0-49.9, adult (Chronic) Prediabetes (Chronic) 01/04/17 HgbA1c 6.4%. Shortness of breath (Chronic) SCLC (small cell lung carcinoma) (Chronic) DM (diabetes mellitus) (Chronic) COPD (chronic obstructive pulmonary disease) (Chronic) Sleep disorder breathing (Chronic) Tobacco dependence in remission (Chronic) Dyspnea (Chronic) Chronic hypoxemic respiratory failure (Chronic) Morbid obesity with BMI of 50.0-59.9, adult (Chronic) Hypertension (Chronic) Past Medical History - Most Recent Inpatient Visit Past Medical History Start: 04/30/17 19:40 Text: Status: Complete Freq: ONCE Protocol: Document 04/30/17 19:50 [facility] (Rec: 04/30/17 19:53 [facility] [id number]) BMI Required to complete PMH What is Patient's BMI 44.4 Past Medical History Unable History Recalled No Query Text:Pt Unable/Family Not Present Neurologic Medical History Hx Stroke/TIA No Hx Dementia/Alzheimer's No Hx Parkinson's Disease No Hx Seizures No Hx Multiple Sclerosis No Hx Migraines No Cardiac Medical History VTE Present on Admission No Hx of Deep Vein Thrombosis/VTE/PE No Hx Hypertension Yes: OFF MED Hx Chest Pain/Angina No Hx Heart Attack No Hx Cardiac Surgery/Stents/Etc. No Hx Heart Failure No Hx Pacemaker/AICD No Hx Irregular Heartbeat and/or Afib No Hx Anticoagulant Therapy No Query Text:(Coumadin, Aspirin, Plavix, Xarelto, etc.) Hx Pain in Legs when Walking/Leg Cramps Yes Respiratory Medical History Hx COPD Yes Hx Emphysema No Hx Smoking Yes: quit 2016 Smoking Status Former smoker Hx Smoking Cessation Date 2016 Hx Tobacco Use in last 12 months No Hx of Pipe Smoking No Hx Sleep Apnea No CPAP No BIPAP No Do you snore loudly (louder than talking No or can be heard through closed doors)? Do you often feel tired/ fatigued/ Yes sleepy during daytime? Has anyone observed you stop breathing No during sleep? STOP Results Positive GI Medical History Hx Ulcer No Hx Hepatitis No Hx Cirrhosis No Hx GI Bleed No Hx Unplanned Weight Loss Yes Genitourinary Medical History Indwelling Catheter in Place on Arrival/ No Admission Hx Renal Disease No Hx Dialysis No Musculoskeletal History Hx Arthritis No Hx Rheumatoid Arthritis No Endocrine Medical History Hx Diabetes Yes: not on meds Hx Thyroid Disease No Hematologic Medical History Hx of Blood Transfusion No Hx of Transfusion in last 3 Months No Ever experience any problems with No transfusion(s)? Hx of Preganancy in last 3 Months N/A Nurse Filling Out Transfusion & SGESSEL Questions: Date: 04/30/17 Time: 19:53 Psycho/Social Medical History Hx Depression No Hx Anxiety No Hx Behavior Disorder No Hx Alcohol Use No Hx Substance Use Yes: marijuana Other Medical History Hx Blood Disorders No Hx Anemia No Hx Cancer Yes: STAGE 4 SINGLE CELL LUNG CA Hx Drug Resistant Organism No Wound/Pressure Injury Present on Arrival Yes: radiation burn to chest /Admission Query Text:If yes, chart assessment in Shift/Clinical Findings Central Line/PICC/VAD Present on Arrival Yes /Admission Antibiotics within last 7 days? No Risk for Readmission Number of Risk Factors 6 At Risk for Readmission Patient is At Risk For Readmission Patient is eligible for Call Back Y Past Medical History (Last Reviewed 04/25/17 @ 15:18 by Natalie Vance) Regional lymph node metastasis present (Acute) COPD (chronic obstructive pulmonary disease) (Chronic) Sleep disorder breathing (Chronic) Dyspnea (Chronic) Chronic hypoxemic respiratory failure (Chronic) Acute respiratory failure with hypoxia and hypercapnia (Acute) Morbid obesity with BMI of 50.0-59.9, adult (Chronic) Acute encephalopathy (Resolved) Hypertension (Chronic) Asthmatic bronchitis with exacerbation (Acute) Past Surgical History (Last Reviewed 04/25/17 @ 15:18 by Natalie Vance) EBUS (Resolved) Maternal Family History: Family History (Last Reviewed 04/25/17 @ 15:18 by Natalie Vance) Other Adopted Family History: - - Denies knowledge of biological maternal and paternal family history secondary to adoption. Paternal Family History: Family History (Last Reviewed 04/25/17 @ 15:18 by Natalie Vance) Other Adopted Family History: - - Denies knowledge of biological maternal and paternal family history secondary to adoption. - Social History Lives: Spouse/ Significant Other Smoking Status: Former smoker Tobacco Use: Non-smoker Alcohol: None Drugs: None Review of Systems Constitutional:: Reports: Weakness, Fatigue, Weight loss, Appetite change, - - Hoarseness increasing. Denies: Fever, Sweats, Chills Cardiovascular:: Reports: Dyspnea on exertion, Orthopnea, Shortness of breath - Chronic. Denies: Chest pain, Palpitations, PND Respiratory: Reports: Cough, Shortness of Breath, Wheezing - Chronic. Denies: Hemoptysis Gastrointestinal:: Reports: Nausea, Vomiting, Diarrhea - Nausea vomiting and diarrhea are all less, Difficulty swallowing. Denies: Abdominal pain, Constipation, Hematochezia Genitourinary: Denies: Dysuria, Hematuria, 15, Flank pain Musculoskeletal:: Denies: Back pain, Myalgia, Arthralgia Skin: Reports: Skin Changes - Skin merida over the upper anterior chest wall unchanged. Denies: Rash, Wounds Neurological:: Denies: Headache, Dizziness, Visual changes, Tinnitus, Hearing loss Psychiatric: Denies: Anxiety, Depression, Homicidal Ideations, Suicidal Ideations Vital Signs Height 6 ft Weight: 148.415 kg Weight in Pounds 327.2 lbs Pulse Ox 96 Temperature 97.6 F Pulse Rate 92 Respiratory Rate 14 Blood Pressure 132/79 Blood Pressure Position Semi-Fowlers - Physical Exam General: Alert, Oriented x3, No apparent distress, - - Morbidly obese 9 no acute distress Skin:: - - Second-degree type burn radiation dermatitis Laboratory Data: Microbiology 04/30/17 19:43 Enteric Bacteriology - Final Stool Laboratory Tests 05/04/17 05/04/17 05/04/17 Range/Units 05:25 05:25 05:25 WBC 0.8 L* 0.8 L* (4.4-11.0) K/mm3 RBC 3.41 L 3.47 L (4.6-6.2) M/mm3 Hgb 10.7 L 10.7 L (13.0-16.5) g/dl Hct 33.7 L 33.8 L (40-54) % MCV 98.8 H 97.4 H (80-94) fL MCH 31.4 30.8 (27.0-32.0) pg MCHC 31.8 L 31.7 L (32-36) g/gl RDW 15.3 H 15.6 H (11.6-14.6) % RDW Differential 53.1 H 55.1 H (35.1-43.9) fl Plt Count 41 L* 44 L* (150-450) K/mm3 MPV 11.3 12.2 H (6.2-12.0) fl Immature Gran % (Auto) 1.200 H (0.0-0.9) % Neut % (Auto) 62.2 (47-70) % Lymph % (Auto) 22.0 (19-41) % [place] % (Auto) 13.4 H (0-10) % Eos % (Auto) 1.2 (0-5) % Baso % (Auto) 0.0 (0-1) % Absolute Neuts (auto) 0.5 L (2.0-7.7) X10^3/uL Absolute Lymphs (auto) 0.18 L (0.83-4.51) X10^3/ul Total Counted Not Reportable Differential Comment SCAN Diff Path Review June foll June foll Platelet Estimate MOD DEC (ADEQ) Anisocytosis 1+ Sodium 139 (136-145) mmol/L Potassium 3.6 (3.5-5.1) mmol/L Chloride 102 (98-107) mmol/L Carbon Dioxide 31.0 (21.0-32.0) mmol/L Anion Gap 6 (5-15) BUN 7 (7-18) mg/dL Creatinine 0.42 L (0.70-1.30) mg/dL Estim Creat Clear Calc 228.39 ml/min Est GFR (MDRD) Af Amer 279 (>60) mL/min Est GFR (MDRD) Non-Af 230 (>60) mL/min BUN/Creatinine Ratio 16.9 (10-20) RATIO Glucose 120 H (74-106) mg/dL Calcium 8.4 L (8.5-10.1) mg/dL Diagnostic Data: Diagnostic Data Liver Ultrasound 04/30/17 19:43 IMPRESSION: Fatty infiltration of liver. Gallbladder sludge. No liver lesions. No ascites. Electronically Signed: Mati Bernardo DO at 23:42 EDT , Service support , Assessment and Plan 51-year-old male with: 1. Small cell lung cancer, limited stage but with bulky disease in the chest, on combined chemoradiation. 2. Pancytopenia secondary to recent chemotherapy and radiation. Will hold radiation today and continue with growth factor support for increasing neutropenia over the weekend and reassess on Sunday to avoid excessive bone marrow toxicity. If the patient remains afebrile without any evidence for active infection there is no indication for prophylactic use of antibiotics. 3 GI toxicity secondary to chemotherapy improving with conservative management. Medications: Prescriptions This Visit Medication Instructions Recorded Allopurinol [Zyloprim] 300 mg PO DAILYCM 04/30/17 Ipratropium/Albuterol Sulfate 3 ml INHALATION Q6H PRN 04/30/17 [Duoneb] Oxycodone [Oxyir] 10 mg PO Q4H PRN PRN 04/30/17 Medications Added to Medication List This Visit Category Date Time Status Hydrocodone Bit/Homatropine [Hycodan Syrup] Med 05/04/17 03:05 Active 5 ml PO Q6H PRN PRN Tbo-Filgrastim [Granix] Med 05/05/17 11:00 Once 480 mcg SC X1 ONE Tbo-Filgrastim [Granix] Med 05/06/17 11:00 Once 480 mcg SC X1 ONE Primary Care Provider: No Primary Care Phys Referring Provider:
--- NOTE | 2017-05-04 11:51 | PCM.PROGNOTE ---
Patient Problems: Active and Suspected Problems (Last Reviewed 04/25/17 @ 15:18 by Natalie Vance) Chemotherapy induced nausea and vomiting (Acute) Chemotherapy-induced thrombocytopenia (Acute) Diarrhea (Acute) Subjective: He feels fair. He tolerated full liquid. Nausea is improving. - Physical Exam General: Alert, Oriented x3, Cooperative, Well developed, Well nourished HEENT: Atraumatic, PERRLA, Normocephalic Oral: Moist Mucosa Neck: Supple, No JVD, Negative Carotid Bruits Lungs: Clear to auscultation, Normal air movement, Rhonchi Cardiovascular: Regular rate, Regular Rhythm, Normal S1, Normal S2, No murmurs, No Ectopic Activity Abdomen: Bowel Sounds Present, Soft, Non Tender, Non-Distended, Obese Extremities: No clubbing, No cyanosis, No edema Skin: No rashes, Burn - anterior upper chest/neck radiation burn with yellow slough / excoriation. Musculoskeletal: No Tenderness to Palpation of Joints or Extremities, No Muscle Wasting Lymphatic: No Cervical, Supraclavicular, or Inguinal Adenopathy Neurological: Cranial nerves II-XII grossly intact, Neuro grossly intact Psych/Mental Status: Normal Affect - Physical Exam Vital Signs Temp Pulse Resp BP Pulse Ox 97.6 F L 92 14 132/79 H 96 05/04/17 08:26 05/04/17 08:26 05/04/17 08:26 05/04/17 08:26 05/04/17 08:26 Oxygen Flow Rate (L/min) 2 Oxygen Delivery Method Nasal Cannula Weight: 327 lb 3.185 oz Body Mass Index (BMI) 44.4 Intake and Output for Last 24 Hours 05/02/17 05/03/17 05/04/17 23:59 23:59 23:59 Intake Total 4005 / 4005 2631 / 2631 2810 / 2810 Output Total 0 / 0 0 / 0 Balance 4005 / 4005 2631 / 2631 2810 / 2810 Microbiology Past 72 Hours 04/30/17 19:43 Enteric Bacteriology - Final Stool Laboratory Tests Past 24 Hrs 05/04/17 05/04/17 05/04/17 05:25 05:25 05:25 WBC 0.8 L* 0.8 L* RBC 3.47 L 3.41 L Hgb 10.7 L 10.7 L Hct 33.8 L 33.7 L MCV 97.4 H 98.8 H MCH 30.8 31.4 MCHC 31.7 L 31.8 L RDW 15.6 H 15.3 H RDW Differential 55.1 H 53.1 H Plt Count 44 L* 41 L* MPV 12.2 H 11.3 Immature Gran % (Auto) 1.200 H Neut % (Auto) 62.2 Lymph % (Auto) 22.0 Warrick % (Auto) 13.4 H Eos % (Auto) 1.2 Baso % (Auto) 0.0 Absolute Neuts (auto) 0.5 L Absolute Lymphs (auto) 0.18 L Total Counted Not Reportable Differential Comment SCAN Diff Path Review May foll May foll Platelet Estimate MOD DEC Anisocytosis 1+ Sodium 139 Potassium 3.6 Chloride 102 Carbon Dioxide 31.0 Anion Gap 6 BUN 7 Creatinine 0.42 L Estim Creat Clear Calc 228.39 Est GFR (MDRD) Af Amer 279 Est GFR (MDRD) Non-Af 230 BUN/Creatinine Ratio 16.9 Glucose 120 H Calcium 8.4 L Diagnostic Data Liver Ultrasound 04/30/17 19:43 IMPRESSION: Fatty infiltration of liver. Gallbladder sludge. No liver lesions. No ascites. Electronically Signed: Mati Bernardo DO at 23:42 EDT , Service support , Medical Necessity - Tobacco Use Smoking Status: Former smoker Tobacco Use: Non-smoker Assessment/Plan Active and Suspected Problems (Last Reviewed 04/25/17 @ 15:18 by Natalie Vance) Chemotherapy induced nausea and vomiting (Acute) Chemotherapy-induced thrombocytopenia (Acute) Diarrhea (Acute) The patient is a 51 y/o M w/ PMHx: Obesity, Chronic Normocytic Anemia, Chronic COPD w/ Chronic Hypoxic Respiratory Failure, HTN Noted prior, Morbid Obesity, Prior noted Pre-diabetes mellitus, Small Cell Lung CA w/ active ongoing chemotherapy and radiation with last treatment chemotherapy 04/25/17 and last radiation prior w/ Neck merida with treatment ongoing who presents to the [facility] on 04/30/17 with ongoing nausea, emesis and loose stools (1-2/day) since recent completion chemotherapy without improvement. #1 Intractable Nausea, vomiting, Loose Stool: Likely due to chemotherapy. C diff toxin and enteric panel were negative. On Phenergan 25 mg IVP, Zofran 4 mg IVP. Change Phenergan to Compazine. Add Ativan 0.5 mg IVP q6h prn and Haldol 1 mg q6h prn for nausea. It appears that he responded to Ativan prn for nausea the most. Start Zyprexa 10 mg IM qhs x 3 days (05/02). He is finally tolerated some liquid (05/03), doing fair with full liquid (05/04). #2 Small Cell Lung CA: On chemotherapy and radiation, most recent chemotherapy 04/25/17 as noted, most recent radiation treatment on 04/26. Radiation dermatitis of neck, treated conservatively with Silvadene. Radiation treatment is ongoing. on hold for pancytopenia. Radiation oncology is planning to revaluate on Sunday. #3 pancytopenia due to chemotherapy. WBC 5.1, Platelets 95,000, and WBC 12.4 on admission. WBC down to 0.8, ANC 600 ->500 (05/04) Granix per oncology, x 3 days starting 05/03. Neutropenic precaution. Continue to monitor CBC. #4 Elevated LFTs: AST 51, ALT 136 on admission. Repeated AST/ALT stable. Ultrasound liver is unremarkable. #5 Chronic COPD w/ Chronic Hypoxic Respiratory Failure: Continue oxygen via NC. He has home oxygen already. Bronchodilator: DuoNeb and PRN albuterol. #6 DM II. Sliging scale insulin. Hgb A1c 6.9. Change IVF from NS to D5 0.45NS at 125 ml/hr (05/02) #7 Hypertension (denied history, noted HTN in prior history also) with elevated BP: Blood pressure is adequate / stable. #8 Morbid Obesity: Weight loss and lifestyle changes encouraged, nutrition consulted. #9 Suspected/High Risk JADYN: Given habitus, thickened neck, high risk JADYN. Consider sleep study as outpatient. DVT Prophylaxis: SCD, Lovenox with platelet monitoring. GI prophylaxis: PPI iv. Patient is full code. Disposition: Continue current care for pancytopenia / neutropenia. Intractable n/v improving slowly, but not able to tolerate regular meal yet. Code Visit Inpatient E&M: 81179 [facility] L3
[2017-05-04 14:11] LABS: Pathologist Review Reviewed
[2017-05-04 14:13] LABS: Pathologist Review Reviewed
[2017-05-04 14:30] VITALS: BP 151/78; PULSE 101; RESP 18; TEMP 36.6; O2SAT 96
[2017-05-04] MEDS: 0.9% NaCl VAD Flush 10 ML IV (14:50)
[2017-05-04] MEDS: proCHLORPERazine 10 MG/2 ML Vial IV ×2 (14:50→21:14)
--- NOTE | 2017-05-04 15:51 | CASEMGMT ---
Social Work SW met with pt in room to provide support. Pt currently undergoing chemotherapy and radiation treatments for cancer diagnosis. SW explored support system and assistance at home with pt and pt stating that his significant other along with their children and grandchildren are a very good support system and have been very helpful throughout his illness. Pt also has support of thread singer and Palliative care. Pt became tearful when discussing family and his current life situation and pt is able to express how thankful he is for support of family and that he is pushing through with treatments. Pt affect was appropriate and pt open to discussion of disease. Emotional support provided. Pt made aware that SW is available should should further needs arise. Slim Hodge, ELIZABETH
[2017-05-04 19:36] VITALS: BP 116/78; PULSE 100; RESP 18; TEMP 37; O2SAT 98
[2017-05-05] VITALS (7 sets, daily range): BP systolic 126–139; BP diastolic 71–88; PULSE 64–112; RESP 16–22; TEMP 36.7–37.3; O2SAT 95–100
[2017-05-05] MEDS: Silver Sulfadiazine 1% Crm 50 gm Bottle 1 APPLIC TOPICAL ×3 (06:02→21:28)
[2017-05-05] MEDS: Potassium Chloride 10 MEQ in Dext 5%-0.45% NS 1,000 ML 125 MEQ IV ×2 (06:03→16:16)
[2017-05-05 06:22] LABS: Absolute Lymphocyte Count 0.23 X10^3/ul (0.83-4.51); Absolute Neutrophil Count 0.1 X10^3/uL (2.0-7.7); Basophil# 0.03 X10^3/uL; Basophil% 4.9 % (0-1); Eosinophil# 0.03 X10^3/uL; Eosinophils% 4.9 % (0-5); Hematocrit 33.9 % (40-54); Hemoglobin 10.7 g/dl (13.0-16.5); Lymphocyte # 0.23 X10^3/ul (4.0); Lymphocyte % 37.7 % (19-41); Mean Corp Hgb Conc 31.6 g/gl (32-36); Mean Corpuscular Hgb 31.3 pg (27.0-32.0); Mean Corpuscular Volume 99.1 fL (80-94); Mean Platelet Vol. 11.3 fl (6.2-12.0); Monocyte# 0.15 X10^3/uL; Monocyte% 24.6 % (0-10); Neutrophil # 0.12 X10^3/uL (2.7-7.7); Neutrophil % 19.7 % (47-70); RBC Distribution Width CV 15.4 % (11.6-14.6); RBC Distribution Width SD 53.5 fl (35.1-43.9); Red Blood Count 3.42 M/mm3 (4.6-6.2)
[2017-05-05 06:36] LABS: White Blood Count 0.6 K/mm3 (4.4-11.0)
[2017-05-05 06:37] LABS: Differential Indicated SCAN CRITERIA MET; POSITIVE COUNT YES; POSITIVE DIFFERENTIAL YES; POSITIVE MORPHOLOGY YES; Platelet Count 48 K/mm3 (150-450)
[2017-05-05 06:39] LABS: Anion Gap 7 (5-15); BUN 5 mg/dL (7-18); BUN/Creat Ratio 11.8 RATIO (10-20); Calcium,Total 7.9 mg/dL (8.5-10.1); Chloride 102 mmol/L (98-107); Creatinine, Serum 0.42 mg/dL (0.70-1.30); EST Glomerular Filtration Rate 224 mL/min (>60); Est Glom Filt Rate - Afr Amer 271 mL/min (>60); Estimated Creatinine Clearance 228.39 ml/min; Glucose 97 mg/dL (74-106); Sodium Level 140 mmol/L (136-145)
[2017-05-05 07:05] LABS: Differential Comment SCAN; Platelet Estimate MKD DEC (ADEQ)
[2017-05-05 07:06] LABS: Platelet Morphology LARGE
[2017-05-05] MEDS: Albuterol 2.5 MG/3 ML VIAL.NEB. INHALATION (08:01)
[2017-05-05] MEDS: predniSONE 10 MG Tablet PO (08:44)
[2017-05-05] MEDS: Allopurinol 300 MG Tablet PO (08:44)
--- NOTE | 2017-05-05 10:27 | RAD_ITS ---
STUDY: X-RAY CHEST REASON FOR EXAM: Male, 51 years old. Lung cancer. Increasing shortness of breath. TECHNIQUE: Single frontal view of the chest. COMPARISON: March 12, 2017. FINDINGS: There is interstitial accentuation of the lungs. There is elevation of the right hemidiaphragm. There is right mid and lower lung consolidation. There is no demonstrated pleural abnormality. Normal size heart. Right paratracheal prominence suggesting adenopathy is improved. Normal visualized pulmonary arteries. Normal visualized aortic arch and descending thoracic aorta. There are diffuse degenerative changes of the visualized thoracic spine. Normal visualized ribs, clavicles, and shoulders. There is no demonstrated abnormality of the visualized soft tissue structures of the upper abdomen. RAD/Chest 1 View (Portable) IMPRESSION: Right mid and lower lung atelectasis or infiltrates. Electronically Signed: Martinez Al MD at 15:42 EDT , Service support ,
--- NOTE | 2017-05-05 10:55 | PN_ITS ---
<Melodie Arevalo - Last Filed: 05/05/17 10:55> Patient Problems: Active and Suspected Problems (Last Reviewed 04/25/17 @ 15:18 by Natalie Vance) Chemotherapy induced nausea and vomiting (Acute) Chemotherapy-induced thrombocytopenia (Acute) Diarrhea (Acute) Subjective: Patient seen and examined. States nausea has improved. No further emesis. Patient however has not had anything but clear liquids. Will attempt advancing diet today and monitor. Patient complains of increased shortness of breath overnight which is worse with ambulation. Denies cough, fever, chills. Denies other associated complaints. - Physical Exam General: Alert, Oriented x3, Cooperative, No apparent distress HEENT: Atraumatic, PERRLA, EOMI, Normocephalic Oral: Moist Mucosa Neck: Supple, No JVD, Negative Carotid Bruits Lungs: Diminished, Rhonchi Cardiovascular: Regular Rhythm, Normal S1, Normal S2, No murmurs, Tachycardic Abdomen: Bowel Sounds Present, Soft, Non Tender, Non-Distended, Obese Extremities: No clubbing, No cyanosis, No edema, Capillary Refill Less than 3 Seconds Skin: - - Burn to upper neck/chest with yellow slough and excoriation. Musculoskeletal: No Tenderness to Palpation of Joints or Extremities Neurological: Cranial nerves II-XII grossly intact, Neuro grossly intact Psych/Mental Status: Normal Affect, Appropriate Vital Signs Temp Pulse Resp BP Pulse Ox 99.1 F 110 H 22 H 139/87 H 95 05/05/17 07:42 05/05/17 08:02 05/05/17 08:33 05/05/17 07:42 05/05/17 08:02 Oxygen Flow Rate (L/min) 3 Oxygen Delivery Method Nasal Cannula Weight: 148.415 kg Body Mass Index (BMI) 44.4 Intake and Output for Last 24 Hours 05/03/17 05/04/17 05/05/17 23:59 23:59 23:59 Intake Total 2631 / 2631 3859 / 3859 1658 / 1658 Output Total 0 / 0 Balance 2631 / 2631 3859 / 3859 1658 / 1658 Laboratory Tests Past 24 Hrs 05/03/17 05/04/17 05/04/17 06:17 05:25 05:25 WBC 0.8 L* RBC 3.41 L Hgb 10.7 L Hct 33.7 L MCV 98.8 H MCH 31.4 MCHC 31.8 L RDW 15.3 H RDW Differential 53.1 H Plt Count 41 L* MPV 11.3 Immature Gran % (Auto) 1.200 H Neut % (Auto) 62.2 Lymph % (Auto) 22.0 Ellis % (Auto) 13.4 H Eos % (Auto) 1.2 Baso % (Auto) 0.0 Absolute Neuts (auto) 0.5 L Absolute Lymphs (auto) 0.18 L Total Counted Not Reportable Differential Comment Diff Path Review Reviewed Reviewed June foll Platelet Estimate MOD DEC Plt Morphology Comment Anisocytosis 1+ Sodium Potassium Chloride Carbon Dioxide Anion Gap BUN Creatinine Estim Creat Clear Calc Est GFR (MDRD) Af Amer Est GFR (MDRD) Non-Af BUN/Creatinine Ratio Glucose Calcium 05/05/17 05/05/17 06:08 06:08 WBC 0.6 L* RBC 3.42 L Hgb 10.7 L Hct 33.9 L MCV 99.1 H MCH 31.3 MCHC 31.6 L RDW 15.4 H RDW Differential 53.5 H Plt Count 48 L* MPV 11.3 Immature Gran % (Auto) 8.200 H Neut % (Auto) 19.7 L Lymph % (Auto) 37.7 Ellis % (Auto) 24.6 H Eos % (Auto) 4.9 Baso % (Auto) 4.9 H Absolute Neuts (auto) 0.1 L Absolute Lymphs (auto) 0.23 L Total Counted Not Reportable Differential Comment SCAN Diff Path Review June foll Platelet Estimate MKD DEC Plt Morphology Comment LARGE Anisocytosis Sodium 140 Potassium 3.0 L Chloride 102 Carbon Dioxide 31.0 Anion Gap 7 BUN 5 L Creatinine 0.42 L Estim Creat Clear Calc 228.39 Est GFR (MDRD) Af Amer 271 Est GFR (MDRD) Non-Af 224 BUN/Creatinine Ratio 11.8 Glucose 97 Calcium 7.9 L Medical Necessity - Tobacco Use Smoking Status: Former smoker Tobacco Use: Non-smoker Assessment/Plan Active and Suspected Problems (Last Reviewed 04/25/17 @ 15:18 by Natalie Vance) Chemotherapy induced nausea and vomiting (Acute) Chemotherapy-induced thrombocytopenia (Acute) Diarrhea (Acute) 1. Intractable nausea, vomiting, diarrhea-suspected secondary to chemotherapy. Diarrhea resolved. Nausea, vomiting improved. Continue IV antiemetic regimen. C. difficile and enteric panel negative. Advance diet as tolerated. Patient can be DC when able to tolerate regular diet. 2. Hypokalemia- Replace orally. Continue IVF with KCL. 3. Small cell lung cancer-on combined chemoradiation. Oncology following. 4. Skin merida of the upper anterior chest wall-secondary to radiation. Burning with yellow slough and excoriation. Continue Silvadene topical 3 times daily. 5. Chronic COPD with chronic hypoxic respiratory failure-continue albuterol and DuoNeb aerosol. Continue supplemental oxygen to maintain O2 at or above 90%. Patient complained of increased shortness of breath overnight. Obtain portable chest x-ray. Patient denies cough, fever, chills. 6. Pancytopenia-secondary to chemotherapy and radiation. Oncology following. Continue Granix. Neutropenic precautions. 7. Elevated LFTs-appears chronic in nature. Ultrasound of liver shows fatty infiltration of liver. Gallbladder sludge. No liver lesions. No ascites. 8. Hypertension-stable, not on regimen. 9. Diabetes mellitus type II-hemoglobin A1c 6.9%. Accu-Cheks before meals at bedtime with sliding scale insulin. 10. Morbid obesity-nutrition consult. Diet and lifestyle modifications encouraged. 11. Suspected obstructive sleep apnea-patient has high risk for JADYN given morbid obesity and thickened neck. Consider outpatient sleep study. DVT prophylaxis-heparin subcu. This patient was seen by SKYLAR Mc under the supervision of Dr. Aldana. <Day Aldana E - Last Filed: 05/05/17 14:27> - Physical Exam Vital Signs Temp Pulse Resp BP Pulse Ox 99.0 F 76 20 H 129/86 H 96 05/05/17 13:45 05/05/17 13:45 05/05/17 13:45 05/05/17 13:45 05/05/17 13:45 Oxygen Flow Rate (L/min) 3 Oxygen Delivery Method Nasal Cannula Weight: 327 lb 3.185 oz Body Mass Index (BMI) 44.4 Intake and Output for Last 24 Hours 05/03/17 05/04/17 05/05/17 23:59 23:59 23:59 Intake Total 2631 / 2631 3859 / 3859 1658 / 1658 Output Total 0 / 0 Balance 2631 / 2631 3859 / 3859 1658 / 1658 Laboratory Tests Past 24 Hrs 05/05/17 05/05/17 06:08 06:08 WBC 0.6 L* RBC 3.42 L Hgb 10.7 L Hct 33.9 L MCV 99.1 H MCH 31.3 MCHC 31.6 L RDW 15.4 H RDW Differential 53.5 H Plt Count 48 L* MPV 11.3 Immature Gran % (Auto) 8.200 H Neut % (Auto) 19.7 L Lymph % (Auto) 37.7 Ellis % (Auto) 24.6 H Eos % (Auto) 4.9 Baso % (Auto) 4.9 H Absolute Neuts (auto) 0.1 L Absolute Lymphs (auto) 0.23 L Total Counted Not Reportable Differential Comment SCAN Diff Path Review May foll Platelet Estimate MKD DEC Plt Morphology Comment LARGE Sodium 140 Potassium 3.0 L Chloride 102 Carbon Dioxide 31.0 Anion Gap 7 BUN 5 L Creatinine 0.42 L Estim Creat Clear Calc 228.39 Est GFR (MDRD) Af Amer 271 Est GFR (MDRD) Non-Af 224 BUN/Creatinine Ratio 11.8 Glucose 97 Calcium 7.9 L POC Glucose 05/05/17 11:22 POC Glucose 117 H Assessment/Plan Hospitalist note: I am seeing this patient in conjunction with Melodie Arevalo. I independently seen and examined the patient. Progress note above, laboratory data and imaging studies reviewed and I agree with above treatment plan. Patient was admitted for intractable nausea and loose stool since he received chemotherapy for small cell lung cancer. Today, he did mention that his nausea is getting better. Denied abdominal pain. He reported weakness and fatigue as well as tremors upon ambulation. He reported slightly increasing shortness of breath today. At home, he has been on 3 L of oxygen and he remains on 3 L of this morning. He has been afebrile, blood pressure stable. - Physical Exam General: Alert, Oriented x3, Cooperative, mildly short of breath. HEENT: Atraumatic, PERRLA, EOMI. Neck: Supple, No JVD, Negative Carotid Bruits, Trachea Midline, Thyroid Normal. Lungs: Diminished breath sounds bilateral, scattered rhonchi, no wheeze, No rales. Cardiovascular: Regular rate, Regular Rhythm, Normal S1, Normal S2, tachycardic , PMI Normal. Abdomen: Bowel Sounds Present, Soft, Non Tender, Non-Distended, No Hepato- splenomegaly. Extremities: No clubbing, No cyanosis, No edema Skin: No rashes, No breakdown Neurological: Neuro grossly intact Assessment and plan: #1 intractable nausea/vomiting/loose stool: Attributed to chemotherapy. Patient symptoms improved, having this nausea. Abdomen examination is benign. Stool for C. difficile and enteric pathogens were negative. Plan to start him on clear liquids today, advance as tolerated. #2 pancytopenia: He does have leukopenia and severe neutropenia, absolute neutrophil count is 100, he has no fever. His platelet count today is 48,000. No evidence of active bleeding. Hemoglobin and hematocrit are stable at his baseline. He is on filgrastim, and closing the case. #3 hypokalemia: Replace with potassium chloride, repeat BMP tomorrow morning. Serum magnesium and phosphorus were normal. #4 other chronic medical problems: Small cell lung cancer, COPD, chronic respiratory failure, hypertension,, type 2 diabetes mellitus, sleep apnea: Stable, continue current medications as above. This note was generated with [employer] dictation software. It may contain incorrect words, spelling, and punctuation that were not noted in checking the note before signing. Code Visit Inpatient E&M: 62547 Subs Hosp L2
[2017-05-05] MEDS: TBO-FILGRASTIM 480 MCG/0.8 ML ML SC (11:18)
[2017-05-05 11:31] LABS: Bedside Glucose 117 mg/dL (70-110)
[2017-05-05] MEDS: Glucerna Shake 120 ML LIQUID PO (13:56)
[2017-05-05] MEDS: 0.9% NaCl VAD Flush 10 ML IV ×3 (14:09→21:37)
[2017-05-05] MEDS: proCHLORPERazine 10 MG/2 ML Vial IV ×2 (14:10→21:36)
[2017-05-05] MEDS: Ipratropium/Albuterol Sulfate 3 ML AMPUL.NEB INHALATION (14:36)
[2017-05-05 16:51] LABS: Bedside Glucose 128 mg/dL (70-110)
[2017-05-05] MEDS: Ondansetron 4 MG/2 ML Vial IV (17:24)
[2017-05-05] MEDS: Piperacil/Tazobactam 3.375 GM/50 ML ML IV (21:14)
[2017-05-05] MEDS: Morphine 2 MG/ML Syringe IV (21:36)
[2017-05-05 21:55] LABS: Bedside Glucose 115 mg/dL (70-110)
[2017-05-05] MEDS: LORazepam 2 MG/ML Syringe 0.5 MG IV (23:17)
[2017-05-06] VITALS (8 sets, daily range): BP systolic 114–146; BP diastolic 72–86; PULSE 106–115; RESP 15–20; TEMP 36.8–36.9; O2SAT 95–97
[2017-05-06] MEDS: 0.9% NaCl VAD Flush 10 ML IV ×6 (00:29→19:50)
[2017-05-06] MEDS: Ondansetron 4 MG/2 ML Vial IV (00:29)
[2017-05-06] MEDS: Potassium Chloride 10 MEQ in Dext 5%-0.45% NS 1,000 ML 125 MEQ IV ×2 (00:31→09:07)
[2017-05-06] MEDS: proMETHazine 25 MG/ML Syringe IV (02:45)
[2017-05-06] MEDS: Morphine 2 MG/ML Syringe IV (02:45)
[2017-05-06] MEDS: OLANZapine 2.5 MG Tablet 5 MG PO ×2 (05:08→10:27)
[2017-05-06] MEDS: proCHLORPERazine 10 MG/2 ML Vial IV ×2 (05:09→19:49)
[2017-05-06] MEDS: Piperacil/Tazobactam 3.375 GM/50 ML ML IV ×3 (05:09→21:06)
[2017-05-06] MEDS: Haloperidol 1 MG Tablet PO (05:09)
[2017-05-06] MEDS: Scopolamine 1mg/72hr Patch 1 PATCH TD (06:17)
[2017-05-06] MEDS: Silver Sulfadiazine 1% Crm 50 gm Bottle 1 APPLIC TOPICAL ×3 (06:25→21:06)
[2017-05-06 06:31] LABS: Bedside Glucose 105 mg/dL (70-110)
[2017-05-06 07:03] LABS: Absolute Neutrophil Count 0.2 X10^3/uL (2.0-7.7); Basophil# 0.03 X10^3/uL; Basophil% 2.9 % (0-1); Eosinophil# 0.07 X10^3/uL; Eosinophils% 6.7 % (0-5); Hematocrit 33.7 % (40-54); Hemoglobin 10.5 g/dl (13.0-16.5); Lymphocyte % 28.8 % (19-41); Mean Corp Hgb Conc 31.2 g/gl (32-36); Mean Corpuscular Hgb 31.1 pg (27.0-32.0); Mean Corpuscular Volume 99.7 fL (80-94); Mean Platelet Vol. 11.1 fl (6.2-12.0); Monocyte% 38.5 % (0-10); Neutrophil # 0.24 X10^3/uL (2.7-7.7); Neutrophil % 23.1 % (47-70); Platelet Count 52 K/mm3 (150-450); RBC Distribution Width CV 15.7 % (11.6-14.6); RBC Distribution Width SD 54.7 fl (35.1-43.9); Red Blood Count 3.38 M/mm3 (4.6-6.2)
[2017-05-06 07:13] LABS: Differential Indicated SCAN CRITERIA MET; POSITIVE COUNT YES; POSITIVE DIFFERENTIAL YES; POSITIVE MORPHOLOGY YES
[2017-05-06 08:15] LABS: Anion Gap 8 (5-15); BUN 3 mg/dL (7-18); BUN/Creat Ratio 5.8 RATIO (10-20); Calcium,Total 8.4 mg/dL (8.5-10.1); Chloride 102 mmol/L (98-107); Creatinine, Serum 0.52 mg/dL (0.70-1.30); EST Glomerular Filtration Rate 178 mL/min (>60); Est Glom Filt Rate - Afr Amer 216 mL/min (>60); Estimated Creatinine Clearance 184.47 ml/min; Glucose 104 mg/dL (74-106); Potassium 3.2 mmol/L (3.5-5.1); Sodium Level 140 mmol/L (136-145)
[2017-05-06 08:19] LABS: Differential Comment SCANNED
[2017-05-06] MEDS: Allopurinol 300 MG Tablet PO (08:53)
[2017-05-06] MEDS: predniSONE 10 MG Tablet PO (08:53)
[2017-05-06] MEDS: TBO-FILGRASTIM 480 MCG/0.8 ML ML SC (11:17)
[2017-05-06 11:26] LABS: Bedside Glucose 118 mg/dL (70-110)
--- NOTE | 2017-05-06 12:39 | PCM.PROGNOTE ---
<Melodie Arevalo - Last Filed: 05/06/17 12:46> Patient Problems: Active and Suspected Problems (Last Reviewed 04/25/17 @ 15:18 by Natalie Vance) Chemotherapy induced nausea and vomiting (Acute) Chemotherapy-induced thrombocytopenia (Acute) Diarrhea (Acute) Subjective: Patient seen and examined. States shortness of breath is improved. Denies cough, fever, chills. Nausea increased yesterday afternoon and patient is now unable to keep anything down. Denies other current complaints. - Physical Exam General: Alert, Oriented x3, Cooperative, No apparent distress Neck: Supple, No JVD, Negative Carotid Bruits Lungs: Diminished, Rhonchi Cardiovascular: Regular Rhythm, Normal S1, Normal S2, No murmurs, Tachycardic Abdomen: Bowel Sounds Present, Soft, Non Tender, Non-Distended, Obese Extremities: No clubbing, No cyanosis, No edema, Capillary Refill Less than 3 Seconds Skin: - - Burn to upper neck/chest with yellow slough and excoriation. Musculoskeletal: No Tenderness to Palpation of Joints or Extremities Neurological: Cranial nerves II-XII grossly intact Psych/Mental Status: Normal Affect, Appropriate Vital Signs Temp Pulse Resp BP Pulse Ox 98.3 F 108 H 16 146/86 H 96 05/06/17 08:48 05/06/17 08:48 05/06/17 08:55 05/06/17 08:48 05/06/17 08:48 Oxygen Flow Rate (L/min) 3 Oxygen Delivery Method Nasal Cannula Weight: 148.415 kg Body Mass Index (BMI) 44.4 Intake and Output for Last 24 Hours 05/04/17 05/05/17 05/06/17 23:59 23:59 23:59 Intake Total 3859 / 3859 1658 / 1658 3778 / 3778 Balance 3859 / 3859 1658 / 1658 3778 / 3778 Laboratory Tests Past 24 Hrs 05/06/17 05/06/17 06:20 06:20 WBC 1.0 L* RBC 3.38 L Hgb 10.5 L Hct 33.7 L MCV 99.7 H MCH 31.1 MCHC 31.2 L RDW 15.7 H RDW Differential 54.7 H Plt Count 52 L MPV 11.1 Immature Gran % (Auto) 0.000 Neut % (Auto) 23.1 L Lymph % (Auto) 28.8 Brantley % (Auto) 38.5 H Eos % (Auto) 6.7 H Baso % (Auto) 2.9 H Absolute Neuts (auto) 0.2 L Absolute Lymphs (auto) 0.30 L Total Counted Not Reportable Differential Comment SCANNED Diff Path Review June Sodium 140 Potassium 3.2 L Chloride 102 Carbon Dioxide 30.0 Anion Gap 8 BUN 3 L Creatinine 0.52 L Estim Creat Clear Calc 184.47 Est GFR (MDRD) Af Amer 216 Est GFR (MDRD) Non-Af 178 BUN/Creatinine Ratio 5.8 L Glucose 104 Calcium 8.4 L POC Glucose 05/06/17 05/06/17 05/05/17 11:19 06:22 21:27 POC Glucose 118 H 105 115 H 05/05/17 16:19 POC Glucose 128 H Medical Necessity - Tobacco Use Smoking Status: Former smoker Tobacco Use: Non-smoker Assessment/Plan Active and Suspected Problems (Last Reviewed 04/25/17 @ 15:18 by Natalie Vance) Chemotherapy induced nausea and vomiting (Acute) Chemotherapy-induced thrombocytopenia (Acute) Diarrhea (Acute) 1. Intractable nausea, vomiting, diarrhea-suspected secondary to chemotherapy. Diarrhea resolved. Nausea, vomiting improved. Continue IV antiemetic regimen and scopolamine patch. C. difficile and enteric panel negative. Advance diet as tolerated. Will request oncology is recommendations for further control of nausea. 2. Hypokalemia- Replace IV. Continue IVF with KCL. 3. Small cell lung cancer-on combined chemoradiation. Oncology following. 4. Skin merida of the upper anterior chest wall-secondary to radiation. Burning with yellow slough and excoriation. Continue Silvadene topical 3 times daily. 5. Chronic COPD with chronic hypoxic respiratory failure-continue albuterol and DuoNeb aerosol. Continue supplemental oxygen to maintain O2 at or above 90%. 6. Pancytopenia-secondary to chemotherapy and radiation. Oncology following. Continue Granix. Neutropenic precautions. 7. Elevated LFTs-appears chronic in nature. Ultrasound of liver shows fatty infiltration of liver. Gallbladder sludge. No liver lesions. No ascites. 8. Hypertension-stable, not on regimen. 9. Diabetes mellitus type II-hemoglobin A1c 6.9%. Accu-Cheks before meals at bedtime with sliding scale insulin. 10. Morbid obesity-nutrition consult. Diet and lifestyle modifications encouraged. 11. Suspected obstructive sleep apnea-patient has high risk for JADYN given morbid obesity and thickened neck. Consider outpatient sleep study. 12. Right mid and lower lung atelectasis or infiltrates-patient was started on IV Zosyn empirically given pancytopenia. He denies cough. Denies fever, chills. DVT prophylaxis-heparin subcu. This patient was seen by SKYLAR Mc under the supervision of Dr. Aldana. <Day Aldana E - Last Filed: 05/06/17 15:01> - Physical Exam Vital Signs Temp Pulse Resp BP Pulse Ox 98.4 F 106 H 16 132/78 H 97 05/06/17 14:30 05/06/17 14:30 05/06/17 14:30 05/06/17 14:30 05/06/17 14:30 Oxygen Flow Rate (L/min) 3 Oxygen Delivery Method Nasal Cannula Weight: 327 lb 3.185 oz Body Mass Index (BMI) 44.4 Intake and Output for Last 24 Hours 05/04/17 05/05/17 05/06/17 23:59 23:59 23:59 Intake Total 3859 / 3859 1658 / 1658 3778 / 3778 Balance 3859 / 3859 1658 / 1658 3778 / 3778 Laboratory Tests Past 24 Hrs 05/06/17 05/06/17 06:20 06:20 WBC 1.0 L* RBC 3.38 L Hgb 10.5 L Hct 33.7 L MCV 99.7 H MCH 31.1 MCHC 31.2 L RDW 15.7 H RDW Differential 54.7 H Plt Count 52 L MPV 11.1 Immature Gran % (Auto) 0.000 Neut % (Auto) 23.1 L Lymph % (Auto) 28.8 Brantley % (Auto) 38.5 H Eos % (Auto) 6.7 H Baso % (Auto) 2.9 H Absolute Neuts (auto) 0.2 L Absolute Lymphs (auto) 0.30 L Total Counted Not Reportable Differential Comment SCANNED Diff Path Review May foll Sodium 140 Potassium 3.2 L Chloride 102 Carbon Dioxide 30.0 Anion Gap 8 BUN 3 L Creatinine 0.52 L Estim Creat Clear Calc 184.47 Est GFR (MDRD) Af Amer 216 Est GFR (MDRD) Non-Af 178 BUN/Creatinine Ratio 5.8 L Glucose 104 Calcium 8.4 L POC Glucose 05/06/17 05/06/17 05/05/17 11:19 06:22 21:27 POC Glucose 118 H 105 115 H 05/05/17 16:19 POC Glucose 128 H Assessment/Plan Hospitalist note: I am seeing this patient in conjunction with Melodie Arevalo. I independently seen and examined the patient. Progress note above and laboratory data and I agree with above treatment plan. Reportedly, patient had a rough night with persistent nausea. Today, is feeling better. Denied abdominal pain, nausea vomiting. Shortness of breath improved. Denies any cough or sputum production. He is afebrile, heart rate remained around 100, blood pressure stable and pulse ox is 96% on 3 L. - Physical Exam General: Alert, Oriented x3, Cooperative, mildly short of breath. HEENT: Atraumatic, PERRLA, EOMI. Neck: Supple, No JVD, Negative Carotid Bruits, Trachea Midline, Thyroid Normal. Lungs: Diminished breath sounds bilateral, more at the right base, scattered rhonchi, no wheeze, No rales. Cardiovascular: Regular rate, Regular Rhythm, Normal S1, Normal S2, tachycardic, PMI Normal. Abdomen: Bowel Sounds Present, Soft, Non Tender, Non-Distended, No Hepato-splenomegaly. Extremities: No clubbing, No cyanosis, No edema Skin: No rashes, No breakdown Neurological: Neuro grossly intact Assessment and plan: #1 intractable nausea/vomiting/loose stool: Attributed to chemotherapy. [place] has been improving and worsening. Today, is feeling better, had a rough night last night. Stool for C. difficile and enteric pathogens were negative. He is on regular diet. #2 pancytopenia: His total white blood cell count, platelet count as well as neutrophil count has improved. He has been afebrile. He is on filgrastim, and oncology on the case. #3 hypokalemia: Serum potassium still low, he is on potassium replacement with IV potassium chloride. Serum magnesium and phosphorus were normal. #4 low suspicion of pneumonia. Chest x-ray from yesterday reviewed, revealed probable right lung atelectasis. He was started on IV Zosyn empirically yesterday. I reviewed his chest x-ray from the previous admissions and there is no significant change, those changes on the right lower lobe has been there. Plan to keep him on empiric IV Zosyn because of neutropenia. #5 other chronic medical problems: Small cell lung cancer, COPD, chronic respiratory failure, hypertension,, type 2 diabetes mellitus, sleep apnea: Stable, continue current medications as above. This note was generated with [email or web address] dictation software. It may contain incorrect words, spelling, and punctuation that were not noted in checking the note before signing. Code Visit Inpatient E&M: 58682 Subs Hosp L2
[2017-05-06] MEDS: Albuterol 2.5 MG/3 ML VIAL.NEB. INHALATION (15:42)
[2017-05-06 16:15] LABS: Bedside Glucose 134 mg/dL (70-110)
[2017-05-06] MEDS: LORazepam 2 MG/ML Syringe 0.5 MG IV (19:49)
[2017-05-06 22:00] LABS: Bedside Glucose 133 mg/dL (70-110)
[2017-05-06] MEDS: Potassium Chloride 10 MEQ in Dext 5%-0.45% NS 1,000 ML 75 MEQ IV (22:40)
[2017-05-07 03:00] VITALS: RESP 15
[2017-05-07 05:00] VITALS: BP 107/69; PULSE 110; RESP 15; TEMP 37.4; O2SAT 93
[2017-05-07] MEDS: 0.9% NaCl VAD Flush 10 ML IV (05:32)
[2017-05-07] MEDS: Piperacil/Tazobactam 3.375 GM/50 ML ML IV (05:32)
[2017-05-07] MEDS: Silver Sulfadiazine 1% Crm 50 gm Bottle 1 APPLIC TOPICAL (05:35)
[2017-05-07 06:02] LABS: Anion Gap 8 (5-15); BUN 2 mg/dL (7-18); BUN/Creat Ratio 3.4 RATIO (10-20); Calcium,Total 8.8 mg/dL (8.5-10.1); Chloride 101 mmol/L (98-107); Creatinine, Serum 0.58 mg/dL (0.70-1.30); EST Glomerular Filtration Rate 156 mL/min (>60); Est Glom Filt Rate - Afr Amer 189 mL/min (>60); Estimated Creatinine Clearance 165.38 ml/min; Glucose 102 mg/dL (74-106); Potassium 3.4 mmol/L (3.5-5.1); Sodium Level 140 mmol/L (136-145)
[2017-05-07 06:23] LABS: Absolute Lymphocyte Count 0.47 X10^3/ul (0.83-4.51); Absolute Neutrophil Count 3.8 X10^3/uL (2.0-7.7); Basophil# 0.03 X10^3/uL; Basophil% 0.5 % (0-1); Eosinophil# 0.05 X10^3/uL; Eosinophils% 0.8 % (0-5); Hematocrit 35.7 % (40-54); Hemoglobin 11.1 g/dl (13.0-16.5); Lymphocyte # 0.47 X10^3/ul (4.0); Lymphocyte % 7.7 % (19-41); Mean Corp Hgb Conc 31.1 g/gl (32-36); Mean Corpuscular Volume 99.7 fL (80-94); Monocyte# 1.65 X10^3/uL; Monocyte% 27.2 % (0-10); Neutrophil # 3.84 X10^3/uL (2.7-7.7); Neutrophil % 63.3 % (47-70); Platelet Count 74 K/mm3 (150-450); RBC Distribution Width CV 16.3 % (11.6-14.6); RBC Distribution Width SD 58.5 fl (35.1-43.9); Red Blood Count 3.58 M/mm3 (4.6-6.2); White Blood Count 6.1 K/mm3 (4.4-11.0)
[2017-05-07 06:46] LABS: Differential Indicated SCAN CRITERIA MET; POSITIVE COUNT NO; POSITIVE DIFFERENTIAL YES; POSITIVE MORPHOLOGY YES
[2017-05-07 06:55] LABS: Bedside Glucose 113 mg/dL (70-110)
[2017-05-07 07:01] LABS: Differential Comment SCANNED; Toxic Granulation 1+
[2017-05-07 07:49] VITALS: BP 130/73; PULSE 109; RESP 18; TEMP 37; O2SAT 94
[2017-05-07] MEDS: guaiFENesin 600 MG Tablet 1200 MG PO (07:58)
[2017-05-07] MEDS: Allopurinol 300 MG Tablet PO (07:58)
[2017-05-07] MEDS: predniSONE 10 MG Tablet PO (07:59)
[2017-05-07] MEDS: OLANZapine 2.5 MG Tablet 5 MG PO (08:00)
[2017-05-07] MEDS: Glucerna Shake 120 ML LIQUID PO (08:00)
[2017-05-07] MEDS: Albuterol 2.5 MG/3 ML VIAL.NEB. INHALATION (08:12)
[2017-05-07 08:13] VITALS: PULSE 121; RESP 18
--- NOTE | 2017-05-07 09:21 | DCINST_ITS ---
- Discharge Diagnoses Current Active Problems: Current Active and Chronic Problems (Last Reviewed 04/25/17 @ 15:18 by Natalie Vance) Morbid obesity with BMI of 45.0-49.9, adult (Chronic) Prediabetes (Chronic) 01/04/17 HgbA1c 6.4%. Chemotherapy induced nausea and vomiting (Acute) Chemotherapy-induced thrombocytopenia (Acute) Diarrhea (Acute) You will use the following diet at home:: Regular Discharge Activity: Return to Normal Activity Call your doctor if you observe: Fever of 101 or Higher, Shortness of breath, Dizziness, Fainting spells, Chest pain, Increased palpitations (irregular heartbeat) Allergies/Adverse Reactions: Allergies bee venom protein (honey bee) Allergy (Severe, Verified 04/30/17 15:29) Swelling Medications to take at Discharge Omeprazole Magnesium [Prilosec Otc] 20 mg PO DAILY 01/17/17 umeclidinium 62.5 mcg/actuation blister powder for inhalation 1 inh INHALATION DAILY #1 device 01/30/17 Fluticasone/Vilanterol [Breo Ellipta 200-25 Mcg INH] 1 inh INHALATION Q24H 02/12 Prednisone 10 mg PO DAILY 02/12/17 Albuterol Aerosols [Ventolin Aerosols] 2.5 mg INHALATION Q2H PRN PRN #30 vial.neb. 02/18/17 Albuterol Sulfate [Ventolin Hfa] 2 puff INHALATION Q4H PRN #1 hfa.aer.ad Ondansetron HCl [Zofran] 8 mg PO Q8H PRN PRN #30 tab 03/27/17 Magic Mouth Wash 15 ml PO Q6H PRN PRN #340 ml 03/29/17 Benzonatate [Tessalon Perle] 100 mg PO BID 04/23/17 Haloperidol 0.5 mg PO Q4H PRN PRN 04/23/17 proMETHazine suppository [Phenergan Suppository] 25 mg RECTAL Q6H PRN PRN #6 suppos. 04/28/17 Allopurinol [Zyloprim] 300 mg PO DAILYCM 04/30/17 Ipratropium/Albuterol Sulfate [Duoneb] 3 ml INHALATION Q6H PRN 04/30/17 Oxycodone [Oxyir] 10 mg PO Q4H PRN PRN 04/30/17 Scopolamine Patch 1mg/72hr [Transderm-Scop] 1 patch TD Q3D #2 patch 05/07/17 Silver Sulfadiazine 1% Crm [Silvadene Cream] 1 applic TOPICAL TID #1 bottle 03/25 The following prescriptions were given: Scopolamine Patch 1mg/72hr [Transderm-Scop] 1 patch TD Q3D #2 patch Silver Sulfadiazine 1% Crm [Silvadene Cream] 1 applic TOPICAL TID #1 bottle Primary Care Physician: Care Physician,No Primary [Primary Care Provider] - Please follow up with your Primary Care Physician in: 1 Week Please Follow Up With: Bob Fofana MD When: 3-5 days Proposed Discharge Date: 05/07/17
--- NOTE | 2017-05-07 09:22 | PCM.DC.SUM ---
<Melodie Arevalo - Last Filed: 05/07/17 09:31> Discharge Date and Diagnosis Date of Admission: 04/30/17 Date of Discharge: 05/07/17 - Primary Discharge Diagnosis Active and Suspected Problems (Last Reviewed 04/25/17 @ 15:18 by Natalie Vance) 1. Chemotherapy-induced nausea, vomiting, diarrhea 2. Hypokalemia 3. Chemotherapy induced pancytopenia 4. Skin merida of the upper anterior chest wall secondary to radiation - Secondary Discharge Diagnosis Chronic Problems (Last Reviewed 04/25/17 @ 15:18 by Natalie Vance) Morbid obesity with BMI of 45.0-49.9, adult (Chronic) Prediabetes (Chronic) 01/04/17 HgbA1c 6.4%. Shortness of breath (Chronic) SCLC (small cell lung carcinoma) (Chronic) DM (diabetes mellitus) (Chronic) COPD (chronic obstructive pulmonary disease) (Chronic) Sleep disorder breathing (Chronic) Tobacco dependence in remission (Chronic) Dyspnea (Chronic) Chronic hypoxemic respiratory failure (Chronic) Morbid obesity with BMI of 50.0-59.9, adult (Chronic) Hypertension (Chronic) Hospital Course and Treatment Imaging Results: Diagnostic Data Liver Ultrasound 04/30/17 19:43 IMPRESSION: Fatty infiltration of liver. Gallbladder sludge. No liver lesions. No ascites. Electronically Signed: Mati Bernardo DO at 23:42 EDT , Service support , Chest X-Ray 05/05/17 10:27 IMPRESSION: Right mid and lower lung atelectasis or infiltrates. Electronically Signed: Martinez Al MD at 15:42 EDT , Service support , Dr. Fofana- Oncology Operations: None Procedures: None Summary of Care Provided: 1. Chemotherapy-induced intractable nausea, vomiting, diarrhea-Diarrhea resolved. Nausea and vomiting greatly improved, patient is tolerating regular diet. Patient states scopolamine patch has greatly improved his symptoms. Will discharged on scalpel mean patch. Continue home as needed antiemetic regimen. C. difficile and enteric panel negative. Patient will continue follow-up with primary care physician and oncology in 3-5 days. 2. Hypokalemia-potassium 3.4 day of discharge and patient received additional supplemental potassium. Recommend further monitoring by oncology. 3. Small cell lung cancer-on combined chemoradiation. Continue outpatient follow-up with oncology. 4. Skin merida of the upper anterior chest wall-secondary to radiation. Burning with yellow slough and excoriation. Continue Silvadene topical 3 times daily at discharge. 5. Chronic COPD with chronic hypoxic respiratory failure-continue albuterol and DuoNeb aerosol. Continue supplemental oxygen to maintain O2 at or above 90%. 6. Pancytopenia-secondary to chemotherapy and radiation. Patient received a gram X ?1. WBC improved to 6.1 at discharge. Further recommendations per oncology as outpatient. Instructed patient to continue neutropenic precautions. 7. Elevated LFTs-appears chronic in nature. Ultrasound of liver shows fatty infiltration of liver. Gallbladder sludge. No liver lesions. No ascites. 8. Hypertension-stable, not on regimen. 9. Diabetes mellitus type II-hemoglobin A1c 6.9%. Patient did not require any sliding scale insulin during admission. He has been on chronic low-dose prednisone. Recommend further follow-up with primary care physician as outpatient. 10. Morbid obesity-Diet and lifestyle modifications encouraged. 11. Suspected obstructive sleep apnea-patient has high risk for JADYN given morbid obesity and thickened neck. Consider outpatient sleep study. 12. Right mid and lower lung atelectasis or infiltrates-patient was started on IV Zosyn empirically given pancytopenia. He denies cough. Denies fever, chills. No further antibiotics necessary at discharge. General: Alert, Oriented x3, Cooperative, No apparent distress Neck: Supple, No JVD, Negative Carotid Bruits Lungs: Diminished, Rhonchi Cardiovascular: Regular Rhythm, Normal S1, Normal S2, No murmurs, Tachycardic Abdomen: Bowel Sounds Present, Soft, Non Tender, Non-Distended, Obese Extremities: No clubbing, No cyanosis, No edema, Capillary Refill Less than 3 Seconds Skin: - - Burn to upper neck/chest with yellow slough and excoriation. Musculoskeletal: No Tenderness to Palpation of Joints or Extremities Neurological: Cranial nerves II-XII grossly intact Psych/Mental Status: Normal Affect, Appropriate Patient seen and examined prior to discharge. Physical assessment as noted above. Patient is stable for discharge with the follow-up recommendations as noted above. This patient was seen by SKYLAR Mc under the supervision of Dr. Aldana. Discharge Diet: No Restrictions Discharge Activity: Return to Normal Activity Call your doctor if you observe: Fever of 101 or Higher, Shortness of breath, Dizziness, Fainting spells, Chest pain, Increased palpitations (irregular heartbeat) Home Medications: Medications to take at Discharge Omeprazole Magnesium [Prilosec Otc] 20 mg PO DAILY 01/17/17 umeclidinium 62.5 mcg/actuation blister powder for inhalation 1 inh INHALATION DAILY #1 device 01/30/17 Fluticasone/Vilanterol [Breo Ellipta 200-25 Mcg INH] 1 inh INHALATION Q24H 02/12/17 Prednisone 10 mg PO DAILY 02/12/17 Albuterol Aerosols [Ventolin Aerosols] 2.5 mg INHALATION Q2H PRN PRN #30 vial.neb. 02/18/17 Albuterol Sulfate [Ventolin Hfa] 2 puff INHALATION Q4H PRN #1 hfa.aer.ad 02/18/17 Ondansetron HCl [Zofran] 8 mg PO Q8H PRN PRN #30 tab 03/27/17 Magic Mouth Wash 15 ml PO Q6H PRN PRN #340 ml 03/29/17 Benzonatate [Tessalon Perle] 100 mg PO BID 04/23/17 Haloperidol 0.5 mg PO Q4H PRN PRN 04/23/17 proMETHazine suppository [Phenergan Suppository] 25 mg RECTAL Q6H PRN PRN #6 suppos. 04/28/17 Allopurinol [Zyloprim] 300 mg PO DAILYCM 04/30/17 Ipratropium/Albuterol Sulfate [Duoneb] 3 ml INHALATION Q6H PRN 04/30/17 Oxycodone [Oxyir] 10 mg PO Q4H PRN PRN 04/30/17 Scopolamine Patch 1mg/72hr [Transderm-Scop] 1 patch TD Q3D #2 patch 05/07/17 Silver Sulfadiazine 1% Crm [Silvadene Cream] 1 applic TOPICAL TID #1 bottle 05/07/17 Following Prescrptions Were Given to Patient: Scopolamine Patch 1mg/72hr [Transderm-Scop] 1 patch TD Q3D #2 patch Silver Sulfadiazine 1% Crm [Silvadene Cream] 1 applic TOPICAL TID #1 bottle Primary Care Physician: Care Physician,No Primary [Primary Care Provider] - Please follow up with your Primary Care Physician in: 1 Week Please Follow Up With: Bob Fofana MD When: 3-5 days Disposition: Home Minutes spent on discharge:: 35 Patient Condition:: Stable Medical Necessity - Tobacco Use Smoking Status: Former smoker Tobacco Use: Non-smoker Meaningful Use Info Meaningful Use Diagnoses (Choose all that apply): None applicable <Day Aldana E - Last Filed: 05/07/17 10:54> Discharge Date and Diagnosis - Secondary Discharge Diagnosis Chronic Problems (Last Reviewed 04/25/17 @ 15:18 by Natalie Vance) Morbid obesity with BMI of 45.0-49.9, adult (Chronic) Prediabetes (Chronic) 01/04/17 HgbA1c 6.4%. Shortness of breath (Chronic) SCLC (small cell lung carcinoma) (Chronic) DM (diabetes mellitus) (Chronic) COPD (chronic obstructive pulmonary disease) (Chronic) Sleep disorder breathing (Chronic) Tobacco dependence in remission (Chronic) Dyspnea (Chronic) Chronic hypoxemic respiratory failure (Chronic) Morbid obesity with BMI of 50.0-59.9, adult (Chronic) Hypertension (Chronic) Hospital Course and Treatment Summary of Care Provided: Hospitalist note: Discharge summary above reviewed as well as physical examination and I agree with above discharge plan. Patient seen and examined on the day of discharge and appeared to be stable to be discharged home. He was admitted because of intractable nausea and vomiting as well as diarrhea which is attributed to chemotherapy. Today, he mentioned that his nausea is much better, has been able to tolerate diet. His vital signs are stable. He was found to have pancytopenia which was treated with filgrastim injections. His total white blood cell count as well as neutrophil count 13 is back to normal. His platelet count significantly improved. His hemoglobin remained stable at his baseline and there was no indication for transfusion. Chest x-ray performed 2 years ago before discharge and was concerning for probable pneumonia. Previous chest x-ray reviewed and there was no significant change from the chest x-ray that was done this admission. Pneumonia ruled out. Patient received 2 days of IV Zosyn empirically. He remained afebrile. His stool for C. difficile and enteric pathogens were negative. Patient discharged home in a stable medical condition, discharged on his home medication without any changes, discharged on scopolamine patch for intractable nausea and vomiting, recommended follow-up with PCP in 1 week and follow-up with oncology as scheduled. . Minutes spent on discharge:: 32 Code Visit Inpatient E&M: 04024 Disch Hosp
--- NOTE | 2017-05-07 09:30 | DS.PCM_ITS ---
<Melodie Arevalo - Last Filed: 05/07/17 09:31> Discharge Date and Diagnosis Date of Admission: 04/30/17 Date of Discharge: 05/07/17 - Primary Discharge Diagnosis Active and Suspected Problems (Last Reviewed 04/25/17 @ 15:18 by Natalie Vance) 1. Chemotherapy-induced nausea, vomiting, diarrhea 2. Hypokalemia 3. Chemotherapy induced pancytopenia 4. Skin merida of the upper anterior chest wall secondary to radiation - Secondary Discharge Diagnosis Chronic Problems (Last Reviewed 04/25/17 @ 15:18 by Natalie Vance) Morbid obesity with BMI of 45.0-49.9, adult (Chronic) Prediabetes (Chronic) 01/04/17 HgbA1c 6.4%. Shortness of breath (Chronic) SCLC (small cell lung carcinoma) (Chronic) DM (diabetes mellitus) (Chronic) COPD (chronic obstructive pulmonary disease) (Chronic) Sleep disorder breathing (Chronic) Tobacco dependence in remission (Chronic) Dyspnea (Chronic) Chronic hypoxemic respiratory failure (Chronic) Morbid obesity with BMI of 50.0-59.9, adult (Chronic) Hypertension (Chronic) Hospital Course and Treatment Imaging Results: Diagnostic Data Liver Ultrasound 04/30/17 19:43 IMPRESSION: Fatty infiltration of liver. Gallbladder sludge. No liver lesions. No ascites. Electronically Signed: Mati Bernardo DO at 23:42 EDT , Service support , Chest X-Ray 05/05/17 10:27 IMPRESSION: Right mid and lower lung atelectasis or infiltrates. Electronically Signed: Martinez Al MD at 15:42 EDT , Service support , Dr. Fofana- Oncology Operations: None Procedures: None Summary of Care Provided: 1. Chemotherapy-induced intractable nausea, vomiting, diarrhea-Diarrhea resolved. Nausea and vomiting greatly improved, patient is tolerating regular diet. Patient states scopolamine patch has greatly improved his symptoms. Will discharged on scalpel mean patch. Continue home as needed antiemetic regimen. C. difficile and enteric panel negative. Patient will continue follow -up with primary care physician and oncology in 3-5 days. 2. Hypokalemia-potassium 3.4 day of discharge and patient received additional supplemental potassium. Recommend further monitoring by oncology. 3. Small cell lung cancer-on combined chemoradiation. Continue outpatient follow-up with oncology. 4. Skin merida of the upper anterior chest wall-secondary to radiation. Burning with yellow slough and excoriation. Continue Silvadene topical 3 times daily at discharge. 5. Chronic COPD with chronic hypoxic respiratory failure-continue albuterol and DuoNeb aerosol. Continue supplemental oxygen to maintain O2 at or above 90%. 6. Pancytopenia-secondary to chemotherapy and radiation. Patient received a gram X ?1. WBC improved to 6.1 at discharge. Further recommendations per oncology as outpatient. Instructed patient to continue neutropenic precautions. 7. Elevated LFTs-appears chronic in nature. Ultrasound of liver shows fatty infiltration of liver. Gallbladder sludge. No liver lesions. No ascites. 8. Hypertension-stable, not on regimen. 9. Diabetes mellitus type II-hemoglobin A1c 6.9%. Patient did not require any sliding scale insulin during admission. He has been on chronic low-dose prednisone. Recommend further follow-up with primary care physician as outpatient. 10. Morbid obesity-Diet and lifestyle modifications encouraged. 11. Suspected obstructive sleep apnea-patient has high risk for JADYN given morbid obesity and thickened neck. Consider outpatient sleep study. 12. Right mid and lower lung atelectasis or infiltrates-patient was started on IV Zosyn empirically given pancytopenia. He denies cough. Denies fever, chills. No further antibiotics necessary at discharge. General: Alert, Oriented x3, Cooperative, No apparent distress Neck: Supple, No JVD, Negative Carotid Bruits Lungs: Diminished, Rhonchi Cardiovascular: Regular Rhythm, Normal S1, Normal S2, No murmurs, Tachycardic Abdomen: Bowel Sounds Present, Soft, Non Tender, Non-Distended, Obese Extremities: No clubbing, No cyanosis, No edema, Capillary Refill Less than 3 Seconds Skin: - - Burn to upper neck/chest with yellow slough and excoriation. Musculoskeletal: No Tenderness to Palpation of Joints or Extremities Neurological: Cranial nerves II-XII grossly intact Psych/Mental Status: Normal Affect, Appropriate Patient seen and examined prior to discharge. Physical assessment as noted above. Patient is stable for discharge with the follow-up recommendations as noted above. This patient was seen by SKYLAR Mc under the supervision of Dr. Aldana. Discharge Diet: No Restrictions Discharge Activity: Return to Normal Activity Call your doctor if you observe: Fever of 101 or Higher, Shortness of breath, Dizziness, Fainting spells, Chest pain, Increased palpitations (irregular heartbeat) Home Medications: Medications to take at Discharge Omeprazole Magnesium [Prilosec Otc] 20 mg PO DAILY 01/17/17 umeclidinium 62.5 mcg/actuation blister powder for inhalation 1 inh INHALATION DAILY #1 device 01/30/17 Fluticasone/Vilanterol [Breo Ellipta 200-25 Mcg INH] 1 inh INHALATION Q24H 02/12 Prednisone 10 mg PO DAILY 02/12/17 Albuterol Aerosols [Ventolin Aerosols] 2.5 mg INHALATION Q2H PRN PRN #30 vial.neb. 02/18/17 Albuterol Sulfate [Ventolin Hfa] 2 puff INHALATION Q4H PRN #1 hfa.aer.ad Ondansetron HCl [Zofran] 8 mg PO Q8H PRN PRN #30 tab 03/27/17 Magic Mouth Wash 15 ml PO Q6H PRN PRN #340 ml 03/29/17 Benzonatate [Tessalon Perle] 100 mg PO BID 04/23/17 Haloperidol 0.5 mg PO Q4H PRN PRN 04/23/17 proMETHazine suppository [Phenergan Suppository] 25 mg RECTAL Q6H PRN PRN #6 suppos. 04/28/17 Allopurinol [Zyloprim] 300 mg PO DAILYCM 04/30/17 Ipratropium/Albuterol Sulfate [Duoneb] 3 ml INHALATION Q6H PRN 04/30/17 Oxycodone [Oxyir] 10 mg PO Q4H PRN PRN 04/30/17 Scopolamine Patch 1mg/72hr [Transderm-Scop] 1 patch TD Q3D #2 patch 05/07/17 Silver Sulfadiazine 1% Crm [Silvadene Cream] 1 applic TOPICAL TID #1 bottle 03/25 Following Prescrptions Were Given to Patient: Scopolamine Patch 1mg/72hr [Transderm-Scop] 1 patch TD Q3D #2 patch Silver Sulfadiazine 1% Crm [Silvadene Cream] 1 applic TOPICAL TID #1 bottle Primary Care Physician: Care Physician,No Primary [Primary Care Provider] - Please follow up with your Primary Care Physician in: 1 Week Please Follow Up With: Bob Fofana MD When: 3-5 days Disposition: Home Minutes spent on discharge:: 35 Patient Condition:: Stable Medical Necessity - Tobacco Use Smoking Status: Former smoker Tobacco Use: Non-smoker Meaningful Use Info Meaningful Use Diagnoses (Choose all that apply): None applicable <Day Aldana E - Last Filed: 05/07/17 10:54> Discharge Date and Diagnosis - Secondary Discharge Diagnosis Chronic Problems (Last Reviewed 04/25/17 @ 15:18 by Natalie Vance) Morbid obesity with BMI of 45.0-49.9, adult (Chronic) Prediabetes (Chronic) 01/04/17 HgbA1c 6.4%. Shortness of breath (Chronic) SCLC (small cell lung carcinoma) (Chronic) DM (diabetes mellitus) (Chronic) COPD (chronic obstructive pulmonary disease) (Chronic) Sleep disorder breathing (Chronic) Tobacco dependence in remission (Chronic) Dyspnea (Chronic) Chronic hypoxemic respiratory failure (Chronic) Morbid obesity with BMI of 50.0-59.9, adult (Chronic) Hypertension (Chronic) Hospital Course and Treatment Summary of Care Provided: Hospitalist note: Discharge summary above reviewed as well as physical examination and I agree with above discharge plan. Patient seen and examined on the day of discharge and appeared to be stable to be discharged home. He was admitted because of intractable nausea and vomiting as well as diarrhea which is attributed to chemotherapy. Today, he mentioned that his nausea is much better, has been able to tolerate diet. His vital signs are stable. He was found to have pancytopenia which was treated with filgrastim injections. His total white blood cell count as well as neutrophil count 13 is back to normal. His platelet count significantly improved. His hemoglobin remained stable at his baseline and there was no indication for transfusion. Chest x-ray performed 2 years ago before discharge and was concerning for probable pneumonia. Previous chest x-ray reviewed and there was no significant change from the chest x-ray that was done this admission. Pneumonia ruled out. Patient received 2 days of IV Zosyn empirically. He remained afebrile. His stool for C. difficile and enteric pathogens were negative. Patient discharged home in a stable medical condition, discharged on his home medication without any changes, discharged on scopolamine patch for intractable nausea and vomiting, recommended follow-up with PCP in 1 week and follow-up with oncology as scheduled. . Minutes spent on discharge:: 32 Code Visit Inpatient E&M: 60506 Disch Hosp
--- NOTE | 2017-05-07 09:42 | PCM.WORK.EX ---
Work/School Excuse Work/School Excuse for:: Patient Please excuse this person from:: Work From: 04/30/17 through: 05/08/17 - May return to work 05/09/17.
--- NOTE | 2017-05-07 10:06 | CASEMGMT ---
IMM completed at bedside. Patient states he is agreeable with discharge to home today.
--- NOTE | 2017-05-07 10:16 | CASEMGMT ---
Call placed to [facility] informing them that the patient is discharging today and will need resumption of services. Clinicals faxed.
[2017-05-08 12:53] LABS: Pathologist Review Reviewed
[2017-05-08 13:02] LABS: Pathologist Review Reviewed
[2017-05-08 13:03] LABS: Pathologist Review Reviewed
== END 2017-05-07 10:30 | disposition home health service (06) | DRG 182 ==
LOC: ED 18:06 → MS2 05-01 06:34
PROVIDERS: Hospitalist; Student in an Organized Health Care Education/Training Program; Admitting Provider Family Medicine; Emergency Provider Emergency Medicine; Visit Provider Hospitalist
DX: R11.2 Nausea with vomiting, unspecified (principal); D61.810 Antineoplastic chemotherapy induced pancytopenia; J96.11 Chronic respiratory failure with hypoxia; C34.91 Malignant neoplasm of unspecified part of right bronchus or lung; C77.9 Secondary and unspecified malignant neoplasm of lymph node, unspecified; J44.9 Chronic obstructive pulmonary disease, unspecified; T45.1X5A Adverse effect of antineoplastic and immunosuppressive drugs, initial encounter; R19.7 Diarrhea, unspecified; Y92.9 Unspecified place or not applicable; T21.21XA Burn of second degree of chest wall, initial encounter; Y84.2 Radiological procedure and radiotherapy as the cause of abnormal reaction of the patient, or of later complication, without mention of misadventure at the time of the procedure; E66.01 Morbid (severe) obesity due to excess calories; Z68.41 Body mass index [BMI] 40.0-44.9, adult; E11.9 Type 2 diabetes mellitus without complications; I10 Essential (primary) hypertension; E87.6 Hypokalemia; K21.9 Gastro-esophageal reflux disease without esophagitis; G47.33 Obstructive sleep apnea (adult) (pediatric); Z99.81 Dependence on supplemental oxygen; Z79.52 Long term (current) use of systemic steroids; Z79.891 Long term (current) use of opiate analgesic; Z79.899 Other long term (current) drug therapy; Z87.891 Personal history of nicotine dependence
CPT/HCPCS: 36591; 71045; 76705; 77336; 77386; 80048; 80053; 80076; 82962; 83036; 83735; 84100; 85025; 85027; 87493; 87506; 94640; 96361; 96374; 96375; 97802; 99281; 99283; J7030; A4216; J1447; J2405; J3490; J7799

== ENCOUNTER → 2017-06-25 14:13 | Outpatient (CLI) | payer MEDICAID, SELFPAY ==
[2017-03-01 11:31] VITALS: BMI 53.3
--- NOTE | 2017-06-25 14:17 | MRI_ITS ---
STUDY: MRI BRAIN WITH AND WITHOUT CONTRAST REASON FOR EXAM: Male, 52 years old. Lung cancer TECHNIQUE: Standardized multiplanar fat and water weighted pulse sequences were obtained. 12 ml of Gadavist contrast material was administered intravenously for the contrast portion of the examination. COMPARISON: CT of the brain on March 21, 2017 FINDINGS: Normal size of the ventricles and extra-axial spaces for the patient's age. Minor periventricular white matter ischemic changes.. Normal bilateral basal ganglia. Normal thalami. There is no extra-axial fluid accumulation. Normal flow voids within the major intracranial circulation suggesting patency by spin echo criteria. Normal venous enhancement. There are multiple subcentimeter small rounded homogeneously enhancing nodules in the right cerebellar hemisphere, right temporal lobe, right frontal lobe, right posterior thalamus, left parietal lobe, and left posterior frontal region consistent with metastatic disease. There is no appreciable edema or mass effect associated with these lesions Normal sella turcica, pituitary gland, infundibular stalk, optic chiasm and hypothalamus. Normal tectal plate and pineal gland. Normal midbrain, filomena and medulla. There is a cavernous angioma in the right cerebellar hemisphere. Normal basal cisterns. Normal bilateral temporal bones. Normal bilateral internal auditory canals. No demonstrated orbital abnormality, within the constraints of a routine brain study. Prominent mucous retention cyst in left maxillary sinus and minor mucosal thickening in the ethmoid air cells. Normal calvarium and skull base. Normal visualized soft tissue structures. Normal visualized upper cervical spine. MRI/Brain W/WO Contrast IMPRESSION: Minor periventricular white matter ischemic changes. Multiple subcentimeter bilateral cerebral hemispheric and right cerebellar metastasis without significant edema or mass effect Incidental finding on the sagittal T1 imaging sequence of possible metastasis within the C3 vertebral body. MRI of the cervical spine would be useful for further assessment if clinically warranted Electronically Signed: Ki Mace MD at 18:56 EDT , Service support ,
== END ==
PROVIDERS: Visit Provider Student in an Organized Health Care Education/Training Program
DX: C34.90 Malignant neoplasm of unspecified part of unspecified bronchus or lung (principal)
CPT/HCPCS: 70553; A9585; A4216

== ENCOUNTER → 2017-06-29 14:10 | Outpatient (CLI) | payer MEDICAID, SELFPAY ==
[2017-03-01 11:31] VITALS: BMI 53.3
== END ==
PROVIDERS: Family Provider Family Medicine; PCP Family Medicine; Referring Provider Internal Medicine Critical Care Medicine; Visit Provider Internal Medicine Critical Care Medicine
DX: C34.90 Malignant neoplasm of unspecified part of unspecified bronchus or lung (principal)
CPT/HCPCS: 77280; 77412

== ENCOUNTER → 2017-07-05 07:48 | Outpatient (CLI) | payer MEDICAID, SELFPAY ==
[2017-03-01 11:31] VITALS: BMI 53.3
--- NOTE | 2017-07-05 07:54 | NM_ITS ---
CLINICAL: 52-year-old male with reported history of carcinoma of the lung. WHOLE BODY 99m Tc MDP RADIONUCLIDE BONE SCINTIGRAPHY COMPARISON: Previous whole body bone scintigraphy study dated 02/13/2017 FINDINGS: Following the intravenous administration of 24.8 mCi of 99m Tc MDP, whole body bone images reveal: 1. Increased radiopharmaceutical concentration is newly defined in the left frontal calvarium, right proximal humeral diaphysis, distal right femoral diaphysis posteriorly, distal sternum, persistently visualized in the left posterior eighth-ninth ribs. 2. An increase in tracer uptake is presently visualized in the 10th thoracic and third lumbar vertebra posteriorly on the right, hips bilaterally, acromioclavicular and glenohumeral compartments of both shoulders, the visualized right hand. 3. The remaining skeletal structures are scintigraphically unremarkable with normal-appearing renal images and urinary bladder activity identified. NM/Bone Scan Whole Body IMPRESSION: 1. 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 2. Degenerative arthritis appears expressed in the thoracic and lumbar spine, bilateral shoulders, right-left hip articulations, the right hand. 3. Overall compared to the previous whole body bone scintigraphy study dated 02/13/2017, there is interval progression of defined skeletal metastatic disease. Electronically Signed: Sonido Tobias DO at 23:30 EDT Tel , Service support ,
== END ==
PROVIDERS: Visit Provider Internal Medicine Hematology & Oncology
DX: M89.9 Disorder of bone, unspecified (principal); C34.90 Malignant neoplasm of unspecified part of unspecified bronchus or lung; C79.31 Secondary malignant neoplasm of brain
CPT/HCPCS: 78306

== ENCOUNTER 2017-07-06 04:05 | Inpatient (IN) | payer MEDICAID, SELFPAY ==
[2017-03-01 11:31] VITALS: BMI 53.3
[2017-07-06] VITALS (14 sets, daily range): BP systolic 131–173; BP diastolic 76–117; PULSE 110–128; RESP 15–20; TEMP 36.6–37; O2SAT 91–97; BMI 38.2; BMI 39.1
--- NOTE | 2017-07-06 04:26 | CT_ITS ---
STUDY: CT ABDOMEN AND PELVIS WITH CONTRAST REASON FOR EXAM: Male, 52 years old. Lower abdominal pain, history of stage IV lung cancer RADIATION DOSAGE (If Supplied By Facility): CTDIvol = ( 17.07 ) mGy, DLP = ( 1415.32 ) mGycm TECHNIQUE: Transaxial images were obtained from the dome of the diaphragm to the symphysis pubis without oral contrast. 100ML ml of Isovue 300 contrast was administered. Sagittal and coronal images were reconstructed. Individualized dose optimization techniques were used for this CT. COMPARISON: 02/13/2017 FINDINGS: The visualized lung bases are unremarkable. The visualized portions of the heart are within normal limits. Mild pericardial fluid. There is decreased attenuation of the liver consistent with steatosis. Normal gallbladder and extrahepatic biliary system. Normal spleen. Mild/early acute pancreatitis is suspected involving the pancreatic head. No pseudocysts are seen.. A new metastatic lesion is present in the left adrenal gland measuring approximately 3 x 1.8 cm. A new lesion is also present in the right adrenal gland measuring 2.5 x 1.3 cm. Interval development of celiac adenopathy, the largest node measuring 2.8 x 2.5 cm. Normal right kidney. Normal left kidney. Normal visualized stomach. Normal small intestine. Normal colon. The appendix is visualized and appears normal. Normal abdominal aorta. Normal inferior vena cava. Normal retroperitoneum. Normal urinary bladder. There are prostatic calcifications. Umbilical fat hernia. Multiple new sclerotic bone lesions are present concerning for metastatic disease. These are especially evident in the T10 and T12 vertebral bodies, sternum, and left iliac crest. CT/Abdomen/Pelvis W IV Cont ONLY IMPRESSION: Mild/early acute pancreatitis is suspected involving the pancreatic head. New metastatic lesions in both adrenal glands. Interval development of celiac adenopathy. Interval development of multiple osseous metastatic lesions. Electronically Signed: Jony Collier MD at 6:24 EDT Tel , Service support ,
--- NOTE | 2017-07-06 04:27 | ED.VISSUMM ---
- ER Visit Summary Date of Service: 07/06/17 Chief Complaint: Abdominal pain History of Present Illness: The patient is a 52 M waxing waning abdominal pain for the past 2 weeks. Lower abdomen. Denies bowel movement for 5 days, no flatus or 4 days. No abdominal surgery history. No hernias or groin pain. Today had 1 emesis, no hematemesis. Recent diagnosis of small cell lung cancer in December 2016. There was metastasis to the brain recently, he is on radiation therapy. Denies any lesions in abdomen. Seen by palliative care nurses yesterday with no bowel sounds. Presents here with concerns for bowel obstruction, no bowel obstruction history. Denies any medication allergies. Patient was able to eat yesterday. No urinary symptoms. Physical Examination: General: Alert and oriented ?3, mild distress HEENT: Normocephalic, atraumatic. Moist mucosa membranes Neck: supple, nontender. Cardiovascular: Regular tachycardic rate and rhythm, no murmurs Respiratory: Normal breath sounds, symmetric, no distress Abdomen: Soft, lower abdomen toe tenderness bilaterally, no guarding or rebound. Minimal bowel sounds. No groin pain. Extremities: Nontender, no edema, pulses intact ?4 Neuro: no focal neurological deficits. Test Results: WBC 16. Lipase 9000. Slightly elevated LFTs. CT scan abdomen pelvis: Mild pancreatitis with interval development of metastatic lesions. Emergency Department Course and Treatment: Patient treated with pain medicines and IV fluids. Workup for his lower abdominal pain initiated. Results noted acute pancreatitis with mild transaminitis. He had no epigastric or right upper quadrant pain. Nonsurgical abdomen. Labs noted acute pancreatitis, was kept n.p.o., continued pain control. CT scan on my initial wet read noted concerns for pancreatitis changes consistent with lab findings. Patient was updated. There is no signs of bowel obstruction. He had no alcohol history. Discuss with hospitalist, Dr. Rocha for admission pending final read of CT. Final read from radiology will did confirm pancreatitis along with new metastatic lesions. He currently on radiation therapy for his small cell lung cancer with metastasis involving his brain. Treatment Plan: [] Disposition: Admission Impression: 1. Acute pancreatitis 2. Abdominal pain 3. Transaminitis 4. small cell lung cancer with metastasis This note was generated with [employer] software. It may contain incorrect words, spelling, and punctuation that were not noted in review of the chart prior to signing ED Disposition - Plan for ED Patient: Disposition: Acute Care Hospital [facility] Chief Complaint: Abd Pain Diagnosis: Acute pancreatitis, Abdominal pain, Transaminitis, Small cell lung cancer with metastasis
[2017-07-06] MEDS: 0.9% Normal Saline 1,000 ML 1000 ML IV (04:32)
[2017-07-06] MEDS: Ondansetron 4 MG/2 ML Vial IV ×3 (04:34→22:48)
[2017-07-06] MEDS: morphine 10 MG/ML Syringe IV (04:34)
[2017-07-06 04:37] LABS: Absolute Lymphocyte Count 0.46 X10^3/ul (0.83-4.51); Absolute Neutrophil Count 14.5 X10^3/uL (2.0-7.7); Basophil# 0.01 X10^3/uL; Basophil% 0.1 % (0-1); Differential Indicated SCAN CRITERIA MET; Eosinophil# 0.09 X10^3/uL; Eosinophils% 0.6 % (0-5); Hematocrit 46.2 % (40-54); Lymphocyte # 0.46 X10^3/ul (4.0); Lymphocyte % 2.8 % (19-41); Mean Corp Hgb Conc 32.5 g/gl (32-36); Mean Corpuscular Hgb 31.8 pg (27.0-32.0); Mean Corpuscular Volume 97.9 fL (80-94); Mean Platelet Vol. 10.6 fl (6.2-12.0); Monocyte# 1.13 X10^3/uL; Neutrophil # 14.48 X10^3/uL (2.7-7.7); Neutrophil % 89.1 % (47-70); POSITIVE COUNT NO; POSITIVE DIFFERENTIAL YES; POSITIVE MORPHOLOGY NO; Platelet Count 219 K/mm3 (150-450); RBC Distribution Width CV 15.9 % (11.6-14.6); RBC Distribution Width SD 55.6 fl (35.1-43.9); Red Blood Count 4.72 M/mm3 (4.6-6.2); White Blood Count 16.2 K/mm3 (4.4-11.0)
[2017-07-06 05:04] LABS: ALB/GLOB Ratio 0.7 RATIO (0.9-2.4); AST(SGOT) 81 U/L (15-37); Alanine Aminotransfer ALT/SGPT 186 U/L (16-61); Albumin, Serum 3.2 g/dL (3.2-5.0); Alkaline Phosphatase 77 U/L (45-117); Anion Gap 10 (5-15); BUN 14 mg/dL (7-18); Calcium,Total 9.6 mg/dL (8.5-10.1); Chloride 100 mmol/L (98-107); Creatinine, Serum 0.56 mg/dL (0.70-1.30); EST Glomerular Filtration Rate 162 mL/min (>60); Est Glom Filt Rate - Afr Amer 197 mL/min (>60); Estimated Creatinine Clearance 169.37 ml/min; Globulin 4.4 g/dL (2.2-4.2); Glucose 115 mg/dL (74-106); Lipase 9598 U/L (73-393); Potassium 4.2 mmol/L (3.5-5.1); Protein, Total 7.6 g/dL (6.4-8.2); Sodium Level 140 mmol/L (136-145)
[2017-07-06 05:11] LABS: Differential Comment SCANNED
[2017-07-06] MEDS: proMETHazine 25 MG/ML Syringe 6.25 MG IV (05:27)
[2017-07-06] MEDS: HYDROmorphone 1 MG/ML Syringe IV ×4 (05:27→22:35)
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
--- NOTE | 2017-07-06 06:24 | US_ITS ---
STUDY: ABDOMINAL ULTRASOUND - RIGHT UPPER QUADRANT REASON FOR VISIT: Male, 52 years old. History of pancreatitis. TECHNIQUE: Ultrasound evaluation of the right upper quadrant was performed with real-time and static friedman-scale imaging. TECHNICAL QUALITY: Limited. Examination limited due to the patient?s condition. COMPARISON: None. FINDINGS: Liver: The liver measures 17.4 cm. There is increased echogenicity consistent with fatty infiltration. The bile ducts are within normal limits. There is hepatic color flow. The direction of portal flow is hepatopetal. There is no demonstrated mass lesion. Gallbladder: Normal distended gallbladder. The gallbladder wall measures 2.1 mm. There is a negative sonographic Morgan's sign. There is no pericholecystic fluid. There are no gallstones. 2 gallbladder polyps are seen. The larger measures 5 mm and the second measures 4 mm. Common Bile Duct (C.B.D.): The common bile duct measures 3.4 mm. Pancreas: There is nonvisualization of the pancreas due to overlying bowel gas. Right Kidney: Normal size of the right kidney. The right kidney measures 12.1 cm x 5.5 cm x 6.8 cm. Normal renal cortex. The right cortex measures 2.1 cm. There is no demonstrated renal mass or cyst. There is no right hydronephrosis. US/Gallbladder IMPRESSION: Limited study. 2. Small gallbladder polyps are seen. Electronically Signed: Fabricio Lyn MD at 12:15 EDT Tel [phone], Service support ,
[2017-07-06 07:04] LABS: Magnesium 2.6 mg/dL (1.6-2.6); Phosphorus 3.9 mg/dL (2.5-4.9)
[2017-07-06] MEDS: 0.9% Normal Saline 1,000 ML 150 ML IV ×3 (07:05→22:35)
[2017-07-06] MEDS: Memantine Hydrochloride 5 MG Tablet PO (07:39)
--- NOTE | 2017-07-06 07:40 | NURSING ---
Staff in room to take pt to radiation at the [facility] pavilion. Memantine given and pt saline locked. Staff transported pt via bed. Staff said pt should return to floor in about 20 min.
[2017-07-06] MEDS: hydrALAZINE 20 MG/ML Vial 10 MG IV ×2 (08:54→16:42)
[2017-07-06] MEDS: Enoxaparin 40 MG/0.4 ML Syringe SC (09:00)
[2017-07-06 09:20] LABS: Bedside Glucose 112 mg/dL (70-110)
--- NOTE | 2017-07-06 09:50 | CASEMGMT ---
AISHA [facility] Face to Face with patient for initial transition planning/care coordination assessment. RN YAMINI introduced self and role at [facility]. Patient lying in bed, alert and oriented, girlfriend at bedside. Patient willing to participate in assessment and is able to answer all questions appropriately. Care providers, pharmacy, and demographics verified. See link attached. Patient wishes to discharge home with resumption of aide services through [facility]. Pt states he has no further needs or concerns at this time. CM to follow for discharge planning needs that may arise. Disposition Plan: Patient to discharge home with aide services, family support, and follow-up plans in place.
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
[2017-07-06] MEDS: HYDROcodone Bitartrate/Apap 5/325 Tablet PO ×2 (12:40→19:32)
[2017-07-06 13:15] LABS: Bedside Glucose 124 mg/dL (70-110)
[2017-07-06] MEDS: Ipratropium/Albuterol Sulfate 3 ML AMPUL.NEB INHALATION ×2 (13:18→19:06)
[2017-07-06] MEDS: Magnesium Hydroxide 30 ML UDC PO (18:20)
[2017-07-06 18:25] LABS: Bedside Glucose 110 mg/dL (70-110)
--- NOTE | 2017-07-06 22:07 | ONC.PN.INPT ---
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 Clayton Alberts is a very pleasant 51-year-old male with significant medical history including morbid obesity with severe COPD and chronic oxygen requirement was diagnosed with small cell lung cancer with bulky mediastinal disease extending from the subcarinal region up through the high paratracheal region and likely extending to the right supraclavicular region but no evidence of distant metastatic disease on bone scan or CT abdomen and pelvis. Due to concerns for SVC syndrome he initiated chemotherapy with carboplatin/etoposide on 02/14/2017. PET scan was then completed on 02/26/2017 and showed evidence for bulky mediastinal disease extending up through the right supraclavicular area but without evidence of metastatic disease. Patient could not lay flat for MRI brain but was able to complete a CT of the brain showing no evidence of metastatic disease. He has evidence for stage IIIB (cT4 cN3 M0) LS SCLC. To try to reduce the volume of the disease and also to allow for improved positioning with laying flat, concurrent radiation therapy was delayed and initiated with cycle 3 of chemotherapy. From 03/26/17 - 05/11/17: Patient received concurrent chemoradiation therapy consisting of 6000 cGy in 30 fractions with cisplatin/etoposide. On 06/25/2017 brain MRI was completed which showed evidence for multiple lesions consistent with metastases and therefore began whole brain radiation therapy for palliative intent. Mr. Alberts presented to [facility] ED on 07/06/17 with ongoing history of lower abdominal pain x 2 weeks w/ no recent BM x 6 days in addition to N/V. Noted to have elevated lipase level and CT abdomen and pelvis with inflammation around the pancreas without any evidence of bowel obstruction but final read pending. Admitted for management of pancreatitis. Past Medical History: Chronic Problems (Last Updated 06/26/17 @ 13:24 by Bob Fofana MD) Asthma with COPD (Chronic) Obesity (BMI 30-39.9) (Chronic) Morbid obesity with BMI of 45.0-49.9, adult (Chronic) Prediabetes (Chronic) 01/04/17 HgbA1c 6.4%. Shortness of breath (Chronic) SCLC (small cell lung carcinoma) (Chronic) SVC obstruction (Chronic) DM (diabetes mellitus) (Chronic) Regional lymph node metastasis present (Chronic) COPD (chronic obstructive pulmonary disease) (Chronic) Sleep disorder breathing (Chronic) Tobacco dependence in remission (Chronic) Dyspnea (Chronic) Chronic hypoxemic respiratory failure (Chronic) Morbid obesity with BMI of 50.0-59.9, adult (Chronic) Hypertension (Chronic) Past Medical History - Most Recent Inpatient Visit Past Medical History Start: 07/06/17 06:32 Text: Status: Complete Freq: ONCE Protocol: Document 07/06/17 06:32 CLK (Rec: 07/06/17 06:49 CLK [id number]) BMI Required to complete PMH What is Patient's BMI 39.1 Past Medical History Unable History Recalled No Query Text:Pt Unable/Family Not Present Neurologic Medical History Hx Stroke/TIA No Hx Dementia/Alzheimer's No Hx Parkinson's Disease No Hx Seizures No Hx Multiple Sclerosis No Hx Migraines No Cardiac Medical History VTE Present on Admission No Hx of Deep Vein Thrombosis/VTE/PE No Hx Hypertension Yes: OFF MED Hx Chest Pain/Angina No Hx Heart Attack No Hx Cardiac Surgery/Stents/Etc. No Hx Heart Failure No Hx Pacemaker/AICD No Hx Irregular Heartbeat and/or Afib No Hx Anticoagulant Therapy No Query Text:(Coumadin, Aspirin, Plavix, Xarelto, etc.) Hx Pain in Legs when Walking/Leg Cramps Yes Respiratory Medical History Hx COPD Yes Hx Emphysema No Hx Smoking Yes: quit 2016 Smoking Status Former smoker Tobacco Use Non-smoker Hx Tobacco Use in last 12 months No Hx of Pipe Smoking No Hx Sleep Apnea No CPAP No BIPAP No Do you snore loudly (louder than talking No or can be heard through closed doors)? Do you often feel tired/ fatigued/ Yes sleepy during daytime? Has anyone observed you stop breathing Yes during sleep? STOP Results Positive GI Medical History Hx Ulcer No Hx Hepatitis No Hx Cirrhosis No Hx GI Bleed No Hx Unplanned Weight Loss Yes Genitourinary Medical History Indwelling Catheter in Place on Arrival/ No Admission Hx Renal Disease No Hx Dialysis No Musculoskeletal History Hx Arthritis No Hx Rheumatoid Arthritis No Endocrine Medical History Hx Diabetes Yes: d/t steroids Hx Thyroid Disease No Hematologic Medical History Hx of Blood Transfusion No Hx of Transfusion in last 3 Months No Ever experience any problems with No transfusion(s)? Hx of Preganancy in last 3 Months N/A Nurse Filling Out Transfusion & CKELLY Questions: Date: 07/06/17 Time: 06:47 Psycho/Social Medical History Hx Depression No Hx Anxiety No Hx Behavior Disorder No Hx Alcohol Use No Hx Substance Use Yes: marijuana Other Medical History Hx Blood Disorders No Hx Anemia No Hx Cancer Yes: STAGE 4 SINGLE CELL LUNG CA Hx Drug Resistant Organism No Wound/Pressure Injury Present on Arrival No /Admission Query Text:If yes, chart assessment in Shift/Clinical Findings Central Line/PICC/VAD Present on Arrival Yes /Admission Antibiotics within last 7 days? No Methicillin Resistant Staphylococcus aureus Screening Active MRSA No Risk for Readmission Number of Risk Factors 6 At Risk for Readmission Patient is At Risk For Readmission Patient is eligible for Call Back Y Past Medical History (Last Updated 06/26/17 @ 13:24 by Bob Fofana MD) Regional lymph node metastasis present (Chronic) COPD (chronic obstructive pulmonary disease) (Chronic) Sleep disorder breathing (Chronic) Dyspnea (Chronic) Chronic hypoxemic respiratory failure (Chronic) Acute respiratory failure with hypoxia and hypercapnia (Acute) Morbid obesity with BMI of 50.0-59.9, adult (Chronic) Acute encephalopathy (Resolved) Hypertension (Chronic) Asthmatic bronchitis with exacerbation (Acute) Past Surgical History (Last Reviewed 06/26/17 @ 12:58 by Mary Sheldon) EBUS (Resolved) Maternal Family History: Family History (Last Reviewed 06/26/17 @ 12:58 by Mary Sheldon) Other Adopted Family History: - - Denies knowledge of biological maternal and paternal family history secondary to adoption. Paternal Family History: Family History (Last Reviewed 06/26/17 @ 12:58 by Mary Sheldon) Other Adopted Family History: - - Denies knowledge of biological maternal and paternal family history secondary to adoption. - Social History Lives: Spouse/ Significant Other Smoking Status: Former smoker Tobacco Use: Non-smoker Alcohol: None Drugs: None Review of Systems Constitutional:: Reports: Weight loss. Denies: Fever, Sweats, Appetite change, Chills Cardiovascular:: Reports: Dyspnea on exertion. Denies: Chest pain, Palpitations, Orthopnea, PND, Shortness of breath Respiratory: Denies: Cough, Hemoptysis, Wheezing Gastrointestinal:: Reports: Abdominal pain - 2-04/14, Constipation - LBM 06/30/17- given MOM. Denies: Nausea, Vomiting, Diarrhea, Hematochezia Genitourinary: Reports: - - describes urine as dark. Denies: Dysuria, Hematuria, Flank pain Musculoskeletal:: Reports: Back pain. Denies: Myalgia, Arthralgia Skin: Denies: Rash, Skin Changes, Wounds Neurological:: Denies: Headache, Dizziness, Numbness, Tingling, Visual changes, Tinnitus, Hearing loss Psychiatric: Denies: Anxiety, Depression, Homicidal Ideations, Suicidal Ideations Vital Signs Height 6 ft Weight: 288 lb 5.834 oz Weight in Pounds 288.4 lbs Pulse Ox 93 Temperature 97.9 F Pulse Rate 116 Respiratory Rate 16 Blood Pressure 133/82 Blood Pressure Position Semi-Fowlers - Physical Exam General: Alert, Oriented x3, No apparent distress HEENT: Atraumatic, Normocephalic Oropharynx:: Negative for: Dry mucosa, Ulcerated lesions Neck:: Supple, Trachea midline. Negative for: JVD, bilateral Cardiac:: Regular rate, Regular rhythm, Normal S1, Normal S2. Negative for: Murmur Lungs: Clear to auscultation, Excusion symmetrical. Negative for: Rhonchi, Wheezes Abdomen:: Bowel sounds x 4, Soft, Non-distended, Tender - epigastric area. Negative for: Hepatosplenomegaly Extremities:: Negative for: Cyanosis, Edema, Calf tenderness Neurological: Neuro grossly intact Skin:: Negative for: Lesions, Rash, Petechiae, Ecchymosis Psychiatric:: Appropriate affect, Euthymic Lymphatics:: Negative for: Cervical lymphadenopathy, Supraclavicular lymphadenopathy Laboratory Data: Laboratory Tests 07/06/17 07/06/17 07/06/17 Range/Units 18:10 11:06 08:49 Phosphorus (2.5-4.9) mg/dL Magnesium (1.6-2.6) mg/dL POC Glucose 110 124 H 112 H (70-110) mg/dL 07/06/17 Range/Units 06:20 Phosphorus 3.9 (2.5-4.9) mg/dL Magnesium 2.6 (1.6-2.6) mg/dL POC Glucose (70-110) mg/dL Diagnostic Data: Diagnostic Data Abdomen/Pelvis CT 07/06/17 04:26 IMPRESSION: Mild/early acute pancreatitis is suspected involving the pancreatic head. New metastatic lesions in both adrenal glands. Interval development of celiac adenopathy. Interval development of multiple osseous metastatic lesions. Electronically Signed: Jony Collier MD at 6:24 EDT Tel , Service support , Gallbladder Ultrasound 07/06/17 06:24 IMPRESSION: Limited study. 2. Small gallbladder polyps are seen. Electronically Signed: Fabricio Lyn MD at 12:15 EDT Tel [phone], Service support , Assessment and Plan 1. SCLC- Now proven widely metastatic with disease present in both adrenals, progression of skeletal metastatic disease and DIRECTOR OF SUSTAINABLE DESIGN involvement. Bone scan from 07/05/17 reviewed shows increased uptake in the left frontal calvarium, right proximal humeral diaphysis, distal right femoral diaphysis, sternum, left posterior eighth and ninth ribs. These results were communicated to the patient at his request. Patient completed [place]-apache based chemotherapy regimen < 2 months ago making his disease [place]-apache refractory and leaving options for further systemic chemotherapy now in the palliative setting, limited. Emotional support provided. 2. Brain metastasis- Continue brain radiation under the care of Dr. Gibson. Patient continue with Decadron 4 mg daily and then to wean after he is done with radiation therapy. 3. Acute pancreatitis-Defer to primary team. Case discussed with Dr. Fofana, his primary oncologist. He too will discuss care management/treatment options either during this admission or in the outpatient clinic Sunday07/09/17. NOEMI Pozo, AOSILVIOP Medications: Prescriptions This Visit Medication Instructions Recorded Dexamethasone [Decadron] 4 mg PO DAILY 07/06/17 Medications Added to Medication List This Visit Category Date Time Status Memantine Hydrochloride [Namenda] Med 07/22/17 10:00 Active 10 mg PO BID Memantine Hydrochloride [Namenda] Med 07/15/17 10:00 Active 10 mg PO QAM Memantine Hydrochloride [Namenda] Med 07/15/17 22:00 Active 5 mg PO 2200 Memantine Hydrochloride [Namenda] Med 07/08/17 10:00 Active 5 mg PO BID Primary Care Provider: Carlos Kennedy DO Referring Provider:
--- NOTE | 2017-07-06 22:26 | PN_ITS ---
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 Clayton Alberts is a very pleasant 51-year-old male with significant medical history including morbid obesity with severe COPD and chronic oxygen requirement was diagnosed with small cell lung cancer with bulky mediastinal disease extending from the subcarinal region up through the high paratracheal region and likely extending to the right supraclavicular region but no evidence of distant metastatic disease on bone scan or CT abdomen and pelvis. Due to concerns for SVC syndrome he initiated chemotherapy with carboplatin/etoposide on 02/14/2017. PET scan was then completed on 02/26/2017 and showed evidence for bulky mediastinal disease extending up through the right supraclavicular area but without evidence of metastatic disease. Patient could not lay flat for MRI brain but was able to complete a CT of the brain showing no evidence of metastatic disease. He has evidence for stage IIIB (cT4 cN3 M0) LS SCLC. To try to reduce the volume of the disease and also to allow for improved positioning with laying flat, concurrent radiation therapy was delayed and initiated with cycle 3 of chemotherapy. From 03/26/17 - 05/11/17: Patient received concurrent chemoradiation therapy consisting of 6000 cGy in 30 fractions with cisplatin/etoposide. On 06/25/2017 brain MRI was completed which showed evidence for multiple lesions consistent with metastases and therefore began whole brain radiation therapy for palliative intent. Mr. Alberts presented to [facility] on 07/06/17 with ongoing history of lower abdominal pain x 2 weeks w/ no recent BM x 6 days in addition to N/V. Noted to have elevated lipase level and CT abdomen and pelvis with inflammation around the pancreas without any evidence of bowel obstruction but final read pending. Admitted for management of pancreatitis. Past Medical History: Chronic Problems (Last Updated 06/26/17 @ 13:24 by Bob Fofana MD) Asthma with COPD (Chronic) Obesity (BMI 30-39.9) (Chronic) Morbid obesity with BMI of 45.0-49.9, adult (Chronic) Prediabetes (Chronic) 01/04/17 HgbA1c 6.4%. Shortness of breath (Chronic) SCLC (small cell lung carcinoma) (Chronic) SVC obstruction (Chronic) DM (diabetes mellitus) (Chronic) Regional lymph node metastasis present (Chronic) COPD (chronic obstructive pulmonary disease) (Chronic) Sleep disorder breathing (Chronic) Tobacco dependence in remission (Chronic) Dyspnea (Chronic) Chronic hypoxemic respiratory failure (Chronic) Morbid obesity with BMI of 50.0-59.9, adult (Chronic) Hypertension (Chronic) Past Medical History - Most Recent Inpatient Visit Past Medical History Start: 07/06/17 06: 32 Text: Status: Complete Freq: ONCE Protocol: Document 07/06/17 06:32 CLK (Rec: 07/06/17 06:49 CLK [id number]) BMI Required to complete PMH What is Patient's BMI 39.1 Past Medical History Unable History Recalled No Query Text:Pt Unable/Family Not Present Neurologic Medical History Hx Stroke/TIA No Hx Dementia/Alzheimer's No Hx Parkinson's Disease No Hx Seizures No Hx Multiple Sclerosis No Hx Migraines No Cardiac Medical History VTE Present on Admission No Hx of Deep Vein Thrombosis/VTE/PE No Hx Hypertension Yes: OFF MED Hx Chest Pain/Angina No Hx Heart Attack No Hx Cardiac Surgery/Stents/Etc. No Hx Heart Failure No Hx Pacemaker/AICD No Hx Irregular Heartbeat and/or Afib No Hx Anticoagulant Therapy No Query Text:(Coumadin, Aspirin, Plavix, Xarelto, etc.) Hx Pain in Legs when Walking/Leg Cramps Yes Respiratory Medical History Hx COPD Yes Hx Emphysema No Hx Smoking Yes: quit 2016 Smoking Status Former smoker Tobacco Use Non-smoker Hx Tobacco Use in last 12 months No Hx of Pipe Smoking No Hx Sleep Apnea No CPAP No BIPAP No Do you snore loudly (louder than talking No or can be heard through closed doors)? Do you often feel tired/ fatigued/ Yes sleepy during daytime? Has anyone observed you stop breathing Yes during sleep? STOP Results Positive GI Medical History Hx Ulcer No Hx Hepatitis No Hx Cirrhosis No Hx GI Bleed No Hx Unplanned Weight Loss Yes Genitourinary Medical History Indwelling Catheter in Place on Arrival/ No Admission Hx Renal Disease No Hx Dialysis No Musculoskeletal History Hx Arthritis No Hx Rheumatoid Arthritis No Endocrine Medical History Hx Diabetes Yes: d/t steroids Hx Thyroid Disease No Hematologic Medical History Hx of Blood Transfusion No Hx of Transfusion in last 3 Months No Ever experience any problems with No transfusion(s)? Hx of Preganancy in last 3 Months N/A Nurse Filling Out Transfusion & CKELLY Questions: Date: 07/06/17 Time: 06:47 Psycho/Social Medical History Hx Depression No Hx Anxiety No Hx Behavior Disorder No Hx Alcohol Use No Hx Substance Use Yes: marijuana Other Medical History Hx Blood Disorders No Hx Anemia No Hx Cancer Yes: STAGE 4 SINGLE CELL LUNG CA Hx Drug Resistant Organism No Wound/Pressure Injury Present on Arrival No /Admission Query Text:If yes, chart assessment in Shift/Clinical Findings Central Line/PICC/VAD Present on Arrival Yes /Admission Antibiotics within last 7 days? No Methicillin Resistant Staphylococcus aureus Screening Active MRSA No Risk for Readmission Number of Risk Factors 6 At Risk for Readmission Patient is At Risk For Readmission Patient is eligible for Call Back Y Past Medical History (Last Updated 06/26/17 @ 13:24 by Bob Fofana MD) Regional lymph node metastasis present (Chronic) COPD (chronic obstructive pulmonary disease) (Chronic) Sleep disorder breathing (Chronic) Dyspnea (Chronic) Chronic hypoxemic respiratory failure (Chronic) Acute respiratory failure with hypoxia and hypercapnia (Acute) Morbid obesity with BMI of 50.0-59.9, adult (Chronic) Acute encephalopathy (Resolved) Hypertension (Chronic) Asthmatic bronchitis with exacerbation (Acute) Past Surgical History (Last Reviewed 06/26/17 @ 12:58 by Mary Sheldon) EBUS (Resolved) Maternal Family History: Family History (Last Reviewed 06/26/17 @ 12:58 by Mary Sheldon) Other Adopted Family History: - - Denies knowledge of biological maternal and paternal family history secondary to adoption. Paternal Family History: Family History (Last Reviewed 06/26/17 @ 12:58 by Mary Sheldon) Other Adopted Family History: - - Denies knowledge of biological maternal and paternal family history secondary to adoption. - Social History Lives: Spouse/ Significant Other Smoking Status: Former smoker Tobacco Use: Non-smoker Alcohol: None Drugs: None Review of Systems Constitutional:: Reports: Weight loss. Denies: Fever, Sweats, Appetite change, Chills Cardiovascular:: Reports: Dyspnea on exertion. Denies: Chest pain, Palpitations , Orthopnea, PND, Shortness of breath Respiratory: Denies: Cough, Hemoptysis, Wheezing Gastrointestinal:: Reports: Abdominal pain - 2-04/14, Constipation - LBM 06/30/17 - given MOM. Denies: Nausea, Vomiting, Diarrhea, Hematochezia Genitourinary: Reports: - - describes urine as dark. Denies: Dysuria, Hematuria, Flank pain Musculoskeletal:: Reports: Back pain. Denies: Myalgia, Arthralgia Skin: Denies: Rash, Skin Changes, Wounds Neurological:: Denies: Headache, Dizziness, Numbness, Tingling, Visual changes, Tinnitus, Hearing loss Psychiatric: Denies: Anxiety, Depression, Homicidal Ideations, Suicidal Ideations Vital Signs Height 6 ft Weight: 288 lb 5.834 oz Weight in Pounds 288.4 lbs Pulse Ox 93 Temperature 97.9 F Pulse Rate 116 Respiratory Rate 16 Blood Pressure 133/82 Blood Pressure Position Semi-Fowlers - Physical Exam General: Alert, Oriented x3, No apparent distress HEENT: Atraumatic, Normocephalic Oropharynx:: Negative for: Dry mucosa, Ulcerated lesions Neck:: Supple, Trachea midline. Negative for: JVD, bilateral Cardiac:: Regular rate, Regular rhythm, Normal S1, Normal S2. Negative for: Murmur Lungs: Clear to auscultation, Excusion symmetrical. Negative for: Rhonchi, Wheezes Abdomen:: Bowel sounds x 4, Soft, Non-distended, Tender - epigastric area. Negative for: Hepatosplenomegaly Extremities:: Negative for: Cyanosis, Edema, Calf tenderness Neurological: Neuro grossly intact Skin:: Negative for: Lesions, Rash, Petechiae, Ecchymosis Psychiatric:: Appropriate affect, Euthymic Lymphatics:: Negative for: Cervical lymphadenopathy, Supraclavicular lymphadenopathy Laboratory Data: Laboratory Tests 3 07/06/17 07/06/17 07/06/17 Range/Units 18:10 11:06 08:49 Phosphorus (2.5-4.9) mg/dL Magnesium (1.6-2.6) mg/dL POC Glucose 110 124 H 112 H (70-110) mg/dL 3 07/06/17 Range/Units 06:20 Phosphorus 3.9 (2.5-4.9) mg/dL Magnesium 2.6 (1.6-2.6) mg/dL POC Glucose (70-110) mg/dL Diagnostic Data: Diagnostic Data Abdomen/Pelvis CT 07/06/17 04:26 IMPRESSION: Mild/early acute pancreatitis is suspected involving the pancreatic head. New metastatic lesions in both adrenal glands. Interval development of celiac adenopathy. Interval development of multiple osseous metastatic lesions. Electronically Signed: Jony Collier MD at 6:24 EDT Tel , Service support , Gallbladder Ultrasound 07/06/17 06:24 IMPRESSION: Limited study. 2. Small gallbladder polyps are seen. Electronically Signed: Fabricio Lyn MD at 12:15 EDT Tel [phone], Service support , Assessment and Plan 1. SCLC- Now proven widely metastatic with disease present in both adrenals, progression of skeletal metastatic disease and DRAWER UPFITTER involvement. Bone scan from reviewed shows increased uptake in the left frontal calvarium, right proximal humeral diaphysis, distal right femoral diaphysis, sternum, left posterior eighth and ninth ribs. These results were communicated to the patient at his request. Patient completed native based chemotherapy regimen < 2 months ago making his disease native refractory and leaving options for further systemic chemotherapy now in the palliative setting, limited. Emotional support provided. 2. Brain metastasis- Continue brain radiation under the care of Dr. Gibson. Patient continue with Decadron 4 mg daily and then to wean after he is done with radiation therapy. 3. Acute pancreatitis-Defer to primary team. Case discussed with Dr. Fofana, his primary oncologist. He too will discuss care management/treatment options either during this admission or in the outpatient clinic Sunday07/09/17. NOEMI Pozo, AOCNP Medications: Prescriptions This Visit Medication Instructions Recorded Dexamethasone [Decadron] 4 mg PO DAILY 07/06/17 Medications Added to Medication List This Visit Category Date Time Status Memantine Hydrochloride [Namenda] Med 07/22/17 10:00 Active 10 mg PO BID Memantine Hydrochloride [Namenda] Med 07/15/17 10:00 Active 10 mg PO QAM Memantine Hydrochloride [Namenda] Med 07/15/17 22:00 Active 5 mg PO 2200 Memantine Hydrochloride [Namenda] Med 07/08/17 10:00 Active 5 mg PO BID Primary Care Provider: Carlos Kennedy DO Referring Provider:
[2017-07-06] MEDS: Temazepam 15 MG Capsule PO (22:35)
[2017-07-06 23:25] LABS: Bedside Glucose 129 mg/dL (70-110)
[2017-07-07 03:20] VITALS: BP 147/92; PULSE 110; RESP 16; TEMP 36.4; O2SAT 93
[2017-07-07] MEDS: HYDROmorphone 1 MG/ML Syringe IV ×4 (04:34→23:28)
[2017-07-07] MEDS: proMETHazine 25 MG/ML Syringe 12.5 MG IV ×3 (04:34→20:52)
[2017-07-07] MEDS: 0.9% Normal Saline 1,000 ML 150 ML IV ×3 (04:45→20:47)
[2017-07-07 06:23] LABS: Absolute Lymphocyte Count 0.22 X10^3/ul (0.83-4.51); Absolute Neutrophil Count 12.5 X10^3/uL (2.0-7.7); Basophil# 0.01 X10^3/uL; Basophil% 0.1 % (0-1); Differential Indicated SCAN CRITERIA MET; Eosinophil# 0.04 X10^3/uL; Eosinophils% 0.3 % (0-5); Hematocrit 43.1 % (40-54); Hemoglobin 13.8 g/dl (13.0-16.5); Lymphocyte # 0.22 X10^3/ul (4.0); Lymphocyte % 1.6 % (19-41); Mean Corpuscular Hgb 31.9 pg (27.0-32.0); Mean Corpuscular Volume 99.8 fL (80-94); Mean Platelet Vol. 10.4 fl (6.2-12.0); Monocyte# 0.76 X10^3/uL; Monocyte% 5.6 % (0-10); Neutrophil # 12.47 X10^3/uL (2.7-7.7); POSITIVE COUNT NO; POSITIVE DIFFERENTIAL YES; POSITIVE MORPHOLOGY NO; Platelet Count 200 K/mm3 (150-450); RBC Distribution Width SD 57.7 fl (35.1-43.9); Red Blood Count 4.32 M/mm3 (4.6-6.2); White Blood Count 13.6 K/mm3 (4.4-11.0)
[2017-07-07 06:40] LABS: ALB/GLOB Ratio 0.7 RATIO (0.9-2.4); AST(SGOT) 57 U/L (15-37); Alanine Aminotransfer ALT/SGPT 148 U/L (16-61); Albumin, Serum 2.8 g/dL (3.2-5.0); Alkaline Phosphatase 67 U/L (45-117); Anion Gap 6 (5-15); BUN 11 mg/dL (7-18); BUN/Creat Ratio 24.1 RATIO (10-20); Calcium,Total 8.5 mg/dL (8.5-10.1); Chloride 107 mmol/L (98-107); Cholesterol 77 mg/dL (200); Creatinine, Serum 0.46 mg/dL (0.70-1.30); EST Glomerular Filtration Rate 206 mL/min (>60); Est Glom Filt Rate - Afr Amer 250 mL/min (>60); Estimated Creatinine Clearance 206.18 ml/min; Globulin 3.9 g/dL (2.2-4.2); Glucose 89 mg/dL (74-106); High Density Lipoprotein 43 mg/dL; Lipase 2783 U/L (73-393); Potassium 3.9 mmol/L (3.5-5.1); Protein, Total 6.7 g/dL (6.4-8.2); Sodium Level 141 mmol/L (136-145); Triglycerides 69 mg/dL; Very Low Density Lipoprotein 14 mg/dL (5-40)
[2017-07-07 06:50] LABS: Bedside Glucose 94 mg/dL (70-110)
[2017-07-07 07:24] VITALS: PULSE 110; RESP 18; O2SAT 94
[2017-07-07] MEDS: Ipratropium/Albuterol Sulfate 3 ML AMPUL.NEB INHALATION ×2 (07:24→13:50)
[2017-07-07] MEDS: Ondansetron 4 MG/2 ML Vial IV ×2 (08:34→16:34)
[2017-07-07 08:40] VITALS: BP 140/101; PULSE 119; RESP 18; TEMP 37.1; O2SAT 95
[2017-07-07] MEDS: Memantine Hydrochloride 5 MG Tablet PO (09:50)
[2017-07-07] MEDS: Enoxaparin 40 MG/0.4 ML Syringe SC (09:51)
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
[2017-07-07 11:32] VITALS: BP 145/102; PULSE 124; RESP 18; TEMP 37.2; O2SAT 92
[2017-07-07 11:46] LABS: Bedside Glucose 99 mg/dL (70-110)
[2017-07-07 13:50] VITALS: PULSE 123; RESP 18
[2017-07-07 16:45] LABS: Bedside Glucose 94 mg/dL (70-110)
[2017-07-07 20:30] VITALS: BP 143/86; PULSE 124; RESP 18; TEMP 36.9; O2SAT 96
[2017-07-07 23:41] LABS: Bedside Glucose 102 mg/dL (70-110)
[2017-07-08] MEDS: Ondansetron 4 MG/2 ML Vial IV (00:53)
[2017-07-08 03:04] VITALS: BP 162/118; PULSE 112; RESP 18; TEMP 36.8; O2SAT 97
[2017-07-08] MEDS: 0.9% Normal Saline 1,000 ML 150 ML IV (03:44)
[2017-07-08 03:45] VITALS: BP 162/118; PULSE 112
[2017-07-08] MEDS: hydrALAZINE 20 MG/ML Vial 10 MG IV (03:45)
[2017-07-08 05:46] LABS: Absolute Lymphocyte Count 0.29 X10^3/ul (0.83-4.51); Absolute Neutrophil Count 7.8 X10^3/uL (2.0-7.7); Differential Indicated SCAN CRITERIA MET; Eosinophil# 0.07 X10^3/uL; Eosinophils% 0.8 % (0-5); Hematocrit 41.4 % (40-54); Hemoglobin 13.1 g/dl (13.0-16.5); Lymphocyte # 0.29 X10^3/ul (4.0); Lymphocyte % 3.4 % (19-41); Mean Corp Hgb Conc 31.6 g/gl (32-36); Mean Corpuscular Volume 98.1 fL (80-94); Mean Platelet Vol. 10.8 fl (6.2-12.0); Monocyte# 0.37 X10^3/uL; Monocyte% 4.3 % (0-10); Neutrophil % 91.3 % (47-70); POSITIVE COUNT NO; POSITIVE DIFFERENTIAL YES; POSITIVE MORPHOLOGY NO; Platelet Count 182 K/mm3 (150-450); RBC Distribution Width CV 15.9 % (11.6-14.6); RBC Distribution Width SD 57.2 fl (35.1-43.9); Red Blood Count 4.22 M/mm3 (4.6-6.2); White Blood Count 8.6 K/mm3 (4.4-11.0)
[2017-07-08 05:51] LABS: Anion Gap 8 (5-15); BUN 9 mg/dL (7-18); BUN/Creat Ratio 25.5 RATIO (10-20); Calcium,Total 8.4 mg/dL (8.5-10.1); Chloride 106 mmol/L (98-107); Creatinine, Serum 0.35 mg/dL (0.70-1.30); EST Glomerular Filtration Rate 277 mL/min (>60); Est Glom Filt Rate - Afr Amer 335 mL/min (>60); Glucose 82 mg/dL (74-106); Lipase 1373 U/L (73-393); Potassium 3.9 mmol/L (3.5-5.1); Sodium Level 139 mmol/L (136-145)
[2017-07-08 06:08] LABS: Differential Comment SCANNED
[2017-07-08 06:21] LABS: Bedside Glucose 84 mg/dL (70-110)
[2017-07-08] MEDS: HYDROmorphone 1 MG/ML Syringe IV (06:26)
[2017-07-08] MEDS: proMETHazine 25 MG/ML Syringe 12.5 MG IV (06:26)
[2017-07-08] MEDS: Ipratropium/Albuterol Sulfate 3 ML AMPUL.NEB INHALATION (07:38)
[2017-07-08 07:40] VITALS: PULSE 116; RESP 16; O2SAT 94
[2017-07-08 08:40] VITALS: BP 132/85; PULSE 120; RESP 18; TEMP 36.7; O2SAT 94
[2017-07-08 08:51] VITALS: PULSE 120
[2017-07-08] MEDS: Enoxaparin 40 MG/0.4 ML Syringe SC (08:51)
[2017-07-08] MEDS: Metoprolol Tartrate 25 MG Tablet PO (08:51)
[2017-07-08] MEDS: Memantine Hydrochloride 5 MG Tablet PO (08:52)
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
--- NOTE | 2017-07-08 10:31 | PCM.DC ---
- Discharge Diagnoses Current Active Problems: Current Active and Chronic Problems (Last Updated 06/26/17 @ 13:24 by Bob Fofana MD) Asthma with COPD (Chronic) Obesity (BMI 30-39.9) (Chronic) Pancreatitis (Acute) Acute pancreatitis (Acute) Abdominal pain (Acute) Transaminitis (Acute) Malignant neoplasm metastatic to both adrenal glands (Acute) Brain metastases (Acute) Nausea & vomiting (Acute) SCLC (small cell lung carcinoma) (Chronic) Regional lymph node metastasis present (Chronic) You will use the following diet at home:: No restrictions, Other - bland, advance as tolerated Your food should be the consistency of: Regular Your liquids should be the consistency of: Regular/Thin Discharge Activity: Return to Normal Activity Call your doctor if you observe: - - worsening abdomial pain. Allergies/Adverse Reactions: Allergies bee venom protein (honey bee) Allergy (Severe, Verified 07/06/17 04:26) Swelling Medications to take at Discharge Omeprazole Magnesium [Prilosec Otc] 20 mg PO DAILY 01/17/17 Benzonatate [Tessalon Perle] 100 mg PO TID 04/23/17 Ondansetron [Zofran] 8 mg PO Q8H PRN PRN 06/26/17 Memantine HCl 5 mg PO DAILY #70 tab 06/27/17 Docusate Sodium [Colace] 200 mg PO TID PRN PRN 07/04/17 Dexamethasone [Decadron] 4 mg PO DAILY 07/06/17 HYDROmorphone tablet [Dilaudid] 2 mg PO Q4H PRN PRN 3 Days #18 tab 07/08/17 proMETHazine tablet [Phenergan tablet] 25 mg PO Q6H PRN PRN #12 tab 07/08/17 The following prescriptions were given: HYDROmorphone tablet [Dilaudid] 2 mg PO Q4H PRN PRN 3 Days #18 tab PRN Reason: Severe Pain (6-10/10) proMETHazine tablet [Phenergan tablet] 25 mg PO Q6H PRN PRN #12 tab PRN Reason: nausea vomiting Primary Care Physician: Carlos Kennedy DO [Primary Care Provider] - Within 2 Weeks Please Follow Up With: Bob Fofana MD When: next scheduled appointment Please Follow Up With: Radiation therapy When: next scheduled appointment Proposed Discharge Date: 07/08/17
--- NOTE | 2017-07-08 10:37 | DS.PCM_ITS ---
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 (Acute) Brain metastases (Acute) Nausea & vomiting (Acute) Date of Admission: 07/06/17 Date of Discharge: 07/08/17 - Primary Discharge Diagnosis Active and Suspected Problems (Last Updated 06/26/17 @ 13:24 by Bob Fofana MD) Pancreatitis (Acute) Acute pancreatitis (Acute) Abdominal pain (Acute) Transaminitis (Acute) 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 Shortness of breath (Chronic) SCLC (small cell lung carcinoma) (Chronic) SVC obstruction (Chronic) DM (diabetes mellitus) (Chronic) Regional lymph node metastasis present (Chronic) COPD (chronic obstructive pulmonary disease) (Chronic) Sleep disorder breathing (Chronic) Tobacco dependence in remission (Chronic) Dyspnea (Chronic) Chronic hypoxemic respiratory failure (Chronic) Morbid obesity with BMI of 50.0-59.9, adult (Chronic) Hypertension (Chronic) Hospital Course and Treatment Imaging Results: Clinical Impression(s) from Imaging Studies Abdomen/Pelvis CT 07/06/17 04:26 IMPRESSION: Mild/early acute pancreatitis is suspected involving the pancreatic head. New metastatic lesions in both adrenal glands. Interval development of celiac adenopathy. Interval development of multiple osseous metastatic lesions. Electronically Signed: Jony Collier MD at 6:24 EDT Tel , Service support , Gallbladder Ultrasound 07/06/17 06:24 IMPRESSION: Limited study. 2. Small gallbladder polyps are seen. Electronically Signed: Fabricio Lyn MD at 12:15 EDT Tel [phone], Service support , Operations: None Procedures: None Summary of Care Provided: The patient is a 52 year old M presents with acute pancreatitis. 1. Acute pancreatitis * Improved * Patient does not drink alcohol nor were there any gallstones visualized on the CAT scan. * CAT scan just only showed pancreatitis there is no obvious lesion within the pancreas that could explain his pancreatitis though that does not exclude metastatic lesion. * Plan is continue with supportive management with IV fluids, pain control and anti-emetics * Advance to [place] diet today, if tolerates, discharge home. * Pt advised that this could occur again. * Lipid panel WNL, therefore, hyper-TG not an etiology * A possible metastatic lesion could still be a possibility, though not seen on CT. An MRI could show it, but would not change mgmt. * Patient has not had chemotherapy in over 2 months so would not be appear to be the etiology of his pancreatitis and his radiation is brain radiation so no direct correlation with his pancreatitis as well. 2. Stage IV lung cancer * Small cell * [place] resistant * patient had a bone scan yesterday that showed increased uptake in the left frontal calvarium, right proximal humeral diaphysis, distal right femoral diaphysis, sternum, left posterior eighth and ninth ribs. This shows interval progression of skeletal metastatic disease from February of this year. * And is to continue with brain radiation. * Patient continue with Decadron 4 mg daily and then to wean after he is done with brain radiation * follow up with XRT and Dr. Fofana. 3. Pain * abdominal pain better, but still with skeletal pain due to bony mets * will give a 3-day course of PO Dilaudid for pain control. Palliation. [] Discharge Diet: Bananas, Rice, Applesauce and [place] - advance as tolerated Discharge Activity: Return to Normal Activity Call your doctor if you observe: - - worsening abdomial pain. Home Medications: Medications to take at Discharge Omeprazole Magnesium [Prilosec Otc] 20 mg PO DAILY 01/17/17 Benzonatate [Tessalon Perle] 100 mg PO TID 04/23/17 Ondansetron [Zofran] 8 mg PO Q8H PRN PRN 06/26/17 Memantine HCl 5 mg PO DAILY #70 tab 06/27/17 Docusate Sodium [Colace] 200 mg PO TID PRN PRN 07/04/17 Dexamethasone [Decadron] 4 mg PO DAILY 07/06/17 HYDROmorphone tablet [Dilaudid] 2 mg PO Q4H PRN PRN 3 Days #18 tab 07/08/17 proMETHazine tablet [Phenergan tablet] 25 mg PO Q6H PRN PRN #12 tab 07/08/17 Following Prescrptions Were Given to Patient: HYDROmorphone tablet [Dilaudid] 2 mg PO Q4H PRN PRN 3 Days #18 tab PRN Reason: Severe Pain (6-11/14) proMETHazine tablet [Phenergan tablet] 25 mg PO Q6H PRN PRN #12 tab PRN Reason: nausea vomiting Primary Care Physician: Carlos Kennedy DO [Primary Care Provider] - Within 2 Weeks Please Follow Up With: Bob Fofana MD When: next scheduled appointment Please Follow Up With: Radiation therapy When: next scheduled appointment Disposition: Home Minutes spent on discharge:: 32 Patient Condition:: Stable Medical Necessity - Tobacco Use Smoking Status: Former smoker Tobacco Use: Non-smoker Meaningful Use Info Meaningful Use Diagnoses (Choose all that apply): None applicable Code Visit Inpatient E&M: 24895 Disch Hosp
[2017-07-08 11:12] VITALS: BP 128/81; PULSE 123; RESP 18; TEMP 36.8; O2SAT 95
== END 2017-07-08 11:48 | disposition home or self-care (01) | DRG 282 ==
LOC: ED 05:37 → MS3 06:17
PROVIDERS: Admitting Provider Family Medicine; Emergency Provider Emergency Medicine; Family Provider Family Medicine; PCP Family Medicine
DX: K85.90 Acute pancreatitis without necrosis or infection, unspecified (principal); C79.31 Secondary malignant neoplasm of brain; C79.72 Secondary malignant neoplasm of left adrenal gland; C79.71 Secondary malignant neoplasm of right adrenal gland; J44.9 Chronic obstructive pulmonary disease, unspecified; C34.90 Malignant neoplasm of unspecified part of unspecified bronchus or lung; C79.51 Secondary malignant neoplasm of bone; C77.9 Secondary and unspecified malignant neoplasm of lymph node, unspecified; R00.0 Tachycardia, unspecified; I10 Essential (primary) hypertension; G89.3 Neoplasm related pain (acute) (chronic); Z87.891 Personal history of nicotine dependence; E11.9 Type 2 diabetes mellitus without complications; E66.9 Obesity, unspecified
CPT/HCPCS: 36591; 74177; 76705; 80048; 80053; 80061; 82962; 83690; 83735; 84100; 85025; 94640; 97802; 99283; J7030; Q9967; A4216; J2405

== ENCOUNTER 2017-07-16 10:52 | Inpatient (IN) | payer MEDICAID, SELFPAY ==
[2017-03-01 11:31] VITALS: BMI 53.3
[2017-07-16] VITALS (13 sets, daily range): BP systolic 107–150; BP diastolic 74–111; PULSE 115–133; RESP 16–22; TEMP 36.6–37; O2SAT 91–97; BMI 38.0; BMI 37.8
--- NOTE | 2017-07-16 11:38 | ED.VIS.GEN ---
History of Present Illness Chief Complaint: Abd Pain Informant: Patient, Family Onset: Days - 2 Context: Gradual Onset Timing: Continuous Quality: ache Location: mid-abd and into LUQ Current Severity: Severe Maximum Severity: Severe Worsened by: eating Relieved by: nothing Associated Symptoms: n/v nonbloody nonbilious Narrative: Has a history of metastatic small cell lung cancer. Was admitted 1-2 weeks ago for the same symptoms and diagnosed with acute pancreatitis, it improved and he was discharged, it never went away, and over the past 2 days everything has worsened. No pain in his back. No lightheadedness with standing or near syncope, no thoracic symptoms. Prior similar symptoms: Yes Recent Illness/Hospitalization: Yes - for pancreatitis - Past Medical History (1) Brain metastases Status: Chronic (2) SCLC (small cell lung carcinoma) Status: Chronic (3) Acute pancreatitis Status: Acute (4) Asthma with COPD Status: Chronic (5) DM (diabetes mellitus) Status: Chronic (6) Hypertension Status: Chronic Past Medical History - Allergies and Home Meds Allergies/Adverse Reactions: Allergies bee venom protein (honey bee) Allergy (Severe, Verified 07/16/17 10:55) Swelling Primary Care Physician: Care Physician,No Primary [Primary Care Provider] - Surgical History: - - Port placement. Lives: Spouse/ Significant Other Smoking Status: Former smoker - Family History Maternal Family History: Family History (Last Reviewed 06/26/17 @ 12:58 by Mary Sheldon) Other Adopted Family History: Reports: - - Denies knowledge of biological maternal and paternal family history secondary to adoption. Paternal Family History: Family History (Last Reviewed 06/26/17 @ 12:58 by Mary Sheldon) Other Adopted Family History: Reports: - - Denies knowledge of biological maternal and paternal family history secondary to adoption. Review of Systems All systems negative except as indicated General: Reports: Malaise. Denies: Fever Cardiovascular: Denies: Chest pain, Palpitations Respiratory: Reports: Cough - chronic, no different. Denies: Dyspnea, Sputum Gastrointestinal: Reports: Abdominal pain, Nausea, Vomiting. Denies: Diarrhea, Constipation, Melena, Hematochezia Genitourinary: Reports: - - decreased UOP. Denies: Dysuria, Hematuria, Frequency Musculoskeletal: Denies: Neck pain, Back pain, Swelling Skin: Denies: Rash Neurological: Denies: Weakness, Parasthesia Physical Exam Vital Signs/Narrative: Vital Signs Temp Pulse Resp BP Pulse Ox 07/16/17 10:53 98.6 F 133 H 22 H 135/84 H 95 Inital Vital Signs reviewed: Yes General: Well nourished, Well developed, Obese Head: Normocephalic, Atraumatic Eyes: Perrl, EOMI ENT: Moist mucous membranes, No rhinorrhea Neck: Supple, Nontender Cardiovascular: Regular rate, Regular rhythm, No murmurs Respiratory: No distress, CTA bilaterally, Chest nontender Abdomen: Soft, Nondistended, Tender - epigastric only, Hypoactive bowel sounds. Negative for: Guarding, Rebound tenderness Back: Nontender, Normal Inspection. Negative for: CVA tenderness Extremities: Nontender, No edema Skin: Normal color, No rash Neurological: Alert, Oriented x3, Cranial nerves II-XII grossly intact, Normal Strength, Normal Sensation Psychological: Normal affect, Tearful - at times Diagnostic/Tx/Re-eval - Medical Decision Making Labs are consistent with acute pancreatitis. There are several liver enzyme elevations at a relatively mild, the alkaline phosphatase is newly elevated but still less than 200. Total bilirubin is within normal limits. He had unremarkable ultrasound of the gallbladder last week, and a CT that showed some inflammation of the head of the pancreas but was otherwise unremarkable. I am not repeating those imaging emergently, but I do think he needs to be admitted since his lipase is back up to 4000 from 1300. He is much more comfortable after IV fluids, Zofran, morphine. Discussed with Dr. Aldana. ED Disposition - Plan for ED Patient: Disposition: Acute Care Hospital [facility] Chief Complaint: Abd Pain Diagnosis: Acute pancreatitis, SCLC (small cell lung carcinoma)
--- NOTE | 2017-07-16 12:43 | CASEMGMT ---
Social Work Note See attached assessment. Melodie Sunshine, INTERNATIONAL COORDINATOR, ENGINEERING INSTRUCTOR
[2017-07-16] MEDS: Morphine 4 MG/ML Syringe IV (13:05)
[2017-07-16] MEDS: Ondansetron 4 MG/2 ML Vial IV ×2 (13:05→17:15)
[2017-07-16 13:56] LABS: Absolute Lymphocyte Count 0.52 X10^3/ul (0.83-4.51); Basophil# 0.01 X10^3/uL; Basophil% 0.1 % (0-1); Eosinophil# 0.09 X10^3/uL; Eosinophils% 0.8 % (0-5); Hematocrit 47.9 % (40-54); Hemoglobin 15.8 g/dl (13.0-16.5); Lymphocyte # 0.52 X10^3/ul (4.0); Lymphocyte % 4.7 % (19-41); Mean Corpuscular Hgb 31.5 pg (27.0-32.0); Mean Corpuscular Volume 95.4 fL (80-94); Mean Platelet Vol. 10.7 fl (6.2-12.0); Monocyte% 3.6 % (0-10); Neutrophil # 9.95 X10^3/uL (2.7-7.7); Neutrophil % 90.4 % (47-70); Platelet Count 178 K/mm3 (150-450); RBC Distribution Width CV 15.9 % (11.6-14.6); RBC Distribution Width SD 54.9 fl (35.1-43.9); Red Blood Count 5.02 M/mm3 (4.6-6.2)
[2017-07-16 14:03] LABS: Differential Indicated SCAN CRITERIA MET; POSITIVE COUNT NO; POSITIVE DIFFERENTIAL YES; POSITIVE MORPHOLOGY NO
[2017-07-16 14:06] LABS: ALB/GLOB Ratio 0.7 RATIO (0.9-2.4); AST(SGOT) 144 U/L (15-37); Alanine Aminotransfer ALT/SGPT 299 U/L (16-61); Alkaline Phosphatase 197 U/L (45-117); Anion Gap 10 (5-15); BUN 13 mg/dL (7-18); BUN/Creat Ratio 26.6 RATIO (10-20); Calcium,Total 9.5 mg/dL (8.5-10.1); Chloride 100 mmol/L (98-107); Creatinine, Serum 0.49 mg/dL (0.70-1.30); EST Glomerular Filtration Rate 190 mL/min (>60); Est Glom Filt Rate - Afr Amer 230 mL/min (>60); Globulin 4.1 g/dL (2.2-4.2); Glucose 99 mg/dL (74-106); Lipase 4112 U/L (73-393); Protein, Total 7.1 g/dL (6.4-8.2); Sodium Level 137 mmol/L (136-145)
[2017-07-16 14:19] LABS: Platelet Estimate ADEQUATE (ADEQ); Platelet Morphology LARGE
[2017-07-16] MEDS: 0.9% Normal Saline 1,000 ML 200 ML IV (14:48)
--- NOTE | 2017-07-16 15:00 | DT_ITS ---
This patient was seen during an EMR downtime July 09, 2017 - July 16, 2017. This patient may have a combination of paper and electronic documentation or all paper documentation. All documentation is viewable within the e-chart portion of [employer] for each patient visit.
--- NOTE | 2017-07-16 15:18 | HP.PCM_ITS ---
Problem List (1) Asthma with COPD Status: Chronic (2) SCLC (small cell lung carcinoma) Status: Chronic (3) COPD (chronic obstructive pulmonary disease) Status: Chronic Qualifiers: COPD type: unspecified COPD Qualified Code(s): J44.9 - Chronic obstructive pulmonary disease, unspecified (4) Chronic hypoxemic respiratory failure Status: Chronic (5) Morbid obesity with BMI of 50.0-59.9, adult Status: Chronic (6) Hypertension Status: Chronic Qualifiers: Hypertension type: essential hypertension Qualified Code(s): I10 - Essential (primary) hypertension History of Present Illness Date of Admission: 07/16/17 Chief Complaint: Abdominal pain, nausea and vomiting. The patient is a 52 year old M with past medical history as mentioned above presented to the emergency room because of abdominal pain. His symptoms started around 2-3 days ago with abdominal pain, mid abdominal and right upper quadrant in location, dull aching pain, sometimes sharp, 8-9 out of 10 in severity, not radiating, associated with nausea and vomiting and has been worsening over the last couple of days and without aggravating or relieving factors. This patient was admitted to the hospital around 10 days ago for acute pancreatitis and he was discharged home. Upon discharge, his abdominal pain improved but never completely resolved. Over the last 2 days, the pain got worse, reported associated poor appetite and nausea and vomiting as well. In the emergency department, patient was tachycardic, blood pressure stable, afebrile, pulse ox is maintained on room air. Routine blood work was unremarkable. LFT revealed elevated liver transaminases and alkaline phosphatase, normal bilirubin. Pancreatic lipase is 4112. He is being admitted for acute recurrent pancreatitis of unclear etiology. Past Medical History Past Medical History (Chronic Problems): Chronic Problems (Last Updated 07/16/17 @ 15:07 by Day Aldana MD) Asthma with COPD (Chronic) Obesity (BMI 30-39.9) (Chronic) Brain metastases (Chronic) Morbid obesity with BMI of 45.0-49.9, adult (Chronic) Prediabetes (Chronic) 01/04/17 HgbA1c 6.4%. SCLC (small cell lung carcinoma) (Chronic) SVC obstruction (Chronic) DM (diabetes mellitus) (Chronic) COPD (chronic obstructive pulmonary disease) (Chronic) Sleep disorder breathing (Chronic) Tobacco dependence in remission (Chronic) Chronic hypoxemic respiratory failure (Chronic) Morbid obesity with BMI of 50.0-59.9, adult (Chronic) Hypertension (Chronic) Medical History: Medical History (Last Updated 07/16/17 @ 15:07 by Day Aldana MD) COPD (chronic obstructive pulmonary disease) (Chronic) J44.9 Sleep disorder breathing (Chronic) G47.30 Chronic hypoxemic respiratory failure (Chronic) J96.11 Morbid obesity with BMI of 50.0-59.9, adult (Chronic) E66.01, Z68.43 Hypertension (Chronic) I10 Allergies bee venom protein (honey bee) Allergy (Severe, Verified 07/16/17 10:55) Swelling Home Medications: Ambulatory Orders Medication Instructions Recorded Omeprazole Magnesium [Prilosec Otc] 40 mg PO DAILY 01/17/17 Benzonatate [Tessalon Perle] 100 mg PO TID PRN 04/23/17 Ondansetron [Zofran] 8 mg PO Q8H PRN PRN 06/26/17 Docusate Sodium [Colace] 200 mg PO TID PRN PRN 07/04/17 Dexamethasone [Decadron] 4 mg PO DAILY 07/06/17 HYDROmorphone tablet [Dilaudid] 2 mg PO Q4H PRN PRN 3 Days #18 tab 07/08/17 proMETHazine tablet [Phenergan 25 mg PO Q6H PRN PRN #12 tab 07/08/17 tablet] Memantine HCl 5 mg PO QHS 07/16/17 Memantine HCl 10 mg PO DAILY 07/16/17 Metoprolol Tartrate [Lopressor 25 mg PO BID 07/16/17 (beta asim)] Surgical History: Surgical History (Last Reviewed 06/26/17 @ 12:58 by Mary Sheldon) EBUS procedure, 01/2017 Surgical History: - - Port placement. Psychiatric History: No pertinent psych hx Lives: Spouse/ Significant Other Smoking Status: Former smoker Alcohol: None Drugs: None - *Family History Maternal Family History: Family History (Last Reviewed 06/26/17 @ 12:58 by Mary Sheldon) Other Adopted History Items: - - Denies knowledge of biological maternal and paternal family history secondary to adoption. Paternal Family History: Family History (Last Reviewed 06/26/17 @ 12:58 by Mary Sheldon) Other Adopted History Items: - - Denies knowledge of biological maternal and paternal family history secondary to adoption. Review of Systems Constitutional: Reports: Anorexia. Denies: Chills, Fever, Weakness Eyes: Denies: Blurred vision, Double vision, Drainage, Redness HEENT: Denies: Difficulty Hearing, Ear Pain, Eye Pain, Nasal Congestion, Sore Throat Cardiovascular: Denies: Chest Pain, Chest Pressure, Chest Tightness, Heaviness, Light Headedness, Palpitations, Syncope Respiratory: Denies: Cough, Pleuritic Pain, Shortness of Breath, Sputum production, Wheezing Gastrointestinal: Reports: Abdominal Pain, Nausea, Vomiting. Denies: Constipation, Diarrhea, Hematochezia, Melena Genitourinary: Denies: Dysuria, Frequency, Hematuria Musculoskeletal: Denies: Arm Pain, Back Pain, Foot Pain Skin: Denies: Dryness, Rash Neurological: Denies: Balance problems, Double vision, Change in Speech, Slurred speech, Confusion, Incoordination, Numbness Psychiatric: Denies: Anxiety, Depression Endocrine: Denies: Change in Body Habitus, Polydipsia VTE Information - Inpt Only VTE Present on Admission: No VTE Mechan Device Prophylaxis: None VTE Pharm Prophylaxis ordered?: Yes - Physical Exam General: Alert, Oriented x3, Cooperative, - - He is in mild to moderate pain. HEENT: Atraumatic, PERRLA, EOMI Oral: Moist Mucosa, No Gingival or Mucosal Lesions/ Ulcerations Neck: Supple, No JVD, Negative Carotid Bruits, Thyroid Normal Size and Texture Lungs: Clear to auscultation, No rhonchi, No wheeze, No rales, Diminished Cardiovascular: Regular rate, Regular Rhythm, Normal S1, Normal S2, PMI Normal, Tachycardic Abdomen: Bowel Sounds Present, Soft, No Hepato-splenomegaly, Distended, Tender - No guarding or rigidity. Extremities: No clubbing, No cyanosis, No edema Skin: No rashes, No breakdown Lymphatic: No Cervical, Supraclavicular, or Inguinal Adenopathy Neurological: Cranial nerves II-XII grossly intact, Motor Exam 5/5 strength throughout Psych/Mental Status: Normal Affect, Appropriate, Alert and oriented to time, place, person, mood and affect Vital Signs Temp Pulse Resp BP Pulse Ox 98.6 F 124 H 18 140/110 H 91 07/16/17 10:53 07/16/17 13:58 07/16/17 13:58 07/16/17 14:41 07/16/17 13:58 Oxygen Delivery Method Room Air Weight: 280 lb Body Mass Index (BMI) 38.0 Finger Stick Blood Glucose 142 Laboratory Tests Past 24 Hrs 07/16/17 07/16/17 13:40 13:40 WBC 11.0 RBC 5.02 Hgb 15.8 Hct 47.9 MCV 95.4 H MCH 31.5 MCHC 33.0 RDW 15.9 H RDW Differential 54.9 H Plt Count 178 MPV 10.7 Immature Gran % (Auto) 0.400 Neut % (Auto) 90.4 H Lymph % (Auto) 4.7 L Lanier % (Auto) 3.6 Eos % (Auto) 0.8 Baso % (Auto) 0.1 Absolute Neuts (auto) 10.0 H Absolute Lymphs (auto) 0.52 L Total Counted Not Reportable Platelet Estimate ADEQUATE Plt Morphology Comment LARGE Sodium 137 Potassium 4.0 Chloride 100 Carbon Dioxide 27.0 Anion Gap 10 BUN 13 Creatinine 0.49 L Est GFR (MDRD) Af Amer 230 Est GFR (MDRD) Non-Af 190 BUN/Creatinine Ratio 26.6 H Glucose 99 Calcium 9.5 Total Bilirubin 0.80 AST 144 H ALT 299 H Alkaline Phosphatase 197 H Total Protein 7.1 Albumin 3.0 L Globulin 4.1 Albumin/Globulin Ratio 0.7 L Lipase 4112 H Assessment/Plan This is a 62 years old male patient presented to the medicine because of abdominal pain with nausea vomiting and he was found to have elevated pancreatic lipase consistent with acute pancreatitis as well as elevated LFT in context of recent history of acute pancreatitis, was discharged from the hospital 10 days ago. #1 acute recurrent pancreatitis: Of unclear etiology. During the last admission , CT scan abdomen and pelvis without contrast revealed mild acute pancreatitis of the pancreatic head, new metastatic lesions in both adrenal glands, interval development of multiple osseous metastatic lesions, there was no gallstones or evidence of acute cholecystitis. Ultrasound gallbladder also done during that admission revealed normal gallbladder, no gallstones and CBD diameter was 3.4 mm. Patient denied drinking alcohol. Plan: Admit to MedSurg floor, cardiac monitoring, keep on n.p.o., IV fluids, IV antiemetics, IV hydromorphone as needed for pain, repeat CBC and CMP tomorrow morning, repeat lipase tomorrow morning, repeat ultrasound gallbladder because of elevated LFT, PT OT evaluation and treatment. #2 elevated LFT: During the last admission, liver transaminases were slightly elevated but alkaline phosphatase was normal. Today, liver transaminases are more elevated and alkaline phosphatase is also elevated. Total bilirubin is normal. Plan for gallbladder ultrasound. #3 metastatic small cell lung cancer: With metastasis to brain, bone and lung. CT scan abdomen that was done on July 06, 2017 and he revealed new metastatic lesions on both adrenals and new osseous metastatic lesions. Patient has been on chemotherapy, last session was 2 months ago. Plan: Oncology consult. #4 hypertension: Pressure stable. He is tachycardic, he mentioned that his baseline heart rate has been always high, around 110/min. At this time, heart rate is 120s, blood pressure stable. Plan to continue metoprolol. #5 COPD: Clinically stable, maintaining pulse ox on room air. Plan for albuterol as needed. #6 DVT prophylaxis: Subcu Lovenox. This note was generated with [employer] dictation software. It may contain incorrect words, spelling, and punctuation that were not noted in checking the note before signing. Code Visit Inpatient E&M: 42315 Init Hosp L3
--- NOTE | 2017-07-16 16:00 | EKG12_ITS ---
Test Reason : TACHY Blood Pressure : / mmHG Vent. Rate : 123 BPM Atrial Rate : 123 BPM P-R Int : 146 ms QRS Dur : 088 ms QT Int : 320 ms P-R-T Axes : 052 028 091 degrees QTc Int : 458 ms Sinus tachycardia Otherwise normal ECG Confirmed by GHANSHYAM WINSTON, DARSHAN ([id number]), newspaper or periodical editor BOAZ SANTOS ([id number]) on 07/18/2017 6:00:11 PM Referred By: GLADYS Confirmed By:DARSHAN MORRISSEY MD
--- NOTE | 2017-07-16 16:48 | US_ITS ---
STUDY: ABDOMINAL ULTRASOUND - RIGHT UPPER QUADRANT REASON FOR VISIT: Male, 52 years old. Pancreatitis, pain TECHNIQUE: Ultrasound evaluation of the right upper quadrant was performed with real-time and static friedman-scale imaging. TECHNICAL QUALITY: Limited. Examination limited due to the patient?s condition. COMPARISON: 07/06/2017. FINDINGS: Liver: The liver measures 19.7 cm. There is a heterogeneous echogenicity of the liver. The bile ducts are within normal limits. There is hepatic color flow. The direction of portal flow is hepatopetal. There is no demonstrated mass lesion. Gallbladder: Normal distended gallbladder. The gallbladder wall measures 3 mm. There is a negative sonographic Morgan's sign. There is no pericholecystic fluid. There are gallbladder polyps. Common Bile Duct (C.B.D.): The common bile duct measures 5 mm. Pancreas: Limited visualization. Visualized portions unremarkable. Right Kidney: Normal size of the right kidney. The right kidney measures 12.2 cm. Normal renal cortex. The right cortex measures 1.8 cm. There is no demonstrated renal mass or cyst. There is no right hydronephrosis. US/Gallbladder IMPRESSION: Hepatomegaly. Gallbladder polyps. Limited visualization of the pancreas. No ascites. Electronically Signed: Mati Bernardo DO at 21:46 EDT , Service support ,
[2017-07-16] MEDS: HYDROmorphone 0.5 MG/0.5 ML SYRINGE IV ×2 (17:14→21:35)
[2017-07-16] MEDS: 0.9% Normal Saline 1,000 ML 150 ML IV ×2 (17:15→21:52)
--- NOTE | 2017-07-16 21:00 | NURSING ---
FOUND PATIENT SLEEPING NURSE WALKED INTO ROOM TO UPDATE SPOUSE OF NEW ORDERS. INFORMED THAT THE FREQUENCY HAS BEEN ADJUST TO Q3HR VERSUS Q4HRS, AND RESPIRATORY WILL BE UP TO GIVE BREATHING TX. PATIENT DID NOT WAKE UP WHILE NURSE WAS TALKING TO SPOUSE. NURSE EXPLAINED THAT IT WOULD NOT BE SAFE TO GIVE PAIN MEDS WHILE PATIENT IS SLEEPING. SPOUSE STATED SHE UNDERSTOOD. TWO MINUTES LATER ROXANA SMITH INFORMED NURSE THAT PATIENT WAS AWAKE AND WAS READY FOR PAIN MEDS. NURSE WALKED PAST ROOM A FEW MINUTES LATER AND PATIENT WAS BACK TO SLEEPING.
[2017-07-16] MEDS: Albuterol 2.5 MG/3 ML VIAL.NEB. INHALATION (21:03)
[2017-07-16] MEDS: Metoprolol Tartrate 25 MG Tablet PO (21:47)
[2017-07-16] MEDS: Memantine Hydrochloride 5 MG Tablet PO (21:50)
[2017-07-17] VITALS (12 sets, daily range): BP systolic 112–134; BP diastolic 77–89; PULSE 105–115; RESP 18; TEMP 36.3–36.7; O2SAT 95–98
[2017-07-17] MEDS: Ondansetron 4 MG/2 ML Vial IV ×3 (02:26→18:24)
[2017-07-17] MEDS: 0.9% NaCl Peripheral Flush Adult/Peds IV ×12 (02:26→21:49)
[2017-07-17] MEDS: HYDROmorphone 0.5 MG/0.5 ML SYRINGE IV ×6 (02:30→21:37)
[2017-07-17] MEDS: 0.9% Normal Saline 1,000 ML 150 ML IV ×3 (04:30→18:24)
--- NOTE | 2017-07-17 06:17 | NURSING ---
UNABLE TO DRAW AM LABS OFF OF PORT, SU[facility] NOTIFIED & WILL TRY
[2017-07-17] MEDS: proMETHazine 25 MG/ML Syringe 6.25 MG IV ×3 (06:26→21:38)
--- NOTE | 2017-07-17 06:31 | NURSING ---
NURSING SUPV UNABLE TO DRAW LABS OFF PORT, LAB NOTIFIED. PER CONSTRUCTION FIELD ENGINEER DR AVENDANO NOTIFIED & DAYSHIFT CHARGE WILL TRY WITH MED PRIMARY RN AWARE.
[2017-07-17] MEDS: Enoxaparin 40 MG/0.4 ML Syringe SC (06:40)
[2017-07-17 06:54] LABS: Absolute Lymphocyte Count 0.28 X10^3/ul (0.83-4.51); Absolute Neutrophil Count 8.2 X10^3/uL (2.0-7.7); Basophil# 0.02 X10^3/uL; Basophil% 0.2 % (0-1); Differential Indicated SCAN CRITERIA MET; Eosinophil# 0.17 X10^3/uL; Eosinophils% 1.8 % (0-5); Hematocrit 45.2 % (40-54); Hemoglobin 14.6 g/dl (13.0-16.5); Lymphocyte # 0.28 X10^3/ul (4.0); Mean Corp Hgb Conc 32.3 g/gl (32-36); Mean Corpuscular Hgb 31.5 pg (27.0-32.0); Mean Corpuscular Volume 97.4 fL (80-94); Mean Platelet Vol. 11.2 fl (6.2-12.0); Monocyte# 0.52 X10^3/uL; Monocyte% 5.6 % (0-10); Neutrophil # 8.19 X10^3/uL (2.7-7.7); Neutrophil % 88.4 % (47-70); POSITIVE COUNT NO; POSITIVE DIFFERENTIAL YES; POSITIVE MORPHOLOGY NO; Platelet Count 155 K/mm3 (150-450); Red Blood Count 4.64 M/mm3 (4.6-6.2); White Blood Count 9.3 K/mm3 (4.4-11.0)
[2017-07-17 07:15] LABS: ALB/GLOB Ratio 0.6 RATIO (0.9-2.4); AST(SGOT) 127 U/L (15-37); Alanine Aminotransfer ALT/SGPT 254 U/L (16-61); Albumin, Serum 2.5 g/dL (3.2-5.0); Alkaline Phosphatase 162 U/L (45-117); Anion Gap 8 (5-15); BUN 11 mg/dL (7-18); BUN/Creat Ratio 27.5 RATIO (10-20); Calcium,Total 8.8 mg/dL (8.5-10.1); Chloride 105 mmol/L (98-107); EST Glomerular Filtration Rate 240 mL/min (>60); Est Glom Filt Rate - Afr Amer 290 mL/min (>60); Globulin 3.9 g/dL (2.2-4.2); Glucose 73 mg/dL (74-106); Lipase 3231 U/L (73-393); Potassium 4.1 mmol/L (3.5-5.1); Protein, Total 6.4 g/dL (6.4-8.2); Sodium Level 136 mmol/L (136-145)
[2017-07-17] MEDS: Benzonatate 100 MG Capsule PO (07:18)
[2017-07-17] MEDS: Docusate Sodium 100 MG Capsule 200 MG PO ×2 (07:22→16:25)
[2017-07-17] MEDS: Magnesium Hydroxide 30 ML UDC PO (07:22)
[2017-07-17 07:45] LABS: Red Blood Cells-Urine 0 SEEN /hpf (0-5)
[2017-07-17 07:47] LABS: Color, Urine Yellow (Yellow); Glucose, Dipstick Normal (Normal); Ketone-Dipstick 50 mg/dl (Negative); Leukocyte Esterase-Dipstick 25 /ul (Negative); Nitrite-Dipstick Negative (Negative); Occult Blood-Urine Negative /ul (Negative); Protein-Dipstick Negative (Negative); Urine Clarity Sl. Cloudy (Clear); Urine Urobilinogen 1 mg/dl (Normal); Urine pH 6.5 (5.0 - 8.0)
[2017-07-17 07:48] LABS: Urine Bilirubin Dipstick 1 mg/dL (Negative)
[2017-07-17 07:53] LABS: Bacteria RARE /hpf (None Seen); Mucous, Urine RARE /hpf (<or=2+); Squamous Epithelial Cells - UA 0-5 SEEN /hpf (0-5); White Blood Cells 0-5 SEEN /hpf (0-5)
[2017-07-17] MEDS: Memantine Hydrochloride 5 MG Tablet 10 MG PO (09:49)
[2017-07-17] MEDS: Metoprolol Tartrate 25 MG Tablet PO ×2 (09:49→21:55)
[2017-07-17] MEDS: Alteplase 2 MG/2 ML Vial IV (11:59)
--- NOTE | 2017-07-17 12:14 | NURSING ---
1210 cathflo 2mg/2ml infused into port left upper arm. siobhan. well.
[2017-07-17] MEDS: oxyCODONE 5 MG Tablet 10 MG PO ×2 (12:37→23:08)
--- NOTE | 2017-07-17 12:37 | PN_ITS ---
<Melodie Arevalo - Last Filed: 07/17/17 12:38> Patient Problems: Active and Suspected Problems (Last Updated 07/16/17 @ 15:07 by Day Aldana MD) Acute pancreatitis (Acute) Subjective: Patient seen and examined. Complaining of abdominal pain and nausea. No emesis. Denies other current complaints. - Physical Exam General: Alert, Oriented x3, Cooperative HEENT: Atraumatic, PERRLA, EOMI, Normocephalic Neck: Supple, No JVD, Negative Carotid Bruits Lungs: Clear to auscultation, Diminished Cardiovascular: Regular Rhythm, Normal S1, Normal S2, No murmurs, Tachycardic Abdomen: Bowel Sounds Present, Soft, Obese, Tender - Mild TTP. Extremities: No clubbing, No cyanosis, No edema, Capillary Refill Less than 3 Seconds Skin: No rashes, No breakdown Musculoskeletal: No Tenderness to Palpation of Joints or Extremities Neurological: Cranial nerves II-XII grossly intact Psych/Mental Status: Normal Affect, Appropriate Vital Signs Temp Pulse Resp BP Pulse Ox 98.1 F 105 H 18 112/78 98 07/17/17 08:25 07/17/17 10:00 07/17/17 08:25 07/17/17 08:25 07/17/17 08:25 Oxygen Delivery Method Room Air Weight: 126.4 kg Body Mass Index (BMI) 37.8 Intake and Output for Last 24 Hours 07/15/17 07/16/17 07/17/17 23:59 23:59 23:59 Intake Total 2245 / 2245 Output Total 0 / 0 Balance 2245 / 2245 Laboratory Tests Past 24 Hrs 07/17/17 07/17/17 07/17/17 06:25 06:25 07:15 WBC 9.3 RBC 4.64 Hgb 14.6 Hct 45.2 MCV 97.4 H MCH 31.5 MCHC 32.3 RDW 16.0 H RDW Differential 56.0 H Plt Count 155 MPV 11.2 Immature Gran % (Auto) 1.000 H Neut % (Auto) 88.4 H Lymph % (Auto) 3.0 L [place] % (Auto) 5.6 Eos % (Auto) 1.8 Baso % (Auto) 0.2 Absolute Neuts (auto) 8.2 H Absolute Lymphs (auto) 0.28 L Total Counted Not Reportable Differential Comment COMMENT Sodium 136 Potassium 4.1 Chloride 105 Carbon Dioxide 23.0 Anion Gap 8 BUN 11 Creatinine 0.40 L Est GFR (MDRD) Af Amer 290 Est GFR (MDRD) Non-Af 240 BUN/Creatinine Ratio 27.5 H Glucose 73 L Calcium 8.8 Total Bilirubin 0.80 AST 127 H ALT 254 H Alkaline Phosphatase 162 H Total Protein 6.4 Albumin 2.5 L Globulin 3.9 Albumin/Globulin Ratio 0.6 L Lipase 3231 H Urine Color Yellow Urine Clarity Sl. Cloudy Urine pH 6.5 Ur Specific [place] 1.020 Urine Protein Negative Urine Glucose (UA) Normal Urine Ketones 50 H Urine Occult Blood Negative Urine Nitrite Negative Urine Bilirubin 1 H Urine Urobilinogen 1 H Ur Leukocyte Esterase 25 H Urine RBC 0 SEEN Urine WBC 0-5 SEEN Ur Squamous Epith Cells 0-5 SEEN Urine Bacteria RARE Urine Mucus RARE Medical Necessity - Tobacco Use Smoking Status: Former smoker Assessment/Plan All Active Problems (Last Updated 07/16/17 @ 15:07 by Day Aldana MD) Acute pancreatitis (Acute) Patient is a 52-year-old male admitted 07/16/2017 due to abdominal pain, nausea, vomiting. He has a past medical history of COPD, chronic hypoxic respiratory failure, morbid obesity, hypertension, small cell lung cancer with metastasis. 1. Acute recurrent pancreatitis-CT of abdomen and pelvis recent admission showed mild acute pancreatitis of the pancreatic head, new metastatic lesions in both adrenal glands, interval development of multiple osseous metastatic lesions, no gallstones or evidence of acute cholecystitis. N.p.o. Continue IV fluids, IV antiemetics and IV Dilaudid as needed for pain. Lipase improved today. Trend lipase. 2. Elevated LFTs-gallbladder ultrasound shows hepatomegaly, gallbladder polyps , no ascites, limited visualization of pancreas. History of elevated LFTs. Trend LFTs. 3. 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 Patient to undergo palliative brain radiation today with final treatment tomorrow, 07/18/2017. He will then further follow-up as outpatient with her chemotherapy and plan of care recommendations. Per Dr. Fofana, hospice was recently discussed with patient due to poor prognosis. Patient was not interested at that time but will be reevaluated and oncology in the future. 4. Hypertension-stable, continue current regimen. 5. Chronic hypoxic respiratory failure secondary to chronic COPD-continue supplemental oxygen as needed to maintain O2 at or above 90%. 6. Morbid obesity-encouraged diet and lifestyle modifications. DVT prophylaxis-Lovenox subcu. This patient was seen by Melodie rAevalo NP-C under the supervision of Dr. Mckinney. <Kleber Mckinney - Last Filed: 07/17/17 15:36> Subjective: Seen and examined. Patient is still has nausea and abdominal pain as mentioned above. Previous CT abdomen of July 06, 2017 reviewed. Reported as large celiac lymph node - Physical Exam Abdomen: Bowel Sounds Present, Soft, Tender Vital Signs Temp Pulse Resp BP Pulse Ox 98.1 F 105 H 18 112/78 98 07/17/17 08:25 07/17/17 10:00 07/17/17 08:25 07/17/17 08:25 07/17/17 08:25 Oxygen Delivery Method Room Air Weight: 278 lb 10.629 oz Body Mass Index (BMI) 37.8 Intake and Output for Last 24 Hours 07/15/17 07/16/17 07/17/17 23:59 23:59 23:59 Intake Total 3145 / 3145 Output Total 0 / 0 Balance 3145 / 3145 Laboratory Tests Past 24 Hrs 07/17/17 07/17/17 07/17/17 06:25 06:25 07:15 WBC 9.3 RBC 4.64 Hgb 14.6 Hct 45.2 MCV 97.4 H MCH 31.5 MCHC 32.3 RDW 16.0 H RDW Differential 56.0 H Plt Count 155 MPV 11.2 Immature Gran % (Auto) 1.000 H Neut % (Auto) 88.4 H Lymph % (Auto) 3.0 L [place] % (Auto) 5.6 Eos % (Auto) 1.8 Baso % (Auto) 0.2 Absolute Neuts (auto) 8.2 H Absolute Lymphs (auto) 0.28 L Total Counted Not Reportable Differential Comment COMMENT Sodium 136 Potassium 4.1 Chloride 105 Carbon Dioxide 23.0 Anion Gap 8 BUN 11 Creatinine 0.40 L Est GFR (MDRD) Af Amer 290 Est GFR (MDRD) Non-Af 240 BUN/Creatinine Ratio 27.5 H Glucose 73 L Calcium 8.8 Total Bilirubin 0.80 AST 127 H ALT 254 H Alkaline Phosphatase 162 H Total Protein 6.4 Albumin 2.5 L Globulin 3.9 Albumin/Globulin Ratio 0.6 L Lipase 3231 H Urine Color Yellow Urine Clarity Sl. Cloudy Urine pH 6.5 Ur Specific [place] 1.020 Urine Protein Negative Urine Glucose (UA) Normal Urine Ketones 50 H Urine Occult Blood Negative Urine Nitrite Negative Urine Bilirubin 1 H Urine Urobilinogen 1 H Ur Leukocyte Esterase 25 H Urine RBC 0 SEEN Urine WBC 0-5 SEEN Ur Squamous Epith Cells 0-5 SEEN Urine Bacteria RARE Urine Mucus RARE Assessment/Plan This patient was seen in conjunction with Melodie REEVES. I have independently interviewed and examined the patient and reviewed pertinent history, examination findings, laboratory and plan of management. I have reviewed the note and agree with the documented findings with the few additional points. In brief, patient is admitted for acute on recurrent pancreatitis. LFTs are elevated But total bilirubin normal. he was discharged on 08/04/[address] abdomen on July 06, 2017 shows interval development of celiac lymph node largest node measures 2.8 x 2.5 cm. New metastatic lesion found on left adrenal and right adrenal gland. Normal gallbladder and extrahepatic very system. Normal spleen. In view of large celiac lymph nodes and concern for possible compression of pancreatic duct from lymph node, MRCP is ordered. And has small cell lung cancer as mentioned above. I have discussed my assessment with Melodie REEVES and orders have been reviewed. Laboratory Results 07/17/17 06:25: WBC 9.3, RBC 4.64, Hgb 14.6, Hct 45.2, MCV 97.4 H, MCH 31.5, MCHC 32.3, RDW 16.0 H, RDW Differential 56.0 H, Plt Count 155, MPV 11.2, Immature Gran % (Auto) 1.000 H, Neut % (Auto) 88.4 H, Lymph % (Auto) 3.0 L, [place] % (Auto) 5.6, Eos % (Auto) 1.8, Baso % (Auto) 0.2, Absolute Neuts (auto) 8.2 H, Absolute Lymphs (auto) 0.28 L, Total Counted Not Reportable, Differential Comment COMMENT 07/17/17 06:25: Sodium 136, Potassium 4.1, Chloride 105, Carbon Dioxide 23.0, Anion Gap 8, BUN 11, Creatinine 0.40 L, Est GFR (MDRD) Af Amer 290, Est GFR ( MDRD) Non-Af 240, BUN/Creatinine Ratio 27.5 H, Glucose 73 L, Calcium 8.8, Total Bilirubin 0.80, AST 127 H, ALT 254 H, Alkaline Phosphatase 162 H, Total Protein 6.4, Albumin 2.5 L, Globulin 3.9, Albumin/Globulin Ratio 0.6 L, Lipase 3231 H 07/17/17 07:15: Urine Color Yellow, Urine Clarity Sl. Cloudy, Urine pH 6.5, Ur Specific [place] 1.020, Urine Protein Negative, Urine Glucose (UA) Normal, Urine Ketones 50 H, Urine Occult Blood Negative, Urine Nitrite Negative, Urine Bilirubin 1 H, Urine Urobilinogen 1 H, Ur Leukocyte Esterase 25 H, Urine RBC 0 SEEN, Urine WBC 0-5 SEEN, Ur Squamous Epith Cells 0-5 SEEN, Urine Bacteria RARE , Urine Mucus RARE Clinical Impression(s) from Imaging Studies Gallbladder Ultrasound 07/16/17 16:48 IMPRESSION: Hepatomegaly. Gallbladder polyps. Limited visualization of the pancreas. No ascites. Code Visit Inpatient E&M: 01596 Subs Hosp L3
--- NOTE | 2017-07-17 12:53 | NURSING ---
1240 ATTEMPTED TO PULL BACK ON [place] TO ASSESS IF [facility] WORKED -UNABLE TO DRAW ANY BLOOD RETURN. WILL LET [facility] REMAIN FOR 30 MIN LONGER. [facility] NURSE AWARE
--- NOTE | 2017-07-17 13:22 | NURSING ---
spoke with Kary LEONARD in infusion center- states she is aware of [facility] [place] and pt just arrived to her area.
--- NOTE | 2017-07-17 13:44 | MRI_ITS ---
STUDY: MR CHOLANGIOPANCREATOGRAPHY (MRCP) REASON FOR EXAM: Male, 52 years old. Recurrent pancreatitis TECHNIQUE: Standard MRCP technique was utilized. COMPARISON: None. FINDINGS: This study is significantly limited by patient motion. There is diffuse heterogeneous appearance throughout the liver. This may represent healing process. The gallbladder is grossly unremarkable. There are no gallstones identified. The common bile duct measures 6 mm. There are no ductal stones identified. There is no intrahepatic or extrahepatic biliary duct dilatation. There is mild stranding adjacent to the pancreas. There is lymphadenopathy noted in the upper abdomen. There is abnormal marrow signal noted in the sternum, ribs and visualized spine. This is suspicious for osseous metastasis. If indicated, dedicated spine MRI can be performed. MRI/MRCP Abdomen without Contrast IMPRESSION: Study significantly limited by patient motion. Stranding adjacent to the pancreas, consistent with pancreatitis. No gallstones or ductal stones identified. No biliary duct dilatation. Diffuse heterogeneous appearance throughout the liver which may represent purely osseous. If indicated, a dedicated liver protocol MRI can be performed. Abnormal marrow signal noted in the sternum, ribs and visualized spine which is suspicious for metastasis. If indicated, a dedicated spine MRI can be performed. Upper abdominal lymphadenopathy which is unchanged when compared with the CT dated 07/06/2017. Electronically Signed: Michael Blue, at 16:56 EDT Tel , Service support ,
--- NOTE | 2017-07-17 15:52 | ONC.CONS.INP ---
Consult Referring Physician: Dr. Youssef. Consult Results: Metastatic small cell lung cancer. Subjective Date of Service:: 07/17/17 Chief Complaint: Acute Recurrent Pancreatitis History of Present Illness: 52y.o.man was diagnosed with small cell lung cancer extensive disease on January 23, 2017. He was treated with combined chemotherapy and radiation therapy from March 02, 2017 to April 2017. He developed brain metastasis and started Whole brain radiation therapy on 07/02/2017. He was admitted for pancreatitis, CT on July 06, 2017 showed progressive disease with new adrenal metastases and bone metastases. He is now readmitted for second episode of pancreatitis. Abdominal pain is improving. Past Medical History: Chronic Problems (Last Updated 07/16/17 @ 15:07 by Day Aldana MD) Asthma with COPD (Chronic) Obesity (BMI 30-39.9) (Chronic) Brain metastases (Chronic) Morbid obesity with BMI of 45.0-49.9, adult (Chronic) Prediabetes (Chronic) 01/04/17 HgbA1c 6.4%. SCLC (small cell lung carcinoma) (Chronic) SVC obstruction (Chronic) DM (diabetes mellitus) (Chronic) COPD (chronic obstructive pulmonary disease) (Chronic) Sleep disorder breathing (Chronic) Tobacco dependence in remission (Chronic) Chronic hypoxemic respiratory failure (Chronic) Morbid obesity with BMI of 50.0-59.9, adult (Chronic) Hypertension (Chronic) Past Medical/Surgical History: Past Medical History - Most Recent Inpatient Visit Past Medical History Start: 07/16/17 15:01 Text: Status: Complete Freq: Protocol: Document 07/16/17 15:02 [facility] [place] (Rec: 07/16/17 15:08 [facility] [place] [id number]) BMI Required to complete PMH What is Patient's BMI 38 Past Medical History Unable History Recalled No Query Text:Pt Unable/Family Not Present Neurologic Medical History Hx Stroke/TIA No Hx Dementia/Alzheimer's No Hx Parkinson's Disease No Hx Seizures No Hx Multiple Sclerosis No Hx Migraines No Cardiac Medical History VTE Present on Admission No Hx of Deep Vein Thrombosis/VTE/PE No Hx Hypertension Yes Hx Chest Pain/Angina No Hx Heart Attack No Hx Cardiac Surgery/Stents/Etc. No Hx Heart Failure No Hx Pacemaker/AICD No Hx Irregular Heartbeat and/or Afib No Hx Anticoagulant Therapy No Query Text:(Coumadin, Aspirin, Plavix, Xarelto, etc.) Hx Pain in Legs when Walking/Leg Cramps No Respiratory Medical History Hx COPD Yes Hx Emphysema No Hx Smoking Yes: quit 2016 Smoking Status Former smoker Hx Smoking Cessation Date 2016 Hx Tobacco Use in last 12 months No Hx of Pipe Smoking No Hx Sleep Apnea No CPAP No BIPAP No Do you snore loudly (louder than talking Yes or can be heard through closed doors)? Do you often feel tired/ fatigued/ Yes sleepy during daytime? Has anyone observed you stop breathing Yes during sleep? STOP Results Positive GI Medical History Hx Ulcer No Hx Hepatitis No Hx Cirrhosis No Hx GI Bleed No Hx Unplanned Weight Loss Yes: 120 pounds in the past couple of months Comments recent pancreatitis Genitourinary Medical History Indwelling Catheter in Place on Arrival/ No Admission Hx Renal Disease No Hx Dialysis No Musculoskeletal History Hx Arthritis No Hx Rheumatoid Arthritis No Endocrine Medical History Hx Diabetes Yes: d/t steroids Hx Thyroid Disease No Hematologic Medical History Hx of Blood Transfusion No Hx of Transfusion in last 3 Months No Ever experience any problems with No transfusion(s)? Hx of Preganancy in last 3 Months N/A Nurse Filling Out Transfusion & SGESSEL Questions: Date: 07/16/17 Time: 15:03 Psycho/Social Medical History Hx Depression Yes: pt states doing ok Hx Anxiety Yes Hx Behavior Disorder No Hx Alcohol Use No Hx Substance Use Yes: marijuana Other Medical History Hx Blood Disorders No Hx Anemia No Hx Cancer Yes: STAGE 4 small cell cancer -chemo 2 months ago-current radiation Hx Drug Resistant Organism No Wound/Pressure Injury Present on Arrival No: to be assessed per primary /Admission rn Query Text:If yes, chart assessment in Shift/Clinical Findings Central Line/PICC/VAD Present on Arrival No /Admission Antibiotics within last 7 days? No Comments lung cancer w/ mets to bones and brain Risk for Readmission Number of Risk Factors 7 At Risk for Readmission Patient is At Risk For Readmission Patient is eligible for Call Back Y Past Medical History (Last Updated 07/16/17 @ 15:07 by Day Aldana MD) COPD (chronic obstructive pulmonary disease) (Chronic) Sleep disorder breathing (Chronic) Chronic hypoxemic respiratory failure (Chronic) Morbid obesity with BMI of 50.0-59.9, adult (Chronic) Hypertension (Chronic) Past Surgical History (Last Reviewed 06/26/17 @ 12:58 by Mary Sheldon) EBUS (Resolved) Maternal Family History: Family History (Last Reviewed 06/26/17 @ 12:58 by Mary Sheldon) Other Adopted Family History: - - Denies knowledge of biological maternal and paternal family history secondary to adoption. Paternal Family History: Family History (Last Reviewed 06/26/17 @ 12:58 by Mary Sheldon) Other Adopted Family History: - - Denies knowledge of biological maternal and paternal family history secondary to adoption. - Social History Lives: Spouse/ Significant Other Smoking Status: Former smoker Alcohol: None Drugs: None Allergies/Adverse Reactions: Allergy/AdvReac Type Severity Reaction Status Date / Time bee venom protein (honey bee) Allergy Severe Swelling Verified 07/16/17 10:55 Review of Systems Constitutional:: Reports: Weakness, Fatigue Cardiovascular:: Denies: Chest pain, Palpitations, Dyspnea on exertion, Orthopnea, PND, Shortness of breath Respiratory: Denies: Cough, Hemoptysis, Shortness of Breath, Wheezing Gastrointestinal:: Reports: Abdominal pain Genitourinary: Denies: Dysuria, Hematuria, 15, Flank pain Musculoskeletal:: Denies: Back pain, Myalgia, Arthralgia Skin: Denies: Rash, Skin Changes, Wounds Neurological:: Denies: Headache, Dizziness, Visual changes, Tinnitus, Hearing loss Psychiatric: Denies: Anxiety, Depression, Homicidal Ideations, Suicidal Ideations Vital Signs Height 6 ft Weight: 126.4 kg Weight in Pounds 278.7 lbs Pulse Ox 98 Temperature 98.1 F Pulse Rate 105 Respiratory Rate 18 Blood Pressure 112/78 Blood Pressure Position Semi-Fowlers - Physical Exam General: Alert, Oriented x3, No apparent distress HEENT: Atraumatic, PERRLA, EOMI, Normocephalic Oropharynx:: Dry mucosa Neck:: Supple, Trachea midline. Negative for: JVD, bilateral Cardiac:: Regular rate, Regular rhythm, Normal S1, Normal S2. Negative for: Murmur Lungs: Clear to auscultation, Excusion symmetrical. Negative for: Rhonchi, Wheezes Abdomen:: Tender - epigastric to left upper quadrant. Extremities:: Negative for: Cyanosis, Edema Neurological: Neuro grossly intact Skin:: Negative for: Lesions, Rash, Petechiae, Ecchymosis Psychiatric:: Appropriate affect, Euthymic Lymphatics:: Negative for: Cervical lymphadenopathy, Supraclavicular lymphadenopathy, Axillary lymphadenopathy Laboratory Data: Laboratory Tests 07/17/17 07/17/17 07/17/17 Range/Units 07:15 06:25 06:25 WBC 9.3 (4.4-11.0) K/mm3 RBC 4.64 (4.6-6.2) M/mm3 Hgb 14.6 (13.0-16.5) g/dl Hct 45.2 (40-54) % MCV 97.4 H (80-94) fL MCH 31.5 (27.0-32.0) pg MCHC 32.3 (32-36) g/gl RDW 16.0 H (11.6-14.6) % RDW Differential 56.0 H (35.1-43.9) fl Plt Count 155 (150-450) K/mm3 MPV 11.2 (6.2-12.0) fl Immature Gran % (Auto) 1.000 H (0.0-0.9) % Neut % (Auto) 88.4 H (47-70) % Lymph % (Auto) 3.0 L (19-41) % [place] % (Auto) 5.6 (0-10) % Eos % (Auto) 1.8 (0-5) % Baso % (Auto) 0.2 (0-1) % Absolute Neuts (auto) 8.2 H (2.0-7.7) X10^3/uL Absolute Lymphs (auto) 0.28 L (0.83-4.51) X10^3/ul Total Counted Not Reportable Differential Comment COMMENT Sodium 136 (136-145) mmol/L Potassium 4.1 (3.5-5.1) mmol/L Chloride 105 (98-107) mmol/L Carbon Dioxide 23.0 (21.0-32.0) mmol/L Anion Gap 8 (5-15) BUN 11 (7-18) mg/dL Creatinine 0.40 L (0.70-1.30) mg/dL Est GFR (MDRD) Af Amer 290 (>60) mL/min Est GFR (MDRD) Non-Af 240 (>60) mL/min BUN/Creatinine Ratio 27.5 H (10-20) RATIO Glucose 73 L (74-106) mg/dL Calcium 8.8 (8.5-10.1) mg/dL Total Bilirubin 0.80 (0.20-1.00) mg/dL AST 127 H (15-37) U/L ALT 254 H (16-61) U/L Alkaline Phosphatase 162 H (45-117) U/L Total Protein 6.4 (6.4-8.2) g/dL Albumin 2.5 L (3.2-5.0) g/dL Globulin 3.9 (2.2-4.2) g/dL Albumin/Globulin Ratio 0.6 L (0.9-2.4) RATIO Lipase 3231 H (73-393) U/L Urine Color Yellow (Yellow) Urine Clarity Sl. Cloudy (Clear) Urine pH 6.5 (5.0 - 8.0) Ur Specific [place] 1.020 (1.002-1.030) Urine Protein Negative (Negative) mg/dl Urine Glucose (UA) Normal (Normal) mg/dl Urine Ketones 50 H (Negative) mg/dl Urine Occult Blood Negative (Negative) /ul Urine Nitrite Negative (Negative) Urine Bilirubin 1 H (Negative) mg/dL Urine Urobilinogen 1 H (Normal) mg/dl Ur Leukocyte Esterase 25 H (Negative) /ul Urine RBC 0 SEEN (0-5) /hpf Urine WBC 0-5 SEEN (0-5) /hpf Ur Squamous Epith Cells 0-5 SEEN (0-5) /hpf Urine Bacteria RARE (None Seen) /hpf Urine Mucus RARE (<or=2+) /hpf Diagnostic Data: Diagnostic Data Gallbladder Ultrasound 07/16/17 16:48 IMPRESSION: Hepatomegaly. Gallbladder polyps. Limited visualization of the pancreas. No ascites. Electronically Signed: Mati Bernardo DO at 21:46 EDT , Service support , Assessment and Plan Metastatic Small cell lung cancer with new adrenal and bony metastases. Now admitted with Recurrent Pancreatitis. Cannot start new line of chemotherapy at this time. Suggestion: To continue supportive care for Pancreatitis. If stable, can discharge home for outpatient follow up with Dr. Fofana to discuss further treatment. Thanks. Medications: Prescriptions This Visit Medication Instructions Recorded Memantine HCl 5 mg PO QHS 07/16/17 Memantine HCl 10 mg PO DAILY 07/16/17 Metoprolol Tartrate [Lopressor 25 mg PO BID 07/16/17 (beta asim)] Medications Added to Medication List This Visit Category Date Time Status Benzonatate [Tessalon Perle] Med 07/17/17 06:53 Active 100 mg PO TID PRN PRN Memantine Hydrochloride [Namenda] Med 07/22/17 10:00 Active 10 mg PO BID Memantine Hydrochloride [Namenda] Med 07/17/17 10:00 Active 10 mg PO DAILY Oxycodone [Oxyir] Med 07/17/17 12:20 Active 10 mg PO Q4H PRN PRN Primary Care Provider: No Primary Care Phys Referring Provider: - Problem List (1) Acute pancreatitis Status: Acute (2) SCLC (small cell lung carcinoma) Status: Chronic Code Visit Office Visits / Consults: [id number] IP Consult L5
[2017-07-17] MEDS: Memantine Hydrochloride 5 MG Tablet PO (21:56)
[2017-07-18] VITALS (8 sets, daily range): BP systolic 98–142; BP diastolic 74–100; PULSE 102–118; RESP 18–20; TEMP 36.5–37.2; O2SAT 94–98
[2017-07-18] MEDS: 0.9% Normal Saline 1,000 ML 150 ML IV ×4 (01:30→23:54)
[2017-07-18] MEDS: Ondansetron 4 MG/2 ML Vial IV ×3 (02:21→16:57)
[2017-07-18] MEDS: HYDROmorphone 0.5 MG/0.5 ML SYRINGE IV (02:22)
[2017-07-18] MEDS: 0.9% NaCl Peripheral Flush Adult/Peds IV ×8 (02:24→18:13)
[2017-07-18] MEDS: Docusate Sodium 100 MG Capsule 200 MG PO (02:32)
[2017-07-18] MEDS: proMETHazine 25 MG/ML Syringe 6.25 MG IV ×3 (04:41→21:27)
[2017-07-18] MEDS: oxyCODONE 5 MG Tablet 10 MG PO ×3 (04:42→16:56)
[2017-07-18] MEDS: Enoxaparin 40 MG/0.4 ML Syringe SC (06:17)
[2017-07-18 07:34] LABS: AST(SGOT) 109 U/L (15-37); Alanine Aminotransfer ALT/SGPT 211 U/L (16-61); Albumin, Serum 2.5 g/dL (3.2-5.0); Alkaline Phosphatase 166 U/L (45-117); Anion Gap 7 (5-15); BUN 11 mg/dL (7-18); BUN/Creat Ratio 26.7 RATIO (10-20); Bilirubin, Direct 0.45 mg/dL (0.00-0.30); Calcium,Total 8.6 mg/dL (8.5-10.1); Chloride 104 mmol/L (98-107); Creatinine, Serum 0.41 mg/dL (0.70-1.30); EST Glomerular Filtration Rate 232 mL/min (>60); Est Glom Filt Rate - Afr Amer 281 mL/min (>60); Globulin 3.6 g/dL (2.2-4.2); Glucose 60 mg/dL (74-106); Lipase 3006 U/L (73-393); Potassium 3.8 mmol/L (3.5-5.1); Protein, Total 6.1 g/dL (6.4-8.2); Sodium Level 140 mmol/L (136-145)
[2017-07-18] MEDS: Memantine Hydrochloride 5 MG Tablet 10 MG PO (09:32)
[2017-07-18] MEDS: Metoprolol Tartrate 25 MG Tablet PO ×2 (09:32→21:08)
[2017-07-18] MEDS: HYDROmorphone 1 MG/ML Syringe IV ×5 (09:48→21:27)
--- NOTE | 2017-07-18 10:57 | NURSING ---
Dr. Ghotra in with pt. Going to consult surgery. This nurse informed Dr. Ghotra that pt has not had a BM since 07/10/17. Pt states yes that is true but I haven't eaten much of anything since. Dr. Ghotra informed by this nurse that MOM and Colace given and not effective. No new orders. Dr. Ghotra not concerned.
[2017-07-18] MEDS: ChlorproMAZINE 25 MG Tablet PO ×3 (11:15→21:08)
--- NOTE | 2017-07-18 12:07 | PCM.PROGNOTE ---
<Melodie Arevalo - Last Filed: 07/18/17 12:12> Patient Problems: Active and Suspected Problems (Last Updated 07/16/17 @ 15:07 by Day Aldana MD) Metastasis to adrenal gland (Acute) Bone metastases (Acute) Acute pancreatitis (Acute) Subjective: Patient seen and examined. States nausea has improved. Remains on clear liquid diet. Continues to complain of significant left upper quadrant abdominal pain. Denies fever, chills. Complains of intractable hiccups. Denies other current complaints. - Physical Exam General: Alert, Oriented x3, Cooperative, No apparent distress HEENT: Atraumatic, PERRLA, EOMI, Normocephalic Neck: Supple, No JVD, Negative Carotid Bruits Lungs: Clear to auscultation, Diminished Cardiovascular: Regular Rhythm, Normal S1, Normal S2, No murmurs, Tachycardic Abdomen: Bowel Sounds Present, Soft, Obese, Tender - Left upper quadrant Extremities: No clubbing, No cyanosis, No edema, Capillary Refill Less than 3 Seconds Skin: No rashes, No breakdown Musculoskeletal: No Tenderness to Palpation of Joints or Extremities Neurological: Cranial nerves II-XII grossly intact, Neuro grossly intact Psych/Mental Status: Normal Affect, Appropriate Vital Signs Temp Pulse Resp BP Pulse Ox 98.7 F 114 H 20 H 142/88 H 98 07/18/17 10:54 07/18/17 10:54 07/18/17 10:54 07/18/17 10:54 07/18/17 10:54 Oxygen Delivery Method Room Air Weight: 126.4 kg Body Mass Index (BMI) 37.8 Intake and Output for Last 24 Hours 07/16/17 07/17/17 07/18/17 23:59 23:59 23:59 Intake Total 4495 / 4495 2083 Output Total 0 / 0 0 / 0 Balance 4495 / 4495 2083 Laboratory Tests Past 24 Hrs 07/18/17 06:30 Sodium 140 Potassium 3.8 Chloride 104 Carbon Dioxide 29.0 Anion Gap 7 BUN 11 Creatinine 0.41 L Est GFR (MDRD) Af Amer 281 Est GFR (MDRD) Non-Af 232 BUN/Creatinine Ratio 26.7 H Glucose 60 L Calcium 8.6 Total Bilirubin 0.90 Direct Bilirubin 0.45 H AST 109 H ALT 211 H Alkaline Phosphatase 166 H Total Protein 6.1 L Albumin 2.5 L Globulin 3.6 Lipase 3006 H Medical Necessity - Tobacco Use Smoking Status: Former smoker Assessment/Plan All Active Problems (Last Updated 07/16/17 @ 15:07 by Day Aldana MD) Metastasis to adrenal gland (Acute) Bone metastases (Acute) Acute pancreatitis (Acute) Patient is a 52-year-old male admitted 07/16/2017 due to abdominal pain, nausea, vomiting. He has a past medical history of COPD, chronic hypoxic respiratory failure, morbid obesity, hypertension, small cell lung cancer with metastasis. 1. Acute recurrent pancreatitis-CT of abdomen and pelvis recent admission showed mild acute pancreatitis of the pancreatic head, new metastatic lesions in both adrenal glands, interval development of multiple osseous metastatic lesions, no gallstones or evidence of acute cholecystitis. Continue clear liquids. Continue IV fluids, IV antiemetics and IV Dilaudid as needed for pain. Lipase slightly improved today. Trend lipase. MRCP showed stranding adjacent to the pancreas, consistent with pancreatitis. No gallstones or ductal stones identified. No biliary duct dilatation. Will consult Dr. Mahmood. Because of recurrent pancreatitis is unclear at this time. 2. Elevated LFTs-gallbladder ultrasound shows hepatomegaly, gallbladder polyps, no ascites, limited visualization of pancreas. History of elevated LFTs. Trend LFTs. 3. 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 Patient to undergo palliative brain radiation today with final treatment tomorrow, , 07/19/2017. He will then further follow-up as outpatient with her chemotherapy and plan of care recommendations. Per Dr. Fofana, hospice was recently discussed with patient due to poor prognosis. Patient was not interested at that time but will be reevaluated and oncology in the future. 4. Hypertension-stable, continue current regimen. 5. Chronic hypoxic respiratory failure secondary to chronic COPD-continue supplemental oxygen as needed to maintain O2 at or above 90%. 6. Morbid obesity-encouraged diet and lifestyle modifications. DVT prophylaxis-Lovenox subcu. This patient was seen by SKYLAR Mc under the supervision of Dr. Mckinney. <Kleber Mckinney - Last Filed: 07/18/17 15:38> Subjective: Patient is still has left upper quadrant abdominal and epigastric pain. Mild nausea. Lipase is elevated - Physical Exam General: Alert, Oriented x3, Cooperative HEENT: Atraumatic, PERRLA, EOMI, Normocephalic Neck: Supple, No JVD, Negative Carotid Bruits Lungs: Clear to auscultation, Normal air movement Cardiovascular: Regular rate, No murmurs, Tachycardic Abdomen: Bowel Sounds Present, Soft, Non Tender, Tender Extremities: No edema, Capillary Refill Less than 3 Seconds Skin: No rashes, No breakdown Musculoskeletal: No Tenderness to Palpation of Joints or Extremities Neurological: Cranial nerves II-XII grossly intact Psych/Mental Status: Normal Affect, Appropriate Vital Signs Temp Pulse Resp BP Pulse Ox 99.0 F 114 H 20 H 116/74 95 07/18/17 15:00 07/18/17 15:00 07/18/17 15:00 07/18/17 15:00 07/18/17 15:00 Oxygen Delivery Method Room Air Weight: 278 lb 10.629 oz Body Mass Index (BMI) 37.8 Intake and Output for Last 24 Hours 07/16/17 07/17/17 07/18/17 23:59 23:59 23:59 Intake Total 4495 / 4495 2083 Output Total 0 / 0 0 / 0 Balance 4495 / 4495 2083 Laboratory Tests Past 24 Hrs 07/18/17 06:30 Sodium 140 Potassium 3.8 Chloride 104 Carbon Dioxide 29.0 Anion Gap 7 BUN 11 Creatinine 0.41 L Est GFR (MDRD) Af Amer 281 Est GFR (MDRD) Non-Af 232 BUN/Creatinine Ratio 26.7 H Glucose 60 L Calcium 8.6 Total Bilirubin 0.90 Direct Bilirubin 0.45 H AST 109 H ALT 211 H Alkaline Phosphatase 166 H Total Protein 6.1 L Albumin 2.5 L Globulin 3.6 Lipase 3006 H Assessment/Plan This patient was seen in conjunction with TOOLMANMelodie. I have independently interviewed and examined the patient and reviewed pertinent history, examination findings, laboratory and plan of management. I have reviewed the note and agree with the documented findings with the few additional points. In brief, patient is admitted for acute on recurrent pancreatitis. LFTs are elevated But total bilirubin normal. he was discharged on 08/04/[address] for [address]. [address] abdomen on July 06, 2017 shows interval development of celiac lymph node largest node measures 2.8 x 2.5 cm. New metastatic lesion found on left adrenal and right adrenal gland. Normal gallbladder and extrahepatic very system. Normal spleen. MRCP done and does not show any significant biliary or pancreatic duct obstruction but has significant motion artifact. Transaminases and alkaline phosphatase has improved. I have discussed the overall clinical findings and hospital course with Dr. Mahmood for further opinion. Dr. Egan is going to see the patient. I have discussed my assessment with TOOLMAN, Melodie and orders have been reviewed. Laboratory Results 07/18/17 06:30: Sodium 140, Potassium 3.8, Chloride 104, Carbon Dioxide 29.0, Anion Gap 7, BUN 11, Creatinine 0.41 L, Est GFR (MDRD) Af Amer 281, Est GFR (MDRD) Non-Af 232, BUN/Creatinine Ratio 26.7 H, Glucose 60 L, Calcium 8.6, Total Bilirubin 0.90, Direct Bilirubin 0.45 H, AST 109 H, ALT 211 H, Alkaline Phosphatase 166 H, Total Protein 6.1 L, Albumin 2.5 L, Globulin 3.6, Lipase 3006 H Code Visit Inpatient E&M: 79516 Subs Hosp L3
--- NOTE | 2017-07-18 12:11 | PN_ITS ---
<Melodie Arevalo - Last Filed: 07/18/17 12:12> Patient Problems: Active and Suspected Problems (Last Updated 07/16/17 @ 15:07 by Day Aldana MD) Metastasis to adrenal gland (Acute) Bone metastases (Acute) Acute pancreatitis (Acute) Subjective: Patient seen and examined. States nausea has improved. Remains on clear liquid diet. Continues to complain of significant left upper quadrant abdominal pain. Denies fever, chills. Complains of intractable hiccups. Denies other current complaints. - Physical Exam General: Alert, Oriented x3, Cooperative, No apparent distress HEENT: Atraumatic, PERRLA, EOMI, Normocephalic Neck: Supple, No JVD, Negative Carotid Bruits Lungs: Clear to auscultation, Diminished Cardiovascular: Regular Rhythm, Normal S1, Normal S2, No murmurs, Tachycardic Abdomen: Bowel Sounds Present, Soft, Obese, Tender - Left upper quadrant Extremities: No clubbing, No cyanosis, No edema, Capillary Refill Less than 3 Seconds Skin: No rashes, No breakdown Musculoskeletal: No Tenderness to Palpation of Joints or Extremities Neurological: Cranial nerves II-XII grossly intact, Neuro grossly intact Psych/Mental Status: Normal Affect, Appropriate Vital Signs Temp Pulse Resp BP Pulse Ox 98.7 F 114 H 20 H 142/88 H 98 07/18/17 10:54 07/18/17 10:54 07/18/17 10:54 07/18/17 10:54 07/18/17 10:54 Oxygen Delivery Method Room Air Weight: 126.4 kg Body Mass Index (BMI) 37.8 Intake and Output for Last 24 Hours 07/16/17 07/17/17 07/18/17 23:59 23:59 23:59 Intake Total 4495 / 4495 2083 Output Total 0 / 0 0 / 0 Balance 4495 / 4495 2083 Laboratory Tests Past 24 Hrs 07/18/17 06:30 Sodium 140 Potassium 3.8 Chloride 104 Carbon Dioxide 29.0 Anion Gap 7 BUN 11 Creatinine 0.41 L Est GFR (MDRD) Af Amer 281 Est GFR (MDRD) Non-Af 232 BUN/Creatinine Ratio 26.7 H Glucose 60 L Calcium 8.6 Total Bilirubin 0.90 Direct Bilirubin 0.45 H AST 109 H ALT 211 H Alkaline Phosphatase 166 H Total Protein 6.1 L Albumin 2.5 L Globulin 3.6 Lipase 3006 H Medical Necessity - Tobacco Use Smoking Status: Former smoker Assessment/Plan All Active Problems (Last Updated 07/16/17 @ 15:07 by Day Aldana MD) Metastasis to adrenal gland (Acute) Bone metastases (Acute) Acute pancreatitis (Acute) Patient is a 52-year-old male admitted 07/16/2017 due to abdominal pain, nausea, vomiting. He has a past medical history of COPD, chronic hypoxic respiratory failure, morbid obesity, hypertension, small cell lung cancer with metastasis. 1. Acute recurrent pancreatitis-CT of abdomen and pelvis recent admission showed mild acute pancreatitis of the pancreatic head, new metastatic lesions in both adrenal glands, interval development of multiple osseous metastatic lesions, no gallstones or evidence of acute cholecystitis. Continue clear liquids. Continue IV fluids, IV antiemetics and IV Dilaudid as needed for pain. Lipase slightly improved today. Trend lipase. MRCP showed stranding adjacent to the pancreas, consistent with pancreatitis. No gallstones or ductal stones identified. No biliary duct dilatation. Will consult Dr. Mahmood. Because of recurrent pancreatitis is unclear at this time. 2. Elevated LFTs-gallbladder ultrasound shows hepatomegaly, gallbladder polyps , no ascites, limited visualization of pancreas. History of elevated LFTs. Trend LFTs. 3. 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 Patient to undergo palliative brain radiation today with final treatment tomorrow, , 07/19/2017. He will then further follow-up as outpatient with her chemotherapy and plan of care recommendations. Per Dr. Fofana, hospice was recently discussed with patient due to poor prognosis. Patient was not interested at that time but will be reevaluated and oncology in the future. 4. Hypertension-stable, continue current regimen. 5. Chronic hypoxic respiratory failure secondary to chronic COPD-continue supplemental oxygen as needed to maintain O2 at or above 90%. 6. Morbid obesity-encouraged diet and lifestyle modifications. DVT prophylaxis-Lovenox subcu. This patient was seen by SKYLAR Mc under the supervision of Dr. Mckinney. <Kleber Mckinney - Last Filed: 07/18/17 15:38> Subjective: Patient is still has left upper quadrant abdominal and epigastric pain. Mild nausea. Lipase is elevated - Physical Exam General: Alert, Oriented x3, Cooperative HEENT: Atraumatic, PERRLA, EOMI, Normocephalic Neck: Supple, No JVD, Negative Carotid Bruits Lungs: Clear to auscultation, Normal air movement Cardiovascular: Regular rate, No murmurs, Tachycardic Abdomen: Bowel Sounds Present, Soft, Non Tender, Tender Extremities: No edema, Capillary Refill Less than 3 Seconds Skin: No rashes, No breakdown Musculoskeletal: No Tenderness to Palpation of Joints or Extremities Neurological: Cranial nerves II-XII grossly intact Psych/Mental Status: Normal Affect, Appropriate Vital Signs Temp Pulse Resp BP Pulse Ox 99.0 F 114 H 20 H 116/74 95 07/18/17 15:00 07/18/17 15:00 07/18/17 15:00 07/18/17 15:00 07/18/17 15:00 Oxygen Delivery Method Room Air Weight: 278 lb 10.629 oz Body Mass Index (BMI) 37.8 Intake and Output for Last 24 Hours 07/16/17 07/17/17 07/18/17 23:59 23:59 23:59 Intake Total 4495 / 4495 2083 Output Total 0 / 0 0 / 0 Balance 4495 / 4495 2083 Laboratory Tests Past 24 Hrs 07/18/17 06:30 Sodium 140 Potassium 3.8 Chloride 104 Carbon Dioxide 29.0 Anion Gap 7 BUN 11 Creatinine 0.41 L Est GFR (MDRD) Af Amer 281 Est GFR (MDRD) Non-Af 232 BUN/Creatinine Ratio 26.7 H Glucose 60 L Calcium 8.6 Total Bilirubin 0.90 Direct Bilirubin 0.45 H AST 109 H ALT 211 H Alkaline Phosphatase 166 H Total Protein 6.1 L Albumin 2.5 L Globulin 3.6 Lipase 3006 H Assessment/Plan This patient was seen in conjunction with MILANESE KNITTING MACHINE OPERATORMelodie. I have independently interviewed and examined the patient and reviewed pertinent history, examination findings, laboratory and plan of management. I have reviewed the note and agree with the documented findings with the few additional points. In brief, patient is admitted for acute on recurrent pancreatitis. LFTs are elevated But total bilirubin normal. he was discharged on 08/04/[address] abdomen on July 06, 2017 shows interval development of celiac lymph node largest node measures 2.8 x 2.5 cm. New metastatic lesion found on left adrenal and right adrenal gland. Normal gallbladder and extrahepatic very system. Normal spleen. MRCP done and does not show any significant biliary or pancreatic duct obstruction but has significant motion artifact. Transaminases and alkaline phosphatase has improved. I have discussed the overall clinical findings and hospital course with Dr. Mahmood for further opinion. Dr. Egan is going to see the patient. I have discussed my assessment with MILANESE KNITTING MACHINE OPERATOR, Melodie and orders have been reviewed. Laboratory Results 07/18/17 06:30: Sodium 140, Potassium 3.8, Chloride 104, Carbon Dioxide 29.0, Anion Gap 7, BUN 11, Creatinine 0.41 L, Est GFR (MDRD) Af Amer 281, Est GFR ( MDRD) Non-Af 232, BUN/Creatinine Ratio 26.7 H, Glucose 60 L, Calcium 8.6, Total Bilirubin 0.90, Direct Bilirubin 0.45 H, AST 109 H, ALT 211 H, Alkaline Phosphatase 166 H, Total Protein 6.1 L, Albumin 2.5 L, Globulin 3.6, Lipase 3006 H Code Visit Inpatient E&M: 85949 Subs Hosp L3
--- NOTE | 2017-07-18 12:30 | NURSING ---
Off the floor, Just recently brought down to for Radiation today.
--- NOTE | 2017-07-18 15:03 | NURSING ---
Informed by Ca Garcia, Charge nurse that physical therapy saw pt and his Significant Other get into a car and left the wheelchair by the car. Thinking the pt was going to escape, the physical therapist watched the pt. Pt was seen smoking in the backseat of his car. When this nurse approached the Mr. Alberts about this and how he should not be leaving the floor b/c he is getting narcotics, Mr. Alberts said he was not smoking. He finally admitted he was using marijuana. All my doctors know I do it. I need something to help with the pain. Pt educated that he can not go outside anymore and can not smoke tobacco products or marijuana in or outside of the hospital grounds. Ca aware that pt was smoking marijauna.
--- NOTE | 2017-07-18 15:40 | PCM.CONS.B ---
- Consult Date of Consult: 07/18/17 - Reason for Consult Chief Complaint: asked to evaluated patient due to recurrent bouts of pancreatitis by the hospitalist service History of Present Illness: 52 y/o WM with metastatic small cell lung cancer. Presents with recurrent bouts of pancreatitis. Had chemotherapy and radiation therapy stopped about 2 weeks ago Placed on dexamethasone late June. Had lipase has high as 9598 (07/06), today it is 3006. Today AST/ALT 109/211, alkphos 166. tbili has always been normal Ultrasound gallbladder - gallbladder wall measures 3mm, no pericholecystic fluid, gallbladder polyps MRCP - no gallstones identified, CBD 6 mm - no stones, no ductal dilatation, lymphadenopathy noted in upper abdomen, abnormal signalling in sternum/ribs/spine - possible metastases CT scan shows new adrenal and bone mets. Patient points to pain in the left upper quadrant. Denies right upper quadrant abdominal pain. Past Medical History: COPD/asthma Hypertension Obesity Diabetes Past Surgical History: placement of portacath EBUS Medications: dexamethasone colace dilaudid memantine metoprolol omeprazole zofran phenergan Allergies: Has no known drug allergies Social history: TOB use denies, quit last year, 40 pack year history ETOH - denies Review of Systems: General - denies fevers, has had weight loss, increased fatigue Cardiovascular denies chest pain Pulmonary has chronic cough, denies coughing up blood Gastrointestinal as per HPI Neurological metastatic lesion in brain Genitourinary denies blood in urine Hematological denies spontaneous/prolonged bleeding Skin denies open non-healing wounds Musculoskeletal denies arthritis Endocrine has diabetes Psychological denies hallucinations Physical examination: Vital signs Temp 98.6F HR 121 RR 16 BP 136/63 BMI 37 General WD/WN WM in no apparent distress, alert and oriented, not septic appearing HEENT Normocephalic. EOM intact with sclera clear and no icterus noted. Wearing glasses. Neck is supple. Trachea is midline. Lungs clear to auscultation. Normal breath sounds. No rales/rhonchi/wheezing noted. No labored breathing noted, such as retractions. No cough heard. Heart normal S1 and S2 auscultated. No rubs/clicks/murmurs noted. Regular rate Abdomen soft and benign and obese. Patient points to left upper quadrant abdominal pain, normal bowel sounds, difficult to determine if any masses or organomegaly due to patient's body habitus. Extremities no calf tenderness noted. No pitting edema noted. . Genitourinary/Rectal deferred Skin normal skin integrity. Neurological no focal deficits noted. Psychological normal affect, patient is calm and appropriate Impression: recurrent bouts of pancreatitis metastatic lung cancer Discussion/Plan: I have discussed the above with the patient and his who is present with him. At this point, I do not believe that the gallbladder as the cause of the patient's recurrent pancreatitis. He has been recently placed (06/26) on steroids (dexamethasone) due to his brain irradiation, this as well as other factors may cause pancreatitis. I have recommended continued observation. No surgical recommendations at this point in time. I have answered all questions to the patients satisfaction and the patient has no further questions.
--- NOTE | 2017-07-18 15:45 | CON.PCM_ITS ---
- Consult Date of Consult: 07/18/17 - Reason for Consult Chief Complaint: asked to evaluated patient due to recurrent bouts of pancreatitis by the hospitalist service History of Present Illness: 52 y/o WM with metastatic small cell lung cancer. Presents with recurrent bouts of pancreatitis. Had chemotherapy and radiation therapy stopped about 2 weeks ago Placed on dexamethasone late June. Had lipase has high as 9598 (07/06), today it is 3006. Today AST/ALT 109/211, alkphos 166. tbili has always been normal Ultrasound gallbladder - gallbladder wall measures 3mm, no pericholecystic fluid , gallbladder polyps MRCP - no gallstones identified, CBD 6 mm - no stones, no ductal dilatation, lymphadenopathy noted in upper abdomen, abnormal signalling in sternum/ribs/ spine - possible metastases CT scan shows new adrenal and bone mets. Patient points to pain in the left upper quadrant. Denies right upper quadrant abdominal pain. Past Medical History: COPD/asthma Hypertension Obesity Diabetes Past Surgical History: placement of portacath EBUS Medications: dexamethasone colace dilaudid memantine metoprolol omeprazole zofran phenergan Allergies: Has no known drug allergies Social history: TOB use denies, quit last year, 40 pack year history ETOH - denies Review of Systems: General - denies fevers, has had weight loss, increased fatigue Cardiovascular denies chest pain Pulmonary has chronic cough, denies coughing up blood Gastrointestinal as per HPI Neurological metastatic lesion in brain Genitourinary denies blood in urine Hematological denies spontaneous/prolonged bleeding Skin denies open non-healing wounds Musculoskeletal denies arthritis Endocrine has diabetes Psychological denies hallucinations Physical examination: Vital signs Temp 98.6F HR 121 RR 16 BP 136/63 BMI 37 General WD/WN WM in no apparent distress, alert and oriented, not septic appearing HEENT Normocephalic. EOM intact with sclera clear and no icterus noted. Wearing glasses. Neck is supple. Trachea is midline. Lungs clear to auscultation. Normal breath sounds. No rales/rhonchi/ wheezing noted. No labored breathing noted, such as retractions. No cough heard. Heart normal S1 and S2 auscultated. No rubs/clicks/murmurs noted. Regular rate Abdomen soft and benign and obese. Patient points to left upper quadrant abdominal pain, normal bowel sounds, difficult to determine if any masses or organomegaly due to patient's body habitus. Extremities no calf tenderness noted. No pitting edema noted. . Genitourinary/Rectal deferred Skin normal skin integrity. Neurological no focal deficits noted. Psychological normal affect, patient is calm and appropriate Impression: recurrent bouts of pancreatitis metastatic lung cancer Discussion/Plan: I have discussed the above with the patient and his who is present with him. At this point, I do not believe that the gallbladder as the cause of the patient 's recurrent pancreatitis. He has been recently placed (06/26) on steroids (dexamethasone) due to his brain irradiation, this as well as other factors may cause pancreatitis. I have recommended continued observation. No surgical recommendations at this point in time. I have answered all questions to the patient?s satisfaction and the patient has no further questions.
--- NOTE | 2017-07-18 16:27 | CHAPLAIN ---
Type of Pastoral Visit _x__ Initial Visit ___ Follow-up Visit ___ On-call Visit ___ General Patient Visit ___ Spiritual Assessment ___ Family Conference ___ Bereavement ___ Rapid Response ___ Code Blue ___ Other (describe below) Pastoral Care Referral From _x__ Patient ___ Family _x__ Nurse ___ Physician ___ Early Childhood Lead Teacher ___ Packing Room Supervisor ___ Other (describe below) Sacrament/Intervention _x__ Active listening ___ Anointing ___ Hoahaoism ___ Bereavement ___ Communion ___ Bessie exploration ___ ___ Life review ___ Prayer ___ Reconciliation ___ Sacrament of Sick _x__ Supportive presence ___ Wedding ___ Other (describe below) Pastoral Comments Upon suggestion of RN I entered room to offer support; pt was admitted before and both of us are remembering that previous encounter now; pt talks about his continual fight with cancer; pt is 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
[2017-07-18] MEDS: Memantine Hydrochloride 5 MG Tablet PO (21:08)
[2017-07-19] VITALS (7 sets, daily range): BP systolic 98–125; BP diastolic 52–75; PULSE 76–128; RESP 16–20; TEMP 36.6–36.9; O2SAT 92–99
[2017-07-19] MEDS: oxyCODONE 5 MG Tablet 10 MG PO ×5 (02:14→22:22)
[2017-07-19] MEDS: Ondansetron 4 MG/2 ML Vial IV ×2 (02:15→18:28)
[2017-07-19] MEDS: 0.9% Normal Saline 1,000 ML 150 ML IV (06:33)
[2017-07-19] MEDS: Enoxaparin 40 MG/0.4 ML Syringe SC (06:33)
[2017-07-19] MEDS: ChlorproMAZINE 25 MG Tablet PO (06:33)
[2017-07-19] MEDS: 0.9% NaCl Peripheral Flush Adult/Peds IV (06:46)
[2017-07-19 07:34] LABS: AST(SGOT) 100 U/L (15-37); Alanine Aminotransfer ALT/SGPT 150 U/L (16-61); Alkaline Phosphatase 179 U/L (45-117); Anion Gap 10 (5-15); BUN 7 mg/dL (7-18); Bilirubin, Direct 0.55 mg/dL (0.00-0.30); Calcium,Total 7.3 mg/dL (8.5-10.1); Chloride 109 mmol/L (98-107); Creatinine, Serum 0.29 mg/dL (0.70-1.30); EST Glomerular Filtration Rate 345 mL/min (>60); Est Glom Filt Rate - Afr Amer 418 mL/min (>60); Estimated Creatinine Clearance 327.05 ml/min; Globulin 2.9 g/dL (2.2-4.2); Glucose 52 mg/dL (74-106); Lipase 1654 U/L (73-393); Protein, Total 4.9 g/dL (6.4-8.2); Sodium Level 141 mmol/L (136-145)
[2017-07-19] MEDS: Memantine Hydrochloride 5 MG Tablet 10 MG PO (09:00)
[2017-07-19] MEDS: Metoprolol Tartrate 25 MG Tablet PO ×2 (09:00→22:01)
--- NOTE | 2017-07-19 09:22 | PN_ITS ---
Patient Problems: Active and Suspected Problems (Last Updated 07/16/17 @ 15:07 by Day Aldana MD) Metastasis to adrenal gland (Acute) Bone metastases (Acute) Acute pancreatitis (Acute) Subjective: Patient seen and examined. No fever or chills. Mild sinus tachycardia heart rate in the 100s. No hypoxia or tachypnea. Abdominal pain is better. Able to tolerate clear liquid Vitals/I&O's: Vital Signs Temp Pulse Resp BP Pulse Ox 97.9 F 112 H 20 H 119/61 92 07/19/17 08:22 07/19/17 09:00 07/19/17 08:22 07/19/17 08:22 07/19/17 08:22 Oxygen Delivery Method Room Air Weight: 278 lb 10.629 oz Body Mass Index (BMI) 37.8 Intake and Output for Last 24 Hours 07/17/17 07/18/17 07/19/17 23:59 23:59 23:59 Intake Total 4495 / 4495 3771 / 3771 1200 / 1200 Output Total 0 / 0 0 / 0 Balance 4495 / 4495 3771 / 3771 1200 / 1200 General: Alert, Oriented x3, Cooperative HEENT: Atraumatic, PERRLA, EOMI, Normocephalic Neck: Supple, No JVD, Negative Carotid Bruits Lungs: Clear to auscultation, Normal air movement Cardiovascular: Regular rate, Normal S1, Normal S2, No murmurs Abdomen: Bowel Sounds Present, Soft, Tender - Very mild deep tenderness present No guarding or rigidity. Extremities: No edema, Capillary Refill Less than 3 Seconds Skin: No rashes, No breakdown Musculoskeletal: No Tenderness to Palpation of Joints or Extremities Neurological: Cranial nerves II-XII grossly intact Psych/Mental Status: Normal Affect, Appropriate Laboratory Results 07/19/17 06:45: Sodium 141, Potassium 3.0 L, Chloride 109 H, Carbon Dioxide 22.0 , Anion Gap 10, BUN 7, Creatinine 0.29 L, Estim Creat Clear Calc 327.05, Est GFR (MDRD) Af Amer 418, Est GFR (MDRD) Non-Af 345, BUN/Creatinine Ratio 24.0 H, Glucose 52 L, Calcium 7.3 L, Total Bilirubin 1.00, Direct Bilirubin 0.55 H, AST 100 H, ALT 150 H, Alkaline Phosphatase 179 H, Total Protein 4.9 L, Albumin 2.0 L , Globulin 2.9, Lipase 1654 H Current Medications Albuterol Sulfate (Ventolin Aerosols) 2.5 mg INHALATION Q4H PRN PRN PRN Reason: Shortness of breath, wheezing Last Admin: 07/16/17 21:03 Dose: 2.5 mg Benzonatate (Tessalon Perle) 100 mg PO TID PRN PRN PRN Reason: cough Last Admin: 07/17/17 07:18 Dose: 100 mg Chlorpromazine HCl (Thorazine) 25 mg PO 4X/DAY PRN PRN Reason: HICCUPS Last Admin: 07/19/17 06:33 Dose: 25 mg Docusate Sodium (Colace) 200 mg PO TID PRN PRN PRN Reason: Constipation Last Admin: 07/18/17 02:32 Dose: 200 mg Enoxaparin Sodium (Lovenox) 40 mg SC DAILY@0600 [facility] Last Admin: 07/19/17 06:33 Dose: 40 mg Hydromorphone HCl (Dilaudid Inj) 1 - 2 mg IV Q3H PRN PRN PRN Reason: SEVERE PAIN (6-1010) Last Admin: 07/18/17 21:27 Dose: 2 mg Pantoprazole Sodium 40 mg/ (Sodium Chloride) 110 mls @ 330 mls/hr IV Q12 [facility] Last Admin: 07/19/17 09:00 Dose: 330 mls/hr Potassium Chloride 40 meq/ (Sodium Chloride) 1,020 mls @ 100 mls/hr IV .[id number] [facility] Potassium Phosphate 15 mm/ (Sodium Chloride) 255 mls @ 125 mls/hr IV X1 ONE Stop: 07/19/17 12:02 Magnesium Hydroxide (Milk Of Magnesia) 30 ml PO DAILY PRN PRN PRN Reason: Constipation Last Admin: 07/17/17 07:22 Dose: 30 ml Memantine (Namenda) 10 mg PO DAILY [facility] Stop: 07/21/17 10:01 Last Admin: 07/19/17 09:00 Dose: 10 mg Memantine (Namenda) 10 mg PO BID JULIANNE Memantine (Namenda) 5 mg PO QHS [facility] Last Admin: 07/18/17 21:08 Dose: 5 mg Metoprolol Tartrate (Lopressor (Beta Leticia)) 25 mg PO BID JULIANNE Last Admin: 07/19/17 09:00 Dose: 25 mg Ondansetron HCl (Zofran) 4 mg IV Q6H PRN PRN PRN Reason: NAUSEA/VOMITING Last Admin: 07/19/17 02:15 Dose: 4 mg Oxycodone HCl (Oxyir) 10 mg PO Q4H PRN PRN PRN Reason: SEVERE PAIN (6-10/10) Last Admin: 07/19/17 06:32 Dose: 10 mg Promethazine HCl (Phenergan) 6.25 mg IV Q6H PRN PRN PRN Reason: NAUSEA/VOMITING Last Admin: 07/18/17 21:27 Dose: 6.25 mg Sodium Chloride () 5 - 30 ml IV UD PRN PRN Reason: SALINE FLUSH Last Admin: 07/19/17 06:46 Dose: 30 ml Medical Necessity - Tobacco Use Smoking Status: Former smoker Assessment/Plan All Active Problems (Last Updated 07/16/17 @ 15:07 by Day Aldana MD) Metastasis to adrenal gland (Acute) Bone metastases (Acute) Acute pancreatitis (Acute) Patient is a 52-year-old male admitted 07/16/2017 due to abdominal pain, nausea, vomiting. He has a past medical history of COPD, chronic hypoxic respiratory failure, morbid obesity, hypertension, small cell lung cancer with metastasis. In brief, patient is admitted for acute on recurrent pancreatitis. LFTs are elevated But total bilirubin normal. he was discharged on 08/04/2017 for acute [address]. [address] abdomen on July 06, 2017 shows interval development of celiac lymph node largest node measures 2.8 x 2.5 cm along with mild acute pancreatitis with pancreatic head but no gallstones or evidence of acute cholecystitis. New metastatic lesion found on left adrenal and right adrenal gland. Normal gallbladder and extrahepatic biliary system. Normal spleen. 1. Acute on recurrent pancreatitis; exact etiology unclear but rare causes including prednisone or paraneoplastic/paracrine hormones from small cell cancer : -diet advanced to full liquid and then soft diet with low residue as per tolerated. Continue IV fluids, IV antiemetics and IV Dilaudid as needed for pain. Lipase improved today. Trend lipase. MRCP showed stranding adjacent to the pancreas, consistent with pancreatitis. No gallstones or ductal stones identified. No biliary duct dilatation. Discussed with Dr. Mahmood and Dr. Egan. Exact etiology is unclear. 2. Elevated LFTs-gallbladder ultrasound shows hepatomegaly, gallbladder polyps , no ascites, limited visualization of pancreas. History of elevated LFTs. ALT AST and ALT and alkaline phosphatase improving. 3. 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 Patient to undergo palliative brain radiation today with final treatment tomorrow, , 07/19/2017. He will then further follow-up as outpatient with her chemotherapy and plan of care recommendations. Per Dr. Fofana, hospice was recently discussed with patient due to poor prognosis. Patient was not interested at that time but will be reevaluated and oncology in the future. 4. Hypertension-stable, continue current regimen. 5. Chronic hypoxic respiratory failure secondary to chronic COPD-continue supplemental oxygen as needed to maintain O2 at or above 90%. 6. Morbid obesity-encouraged diet and lifestyle modifications. DVT prophylaxis-Lovenox subcu. Laboratory Results 07/19/17 06:45: Sodium 141, Potassium 3.0 L, Chloride 109 H, Carbon Dioxide 22.0 , Anion Gap 10, BUN 7, Creatinine 0.29 L, Estim Creat Clear Calc 327.05, Est GFR (MDRD) Af Amer 418, Est GFR (MDRD) Non-Af 345, BUN/Creatinine Ratio 24.0 H, Glucose 52 L, Calcium 7.3 L, Total Bilirubin 1.00, Direct Bilirubin 0.55 H, AST 100 H, ALT 150 H, Alkaline Phosphatase 179 H, Total Protein 4.9 L, Albumin 2.0 L , Globulin 2.9, Lipase 1654 H Clinical Impression(s) from Imaging Studies Gallbladder Ultrasound 07/16/17 16:48 IMPRESSION: Hepatomegaly. Gallbladder polyps. Limited visualization of the pancreas. No ascites. MRCP 07/17/17 13:44 IMPRESSION: Study significantly limited by patient motion. Stranding adjacent to the pancreas, consistent with pancreatitis. No gallstones or ductal stones identified. No biliary duct dilatation. Diffuse heterogeneous appearance throughout the liver which may represent purely osseous. If indicated, a dedicated liver protocol MRI can be performed. Abnormal marrow signal noted in the sternum, ribs and visualized spine which is suspicious for metastasis. If indicated, a dedicated spine MRI can be performed. Upper abdominal lymphadenopathy which is unchanged when compared with the CT dated 07/06/2017. Code Visit Inpatient E&M: 44707 Subs Hosp L3
[2017-07-19] MEDS: Potassium Chloride 40 MEQ in 0.9% Normal Saline 1,000 ML 100 MEQ IV (10:20)
--- NOTE | 2017-07-19 10:39 | PCM.PN.SRG ---
Patient Problems: Active and Suspected Problems (Last Updated 07/16/17 @ 15:07 by Day Aldana MD) Metastasis to adrenal gland (Acute) Bone metastases (Acute) Acute pancreatitis (Acute) Subjective: patient states that pain has improved somewhat, still present but tolerable - states about a 4 out of 10 on a scale of 1-10 with 10 being the worst pain - Physical Exam General: Alert HEENT: Atraumatic Oral: Moist Mucosa Abdomen: Bowel Sounds Present - still slight tender to deep palpation, but no peritoneal signs, Soft Vital Signs Temp Pulse Resp BP Pulse Ox 97.9 F 112 H 20 H 119/61 92 07/19/17 08:22 07/19/17 09:00 07/19/17 08:22 07/19/17 08:22 07/19/17 08:22 Oxygen Delivery Method Room Air Weight: 126.4 kg Body Mass Index (BMI) 37.8 Intake and Output for Last 24 Hours 07/17/17 07/18/17 07/19/17 23:59 23:59 23:59 Intake Total 4495 / 4495 3771 / 3771 1200 / 1200 Output Total 0 / 0 0 / 0 Balance 4495 / 4495 3771 / 3771 1200 / 1200 Laboratory Tests Past 24 Hrs 07/19/17 06:45 Sodium 141 Potassium 3.0 L Chloride 109 H Carbon Dioxide 22.0 Anion Gap 10 BUN 7 Creatinine 0.29 L Estim Creat Clear Calc 327.05 Est GFR (MDRD) Af Amer 418 Est GFR (MDRD) Non-Af 345 BUN/Creatinine Ratio 24.0 H Glucose 52 L Calcium 7.3 L Total Bilirubin 1.00 Direct Bilirubin 0.55 H AST 100 H ALT 150 H Alkaline Phosphatase 179 H Total Protein 4.9 L Albumin 2.0 L Globulin 2.9 Lipase 1654 H Medical Necessity - Tobacco Use Smoking Status: Former smoker Assessment/Plan All Active Problems (Last Updated 07/16/17 @ 15:07 by Day Aldana MD) Metastasis to adrenal gland (Acute) Bone metastases (Acute) Acute pancreatitis (Acute) Impression: recurrent episodes of pancreatitis Discussion/Plan: At this point, I have no surgical recommendations to offer the patient. Continue observation and supportive care.
[2017-07-19] MEDS: Magnesium Hydroxide 30 ML UDC PO (11:03)
[2017-07-19] MEDS: Docusate Sodium 100 MG Capsule 200 MG PO (12:26)
[2017-07-19] MEDS: HYDROmorphone 1 MG/ML Syringe IV ×2 (20:25→23:32)
[2017-07-19] MEDS: Memantine Hydrochloride 5 MG Tablet PO (22:01)
[2017-07-19] MEDS: proMETHazine 25 MG/ML Syringe 6.25 MG IV (22:23)
[2017-07-20] VITALS (9 sets, daily range): BP systolic 106–155; BP diastolic 64–88; PULSE 108–127; RESP 18–20; TEMP 36.3–37.5; O2SAT 92–95
[2017-07-20] MEDS: oxyCODONE 5 MG Tablet 10 MG PO ×3 (02:27→22:14)
[2017-07-20] MEDS: Potassium Chloride 40 MEQ in 0.9% Normal Saline 1,000 ML 100 MEQ IV ×2 (04:02→17:21)
[2017-07-20] MEDS: Enoxaparin 40 MG/0.4 ML Syringe SC (05:49)
[2017-07-20] MEDS: proMETHazine 25 MG/ML Syringe 6.25 MG IV (05:49)
[2017-07-20 06:39] LABS: Absolute Lymphocyte Count 0.27 X10^3/ul (0.83-4.51); Absolute Neutrophil Count 5.5 X10^3/uL (2.0-7.7); Basophil# 0.02 X10^3/uL; Basophil% 0.3 % (0-1); Eosinophil# 0.23 X10^3/uL; Eosinophils% 3.5 % (0-5); Hematocrit 41.1 % (40-54); Hemoglobin 13.3 g/dl (13.0-16.5); Lymphocyte # 0.27 X10^3/ul (4.0); Lymphocyte % 4.1 % (19-41); Mean Corp Hgb Conc 32.4 g/gl (32-36); Mean Corpuscular Hgb 31.6 pg (27.0-32.0); Mean Corpuscular Volume 97.6 fL (80-94); Mean Platelet Vol. 11.6 fl (6.2-12.0); Monocyte# 0.51 X10^3/uL; Monocyte% 7.8 % (0-10); Neutrophil # 5.47 X10^3/uL (2.7-7.7); Neutrophil % 83.5 % (47-70); Platelet Count 136 K/mm3 (150-450); RBC Distribution Width SD 56.2 fl (35.1-43.9); Red Blood Count 4.21 M/mm3 (4.6-6.2); White Blood Count 6.6 K/mm3 (4.4-11.0)
[2017-07-20 06:40] LABS: Differential Indicated SCAN CRITERIA MET; POSITIVE COUNT NO; POSITIVE DIFFERENTIAL YES; POSITIVE MORPHOLOGY NO
[2017-07-20 06:56] LABS: ALB/GLOB Ratio 0.7 RATIO (0.9-2.4); AST(SGOT) 135 U/L (15-37); Alanine Aminotransfer ALT/SGPT 178 U/L (16-61); Albumin, Serum 2.3 g/dL (3.2-5.0); Alkaline Phosphatase 268 U/L (45-117); Anion Gap 8 (5-15); BUN 4 mg/dL (7-18); BUN/Creat Ratio 9.7 RATIO (10-20); Calcium,Total 8.6 mg/dL (8.5-10.1); Chloride 106 mmol/L (98-107); Creatinine, Serum 0.41 mg/dL (0.70-1.30); EST Glomerular Filtration Rate 231 mL/min (>60); Est Glom Filt Rate - Afr Amer 279 mL/min (>60); Estimated Creatinine Clearance 231.33 ml/min; Globulin 3.4 g/dL (2.2-4.2); Glucose 99 mg/dL (74-106); Magnesium 1.6 mg/dL (1.6-2.6); Phosphorus 1.9 mg/dL (2.5-4.9); Potassium 3.7 mmol/L (3.5-5.1); Protein, Total 5.7 g/dL (6.4-8.2); Sodium Level 139 mmol/L (136-145)
[2017-07-20 07:07] LABS: Differential Comment SCANNED
--- NOTE | 2017-07-20 07:42 | PCM.PN.HOSP ---
Patient Problems: Active and Suspected Problems (Last Updated 07/16/17 @ 15:07 by Day Aldana MD) Metastasis to adrenal gland (Acute) Bone metastases (Acute) Acute pancreatitis (Acute) Subjective: The patient had tachycardia, heart rate in 120s about 8 PM and lasted for about 3 hours after he had dinner with soft diet. Patient also had abdominal pain, 8-10/10 intensity and required pain medications. Labs reviewed. Liver enzymes and alkaline phosphatase went up but not big jump. No fever Currently, patient has mild abdominal discomfort. Has moved bowel which is brownish in color but no blood or melena. Vitals/I&O's: Vital Signs Temp Pulse Resp BP Pulse Ox 97.4 F L 116 H 18 136/88 H 93 07/20/17 02:20 07/20/17 02:20 07/20/17 02:20 07/20/17 02:20 07/20/17 02:20 Oxygen Delivery Method Room Air Weight: 278 lb 10.629 oz Body Mass Index (BMI) 37.8 Intake and Output for Last 24 Hours 07/18/17 07/19/17 07/20/17 23:59 23:59 23:59 Intake Total 3771 / 3771 2040 / 0 620 / 620 Output Total 0 / 0 Balance 3771 / 3771 2039 / 2039 620 / 620 General: Alert, Oriented x3, Cooperative HEENT: Atraumatic, PERRLA, EOMI, Normocephalic Neck: Supple, No JVD, Negative Carotid Bruits Lungs: Clear to auscultation, Normal air movement Cardiovascular: Regular Rhythm, Normal S1, Normal S2, No murmurs, Tachycardic Abdomen: Bowel Sounds Present, Soft, Non Tender, Non-Distended Extremities: No edema, Capillary Refill Less than 3 Seconds Skin: No rashes, No breakdown Musculoskeletal: No Tenderness to Palpation of Joints or Extremities Neurological: Cranial nerves II-XII grossly intact Psych/Mental Status: Normal Affect, Appropriate Laboratory Results 07/20/17 06:25: WBC 6.6, RBC 4.21 L, Hgb 13.3, Hct 41.1, MCV 97.6 H, MCH 31.6, MCHC 32.4, RDW 16.0 H, RDW Differential 56.2 H, Plt Count 136 L, MPV 11.6, Immature Gran % (Auto) 0.800, Neut % (Auto) 83.5 H, Lymph % (Auto) 4.1 L, Pine % (Auto) 7.8, Eos % (Auto) 3.5, Baso % (Auto) 0.3, Absolute Neuts (auto) 5.5, Absolute Lymphs (auto) 0.27 L, Total Counted Not Reportable, Differential Comment SCANNED 07/20/17 06:25: Sodium 139, Potassium 3.7, Chloride 106, Carbon Dioxide 25.0, Anion Gap 8, BUN 4 L, Creatinine 0.41 L, Estim Creat Clear Calc 231.33, Est GFR (MDRD) Af Amer 279, Est GFR (MDRD) Non-Af 231, BUN/Creatinine Ratio 9.7 L, Glucose 99, Calcium 8.6, Phosphorus 1.9 L, Magnesium 1.6, Total Bilirubin 1.00, AST 135 H, ALT 178 H, Alkaline Phosphatase 268 H, Total Protein 5.7 L, Albumin 2.3 L, Globulin 3.4, Albumin/Globulin Ratio 0.7 L Current Medications Albuterol Sulfate (Ventolin Aerosols) 2.5 mg INHALATION Q4H PRN PRN PRN Reason: Shortness of breath, wheezing Last Admin: 07/16/17 21:03 Dose: 2.5 mg Benzonatate (Tessalon Perle) 100 mg PO TID PRN PRN PRN Reason: cough Last Admin: 07/17/17 07:18 Dose: 100 mg Chlorpromazine HCl (Thorazine) 25 mg PO 4X/DAY PRN PRN Reason: HICCUPS Last Admin: 07/19/17 06:33 Dose: 25 mg Docusate Sodium (Colace) 200 mg PO TID PRN PRN PRN Reason: Constipation Last Admin: 07/19/17 12:26 Dose: 200 mg Enoxaparin Sodium (Lovenox) 40 mg SC DAILY@0600 JULIANNE Last Admin: 07/20/17 05:49 Dose: 40 mg Hydromorphone HCl (Dilaudid Inj) 1 - 2 mg IV Q3H PRN PRN PRN Reason: SEVERE PAIN (6-10/10) Last Admin: 07/19/17 23:32 Dose: 2 mg Pantoprazole Sodium 40 mg/ (Sodium Chloride) 110 mls @ 330 mls/hr IV Q12 [facility] Last Admin: 07/19/17 22:02 Dose: 330 mls/hr Potassium Chloride 40 meq/ (Sodium Chloride) 1,020 mls @ 100 mls/hr IV .[id number] [facility] Last Admin: 07/20/17 04:52 Dose: Not Given Magnesium Hydroxide (Milk Of Magnesia) 30 ml PO DAILY PRN PRN PRN Reason: Constipation Last Admin: 07/19/17 11:03 Dose: 30 ml Memantine (Namenda) 10 mg PO DAILY [facility] Stop: 07/21/17 10:01 Last Admin: 07/19/17 09:00 Dose: 10 mg Memantine (Namenda) 10 mg PO BID [facility] Memantine (Namenda) 5 mg PO QHS [facility] Last Admin: 07/19/17 22:01 Dose: 5 mg Metoprolol Tartrate (Lopressor (Beta Leticia)) 25 mg PO BID [facility] Last Admin: 07/19/17 22:01 Dose: 25 mg Ondansetron HCl (Zofran) 4 mg IV Q6H PRN PRN PRN Reason: NAUSEA/VOMITING Last Admin: 07/19/17 18:28 Dose: 4 mg Oxycodone HCl (Oxyir) 10 mg PO Q4H PRN PRN PRN Reason: SEVERE PAIN (6-10/10) Last Admin: 07/20/17 02:27 Dose: 10 mg Promethazine HCl (Phenergan) 6.25 mg IV Q6H PRN PRN PRN Reason: NAUSEA/VOMITING Last Admin: 07/20/17 05:49 Dose: 6.25 mg Sodium Chloride () 5 - 30 ml IV UD PRN PRN Reason: SALINE FLUSH Last Admin: 07/19/17 06:46 Dose: 30 ml Medical Necessity - Tobacco Use Smoking Status: Former smoker Assessment/Plan All Active Problems (Last Updated 07/16/17 @ 15:07 by Day Aldana MD) Metastasis to adrenal gland (Acute) Bone metastases (Acute) Acute pancreatitis (Acute) Patient is a 52-year-old male admitted 07/16/2017 due to abdominal pain, nausea, vomiting. He has a past medical history of COPD, chronic hypoxic respiratory failure, morbid obesity, hypertension, small cell lung cancer with metastasis. In brief, patient is admitted for acute on recurrent pancreatitis. LFTs are elevated But total bilirubin normal. he was discharged on 08/04/2017 for acute [address]itis. CT abdomen on July 06, 2017 shows interval development of celiac lymph node largest node measures 2.8 x 2.5 cm along with mild acute pancreatitis with pancreatic head but no gallstones or evidence of acute cholecystitis. New metastatic lesion found on left adrenal and right adrenal gland. Normal gallbladder and extrahepatic biliary system. Normal spleen. 1. Acute on recurrent pancreatitis; exact etiology unclear but rare causes including prednisone or paraneoplastic/paracrine hormones from small cell cancer: -Diet is reversed BACK TO clear liquids. continue IV fluids, IV antiemetics and IV Dilaudid as needed for pain. Follow LFT and lipase. MRCP showed stranding adjacent to the pancreas, consistent with pancreatitis. No gallstones or ductal stones identified. No biliary duct dilatation. Discussed with Dr. Mahmood and Dr. Egan. Exact etiology is unclear. Surgical note reviewed and no surgical indication. 2. Elevated LFTs-gallbladder ultrasound shows hepatomegaly, gallbladder polyps, no ascites, limited visualization of pancreas. History of elevated LFTs. ALT AST and ALT and alkaline phosphatase improving. 3. 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 Patient to undergo palliative brain radiation today with final treatment tomorrow, , 07/19/2017. He will then further follow-up as outpatient with her chemotherapy and plan of care recommendations. Per Dr. Fofana, hospice was recently discussed with patient due to poor prognosis. Patient was not interested at that time but will be reevaluated and oncology in the future. 4. Hypertension-stable, continue current regimen. 5. Chronic hypoxic respiratory failure secondary to chronic COPD-continue supplemental oxygen as needed to maintain O2 at or above 90%. 6. Morbid obesity-encouraged diet and lifestyle modifications. DVT prophylaxis-Lovenox subcu. Laboratory Results 07/20/17 06:25: WBC 6.6, RBC 4.21 L, Hgb 13.3, Hct 41.1, MCV 97.6 H, MCH 31.6, MCHC 32.4, RDW 16.0 H, RDW Differential 56.2 H, Plt Count 136 L, MPV 11.6, Immature Gran % (Auto) 0.800, Neut % (Auto) 83.5 H, Lymph % (Auto) 4.1 L, Pine % (Auto) 7.8, Eos % (Auto) 3.5, Baso % (Auto) 0.3, Absolute Neuts (auto) 5.5, Absolute Lymphs (auto) 0.27 L, Total Counted Not Reportable, Differential Comment SCANNED 07/20/17 06:25: Sodium 139, Potassium 3.7, Chloride 106, Carbon Dioxide 25.0, Anion Gap 8, BUN 4 L, Creatinine 0.41 L, Estim Creat Clear Calc 231.33, Est GFR (MDRD) Af Amer 279, Est GFR (MDRD) Non-Af 231, BUN/Creatinine Ratio 9.7 L, Glucose 99, Calcium 8.6, Phosphorus 1.9 L, Magnesium 1.6, Total Bilirubin 1.00, AST 135 H, ALT 178 H, Alkaline Phosphatase 268 H, Total Protein 5.7 L, Albumin 2.3 L, Globulin 3.4, Albumin/Globulin Ratio 0.7 L 07/19/17 06:45: Sodium 141, Potassium 3.0 L, Chloride 109 H, Carbon Dioxide 22.0, Anion Gap 10, BUN 7, Creatinine 0.29 L, Estim Creat Clear Calc 327.05, Est GFR (MDRD) Af Amer 418, Est GFR (MDRD) Non-Af 345, BUN/Creatinine Ratio 24.0 H, Glucose 52 L, Calcium 7.3 L, Total Bilirubin 1.00, Direct Bilirubin 0.55 H, AST 100 H, ALT 150 H, Alkaline Phosphatase 179 H, Total Protein 4.9 L, Albumin 2.0 L, Globulin 2.9, Lipase 1654 H Clinical Impression(s) from Imaging Studies Gallbladder Ultrasound 07/16/17 16:48 IMPRESSION: Hepatomegaly. Gallbladder polyps. Limited visualization of the pancreas. No ascites. MRCP 07/17/17 13:44 IMPRESSION: Study significantly limited by patient motion. Stranding adjacent to the pancreas, consistent with pancreatitis. No gallstones or ductal stones identified. No biliary duct dilatation. Diffuse heterogeneous appearance throughout the liver which may represent purely osseous. If indicated, a dedicated liver protocol MRI can be performed. Abnormal marrow signal noted in the sternum, ribs and visualized spine which is suspicious for metastasis. If indicated, a dedicated spine MRI can be performed. Upper abdominal lymphadenopathy which is unchanged when compared with the CT dated 07/06/2017. Code Visit Inpatient E&M: 70576 Subs Hosp L3
[2017-07-20] MEDS: Memantine Hydrochloride 5 MG Tablet 10 MG PO (08:49)
[2017-07-20] MEDS: Metoprolol Tartrate 25 MG Tablet PO ×2 (08:49→22:08)
[2017-07-20] MEDS: Docusate Sodium 100 MG Capsule 200 MG PO ×2 (09:20→22:08)
[2017-07-20] MEDS: Ondansetron 4 MG/2 ML Vial IV ×2 (12:03→22:15)
[2017-07-20] MEDS: HYDROmorphone 1 MG/ML Syringe IV ×4 (12:03→23:56)
[2017-07-20] MEDS: Albuterol 2.5 MG/3 ML VIAL.NEB. INHALATION (15:57)
--- NOTE | 2017-07-20 17:42 | PCM.PN.SRG ---
Patient Problems: Active and Suspected Problems (Last Updated 07/16/17 @ 15:07 by Day Aldana MD) Metastasis to adrenal gland (Acute) Bone metastases (Acute) Acute pancreatitis (Acute) Subjective: patient developed recurrence of abdominal pain decreased lipase, however, rising LFTs - Physical Exam Vital Signs Temp Pulse Resp BP Pulse Ox 98.5 F 113 H 18 121/64 H 95 07/20/17 16:06 07/20/17 16:06 07/20/17 16:06 07/20/17 16:06 07/20/17 16:06 Oxygen Delivery Method Room Air Weight: 126.4 kg Body Mass Index (BMI) 37.8 Intake and Output for Last 24 Hours 07/18/17 07/19/17 07/20/17 23:59 23:59 23:59 Intake Total 3771 / 3771 2039 / 0 1451 / 1451 Output Total 0 / 0 Balance 3771 / 3771 2039 / 2039 1451 / 1451 Laboratory Tests Past 24 Hrs 07/20/17 07/20/17 06:25 06:25 WBC 6.6 RBC 4.21 L Hgb 13.3 Hct 41.1 MCV 97.6 H MCH 31.6 MCHC 32.4 RDW 16.0 H RDW Differential 56.2 H Plt Count 136 L MPV 11.6 Immature Gran % (Auto) 0.800 Neut % (Auto) 83.5 H Lymph % (Auto) 4.1 L [place] % (Auto) 7.8 Eos % (Auto) 3.5 Baso % (Auto) 0.3 Absolute Neuts (auto) 5.5 Absolute Lymphs (auto) 0.27 L Total Counted Not Reportable Differential Comment SCANNED Sodium 139 Potassium 3.7 Chloride 106 Carbon Dioxide 25.0 Anion Gap 8 BUN 4 L Creatinine 0.41 L Estim Creat Clear Calc 231.33 Est GFR (MDRD) Af Amer 279 Est GFR (MDRD) Non-Af 231 BUN/Creatinine Ratio 9.7 L Glucose 99 Calcium 8.6 Phosphorus 1.9 L Magnesium 1.6 Total Bilirubin 1.00 AST 135 H ALT 178 H Alkaline Phosphatase 268 H Total Protein 5.7 L Albumin 2.3 L Globulin 3.4 Albumin/Globulin Ratio 0.7 L Medical Necessity - Tobacco Use Smoking Status: Former smoker Assessment/Plan All Active Problems (Last Updated 07/16/17 @ 15:07 by Day Aldana MD) Metastasis to adrenal gland (Acute) Bone metastases (Acute) Acute pancreatitis (Acute) Impression: recurrent episodes of pancreatitis left upper quadrant abdominal pain Discussion/Plan: At this point, I have no surgical recommendations to offer the patient. Continue observation and supportive care. I will sign off case - please let me know if there are any new developments that require surgical services, thank you
[2017-07-20] MEDS: Memantine Hydrochloride 5 MG Tablet PO (22:09)
[2017-07-21 02:18] VITALS: BP 101/65; PULSE 108; RESP 18; TEMP 36.6; O2SAT 92
[2017-07-21] MEDS: Potassium Chloride 40 MEQ in 0.9% Normal Saline 1,000 ML 100 MEQ IV ×2 (03:15→14:56)
[2017-07-21] MEDS: proMETHazine 25 MG/ML Syringe 6.25 MG IV ×4 (03:40→22:45)
[2017-07-21] MEDS: HYDROmorphone 1 MG/ML Syringe IV ×7 (03:41→22:44)
[2017-07-21 05:34] LABS: Absolute Lymphocyte Count 0.55 X10^3/ul (0.83-4.51); Absolute Neutrophil Count 5.6 X10^3/uL (2.0-7.7); Basophil# 0.01 X10^3/uL; Basophil% 0.2 % (0-1); Eosinophil# 0.26 X10^3/uL; Eosinophils% 3.9 % (0-5); Hematocrit 41.3 % (40-54); Hemoglobin 13.1 g/dl (13.0-16.5); Lymphocyte # 0.55 X10^3/ul (4.0); Lymphocyte % 8.3 % (19-41); Mean Corp Hgb Conc 31.7 g/gl (32-36); Mean Corpuscular Hgb 30.8 pg (27.0-32.0); Mean Corpuscular Volume 97.2 fL (80-94); Mean Platelet Vol. 11.1 fl (6.2-12.0); Monocyte# 0.22 X10^3/uL; Monocyte% 3.3 % (0-10); Neutrophil # 5.58 X10^3/uL (2.7-7.7); Neutrophil % 83.7 % (47-70); Platelet Count 127 K/mm3 (150-450); RBC Distribution Width CV 16.1 % (11.6-14.6); RBC Distribution Width SD 57.7 fl (35.1-43.9); Red Blood Count 4.25 M/mm3 (4.6-6.2); White Blood Count 6.7 K/mm3 (4.4-11.0)
[2017-07-21 05:35] LABS: Differential Indicated SCAN CRITERIA MET; POSITIVE COUNT NO; POSITIVE DIFFERENTIAL YES; POSITIVE MORPHOLOGY NO
[2017-07-21 05:50] LABS: BUN 3 mg/dL (7-18); Creatinine, Serum 0.36 mg/dL (0.70-1.30); Glucose 76 mg/dL (74-106)
[2017-07-21 05:51] LABS: ALB/GLOB Ratio 0.7 RATIO (0.9-2.4); AST(SGOT) 122 U/L (15-37); Alanine Aminotransfer ALT/SGPT 166 U/L (16-61); Albumin, Serum 2.3 g/dL (3.2-5.0); Alkaline Phosphatase 253 U/L (45-117); Anion Gap 7 (5-15); BUN/Creat Ratio 8.3 RATIO (10-20); Calcium,Total 8.6 mg/dL (8.5-10.1); Chloride 106 mmol/L (98-107); EST Glomerular Filtration Rate 270 mL/min (>60); Est Glom Filt Rate - Afr Amer 327 mL/min (>60); Globulin 3.4 g/dL (2.2-4.2); Lipase 1663 U/L (73-393); Potassium 4.3 mmol/L (3.5-5.1); Protein, Total 5.7 g/dL (6.4-8.2); Sodium Level 140 mmol/L (136-145)
[2017-07-21] MEDS: Enoxaparin 40 MG/0.4 ML Syringe SC (06:52)
[2017-07-21 08:20] VITALS: BP 101/55; PULSE 116; RESP 18; TEMP 36.8; O2SAT 96
--- NOTE | 2017-07-21 09:25 | PN_ITS ---
Patient Problems: Active and Suspected Problems (Last Updated 07/16/17 @ 15:07 by Day Aldana MD) Metastasis to adrenal gland (Acute) Bone metastases (Acute) Acute pancreatitis (Acute) Subjective: Patient has better night yesterday. His heart rate was in 110s. As per his 's his heart rate always remained 110s. T-max 99.5. Labs reviewed Vitals/I&O's: Vital Signs Temp Pulse Resp BP Pulse Ox 97.9 F 108 H 18 101/65 92 07/21/17 02:18 07/21/17 02:18 07/21/17 02:18 07/21/17 02:18 07/21/17 02:18 Oxygen Delivery Method Room Air Weight: 278 lb 10.629 oz Body Mass Index (BMI) 37.8 Intake and Output for Last 24 Hours 07/19/17 07/20/17 07/21/17 23:59 23:59 23:59 Intake Total 2039 3291 / 3291 861 / 861 Output Total 800 / 800 Balance 2039 2491 / 2491 861 / 861 General: Alert, Oriented x3, Cooperative HEENT: Atraumatic, PERRLA, EOMI, Normocephalic Neck: Supple, No JVD, Negative Carotid Bruits Lungs: Clear to auscultation, Diminished - Bilateral lung bases Cardiovascular: Regular rate, No murmurs Abdomen: Bowel Sounds Present, Soft, Hypoactive Bowel Sounds, Tender - tenderness deep palpation present in epigastric and left upper quadrant. Extremities: No edema, Capillary Refill Less than 3 Seconds Skin: No rashes, No breakdown Musculoskeletal: No Tenderness to Palpation of Joints or Extremities Neurological: Cranial nerves II-XII grossly intact Psych/Mental Status: Normal Affect, Appropriate Laboratory Results 07/21/17 05:13: WBC 6.7, RBC 4.25 L, Hgb 13.1, Hct 41.3, MCV 97.2 H, MCH 30.8, MCHC 31.7 L, RDW 16.1 H, RDW Differential 57.7 H, Plt Count 127 L, MPV 11.1, Immature Gran % (Auto) 0.600, Neut % (Auto) 83.7 H, Lymph % (Auto) 8.3 L, [place] % (Auto) 3.3, Eos % (Auto) 3.9, Baso % (Auto) 0.2, Absolute Neuts (auto) 5.6, Absolute Lymphs (auto) 0.55 L, Total Counted Not Reportable, Differential Comment 07/21/17 05:13: Sodium 140, Potassium 4.3, Chloride 106, Carbon Dioxide 27.0, Anion Gap 7, BUN 3 L, Creatinine 0.36 L, Estim Creat Clear Calc 263.46, Est GFR (MDRD) Af Amer 327, Est GFR (MDRD) Non-Af 270, BUN/Creatinine Ratio 8.3 L, Glucose 76, Calcium 8.6, Total Bilirubin 1.20 H, AST 122 H, ALT 166 H, Alkaline Phosphatase 253 H, Total Protein 5.7 L, Albumin 2.3 L, Globulin 3.4, Albumin/ Globulin Ratio 0.7 L, Lipase 1663 H Current Medications Albuterol Sulfate (Ventolin Aerosols) 2.5 mg INHALATION Q4H PRN PRN PRN Reason: Shortness of breath, wheezing Last Admin: 07/20/17 15:57 Dose: 2.5 mg Benzonatate (Tessalon Perle) 100 mg PO TID PRN PRN PRN Reason: cough Last Admin: 07/17/17 07:18 Dose: 100 mg Chlorpromazine HCl (Thorazine) 25 mg PO 4X/DAY PRN PRN Reason: HICCUPS Last Admin: 07/19/17 06:33 Dose: 25 mg Docusate Sodium (Colace) 200 mg PO BID [facility] Last Admin: 07/20/17 22:08 Dose: 200 mg Enoxaparin Sodium (Lovenox) 40 mg SC DAILY@0600 [facility] Last Admin: 07/21/17 06:52 Dose: 40 mg Hydromorphone HCl (Dilaudid Inj) 1 - 2 mg IV Q3H PRN PRN PRN Reason: SEVERE PAIN (6-10/10) Last Admin: 07/21/17 03:41 Dose: 2 mg Pantoprazole Sodium 40 mg/ (Sodium Chloride) 110 mls @ 330 mls/hr IV Q12 [facility] Last Admin: 07/20/17 22:09 Dose: 330 mls/hr Potassium Chloride 40 meq/ (Sodium Chloride) 1,020 mls @ 100 mls/hr IV .[id number] [facility] Last Admin: 07/21/17 03:15 Dose: 100 mls/hr Magnesium Hydroxide (Milk Of Magnesia) 30 ml PO DAILY PRN PRN PRN Reason: Constipation Last Admin: 07/19/17 11:03 Dose: 30 ml Memantine (Namenda) 10 mg PO DAILY [facility] Stop: 07/21/17 10:01 Last Admin: 07/20/17 08:49 Dose: 10 mg Memantine (Namenda) 10 mg PO BID [facility] Memantine (Namenda) 5 mg PO QHS [facility] Last Admin: 07/20/17 22:09 Dose: 5 mg Metoprolol Tartrate (Lopressor (Beta Leticia)) 25 mg PO BID [facility] Last Admin: 07/20/17 22:08 Dose: 25 mg Ondansetron HCl (Zofran) 4 mg IV Q6H PRN PRN PRN Reason: NAUSEA/VOMITING Last Admin: 07/20/17 22:15 Dose: 4 mg Oxycodone HCl (Oxyir) 10 mg PO Q4H PRN PRN PRN Reason: SEVERE PAIN (-11/14) Last Admin: 07/20/17 22:14 Dose: 10 mg Promethazine HCl (Phenergan) 6.25 mg IV Q6H PRN PRN PRN Reason: NAUSEA/VOMITING Last Admin: 07/21/17 03:40 Dose: 6.25 mg Sodium Chloride () 5 - 30 ml IV UD PRN PRN Reason: SALINE FLUSH Last Admin: 07/19/17 06:46 Dose: 30 ml Medical Necessity - Tobacco Use Smoking Status: Former smoker Assessment/Plan All Active Problems (Last Updated 07/16/17 @ 15:07 by Day Aldana MD) Metastasis to adrenal gland (Acute) Bone metastases (Acute) Acute pancreatitis (Acute) Patient is a 52-year-old male admitted 07/16/2017 due to abdominal pain, nausea, vomiting. He has a past medical history of COPD, chronic hypoxic respiratory failure, morbid obesity, hypertension, small cell lung cancer with metastasis. In brief, patient is admitted for acute on recurrent pancreatitis. LFTs are elevated But total bilirubin normal. he was discharged on 08/04/2017 for acute [address]. [address] abdomen on July 06, 2017 shows interval development of celiac lymph node largest node measures 2.8 x 2.5 cm along with mild acute pancreatitis with pancreatic head but no gallstones or evidence of acute cholecystitis. New metastatic lesion found on left adrenal and right adrenal gland. Normal gallbladder and extrahepatic biliary system. Normal spleen. 1. Acute on recurrent pancreatitis; exact etiology unclear but rare causes including prednisone or paraneoplastic/paracrine hormones from small cell cancer : -Diet is reversed BACK TO clear liquids. continue IV fluids, IV antiemetics and IV Dilaudid as needed for pain. Follow LFT and lipase. MRCP showed stranding adjacent to the pancreas, consistent with pancreatitis. No gallstones or ductal stones identified. No biliary duct dilatation. Discussed with Dr. Mahmood and Dr. Egan. Exact etiology is unclear. Surgical note reviewed and no surgical indication. Surgery signed off. Patient wants to go home still has deep tenderness, LFTs and lipase elevated and on clear liquid diets. 2. Elevated LFTs-gallbladder ultrasound shows hepatomegaly, gallbladder polyps , no ascites, limited visualization of pancreas. History of elevated LFTs. ALT AST and ALT and alkaline phosphatase improving. 3. 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 Patient to undergo palliative brain radiation today with final treatment tomorrow, , 07/19/2017. He will then further follow-up as outpatient with her chemotherapy and plan of care recommendations. Per Dr. Fofana, hospice was recently discussed with patient due to poor prognosis. Patient was not interested at that time but will be reevaluated and oncology in the future. 4. Hypertension-stable, continue current regimen. 5. Chronic hypoxic respiratory failure secondary to chronic COPD-continue supplemental oxygen as needed to maintain O2 at or above 90%. 6. Morbid obesity-encouraged diet and lifestyle modifications. DVT prophylaxis-Lovenox subcu. Laboratory Results 07/21/17 05:13: WBC 6.7, RBC 4.25 L, Hgb 13.1, Hct 41.3, MCV 97.2 H, MCH 30.8, MCHC 31.7 L, RDW 16.1 H, RDW Differential 57.7 H, Plt Count 127 L, MPV 11.1, Immature Gran % (Auto) 0.600, Neut % (Auto) 83.7 H, Lymph % (Auto) 8.3 L, [place] % (Auto) 3.3, Eos % (Auto) 3.9, Baso % (Auto) 0.2, Absolute Neuts (auto) 5.6, Absolute Lymphs (auto) 0.55 L, Total Counted Not Reportable, Differential Comment 07/21/17 05:13: Sodium 140, Potassium 4.3, Chloride 106, Carbon Dioxide 27.0, Anion Gap 7, BUN 3 L, Creatinine 0.36 L, Estim Creat Clear Calc 263.46, Est GFR (MDRD) Af Amer 327, Est GFR (MDRD) Non-Af 270, BUN/Creatinine Ratio 8.3 L, Glucose 76, Calcium 8.6, Total Bilirubin 1.20 H, AST 122 H, ALT 166 H, Alkaline Phosphatase 253 H, Total Protein 5.7 L, Albumin 2.3 L, Globulin 3.4, Albumin/ Globulin Ratio 0.7 L, Lipase 1663 H 07/20/17 06:25: WBC 6.6, RBC 4.21 L, Hgb 13.3, Hct 41.1, MCV 97.6 H, MCH 31.6, MCHC 32.4, RDW 16.0 H, RDW Differential 56.2 H, Plt Count 136 L, MPV 11.6, Immature Gran % (Auto) 0.800, Neut % (Auto) 83.5 H, Lymph % (Auto) 4.1 L, [place] % (Auto) 7.8, Eos % (Auto) 3.5, Baso % (Auto) 0.3, Absolute Neuts (auto) 5.5, Absolute Lymphs (auto) 0.27 L, Total Counted Not Reportable, Differential Comment SCANNED 07/20/17 06:25: Sodium 139, Potassium 3.7, Chloride 106, Carbon Dioxide 25.0, Anion Gap 8, BUN 4 L, Creatinine 0.41 L, Estim Creat Clear Calc 231.33, Est GFR (MDRD) Af Amer 279, Est GFR (MDRD) Non-Af 231, BUN/Creatinine Ratio 9.7 L, Glucose 99, Calcium 8.6, Phosphorus 1.9 L, Magnesium 1.6, Total Bilirubin 1.00, AST 135 H, ALT 178 H, Alkaline Phosphatase 268 H, Total Protein 5.7 L, Albumin 2.3 L, Globulin 3.4, Albumin/Globulin Ratio 0.7 L Clinical Impression(s) from Imaging Studies Gallbladder Ultrasound 07/16/17 16:48 IMPRESSION: Hepatomegaly. Gallbladder polyps. Limited visualization of the pancreas. No ascites. MRCP 07/17/17 13:44 IMPRESSION: Study significantly limited by patient motion. Stranding adjacent to the pancreas, consistent with pancreatitis. No gallstones or ductal stones identified. No biliary duct dilatation. Diffuse heterogeneous appearance throughout the liver which may represent purely osseous. If indicated, a dedicated liver protocol MRI can be performed. Abnormal marrow signal noted in the sternum, ribs and visualized spine which is suspicious for metastasis. If indicated, a dedicated spine MRI can be performed. Upper abdominal lymphadenopathy which is unchanged when compared with the CT dated 07/06/2017. Code Visit Inpatient E&M: 78302 Subs Hosp L3
[2017-07-21] MEDS: 0.9% NaCl Peripheral Flush Adult/Peds IV ×5 (09:55→19:21)
--- NOTE | 2017-07-21 10:08 | NURSING ---
Pt. requesting prn nausea med and pain med- same given. refusing medications PO at this time due to nausea- will offer later.
[2017-07-21 14:21] VITALS: BP 114/87; PULSE 130; RESP 18; TEMP 37; O2SAT 95
[2017-07-21] MEDS: Ondansetron 4 MG/2 ML Vial IV (15:02)
[2017-07-21] MEDS: Memantine Hydrochloride 5 MG Tablet PO (16:08)
[2017-07-21 16:09] VITALS: PULSE 130
[2017-07-21] MEDS: Metoprolol Tartrate 25 MG Tablet PO ×2 (16:09→22:43)
[2017-07-21] MEDS: Docusate Sodium 100 MG Capsule 200 MG PO ×2 (16:09→22:44)
[2017-07-21] MEDS: oxyCODONE 5 MG Tablet 10 MG PO ×2 (17:30→23:19)
[2017-07-21] MEDS: ChlorproMAZINE 25 MG Tablet PO (17:39)
[2017-07-21 20:20] VITALS: BP 140/85; PULSE 126; RESP 16; TEMP 36.8; O2SAT 94
[2017-07-21 22:43] VITALS: PULSE 126
[2017-07-22] MEDS: Potassium Chloride 40 MEQ in 0.9% Normal Saline 1,000 ML 100 MEQ IV ×2 (01:09→12:21)
[2017-07-22] MEDS: oxyCODONE 5 MG Tablet 10 MG PO ×3 (03:29→13:22)
[2017-07-22] MEDS: Ondansetron 4 MG/2 ML Vial IV ×2 (03:33→09:51)
[2017-07-22 03:38] VITALS: BP 93/60; PULSE 110; RESP 16; TEMP 36.5; O2SAT 94
[2017-07-22] MEDS: HYDROmorphone 1 MG/ML Syringe IV ×3 (03:54→14:03)
[2017-07-22] MEDS: proMETHazine 25 MG/ML Syringe 6.25 MG IV ×2 (04:47→10:47)
[2017-07-22] MEDS: Enoxaparin 40 MG/0.4 ML Syringe SC (05:33)
[2017-07-22 09:19] LABS: Absolute Lymphocyte Count 0.53 X10^3/ul (0.83-4.51); Absolute Neutrophil Count 4.6 X10^3/uL (2.0-7.7); Basophil# 0.01 X10^3/uL; Basophil% 0.2 % (0-1); Eosinophil# 0.21 X10^3/uL; Eosinophils% 3.7 % (0-5); Hematocrit 40.9 % (40-54); Hemoglobin 12.9 g/dl (13.0-16.5); Lymphocyte # 0.53 X10^3/ul (4.0); Lymphocyte % 9.3 % (19-41); Mean Corp Hgb Conc 31.5 g/gl (32-36); Mean Corpuscular Hgb 30.6 pg (27.0-32.0); Mean Corpuscular Volume 97.1 fL (80-94); Mean Platelet Vol. 11.3 fl (6.2-12.0); Monocyte# 0.33 X10^3/uL; Monocyte% 5.8 % (0-10); Neutrophil % 80.3 % (47-70); Platelet Count 132 K/mm3 (150-450); RBC Distribution Width CV 16.4 % (11.6-14.6); RBC Distribution Width SD 58.2 fl (35.1-43.9); Red Blood Count 4.21 M/mm3 (4.6-6.2); White Blood Count 5.7 K/mm3 (4.4-11.0)
[2017-07-22 09:20] LABS: Differential Indicated SCAN CRITERIA MET; POSITIVE COUNT NO; POSITIVE DIFFERENTIAL YES; POSITIVE MORPHOLOGY NO
[2017-07-22 09:21] VITALS: BP 112/63; PULSE 112; RESP 16; TEMP 36.6; O2SAT 94
[2017-07-22 09:34] LABS: ALB/GLOB Ratio 0.7 RATIO (0.9-2.4); AST(SGOT) 119 U/L (15-37); Alanine Aminotransfer ALT/SGPT 138 U/L (16-61); Albumin, Serum 2.2 g/dL (3.2-5.0); Alkaline Phosphatase 231 U/L (45-117); Anion Gap 8 (5-15); BUN 2 mg/dL (7-18); BUN/Creat Ratio 6.6 RATIO (10-20); Calcium,Total 8.3 mg/dL (8.5-10.1); Chloride 104 mmol/L (98-107); EST Glomerular Filtration Rate 332 mL/min (>60); Est Glom Filt Rate - Afr Amer 402 mL/min (>60); Estimated Creatinine Clearance 316.15 ml/min; Globulin 3.3 g/dL (2.2-4.2); Glucose 61 mg/dL (74-106); Lipase 1484 U/L (73-393); Potassium 4.3 mmol/L (3.5-5.1); Protein, Total 5.5 g/dL (6.4-8.2); Sodium Level 137 mmol/L (136-145)
[2017-07-22 09:38] VITALS: PULSE 113
[2017-07-22] MEDS: Metoprolol Tartrate 25 MG Tablet PO (09:38)
[2017-07-22] MEDS: Memantine Hydrochloride 10 MG Tablet PO (09:38)
[2017-07-22] MEDS: Docusate Sodium 100 MG Capsule 200 MG PO (09:39)
--- NOTE | 2017-07-22 10:01 | NURSING ---
AM labs returned- noted that BGT= 61- asked pt if he has had anything to drink t/o night- he replied, just water. This RN reminded patient that he will need to drink some sugars to keep BGT steady. 2 cups of apple juice given at this time. Pt denies any discomfort or symptoms. Reminded that when he returns home to make sure he is drinking clear liquids with some sugar.
[2017-07-22] MEDS: 0.9% NaCl Peripheral Flush Adult/Peds IV ×2 (10:47→14:04)
[2017-07-22] MEDS: Benzonatate 100 MG Capsule PO (11:03)
[2017-07-22 11:25] LABS: Bedside Glucose 67 mg/dL (70-110)
--- NOTE | 2017-07-22 12:43 | PCM.DC ---
- Discharge Diagnoses Current Active Problems: Current Active and Chronic Problems (Last Updated 07/16/17 @ 15:07 by Day Aldana MD) Metastasis to adrenal gland (Acute) Bone metastases (Acute) Acute pancreatitis (Acute) Brain metastases (Chronic) SCLC (small cell lung carcinoma) (Chronic) You will use the following diet at home:: Clear liquid - for 3 days and then try for full liquid and advance gradually to soft diet, low fat diet Discharge Activity: May Not Drive Call your doctor if you observe: Fever of 101 or Higher, Shortness of breath Additional Instructions: Patient needs to be evaluated by pancreatologist in tertiary care, [facility], either referred by PCP or Dr. Mahmood. Needs pain management Allergies/Adverse Reactions: Allergies bee venom protein (honey bee) Allergy (Severe, Verified 07/16/17 10:55) Swelling Medications to take at Discharge Omeprazole Magnesium [Prilosec Otc] 40 mg PO DAILY 01/17/17 Benzonatate [Tessalon Perle] 100 mg PO TID PRN 04/23/17 Ondansetron [Zofran] 8 mg PO Q8H PRN PRN 06/26/17 Docusate Sodium [Colace] 200 mg PO TID PRN PRN 07/04/17 Dexamethasone [Decadron] 4 mg PO DAILY 07/06/17 Memantine HCl 5 mg PO QHS 07/16/17 Metoprolol Tartrate [Lopressor (beta asim)] 25 mg PO BID 07/16/17 Benzonatate [Tessalon Perle] 100 mg PO TID PRN PRN capsule 07/22/17 HYDROmorphone tablet [Dilaudid] 2 mg PO Q4H PRN PRN 3 Days #10 tab 07/22/17 Memantine HCl 10 mg PO DAILY #0 07/22/17 proMETHazine tablet [Phenergan tablet] 25 mg PO Q6H PRN PRN #20 tab 07/22/17 The following prescriptions were given: proMETHazine tablet [Phenergan tablet] 25 mg PO Q6H PRN PRN #20 tab PRN Reason: nausea vomiting Primary Care Physician: Care Physician,No Primary [Primary Care Provider] - Please follow up with your Primary Care Physician in: in 1-2 weeks Please Follow Up With: Bob Fofana MD When: in 2 weeks Please Follow Up With: Sonido Sotomayor MD When: in 1-2 weeks for recurrent Pancreatitis Please Follow Up With: Shubham Archuleta MD When: in 1 week
--- NOTE | 2017-07-22 12:54 | DS.PCM_ITS ---
Discharge Date and Diagnosis Date of Admission: 07/16/17 Date of Discharge: 07/22/17 - Primary Discharge Diagnosis Active and Suspected Problems (Last Updated 07/16/17 @ 15:07 by Day Aldana MD) Metastasis to adrenal gland (Acute) Bone metastases (Acute) Acute pancreatitis (Acute) 1. Acute on recurrent pancreatitis; exact etiology unclear but rare causes including prednisone or paraneoplastic/paracrine hormones from small cell cancer : - 2. Elevated LFTs- History of elevated LFTs. ALT AST and ALT and alkaline phosphatase improving. 3. 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 - Secondary Discharge Diagnosis Chronic Problems (Last Updated 07/16/17 @ 15:07 by Day Aldana MD) Asthma with COPD (Chronic) Obesity (BMI 30-39.9) (Chronic) Brain metastases (Chronic) Morbid obesity with BMI of 45.0-49.9, adult (Chronic) Prediabetes (Chronic) 01/04/17 HgbA1c 6.4%. SCLC (small cell lung carcinoma) (Chronic) SVC obstruction (Chronic) DM (diabetes mellitus) (Chronic) COPD (chronic obstructive pulmonary disease) (Chronic) Sleep disorder breathing (Chronic) Tobacco dependence in remission (Chronic) Chronic hypoxemic respiratory failure (Chronic) Morbid obesity with BMI of 50.0-59.9, adult (Chronic) Hypertension (Chronic) Hospital Course and Treatment Operations: None Summary of Care Provided: T[] Patient is a 52-year-old male admitted 07/16/2017 due to abdominal pain, nausea, vomiting. He has a past medical history of COPD, chronic hypoxic respiratory failure, morbid obesity, hypertension, small cell lung cancer with metastasis. In brief, patient is admitted for acute on recurrent pancreatitis. LFTs are elevated But total bilirubin normal. he was discharged on 08/04/[address] abdomen on July 06, 2017 shows interval development of celiac lymph node largest node measures 2.8 x 2.5 cm along with mild acute pancreatitis with pancreatic head but no gallstones or evidence of acute cholecystitis. New metastatic lesion found on left adrenal and right adrenal gland. Normal gallbladder and extrahepatic biliary system. Normal spleen. Seen and examined today Patient did not require much pain medication last night but only once. General: Alert, Oriented x3, Cooperative HEENT: Atraumatic, PERRLA, EOMI, Normocephalic Neck: Supple, No JVD, Negative Carotid Bruits Lungs: Clear to auscultation, Diminished - Bilateral lung bases Cardiovascular: Regular rate, No murmurs Abdomen: Bowel Sounds Present, Soft, Hypoactive Bowel Sounds, no tenderness present left upper quadrant Extremities: No edema, Capillary Refill Less than 3 Seconds Skin: No rashes, No breakdown Musculoskeletal: No Tenderness to Palpation of Joints or Extremities Neurological: Cranial nerves II-XII grossly intact Psych/Mental Status: Normal Affect, Appropriate 1. Acute on recurrent pancreatitis; exact etiology unclear but rare causes including prednisone or paraneoplastic/paracrine hormones from small cell cancer : - The patient has extended hospital stay because of long complicated period of pancreatitis. Patient gets pain on soft diet. Diet is reversed BACK TO clear liquids. Initially started on IV fluids, IV antiemetics and IV Dilaudid as needed for pain. LFT and lipase were followed. MRCP showed stranding adjacent to the pancreas, consistent with pancreatitis. No gallstones or ductal stones identified. No biliary duct dilatation. Discussed with Dr. Mahmood and Dr. Egan. Exact etiology is unclear. Surgical note reviewed and no surgical indication. Surgery signed off. Patient wants to go home. LFT are still elevated but is trending down. Transaminases about 120s. Lipase is trending down. Patient was advised to follow with Dr. Mahmood and need referral for tertiary care, pancreatologist in [facility] for idiopathic/ cryptogenic recurrent pancreatitis to evaluate for rare causes. 2. Elevated LFTs-gallbladder ultrasound shows hepatomegaly, gallbladder polyps , no ascites, limited visualization of pancreas. History of elevated LFTs. ALT AST and ALT and alkaline phosphatase improving. 3. 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 Patient to undergo palliative brain radiation today with final treatment tomorrow, , 07/19/2017. He will then further follow-up as outpatient with her chemotherapy and plan of care recommendations. Per Dr. Fofana, hospice was recently discussed with patient due to poor prognosis. Patient was not interested at that time but will be reevaluated and oncology in the future. 4. Hypertension-stable, continue current regimen. 5. Chronic hypoxic respiratory failure secondary to chronic COPD-continue supplemental oxygen as needed to maintain O2 at or above 90%. 6. Morbid obesity-encouraged diet and lifestyle modifications. DVT prophylaxis-Lovenox subcut. The patient was advised to be on clear to full liquid diet for 3 days and gradually advance to soft diet if tolerated. Please see PCP in [address] Mahmood and pain management. Prescription for Dilaudid given Discharge medication reconciliation done. Discharge follow-up instructions completed. Total time spent, exact 35 minutes on discharge meds reconciliation, examination , review of imaging and blood test and discussion with the patient on follow-up instructions. Discharge Activity: May Not Drive Call your doctor if you observe: Fever of 101 or Higher, Shortness of breath Home Medications: Medications to take at Discharge Omeprazole Magnesium [Prilosec Otc] 40 mg PO DAILY 01/17/17 Benzonatate [Tessalon Perle] 100 mg PO TID PRN 04/23/17 Ondansetron [Zofran] 8 mg PO Q8H PRN PRN 06/26/17 Docusate Sodium [Colace] 200 mg PO TID PRN PRN 07/04/17 Dexamethasone [Decadron] 4 mg PO DAILY 07/06/17 Memantine HCl 5 mg PO QHS 07/16/17 Metoprolol Tartrate [Lopressor (beta asim)] 25 mg PO BID 07/16/17 Benzonatate [Tessalon Perle] 100 mg PO TID PRN PRN capsule 07/22/17 HYDROmorphone tablet [Dilaudid] 2 mg PO Q4H PRN PRN 3 Days #10 tab 07/22/17 Memantine HCl 10 mg PO DAILY #0 07/22/17 proMETHazine tablet [Phenergan tablet] 25 mg PO Q6H PRN PRN #20 tab 07/22/17 Following Prescrptions Were Given to Patient: proMETHazine tablet [Phenergan tablet] 25 mg PO Q6H PRN PRN #20 tab PRN Reason: nausea vomiting Primary Care Physician: Care Physician,No Primary [Primary Care Provider] - Please follow up with your Primary Care Physician in: in 1-2 weeks Please Follow Up With: Bob Fofana MD When: in 2 weeks Please Follow Up With: Sonido Sotomayor MD When: in 1-2 weeks for recurrent Pancreatitis Please Follow Up With: Shubham Archuleta MD When: in 1 week Medical Necessity - Tobacco Use Smoking Status: Former smoker Meaningful Use Info Meaningful Use Diagnoses (Choose all that apply): None applicable Code Visit Inpatient E&M: 92202 Disch Hosp
[2017-07-22 14:00] VITALS: BP 103/79; PULSE 118; RESP 16; TEMP 36.8; O2SAT 93
--- NOTE | 2017-07-22 17:47 | NURSING ---
Patient and given discharge instructions. reports that Namenda tiered dose was incorrect on APR and was actually started 07/01 not 07/08. Notified that patient took 10mg today and is ordered 5mg tonight per schedule given her at hospital. Verbalized understanding. Notified that they should contact physician that ordered med tomorrow to ensure they want to increase per tier and not go 10mg BID as patient had been prior to coming to [facility]. Understanding verbalized. Port removed without flushing with heparin- was flushed with saline. Patient notified to notify Dr. Herrera' office to have flushed with heparin. Understanding verbalized by patient and . This RN spent over 1 hour waiting for heparin to arrive to unit, and pharmacy had been contacted by phone, by fax, this RN entered order and by communication. This RN ensured that patient would be d/c'ed on dilaudid, as pt states that he was out at home and phenergan- pt states he was almost out at home- both requested by patient and ordered. Notified of lab draw 07/25/17 and of follow up appointments with Dr. Archuleta, Dr. Sotomayor and Dr. Fofana. Notified to let palliative care know of new order for Dr. Archuleta- to see if this would be agreeable with palliative care. Understanding verbalized. Further questions denied- patient assisted down to front door by staff.
== END 2017-07-22 14:38 | disposition home or self-care (01) | DRG 204 ==
LOC: ED 14:52 → MS3 16:13
PROVIDERS: Nurse Practitioner Family; Admitting Provider Hospitalist; Emergency Provider Emergency Medicine; Visit Provider Internal Medicine
DX: K85.90 Acute pancreatitis without necrosis or infection, unspecified (principal); J44.9 Chronic obstructive pulmonary disease, unspecified; C79.51 Secondary malignant neoplasm of bone; C79.31 Secondary malignant neoplasm of brain; C79.72 Secondary malignant neoplasm of left adrenal gland; C79.71 Secondary malignant neoplasm of right adrenal gland; C34.90 Malignant neoplasm of unspecified part of unspecified bronchus or lung; J96.11 Chronic respiratory failure with hypoxia; E66.9 Obesity, unspecified; Z68.37 Body mass index [BMI] 37.0-37.9, adult; R79.89 Other specified abnormal findings of blood chemistry; F17.201 Nicotine dependence, unspecified, in remission; I10 Essential (primary) hypertension; E11.9 Type 2 diabetes mellitus without complications
CPT/HCPCS: 36415; 74181; 76705; 77412; 80048; 80053; 80076; 81001; 82962; 83690; 83735; 84100; 85025; 93005; 94640; 97802; 99284; J2997; J7030; J7040; J7050; A4216; J2405

== ENCOUNTER 2017-07-25 07:03 | Inpatient (IN) | payer MEDICAID, SELFPAY ==
[2017-03-01 11:31] VITALS: BMI 53.3
[2017-07-25] VITALS (11 sets, daily range): BP systolic 105–138; BP diastolic 74–87; PULSE 131–153; RESP 16–23; TEMP 36.4–36.9; O2SAT 92–98; BMI 38.0; BMI 39.8
--- NOTE | 2017-07-25 07:18 | EKG12_ITS ---
Test Reason : ABNL PAIN Blood Pressure : / mmHG Vent. Rate : 151 BPM Atrial Rate : 151 BPM P-R Int : 104 ms QRS Dur : 078 ms QT Int : 338 ms P-R-T Axes : 000 039 088 degrees QTc Int : 535 ms Sinus tachycardia with short MI ST & T wave abnormality, consider lateral ischemia Abnormal ECG Confirmed by GHANSHYAM WINSTON, DARSHAN ([id number]), general expeditor BOAZ SANTOS ([id number]) on 07/26/2017 9:08:27 AM Referred By: Francois Gibson Confirmed By:DARSHAN MORRISSEY MD
[2017-07-25] MEDS: 0.9% Normal Saline 1,000 ML 1000 ML IV (07:33)
[2017-07-25] MEDS: proMETHazine 25 MG/ML Syringe 12.5 MG IV (07:33)
[2017-07-25] MEDS: HYDROmorphone 1 MG/ML Syringe IV ×3 (07:34→10:24)
[2017-07-25 07:51] LABS: Absolute Lymphocyte Count 0.73 X10^3/ul (0.83-4.51); Absolute Neutrophil Count 7.5 X10^3/uL (2.0-7.7); Basophil# 0.01 X10^3/uL; Basophil% 0.1 % (0-1); Eosinophil# 0.02 X10^3/uL; Eosinophils% 0.2 % (0-5); Hematocrit 45.2 % (40-54); Hemoglobin 14.8 g/dl (13.0-16.5); Lymphocyte # 0.73 X10^3/ul (4.0); Lymphocyte % 8.3 % (19-41); Mean Corp Hgb Conc 32.7 g/gl (32-36); Mean Corpuscular Volume 94.6 fL (80-94); Mean Platelet Vol. 11.4 fl (6.2-12.0); Monocyte# 0.52 X10^3/uL; Monocyte% 5.9 % (0-10); Neutrophil # 7.47 X10^3/uL (2.7-7.7); Neutrophil % 85.3 % (47-70); Platelet Count 159 K/mm3 (150-450); RBC Distribution Width CV 16.5 % (11.6-14.6); RBC Distribution Width SD 56.5 fl (35.1-43.9); Red Blood Count 4.78 M/mm3 (4.6-6.2); White Blood Count 8.8 K/mm3 (4.4-11.0)
[2017-07-25 07:53] LABS: POSITIVE COUNT NO; POSITIVE DIFFERENTIAL NO; POSITIVE MORPHOLOGY NO
[2017-07-25 08:00] LABS: International Normalized Ratio 1.3; Prothrombin Time (Protime)PT. 15.7 SECONDS (11.7-14.9)
[2017-07-25 08:01] LABS: Partial Thromboplast Time 33.3 Seconds (24.1-36.2)
[2017-07-25 08:05] LABS: ALB/GLOB Ratio 0.7 RATIO (0.9-2.4); AST(SGOT) 153 U/L (15-37); Alanine Aminotransfer ALT/SGPT 121 U/L (16-61); Albumin, Serum 2.6 g/dL (3.2-5.0); Alkaline Phosphatase 223 U/L (45-117); Amylase 225 U/L (25-115); Anion Gap 15 (5-15); BUN 6 mg/dL (7-18); BUN/Creat Ratio 9.9 RATIO (10-20); Calcium,Total 10.2 mg/dL (8.5-10.1); Chloride 99 mmol/L (98-107); EST Glomerular Filtration Rate 149 mL/min (>60); Est Glom Filt Rate - Afr Amer 180 mL/min (>60); Estimated Creatinine Clearance 158.07 ml/min; Globulin 3.9 g/dL (2.2-4.2); Glucose 87 mg/dL (74-106); Lipase 2770 U/L (73-393); Potassium 3.8 mmol/L (3.5-5.1); Protein, Total 6.5 g/dL (6.4-8.2); Sodium Level 141 mmol/L (136-145)
--- NOTE | 2017-07-25 08:28 | ED.DCSUM_ITS ---
- ER Visit Summary Date of Service: 07/25/17 Chief Complaint: Pancreatitis History of Present Illness: The patient is a 52 M who presents for the evaluation of recurrent pancreatitis. The patient states that he has a history of metastatic small cell cancer with metastasis to bone lung and brain. Gets his chemotherapy and radiation locally. No known cause for his pancreatitis has been found. On July 17 of this year he had an MRCP. Patient was discharged on Sunday from the hospital states his pain is only progressively worsened. He was taking only clear liquids. This was not progressed at home. Is not had a bowel movement. He denies feeling bloated or distended. He has passed minimal gas. Physical Examination: Afebrile blood pressure 110/84 heart rate of 153 respirations are 22 pulse ox is 94% on room air temperature 97.6 Gen: Well-nourished well-developed appears in pain Head: Normocephalic atraumatic Eyes: Perrl EOMI ENT: TMs clear no rhinorrhea moist mucous membranes Neck: Supple no lymphadenopathy no JVD nontender CVS: Regular rate and tachycardic rhythm no murmurs normal S1-S2 Respiratory: No distress clear to auscultation bilaterally chest nontender Abdomen: Soft diffusely tender to palpation with guarding nondistended hypoactive bowel sounds no masses Back: Nontender Extremity: Nontender no edema Skin: Normal color no rash Neuro: alert orientated ?3 CN II-XII intact normal strength sensation reflexes gait cerebellar Psych: Normal affect normal mood Test Results: Lipase 2770. Total bilirubin 2.6. Alk phos 223. ALT of 121. AST 153. Lactic acid of 2. EKG sinus at a rate of 151. Gallbladder ultrasound was obtained showed a common bile duct 3.5. CT the abdomen pelvis was also obtained and reviewed. Emergency Department Course and Treatment: Patient's pain is located more epigastric and right upper quadrant which he states is different than when he had his pancreatitis pain which seem to be more on the left. When I review his CT and a gentleman who has not really had anything to eat or drink for 12 hours and notes that his stomach seems to have a significant amount of fluid. NG tube was placed. Patient's been having Dilaudid and Zofran and fluids. Our plan will be admission into the hospital. Impression: 1. Acute on chronic pancreatitis 2. Gastroparesis This note was generated with [employer] software. It may contain incorrect words, spelling, and punctuation that were not noted in review of the chart prior to signing ED Disposition - Plan for ED Patient: Chief Complaint: Abd Pain
--- NOTE | 2017-07-25 08:47 | US_ITS ---
STUDY: ABDOMINAL ULTRASOUND - RIGHT UPPER QUADRANT REASON FOR VISIT: Male, 52 years old. Elevated bilirubin. Pancreatitis. TECHNIQUE: Ultrasound evaluation of the right upper quadrant was performed with real-time and static friedman-scale imaging. TECHNICAL QUALITY: Limited. Examination limited due to the patient?s condition. COMPARISON: 07/16/2017 FINDINGS: Liver: The liver measures 20.3 cm. There is a heterogeneous echogenicity of the liver. The bile ducts are within normal limits. There is hepatic color flow. The direction of portal flow is hepatopetal. There is no demonstrated mass lesion. Gallbladder: Normal distended gallbladder. The gallbladder wall measures 5 mm. There is a negative sonographic Morgan's sign. There is no pericholecystic fluid. There are gallbladder polyps. At least 2 polyps are noted, one measuring 6 mm and the other measuring 5 mm. Common Bile Duct (C.B.D.): The common bile duct measures 3.5 mm. Pancreas: There is nonvisualization of the pancreas. Right Kidney: Normal size of the right kidney. The right kidney measures 11.8 cm. Normal renal cortex. The right cortex measures 1.3 cm. There is no demonstrated renal mass or cyst. There is no right hydronephrosis. US/Gallbladder IMPRESSION: 1. Gallbladder polyps are noted. 2. Heterogeneous liver echotexture 3. Slightly thickened gallbladder wall without definitive stones Electronically Signed: Aron Ventura DO at 10:25 EDT Tel , Service support ,
[2017-07-25] MEDS: 0.45% Normal Saline 1,000 ML 200 ML IV ×2 (09:08→16:29)
--- NOTE | 2017-07-25 09:14 | ED.RN ---
PT SIG OTHER REPORTS PT STATES PAIN IS COMING BACK AND REQUESTING MORE PAIN MED. PT AROUSES WHEN SPOKEN TO-REPORTS PAIN IS 9:10 THEN APPEARS TO FALL BACK TO SLEEP, NO APPARENT DISTRESS NOTED. DR BARRAZA INFORMED OF PT REQUEST FOR PAIN MED AND APPEARANCE. STATES NNO AT THIS TIME D/T PT ON O2 AT 2L NC AFTER FIRST SET OF PAIN MEDS.
[2017-07-25] MEDS: 0.9% Normal Saline 1,000 ML 999 ML IV ×2 (10:24→14:23)
--- NOTE | 2017-07-25 10:28 | ED.RN ---
AWAITING GALLBLADDER U/S RESULTS. PT AWAKE AND MOANING IN PAIN. REQUESTING PAIN MED- DR BARRAZA AWARE-ALSO AWARE PT HAS NOT BEEN ABLE TO PROVIDE URINE SAMPLE YET. NEW ORDERS RECEIVED FOR PAIN MED AND ADDITIONAL IVF BOLUSES. SIG OTHER PRESENT AT BEDSIDE
--- NOTE | 2017-07-25 10:37 | CT_ITS ---
STUDY: CT ABDOMEN AND PELVIS WITH CONTRAST REASON FOR EXAM: Male, 52 years old. Right-sided abdominal pain. History of recent pancreatitis. RADIATION DOSAGE (If Supplied By Facility): CTDIvol = ( 26.68 ) mGy, DLP = ( 2055.52 ) mGycm TECHNIQUE: Transaxial images were obtained from the dome of the diaphragm to the symphysis pubis without oral contrast. 100mL ml of Isovue 300 contrast was administered. Sagittal and coronal images were reconstructed. Individualized dose optimization techniques were used for this CT. COMPARISON: Comparison is made with prior study dated July 06, 2017. FINDINGS: There is a 7.2 mm noncalcified nodule in the anterior aspect of the right lower lobe. Focal infiltrate in the lingular segment of the left upper lobe with increased markings at both lung bases worse on the right side. The visualized portions of the heart are within normal limits. There is decreased attenuation of the liver consistent with steatosis. I suspect sludge or small gallstones within the gallbladder lumen. Normal spleen. The peripancreatic inflammatory changes have improved. Mild residual changes persist. Bilateral adrenal nodular densities. The largest on the left measures 1.9 cm x 2.3 cm. The largest in the right adrenal gland measures 2.1 cm. These have increased in size as compared to prior study. Normal right kidney. Mild degree of right perinephric stranding. Normal left kidney. Normal visualized stomach. Normal small intestine. There are multiple colonic diverticula consistent with diverticulosis. The appendix is visualized and appears normal. Normal abdominal aorta. Normal inferior vena cava. Normal retroperitoneum. Normal urinary bladder. There are prostatic calcifications. There is a small umbilical hernia containing fat. There are diffuse degenerative changes of the visualized lumbar spine. Stable sclerosis of the T10 and T12 vertebrae. CT/Abdomen/Pelvis W IV Cont ONLY IMPRESSION: Decreased inflammatory changes in the peripancreatic region. Enlarged nodular densities in both adrenal glands. Infiltration in the lingular segment of the left upper lobe as well as in both lower lobes. Electronically Signed: Fabricio Lyn MD at 13:42 EDT Tel [phone], Service support ,
[2017-07-25 11:43] LABS: Reflex Lactate? Y
[2017-07-25 11:50] LABS: Bacteria 0 SEEN /hpf (None Seen)
[2017-07-25 11:58] LABS: Color, Urine Amber (Yellow); Glucose, Dipstick Normal (Normal); Ketone-Dipstick 50 mg/dl (Negative); Leukocyte Esterase-Dipstick 25 /ul (Negative); Nitrite-Dipstick Negative (Negative); Occult Blood-Urine 10 /ul (Negative); Protein-Dipstick 30 mg/dl (Negative); Urine Clarity Clear (Clear); Urine Urobilinogen 4 mg/dl (Normal); Urine pH 6.5 (5.0 - 8.0)
[2017-07-25 12:04] LABS: Urine Bilirubin Dipstick 3 mg/dL (Negative)
[2017-07-25 12:11] LABS: Squamous Epithelial Cells - UA 0-5 SEEN /hpf (0-5); White Blood Cells 0-5 SEEN /hpf (0-5)
[2017-07-25 12:12] LABS: Red Blood Cells-Urine 0-5 SEEN /hpf (0-5)
[2017-07-25 12:13] LABS: Mucous, Urine 2+ /hpf (<or=2+)
[2017-07-25 12:14] LABS: Fine Granular Cast- Urine 0-5 SEEN /lpf (0-5); Hyaline Cast 5-10 SEEN /lpf (0-5)
[2017-07-25 12:15] LABS: Calcium Oxalate Crystals Ur RARE /hpf (<or=2+)
[2017-07-25 12:56] LABS: Lactic Acid 1.6 mmol/L (0.4-2.0)
--- NOTE | 2017-07-25 14:03 | RAD_ITS ---
STUDY: X-RAY - ABDOMEN/PELVIS REASON FOR EXAM: Male, 52 years old. Nasogastric tube placement. TECHNIQUE: Single AP view of the abdomen / pelvis. COMPARISON: None. FINDINGS: The tip of the nasogastric tube is in the cardiac portion of the stomach just distal to the gastroesophageal junction. RAD/Abdomen Single View (Portable) IMPRESSION: The tip of the nasogastric tube is just distal to the gastroesophageal junction. Electronically Signed: Fabricio Lyn MD at 15:01 EDT Tel [phone], Service support ,
--- NOTE | 2017-07-25 15:09 | CASEMGMT ---
Social Work Note See attached assessment. Pt is a palliative care patient and [facility] needs to be notified at time of discharge. Melodie Sunshine, SUPERVISOR WELDING EQUIPMENT REPAIRER, SKIP TRACER
--- NOTE | 2017-07-25 17:09 | NURSING ---
medications reviewed by patient's bottles he brought in at this time. Updated.
[2017-07-25] MEDS: Ondansetron 4 MG/2 ML Vial IV (17:17)
[2017-07-25] MEDS: Morphine 2 MG/ML Syringe IV (17:17)
[2017-07-25] MEDS: 0.9% Normal Saline 1,000 ML 250 ML IV ×2 (18:40→23:18)
--- NOTE | 2017-07-25 20:24 | PCM.HP.STD ---
Problem List (1) Acute pancreatitis Status: Acute Qualifiers: Pancreatitis type: unspecified pancreatitis type Acute pancreatitis complication: no infection or necrosis Qualified Code(s): K85.90 - Acute pancreatitis without necrosis or infection, unspecified (2) SCLC (small cell lung carcinoma) Status: Chronic (3) Hypertension Status: Chronic Qualifiers: Hypertension type: essential hypertension History of Present Illness Date of Admission: 07/25/17 Chief Complaint: Abdominal pain Patient is a 52 yo wm who presents with recurrent abdominal pain, admitted on 07/25/17. He was just discharged from hospital on 07/22 for acute pancreatitis. He did fair for a day, but pain was progressively worsening since then. He had rowk up during the last stay, including MRCP, but did not show any obvious pathology. He has been taking clear liquid only. Lipase was 2770, WBC is normal, and he is afebrile. Past Medical History Past Medical History (Chronic Problems): Chronic Problems (Last Updated 07/16/17 @ 15:07 by Day Aldana MD) Asthma with COPD (Chronic) Obesity (BMI 30-39.9) (Chronic) Brain metastases (Chronic) Morbid obesity with BMI of 45.0-49.9, adult (Chronic) Prediabetes (Chronic) 01/04/17 HgbA1c 6.4%. SCLC (small cell lung carcinoma) (Chronic) SVC obstruction (Chronic) DM (diabetes mellitus) (Chronic) COPD (chronic obstructive pulmonary disease) (Chronic) Sleep disorder breathing (Chronic) Tobacco dependence in remission (Chronic) Chronic hypoxemic respiratory failure (Chronic) Morbid obesity with BMI of 50.0-59.9, adult (Chronic) Hypertension (Chronic) Medical History: Medical History (Last Updated 07/16/17 @ 15:07 by Day Aldana MD) COPD (chronic obstructive pulmonary disease) (Chronic) J44.9 Sleep disorder breathing (Chronic) G47.30 Chronic hypoxemic respiratory failure (Chronic) J96.11 Morbid obesity with BMI of 50.0-59.9, adult (Chronic) E66.01, Z68.43 Hypertension (Chronic) I10 Allergies bee venom protein (honey bee) Allergy (Severe, Verified 07/25/17 07:04) Swelling Home Medications: Ambulatory Orders Medication Instructions Recorded Omeprazole Magnesium [Prilosec Otc] 40 mg PO DAILY 01/17/17 Ondansetron [Zofran] 8 mg PO Q8H PRN PRN 06/26/17 Docusate Sodium [Colace] 200 mg PO TID PRN PRN 07/04/17 Metoprolol Tartrate [Lopressor 25 mg PO BID 07/16/17 (beta asim)] Benzonatate [Tessalon Perle] 100 mg PO TID PRN PRN capsule 07/22/17 HYDROmorphone tablet [Dilaudid] 2 mg PO Q4H PRN PRN 3 Days #10 tab 07/22/17 proMETHazine tablet [Phenergan 25 mg PO Q6H PRN PRN #20 tab 07/22/17 tablet] Albuterol Inhaler [Ventolin Hfa 2 puff INHALATION Q4H PRN PRN 07/25/17 (SP)] Memantine HCl 10 mg PO BID 07/25/17 Oxycodone [Oxyir] 10 mg PO Q4H PRN PRN 07/25/17 Surgical History: Surgical History (Last Reviewed 06/26/17 @ 12:58 by Mary Sheldon) EBUS procedure, 01/2017 Surgical History: - - Port placement. Psychiatric History: No pertinent psych hx Smoking Status: Former smoker - *Family History Maternal Family History: Family History (Last Reviewed 06/26/17 @ 12:58 by Mary Sheldon) Other Adopted History Items: - - Denies knowledge of biological maternal and paternal family history secondary to adoption. Paternal Family History: Family History (Last Reviewed 06/26/17 @ 12:58 by Mary Sheldon) Other Adopted History Items: - - Denies knowledge of biological maternal and paternal family history secondary to adoption. Review of Systems Comment: ROS: In general: Patient has been in good health, denied of any constitutional symptoms, such as weight loss, or gain, fever, chills, or night sweats. Patient denied of any profound fatigue. HEENT: Unremarkable. Patient denied of any dizziness, chronic headache, blurred vision, double vision, dry mouth, or nasal congestion. CV/respiratory: There is no exertional shortness of breath, chest pain, palpitation, wheezing, cough, claudication, cold feet, or peripheral edema. GI: See HPI. : Patient denied any significant urinary symptoms. Neurology: Unremarkable. There is no history of seizure as an adult. Psychological: Unremarkable. Endocrine: Unremarkable. Musculoskeletal: Unremarkable. VTE Information - Inpt Only VTE Present on Admission: No VTE Mechan Device Prophylaxis: Knee High ERICKA Hose VTE Pharm Prophylaxis ordered?: Yes Objective: In general, patient is a well-nourished and developed adult. HEENT: Head is atraumatic, and normocephalic. Pupils are equal, round, and reactive to light and accommodations. Neck is supple. There is no lymphadenopathy, or thyromegaly. Oral mucosa is pink, and moist. There are no lesions. Heart: Auscultation is normal with regular rhythm and rate. There is no extra heart sounds, or murmurs. S1 and S2 are present. Point of maximal impulse is not displaced. Lungs: Lungs are clear to auscultation bilaterally. There is no wheezing, or crackles. Abdomen: Obese abdomen. Diffuse tenderness at upper abdomen. Bowel sounds present. Extremities: There is no cyanosis or clubbing. Peripheral pulses are palpable. There is no edema. Skin: There are no any skin discoloration or lesions. Neurological: CN II - XII are intact. Sensory and motor functions are grossly normal with no obvious deficit. Cerebellar functions are within normal range. Gait was not tested. - Physical Exam Vital Signs Temp Pulse Resp BP Pulse Ox 98.0 F 132 H 18 131/79 H 94 07/25/17 18:28 07/25/17 18:28 07/25/17 18:28 07/25/17 18:28 07/25/17 18:28 Oxygen Flow Rate (L/min) 2 Oxygen Delivery Method Nasal Cannula Intake and Output for Last 24 Hours 07/23/17 07/24/17 07/25/17 23:59 23:59 23:59 Intake Total 368 / 368 Balance 368 / -482 Diagnostic Data Gallbladder Ultrasound 07/25/17 08:47 IMPRESSION: 1. Gallbladder polyps are noted. 2. Heterogeneous liver echotexture 3. Slightly thickened gallbladder wall without definitive stones Electronically Signed: Aron Ventura DO at 10:25 EDT Tel , Service support , Abdomen/Pelvis CT 07/25/17 10:37 IMPRESSION: Decreased inflammatory changes in the peripancreatic region. Enlarged nodular densities in both adrenal glands. Infiltration in the lingular segment of the left upper lobe as well as in both lower lobes. Electronically Signed: Fabricio Lyn MD at 13:42 EDT Tel [phone], Service support , KUB X-Ray 07/25/17 14:03 IMPRESSION: The tip of the nasogastric tube is just distal to the gastroesophageal junction. Electronically Signed: Fabricio Lyn MD at 15:01 EDT Tel [phone], Service support , Assessment/Plan All Active Problems (Last Updated 07/16/17 @ 15:07 by Day Aldana MD) Metastasis to adrenal gland (Acute) Bone metastases (Acute) Acute pancreatitis (Acute) Patient is a 52 yo wm who presents with recurrent abdominal pain, admitted on 07/25/17. He was just discharged from hospital on 07/22 for acute pancreatitis. He did fair for a day, but pain was progressively worsening since then. He had rowk up during the last stay, including MRCP, but did not show any obvious pathology. He has been taking clear liquid only. Lipase was 2770, WBC is normal, and he is afebrile. #1 Acute on chronic pancreatitis. Etiology is still. Not clear. NPO. High volume IVF resuscitation. His symptoms improved significantly after NG was inserted and stomach contents were evacuated. Continue NG with intermittent suction. IVF support. IV analgesics. IV PPI. His total bilirubin is trending up, while Alk phos is just marginally elevated. MRCP and u/s were unremarkable in terms of gallbladder. He may still need ERCP. Check fractionated bilirubin, If he has predominantly direct bilirubinemia, consider ERCP or HIDA scan. #2 Metastatic small cell lung cancer. He had finished palliative cranial radiation recently. #3 Essential Hypertension. #4 Chronic hypoxic respiratory failure with COPD. Continue oxygen prn. VTE ppx: Heparin SQ. GI ppx: PPI iv. He is full code. Disposition: Home when stable. Code Visit Inpatient E&M: 69367 Init Hosp L3
--- NOTE | 2017-07-25 20:34 | HP.PCM_ITS ---
Problem List (1) Acute pancreatitis Status: Acute Qualifiers: Pancreatitis type: unspecified pancreatitis type Acute pancreatitis complication: no infection or necrosis Qualified Code(s): K85.90 - Acute pancreatitis without necrosis or infection, unspecified (2) SCLC (small cell lung carcinoma) Status: Chronic (3) Hypertension Status: Chronic Qualifiers: Hypertension type: essential hypertension History of Present Illness Date of Admission: 07/25/17 Chief Complaint: Abdominal pain Patient is a 52 yo wm who presents with recurrent abdominal pain, admitted on . He was just discharged from hospital on 07/22 for acute pancreatitis. He did fair for a day, but pain was progressively worsening since then. He had rowk up during the last stay, including MRCP, but did not show any obvious pathology. He has been taking clear liquid only. Lipase was 2770, WBC is normal, and he is afebrile. Past Medical History Past Medical History (Chronic Problems): Chronic Problems (Last Updated 07/16/17 @ 15:07 by Day Aldana MD) Asthma with COPD (Chronic) Obesity (BMI 30-39.9) (Chronic) Brain metastases (Chronic) Morbid obesity with BMI of 45.0-49.9, adult (Chronic) Prediabetes (Chronic) 01/04/17 HgbA1c 6.4%. SCLC (small cell lung carcinoma) (Chronic) SVC obstruction (Chronic) DM (diabetes mellitus) (Chronic) COPD (chronic obstructive pulmonary disease) (Chronic) Sleep disorder breathing (Chronic) Tobacco dependence in remission (Chronic) Chronic hypoxemic respiratory failure (Chronic) Morbid obesity with BMI of 50.0-59.9, adult (Chronic) Hypertension (Chronic) Medical History: Medical History (Last Updated 07/16/17 @ 15:07 by Day Aldana MD) COPD (chronic obstructive pulmonary disease) (Chronic) J44.9 Sleep disorder breathing (Chronic) G47.30 Chronic hypoxemic respiratory failure (Chronic) J96.11 Morbid obesity with BMI of 50.0-59.9, adult (Chronic) E66.01, Z68.43 Hypertension (Chronic) I10 Allergies bee venom protein (honey bee) Allergy (Severe, Verified 07/25/17 07:04) Swelling Home Medications: Ambulatory Orders Medication Instructions Recorded Omeprazole Magnesium [Prilosec Otc] 40 mg PO DAILY 01/17/17 Ondansetron [Zofran] 8 mg PO Q8H PRN PRN 06/26/17 Docusate Sodium [Colace] 200 mg PO TID PRN PRN 07/04/17 Metoprolol Tartrate [Lopressor 25 mg PO BID 07/16/17 (beta asim)] Benzonatate [Tessalon Perle] 100 mg PO TID PRN PRN capsule 07/22/17 HYDROmorphone tablet [Dilaudid] 2 mg PO Q4H PRN PRN 3 Days #10 tab 07/22/17 proMETHazine tablet [Phenergan 25 mg PO Q6H PRN PRN #20 tab 07/22/17 tablet] Albuterol Inhaler [Ventolin Hfa 2 puff INHALATION Q4H PRN PRN 07/25/17 (SP)] Memantine HCl 10 mg PO BID 07/25/17 Oxycodone [Oxyir] 10 mg PO Q4H PRN PRN 07/25/17 Surgical History: Surgical History (Last Reviewed 06/26/17 @ 12:58 by Mary Sheldon) EBUS procedure, 01/2017 Surgical History: - - Port placement. Psychiatric History: No pertinent psych hx Smoking Status: Former smoker - *Family History Maternal Family History: Family History (Last Reviewed 06/26/17 @ 12:58 by Mary Sheldon) Other Adopted History Items: - - Denies knowledge of biological maternal and paternal family history secondary to adoption. Paternal Family History: Family History (Last Reviewed 06/26/17 @ 12:58 by Mary Sheldon) Other Adopted History Items: - - Denies knowledge of biological maternal and paternal family history secondary to adoption. Review of Systems Comment: ROS: In general: Patient has been in good health, denied of any constitutional symptoms, such as weight loss, or gain, fever, chills, or night sweats. Patient denied of any profound fatigue. HEENT: Unremarkable. Patient denied of any dizziness, chronic headache, blurred vision, double vision, dry mouth, or nasal congestion. CV/respiratory: There is no exertional shortness of breath, chest pain, palpitation, wheezing, cough, claudication, cold feet, or peripheral edema. GI: See HPI. : Patient denied any significant urinary symptoms. Neurology: Unremarkable. There is no history of seizure as an adult. Psychological: Unremarkable. Endocrine: Unremarkable. Musculoskeletal: Unremarkable. VTE Information - Inpt Only VTE Present on Admission: No VTE Mechan Device Prophylaxis: Knee High ERICKA Hose VTE Pharm Prophylaxis ordered?: Yes Objective: In general, patient is a well-nourished and developed adult. HEENT: Head is atraumatic, and normocephalic. Pupils are equal, round, and reactive to light and accommodations. Neck is supple. There is no lymphadenopathy, or thyromegaly. Oral mucosa is pink, and moist. There are no lesions. Heart: Auscultation is normal with regular rhythm and rate. There is no extra heart sounds, or murmurs. S1 and S2 are present. Point of maximal impulse is not displaced. Lungs: Lungs are clear to auscultation bilaterally. There is no wheezing, or crackles. Abdomen: Obese abdomen. Diffuse tenderness at upper abdomen. Bowel sounds present. Extremities: There is no cyanosis or clubbing. Peripheral pulses are palpable. There is no edema. Skin: There are no any skin discoloration or lesions. Neurological: CN II - XII are intact. Sensory and motor functions are grossly normal with no obvious deficit. Cerebellar functions are within normal range. Gait was not tested. - Physical Exam Vital Signs Temp Pulse Resp BP Pulse Ox 98.0 F 132 H 18 131/79 H 94 07/25/17 18:28 07/25/17 18:28 07/25/17 18:28 07/25/17 18:28 07/25/17 18:28 Oxygen Flow Rate (L/min) 2 Oxygen Delivery Method Nasal Cannula Intake and Output for Last 24 Hours 07/23/17 07/24/17 07/25/17 23:59 23:59 23:59 Intake Total 368 / 368 Balance 368 / -482 Diagnostic Data Gallbladder Ultrasound 07/25/17 08:47 IMPRESSION: 1. Gallbladder polyps are noted. 2. Heterogeneous liver echotexture 3. Slightly thickened gallbladder wall without definitive stones Electronically Signed: Aron Ventura DO at 10:25 EDT Tel , Service support , Abdomen/Pelvis CT 07/25/17 10:37 IMPRESSION: Decreased inflammatory changes in the peripancreatic region. Enlarged nodular densities in both adrenal glands. Infiltration in the lingular segment of the left upper lobe as well as in both lower lobes. Electronically Signed: Fabricio Lyn MD at 13:42 EDT Tel [phone], Service support , KUB X-Ray 07/25/17 14:03 IMPRESSION: The tip of the nasogastric tube is just distal to the gastroesophageal junction. Electronically Signed: Fabricio Lyn MD at 15:01 EDT Tel [phone], Service support , Assessment/Plan All Active Problems (Last Updated 07/16/17 @ 15:07 by Day Aldana MD) Metastasis to adrenal gland (Acute) Bone metastases (Acute) Acute pancreatitis (Acute) Patient is a 52 yo wm who presents with recurrent abdominal pain, admitted on . He was just discharged from hospital on 07/22 for acute pancreatitis. He did fair for a day, but pain was progressively worsening since then. He had rowk up during the last stay, including MRCP, but did not show any obvious pathology. He has been taking clear liquid only. Lipase was 2770, WBC is normal, and he is afebrile. #1 Acute on chronic pancreatitis. Etiology is still. Not clear. NPO. High volume IVF resuscitation. His symptoms improved significantly after NG was inserted and stomach contents were evacuated. Continue NG with intermittent suction. IVF support. IV analgesics. IV PPI. His total bilirubin is trending up, while Alk phos is just marginally elevated. MRCP and u/s were unremarkable in terms of gallbladder. He may still need ERCP. Check fractionated bilirubin, If he has predominantly direct bilirubinemia, consider ERCP or HIDA scan. #2 Metastatic small cell lung cancer. He had finished palliative cranial radiation recently. #3 Essential Hypertension. #4 Chronic hypoxic respiratory failure with COPD. Continue oxygen prn. VTE ppx: Heparin SQ. GI ppx: PPI iv. He is full code. Disposition: Home when stable. Code Visit Inpatient E&M: 86066 Init Hosp L3
[2017-07-25] MEDS: oxyCODONE 5 MG Tablet PO (21:09)
[2017-07-25] MEDS: Morphine 4 MG/ML Syringe IV (22:27)
[2017-07-25] MEDS: 0.9% NaCl VAD Flush 10 ML IV (22:27)
[2017-07-25] MEDS: Heparin Injection (Vial) 5,000 UNIT/ML VIAL 5000 UNIT SC (23:12)
[2017-07-25] MEDS: Metoprolol Tartrate 25 MG Tablet PO (23:12)
[2017-07-25] MEDS: Memantine Hydrochloride 10 MG Tablet PO (23:12)
[2017-07-26] VITALS (25 sets, daily range): BP systolic 115–148; BP diastolic 69–99; PULSE 123–144; RESP 16–23; TEMP 36.6–37.4; O2SAT 88–98
[2017-07-26] MEDS: oxyCODONE 5 MG Tablet PO (01:19)
[2017-07-26] MEDS: Ondansetron 4 MG/2 ML Vial IV ×3 (01:24→20:33)
[2017-07-26] MEDS: 0.9% NaCl VAD Flush 10 ML IV ×12 (01:24→20:33)
[2017-07-26] MEDS: Morphine 4 MG/ML Syringe IV (03:20)
[2017-07-26] MEDS: 0.9% Normal Saline 1,000 ML 250 ML IV ×3 (03:21→12:45)
[2017-07-26] MEDS: Heparin Injection (Vial) 5,000 UNIT/ML VIAL 5000 UNIT SC (06:40)
[2017-07-26 06:51] LABS: Absolute Lymphocyte Count 0.43 X10^3/ul (0.83-4.51); Absolute Neutrophil Count 6.9 X10^3/uL (2.0-7.7); Basophil# 0.01 X10^3/uL; Basophil% 0.1 % (0-1); Eosinophil# 0.03 X10^3/uL; Eosinophils% 0.4 % (0-5); Hematocrit 41.4 % (40-54); Hemoglobin 13.6 g/dl (13.0-16.5); Lymphocyte # 0.43 X10^3/ul (4.0); Lymphocyte % 5.2 % (19-41); Mean Corp Hgb Conc 32.9 g/gl (32-36); Mean Corpuscular Hgb 31.3 pg (27.0-32.0); Mean Corpuscular Volume 95.2 fL (80-94); Mean Platelet Vol. 11.8 fl (6.2-12.0); Monocyte# 0.93 X10^3/uL; Monocyte% 11.2 % (0-10); Neutrophil # 6.87 X10^3/uL (2.7-7.7); Neutrophil % 82.7 % (47-70); Platelet Count 152 K/mm3 (150-450); RBC Distribution Width SD 56.9 fl (35.1-43.9); Red Blood Count 4.35 M/mm3 (4.6-6.2); White Blood Count 8.3 K/mm3 (4.4-11.0)
[2017-07-26 06:54] LABS: Differential Indicated SCAN CRITERIA MET; POSITIVE COUNT NO; POSITIVE DIFFERENTIAL YES; POSITIVE MORPHOLOGY NO
[2017-07-26 07:06] LABS: Albumin, Serum 2.1 g/dL (3.2-5.0); BUN 4 mg/dL (7-18); BUN/Creat Ratio 12.2 RATIO (10-20); Creatinine, Serum 0.33 mg/dL (0.70-1.30); EST Glomerular Filtration Rate 302 mL/min (>60); Est Glom Filt Rate - Afr Amer 365 mL/min (>60); Glucose 79 mg/dL (74-106); Protein, Total 5.5 g/dL (6.4-8.2)
[2017-07-26 07:07] LABS: AST(SGOT) 121 U/L (15-37); Alanine Aminotransfer ALT/SGPT 89 U/L (16-61); Alkaline Phosphatase 175 U/L (45-117); Anion Gap 10 (5-15); Bilirubin, Direct 1.88 mg/dL (0.00-0.30); Calcium,Total 9.1 mg/dL (8.5-10.1); Chloride 105 mmol/L (98-107); Globulin 3.4 g/dL (2.2-4.2); Potassium 3.4 mmol/L (3.5-5.1); Sodium Level 144 mmol/L (136-145)
[2017-07-26] MEDS: Ketorolac 15 MG/ML Vial IV (07:35)
[2017-07-26] MEDS: Metoprolol Tartrate 25 MG Tablet PO (07:36)
[2017-07-26] MEDS: HYDROmorphone 1 MG/ML Syringe IV ×2 (08:04→11:45)
--- NOTE | 2017-07-26 10:12 | CON.PCM_ITS ---
<Natty Alva - Last Filed: 07/26/17 12:40> Problem List (1) Upper abdominal pain Status: Acute (2) Acute pancreatitis Status: Acute Qualifiers: Pancreatitis type: unspecified pancreatitis type Acute pancreatitis complication: no infection or necrosis Qualified Code(s): K85.90 - Acute pancreatitis without necrosis or infection, unspecified Reason for Consult Date of Consultation: 07/26/17 Reason for Consultation: Acute pancreatitis. Epigastric and RUQ pain. History of Present Illness: The patient is a 52 year old M who presents with continued epigastric abdominal discomfort. Patient was recently discharged on 07/22 with diagnosis of acute pancreatitis. This admission makes his 3rd admission for his current symptoms. Per patient's who provided majority of the history, noted his symptoms started 3 weeks ago. She notes his symptoms never went away since they have started. She noted the reasoning for coming in was patient's pain moved from the epigastric region radiating to the right upper quadrant which was a new symptom for him. Patient has a history of small cell lung cancer stage IV which he was diagnosed with in December. He started chemotherapy and radiation in February and completed in April 2017. Patient was also noted to have brain mets for which he had radiation for on 07/02. Patient currently follows with Dr. Fofana and Dr. Pearson for oncology. Patient has also be on Dexamethsone which was stopped at last admission. Patient lost 120 pounds since the beginning of this year. His notes patient had minimal health problems prior to being diagnosed with lung cancer. His denies previous concerns or difficulties with gallbladder symptoms previously. Patient had a RUQ u/s in the ED which demonstrated gallbladder wall thickening at 5 mm, no pericholecystic fluid, no gallstones, and at least two gallbladder polyps, one measuring 6 mm and 5mm. Patient also had a CT scan of the abdomen/pelvis which demonstrated bilateral adrenal nodular densities, decreased inflammatory changes in peripancreatic region, and infiltrates left upper lobe and bilateral lower lobes. Patient was also noted to have a moderate amount of fluid within the stomach for which an NG tube was placed in the ED. Patient has had 850 cc output yesterday and 350 cc output today. An MRCP was completed on 07/17 which demonstrated stranding adjacent to the pancreas, no gallstones or biliary duct dilatation, upper abdominal lymphadenopathy. Normal gallbladder filling. This MRCP was discussed with Dr. Magallanes. It was noted in last discharge summary the patient was to be referred to a pancreas specialist at [facility]. Patient's noted they were to follow-up with his PCP, Dr. Kennedy, yesterday to discuss the referral and instead presented to the ED. Patient denies previous cardiac history, myocardial infarction, stroke, blood clots. He denies previous surgeries except for the left upper extremity port placement. Patient's notes the patient has had a 120 pound weight loss since chemotherapy started. Patient is not currently on home oxygen during the day or night. His notes he does have oxygen available if he needs it at home. Patient's notes the lung tumor is inoperable. Labs are as follows: 07/26- WBC 8.3, hgb 13.6, Hct 41.4, Plt 152. T. Bilirubin 2.50, Direct Bili 1.88, AST 121, ALT 89, Alk Phos 175. 6/20- Lipase 2770, Amylase 225. 6/2- Triglycerides 69. Patient's liver enzymes have been continuously elevated since symptoms started July 06. Past Medical History Past Medical History (Chronic Problems): Chronic Problems (Last Updated 07/16/17 @ 15:07 by Day Aldana MD) Asthma with COPD (Chronic) Obesity (BMI 30-39.9) (Chronic) Brain metastases (Chronic) Morbid obesity with BMI of 45.0-49.9, adult (Chronic) Prediabetes (Chronic) 01/04/17 HgbA1c 6.4%. SCLC (small cell lung carcinoma) (Chronic) SVC obstruction (Chronic) DM (diabetes mellitus) (Chronic) COPD (chronic obstructive pulmonary disease) (Chronic) Sleep disorder breathing (Chronic) Tobacco dependence in remission (Chronic) Chronic hypoxemic respiratory failure (Chronic) Morbid obesity with BMI of 50.0-59.9, adult (Chronic) Hypertension (Chronic) Medical History: Medical History (Last Updated 07/16/17 @ 15:07 by Day Aldana MD) COPD (chronic obstructive pulmonary disease) (Chronic) J44.9 Sleep disorder breathing (Chronic) G47.30 Chronic hypoxemic respiratory failure (Chronic) J96.11 Morbid obesity with BMI of 50.0-59.9, adult (Chronic) E66.01, Z68.43 Hypertension (Chronic) I10 Allergies bee venom protein (honey bee) Allergy (Severe, Verified 07/25/17 07:04) Swelling Home Medications: Ambulatory Orders Medication Instructions Recorded Omeprazole Magnesium [Prilosec Otc] 40 mg PO DAILY 01/17/17 Ondansetron [Zofran] 8 mg PO Q8H PRN PRN 06/26/17 Docusate Sodium [Colace] 200 mg PO TID PRN PRN 07/04/17 Metoprolol Tartrate [Lopressor 25 mg PO BID 07/16/17 (beta asim)] Benzonatate [Tessalon Perle] 100 mg PO TID PRN PRN capsule 07/22/17 HYDROmorphone tablet [Dilaudid] 2 mg PO Q4H PRN PRN 3 Days #10 tab 07/22/17 proMETHazine tablet [Phenergan 25 mg PO Q6H PRN PRN #20 tab 07/22/17 tablet] Albuterol Inhaler [Ventolin Hfa 2 puff INHALATION Q4H PRN PRN 07/25/17 (SP)] Memantine HCl 10 mg PO BID 07/25/17 Oxycodone [Oxyir] 10 mg PO Q4H PRN PRN 07/25/17 Surgical History: Surgical History (Last Reviewed 06/26/17 @ 12:58 by Mary Sheldon) EBUS procedure, 01/2017 Surgical History: - - Port placement left upper extremity Psychiatric History: No pertinent psych hx Smoking Status: Former smoker - *Family History Maternal Family History: Family History (Last Reviewed 06/26/17 @ 12:58 by Mary Sheldon) Other Adopted History Items: - - Denies knowledge of biological maternal and paternal family history secondary to adoption. Paternal Family History: Family History (Last Reviewed 06/26/17 @ 12:58 by Mary Sheldon) Other Adopted History Items: - - Denies knowledge of biological maternal and paternal family history secondary to adoption. Review of Systems Constitutional: Reports: Anorexia, Weakness, Weight Change HEENT: Denies: Head Aches, Sinus Congestion, Sinus Drainage Cardiovascular: Denies: Chest Pain, Palpitations Respiratory: Denies: Cough, Shortness of breath at rest, Sputum production Gastrointestinal: Reports: Abdominal Pain, Constipation, Nausea. Denies: Hematemesis, Hematochezia Genitourinary: Denies: Dysuria Musculoskeletal: Denies: Joint Pain, Joint Tenderness Skin: Denies: Rash, Wounds Neurological: Denies: Numbness, Tingling, Focal weakness Psychiatric: Reports: Anxiety, Depression. Denies: Homicidal Ideations, Suicidal Ideations Hematologic/ Lymphatic: Denies: Hx of blood clot, Hx of blood transfusion Patient Problems: Active and Suspected Problems (Last Updated 07/16/17 @ 15:07 by Day Aldana MD) Upper abdominal pain (Acute) - Physical Exam General: Cooperative, - - Eyes closed thorughout the entire consultation HEENT: Atraumatic, PERRLA, EOMI, Normocephalic, - - NG tube intact with light green fluid in the canister Neck: No JVD, - - Thick neck Lungs: Clear to auscultation, Normal air movement, Diminished - bilateral lower lobes, - - Currently on oxygen 2 liters Cardiovascular: Regular Rhythm, Tachycardic Abdomen: Hypoactive Bowel Sounds, Obese, Tender - Epigastric region and RUQ region Extremities: Edema - 2+ bilateral lower extremities Skin: No rashes, No breakdown Musculoskeletal: No Tenderness to Palpation of Joints or Extremities Neurological: Neuro grossly intact Psych/Mental Status: Appropriate, Depressed Vital Signs Temp Pulse Resp BP Pulse Ox 98.9 F 131 H 18 134/77 H 94 07/26/17 09:16 07/26/17 09:16 07/26/17 09:16 07/26/17 09:16 07/26/17 09:16 Oxygen Flow Rate (L/min) 2 Oxygen Delivery Method Nasal Cannula Intake and Output for Last 24 Hours 07/24/17 07/25/17 07/26/17 23:59 23:59 23:59 Intake Total 398 / 398 3057 / 3057 Output Total 350 / 350 Balance 398 / -452 2707 / 2707 Laboratory Tests Past 24 Hrs 07/26/17 07/26/17 06:15 06:15 WBC 8.3 RBC 4.35 L Hgb 13.6 Hct 41.4 MCV 95.2 H MCH 31.3 MCHC 32.9 RDW 17.0 H RDW Differential 56.9 H Plt Count 152 MPV 11.8 Immature Gran % (Auto) 0.400 Neut % (Auto) 82.7 H Lymph % (Auto) 5.2 L [place] % (Auto) 11.2 H Eos % (Auto) 0.4 Baso % (Auto) 0.1 Absolute Neuts (auto) 6.9 Absolute Lymphs (auto) 0.43 L Total Counted Not Reportable Sodium 144 Potassium 3.4 L Chloride 105 Carbon Dioxide 29.0 Anion Gap 10 BUN 4 L Creatinine 0.33 L Estim Creat Clear Calc 287.41 Est GFR (MDRD) Af Amer 365 Est GFR (MDRD) Non-Af 302 BUN/Creatinine Ratio 12.2 Glucose 79 Calcium 9.1 Total Bilirubin 2.50 H Direct Bilirubin 1.88 H AST 121 H ALT 89 H Alkaline Phosphatase 175 H Total Protein 5.5 L Albumin 2.1 L Globulin 3.4 Assessment/Plan All Active Problems (Last Updated 07/16/17 @ 15:07 by Day Aldana MD) Upper abdominal pain (Acute) Metastasis to adrenal gland (Acute) Bone metastases (Acute) Acute pancreatitis (Acute) I have been asked to evaluate this patient in conjunction with Dr. Lares Impression: Acute pancreatitis. Epigastric pain and RUQ pain. Plan: I have discussed this patient with Dr. Lares. MRCP was discussed with Dr. Magallanes who noted the gallbladder is filling normally. Due to patient's current medical comorbidities, patient is not a good surgical candidate. Patient may benefit from a cholecystostomy tube placement. It would be recommended for the patient to transfer to a tertiary facility with a pancreatic specialist to assist with determination of etiology and treatment of pancreatitis. We will continue to monitor this patient with conservative measures. Dr. Lares will also evaluate this patient independently. <Aric Lares - Last Filed: 07/26/17 12:52> Reason for Consult History of Present Illness: The patient is a 52 year old M [] Past Medical History Medical History: Medical History (Last Updated 07/16/17 @ 15:07 by Day Aldana MD) COPD (chronic obstructive pulmonary disease) (Chronic) J44.9 Sleep disorder breathing (Chronic) G47.30 Chronic hypoxemic respiratory failure (Chronic) J96.11 Morbid obesity with BMI of 50.0-59.9, adult (Chronic) E66.01, Z68.43 Hypertension (Chronic) I10 Allergies bee venom protein (honey bee) Allergy (Severe, Verified 07/25/17 07:04) Swelling Surgical History: Surgical History (Last Reviewed 06/26/17 @ 12:58 by Mary Sheldon) EBUS procedure, 01/2017 - *Family History Maternal Family History: Family History (Last Reviewed 06/26/17 @ 12:58 by Mary Sheldon) Other Adopted Paternal Family History: Family History (Last Reviewed 06/26/17 @ 12:58 by Mary Sheldon) Other Adopted - Physical Exam Vital Signs Temp Pulse Resp BP Pulse Ox 98.0 F 144 H 18 143/99 H 88 07/26/17 11:59 07/26/17 11:59 07/26/17 11:59 07/26/17 11:59 07/26/17 11:59 Oxygen Flow Rate (L/min) 2 Oxygen Delivery Method Room Air Weight: 293 lb 15.994 oz Intake and Output for Last 24 Hours 07/24/17 07/25/17 07/26/17 23:59 23:59 23:59 Intake Total 398 / 398 3057 / 3057 Output Total 350 / 350 Balance 398 / -452 2707 / 2707 Laboratory Tests Past 24 Hrs 07/26/17 07/26/17 07/26/17 06:15 06:15 06:15 WBC 8.3 RBC 4.35 L Hgb 13.6 Hct 41.4 MCV 95.2 H MCH 31.3 MCHC 32.9 RDW 17.0 H RDW Differential 56.9 H Plt Count 152 MPV 11.8 Immature Gran % (Auto) 0.400 Neut % (Auto) 82.7 H Lymph % (Auto) 5.2 L [place] % (Auto) 11.2 H Eos % (Auto) 0.4 Baso % (Auto) 0.1 Absolute Neuts (auto) 6.9 Absolute Lymphs (auto) 0.43 L Total Counted Not Reportable Sodium 144 Potassium 3.4 L Chloride 105 Carbon Dioxide 29.0 Anion Gap 10 BUN 4 L Creatinine 0.33 L Estim Creat Clear Calc 287.41 Est GFR (MDRD) Af Amer 365 Est GFR (MDRD) Non-Af 302 BUN/Creatinine Ratio 12.2 Glucose 79 Lactic Acid Calcium 9.1 Phosphorus Magnesium 1.4 L Total Bilirubin 2.50 H Direct Bilirubin 1.88 H AST 121 H ALT 89 H Alkaline Phosphatase 175 H Total Protein 5.5 L Albumin 2.1 L Globulin 3.4 07/26/17 07/26/17 06:15 11:10 WBC RBC Hgb Hct MCV MCH MCHC RDW RDW Differential Plt Count MPV Immature Gran % (Auto) Neut % (Auto) Lymph % (Auto) [place] % (Auto) Eos % (Auto) Baso % (Auto) Absolute Neuts (auto) Absolute Lymphs (auto) Total Counted Sodium Potassium Chloride Carbon Dioxide Anion Gap BUN Creatinine Estim Creat Clear Calc Est GFR (MDRD) Af Amer Est GFR (MDRD) Non-Af BUN/Creatinine Ratio Glucose Lactic Acid 1.5 Calcium Phosphorus 1.9 L Magnesium Total Bilirubin Direct Bilirubin AST ALT Alkaline Phosphatase Total Protein Albumin Globulin Assessment/Plan I have reviewed and evaluated this complex pt. He appears to be deteriorating without ability to nourish and has RUQ and epigastric pain By labs and pain the pancreatitis has not resolved The hyperbilirubinemia is new. GB wall thickening can be quite non-specific but his is slightly tender in this area I think it reasonable to have a cholecystostomy tube place by interventional radiology I think it is reasonable for a tertiary endoscopy referral for possible pancreatic stent placement In the patient's current condition, I am not recommending surgical treatment of his GB Thank you. Darnell
[2017-07-26] MEDS: Ipratropium/Albuterol Sulfate 3 ML AMPUL.NEB INHALATION ×3 (10:39→18:55)
--- NOTE | 2017-07-26 10:46 | PCM.PN.HOSP ---
Patient Problems: Active and Suspected Problems (Last Updated 07/16/17 @ 15:07 by Day Aldana MD) Upper abdominal pain (Acute) Subjective: Patient notes ongoing discomfort to the abdomen in the epigastric and right upper quadrant regions, ongoing nausea with pending IV Phenergan administration. Patient and very tearful during discussions regarding CODE STATUS and very frustrated secondary to his young age but advanced disease, metastatic nature. Patient amenable to alterations to regimen including transition to IV as he notes having much difficulty with any oral intake with NG clamping with immediate onset of nausea. Patient denies fevers, chills, chest pain or dyspnea. Objective: Physical Examination: General: awake, alert, oriented x 3 and cooperative, seated upright in bed at the bedside, nauseous, strained appearance, intermittently tearful. Skin: normal color, turgor, no icterus, cyanosis. HEENT: AT/NC, EOMI, PERRLA, dry MM, NG tube in place. Lungs: Diminished breath sounds bilaterally, greater right mid and base, decreased effort, distant likely secondary to habitus, no rales, ronchi or wheezing. Heart: Tachycardic with regular rhythm; no gallop, rub audible. Abdomen: soft, morbidly obese, tender to palpation of the right upper quadrant and epigastric region, difficult to assess distention secondary to habitus, NG tube in place. Extremities: no cyanosis, clubbing, bilateral lower extremity ankle to distal harris edema. Neurological: patient awake, alert, oriented x 3; cognitive function intact; pupils equally reactive to light and accomodation; cranial nerves II-XII grossly normal, moving all 4 extremities, no focal deficits, strength severely globally decreased secondary to acute presentation. Psychiatric: affect appears strains, tearful intermittently especially with discussions regarding CODE STATUS, no acute evidence of anxiety feelings. Vitals/I&O's: Vital Signs Temp Pulse Resp BP Pulse Ox 98.9 F 131 H 18 134/77 H 94 07/26/17 09:16 07/26/17 09:16 07/26/17 09:16 07/26/17 09:16 07/26/17 09:16 Oxygen Flow Rate (L/min) 2 Oxygen Delivery Method Nasal Cannula Weight: 293 lb 15.994 oz Intake and Output for Last 24 Hours 07/24/17 07/25/17 07/26/17 23:59 23:59 23:59 Intake Total 398 / 398 3057 / 3057 Output Total 350 / 350 Balance 398 / -452 2707 / 2707 Laboratory Results 07/26/17 06:15: Sodium 144, Potassium 3.4 L, Chloride 105, Carbon Dioxide 29.0, Anion Gap 10, BUN 4 L, Creatinine 0.33 L, Estim Creat Clear Calc 287.41, Est GFR (MDRD) Af Amer 365, Est GFR (MDRD) Non-Af 302, BUN/Creatinine Ratio 12.2, Glucose 79, Calcium 9.1, Total Bilirubin 2.50 H, Direct Bilirubin 1.88 H, AST 121 H, ALT 89 H, Alkaline Phosphatase 175 H, Total Protein 5.5 L, Albumin 2.1 L, Globulin 3.4 07/26/17 06:15: WBC 8.3, RBC 4.35 L, Hgb 13.6, Hct 41.4, MCV 95.2 H, MCH 31.3, MCHC 32.9, RDW 17.0 H, RDW Differential 56.9 H, Plt Count 152, MPV 11.8, Immature Gran % (Auto) 0.400, Neut % (Auto) 82.7 H, Lymph % (Auto) 5.2 L, [place] % (Auto) 11.2 H, Eos % (Auto) 0.4, Baso % (Auto) 0.1, Absolute Neuts (auto) 6.9, Absolute Lymphs (auto) 0.43 L, Total Counted Not Reportable Current Medications Acetaminophen (Tylenol) 650 mg PO Q6H PRN PRN PRN Reason: Mild Pain (1-3)/Temp > 100.7 F Al Hydroxide/Mg Hydroxide (Mylanta Ii) 30 ml PO Q6H PRN PRN PRN Reason: Gastric burning Albuterol Sulfate (Ventolin Aerosols) 2.5 mg INHALATION Q2H PRN PRN PRN Reason: dyspnea, wheezing Benzonatate (Tessalon Perle) 100 mg PO TID PRN PRN PRN Reason: cough Bisacodyl (Dulcolax) 5 mg PO DAILY PRN PRN PRN Reason: Constipation [facility] Last Admin: 07/26/17 07:36 Dose: 4 mg Docusate Sodium (Colace) 200 mg PO TID PRN PRN PRN Reason: Constipation Enoxaparin Sodium (Lovenox) 40 mg SC DAILY@0600 ON LICENSE OF [facility] Heparin Sodium (Beef Lung) (Heparin 500 Unit/5 Ml (100/Ml)) 500 unit IV UD PRN PRN Reason: HEPARIN FLUSH Hydromorphone HCl (Dilaudid Inj) 1 mg IV Q3H PRN PRN PRN Reason: SEVERE PAIN (6-10/10) Last Admin: 07/26/17 08:04 Dose: 1 mg Hydromorphone HCl (Dilaudid Tablet) 2 mg PO Q4H PRN PRN PRN Reason: SEVERE PAIN (6-10/10) Sodium Chloride () 1,000 mls @ 250 mls/hr IV .Q4H ON LICENSE OF [facility] Last Admin: 07/26/17 07:40 Dose: 250 mls/hr Pantoprazole Sodium 40 mg/ (Sodium Chloride) 110 mls @ 330 mls/hr IV Q24 ON LICENSE OF [facility] Last Admin: 07/26/17 09:22 Dose: 330 mls/hr Ketorolac Tromethamine (Toradol) 15 mg IV Q8 ON LICENSE OF [facility] Stop: 07/27/17 14:01 Last Admin: 07/26/17 07:35 Dose: 15 mg Magnesium Hydroxide (Milk Of Magnesia) 30 ml PO DAILY PRN PRN PRN Reason: Constipation Memantine (Namenda) 10 mg PO BID ON LICENSE OF [facility] Last Admin: 07/25/17 23:12 Dose: 10 mg Metoprolol Tartrate (Lopressor (Beta Leticia)) 25 mg PO BID ON LICENSE OF [facility] Last Admin: 07/26/17 07:36 Dose: 25 mg Ondansetron HCl (Zofran) 4 mg IV Q6H PRN PRN PRN Reason: nausea, emesis Last Admin: 07/26/17 08:04 Dose: 4 mg Promethazine HCl (Phenergan) 12.5 mg IM Q4H PRN PRN PRN Reason: NAUSEA/VOMITING Sodium Chloride () 10 ml IV UD PRN PRN Reason: VAD FLUSH Last Admin: 07/26/17 08:05 Dose: 10 ml Medical Necessity - Tobacco Use Smoking Status: Former smoker Assessment/Plan All Active Problems (Last Updated 07/16/17 @ 15:07 by Day Aldana MD) Upper abdominal pain (Acute) Metastasis to adrenal gland (Acute) Bone metastases (Acute) Acute pancreatitis (Acute) The patient is a 51 y/o M w/ PMHx: Obesity, Chronic Normocytic Anemia, Chronic COPD w/ Hx of Chronic Hypoxic Respiratory Failure, HTN, Obesity, Diabetes mellitus type II, Small Cell Lung CA w/ metastatic disease w/ radiation and chemotherapy w/ history of frequent nausea and emesis secondary to chemotherapeutics, Hx Chemotherapy induced pancytopenia, Chronic radiation merida to the upper anterior chest wall which have resolved who presents to the [facility] ED on 07/26/17 with recurrent nausea, emesis, abdominal pain. (1) Acute pancreatitis w/ abdominal pain, N/V: ED CT A/P w/ decreased inflammatory changes in the peripancreatic region, enlarged nodular densities in both adrenal glands, infiltration in the lingular segment of the left upper lobe as well as bilateral lower lobes, given intractable N/V, ED placed NGT and some concern for feculent material although no noted bowel obstruction on CT, admitted to [place], maintain on aggressive IVFs, NPO, PPI, IV/po pain control, trend lipase. Lipase 2770 upon admission, AST/ALT 121/89. Surgery consulted and GBUS w/ slightly thickened gallbladder wall without definitive stones to assess for possible need for any intervention, i.e. cholecystostomy tube. (2) Suspected HCAP PNA, Possible GN Organism: ED CT A/P w/ decreased inflammatory changes in the peripancreatic region, enlarged nodular densities in both adrenal glands, infiltration in the lingular segment of the left upper lobe as well as bilateral lower lobe although ? lung mets. Will maintain on oxygen with wean as tolerated to room air, continue ATC duonebs, PRN albuterol, initiate IV Zosyn and Vancomycin, HOB, IS parameters w/ pending sputum cultures and urine antigens. Lactic acid pending. (3) Small Cell Lung CA w/ Metastatic Disease: Metastatic disease to bone, brain and lung. Treated w/ chemotherapy and radiation, recently completed cranial palliative radiation. Mag and phos pending. Transition oral Decadron to IV. (3) Chronic Anemia, Thrombocytopenia: Admission CBC with WBC 8.8, Hgb 14.8, Plts 159, improved from prior. Trend. (4) Elevated LFTs: Noted elevations prior, admission AST/ALT 121/89, noted elevations prior, most recent admission w/ noted 81/186, likely associated w/ #1, trend. (5) Chronic COPD w/ Hx of Chronic Hypoxic Respiratory Failure: Off chronic O2 since starting chemotherapy and radiation, continue ATC duonebs, PRN albuterol, HOB, IS parameters. ? Concurrent PNA as noted #2. (6) Diabetes mellitus type II: NPO status, accu checks, ISS. (7) Hypertension: Discontinue oral metoprolol and transition to IV with hold parameters, PRN hydralazine. (8) GERD: PPI. (9) DVT Prophylaxis: SCDs, lovenox. (10) CODE status: Discussed CODE status at length including difference between FULL code, DNR-CCA and DNR-CC status and his prognosis which given his severe comorbidities would be poor. Discussed that it currently is clinically stable but this would be in the event of sudden cardiac event or pulmonary event. Patient and family were very tearful during discussions and do notes having difficulty advancing his status secondary to his young age despite his severe comorbidities and advanced metastatic cancer. Currently will remain full code and patient and family will continue to think about our discussions. Advanced Care Planning Face to Face Time: 25 minutes. Code Visit Inpatient E&M: 66271 Subs Hosp L3 Procedures: 58918 Advncd Care Plan 30 Min
--- NOTE | 2017-07-26 10:57 | PN_ITS ---
Patient Problems: Active and Suspected Problems (Last Updated 07/16/17 @ 15:07 by Day Aldana MD) Upper abdominal pain (Acute) Subjective: Patient notes ongoing discomfort to the abdomen in the epigastric and right upper quadrant regions, ongoing nausea with pending IV Phenergan administration. Patient and very tearful during discussions regarding CODE STATUS and very frustrated secondary to his young age but advanced disease , metastatic nature. Patient amenable to alterations to regimen including transition to IV as he notes having much difficulty with any oral intake with NG clamping with immediate onset of nausea. Patient denies fevers, chills, chest pain or dyspnea. Objective: Physical Examination: General: awake, alert, oriented x 3 and cooperative, seated upright in bed at the bedside, nauseous, strained appearance, intermittently tearful. Skin: normal color, turgor, no icterus, cyanosis. HEENT: AT/NC, EOMI, PERRLA, dry MM, NG tube in place. Lungs: Diminished breath sounds bilaterally, greater right mid and base, decreased effort, distant likely secondary to habitus, no rales, ronchi or wheezing. Heart: Tachycardic with regular rhythm; no gallop, rub audible. Abdomen: soft, morbidly obese, tender to palpation of the right upper quadrant and epigastric region, difficult to assess distention secondary to habitus, NG tube in place. Extremities: no cyanosis, clubbing, bilateral lower extremity ankle to distal harris edema. Neurological: patient awake, alert, oriented x 3; cognitive function intact; pupils equally reactive to light and accomodation; cranial nerves II-XII grossly normal, moving all 4 extremities, no focal deficits, strength severely globally decreased secondary to acute presentation. Psychiatric: affect appears strains, tearful intermittently especially with discussions regarding CODE STATUS, no acute evidence of anxiety feelings. Vitals/I&O's: Vital Signs Temp Pulse Resp BP Pulse Ox 98.9 F 131 H 18 134/77 H 94 07/26/17 09:16 07/26/17 09:16 07/26/17 09:16 07/26/17 09:16 07/26/17 09:16 Oxygen Flow Rate (L/min) 2 Oxygen Delivery Method Nasal Cannula Weight: 293 lb 15.994 oz Intake and Output for Last 24 Hours 07/24/17 07/25/17 07/26/17 23:59 23:59 23:59 Intake Total 398 / 398 3057 / 3057 Output Total 350 / 350 Balance 398 / -452 2707 / 2707 Laboratory Results 07/26/17 06:15: Sodium 144, Potassium 3.4 L, Chloride 105, Carbon Dioxide 29.0, Anion Gap 10, BUN 4 L, Creatinine 0.33 L, Estim Creat Clear Calc 287.41, Est GFR (MDRD) Af Amer 365, Est GFR (MDRD) Non-Af 302, BUN/Creatinine Ratio 12.2, Glucose 79, Calcium 9.1, Total Bilirubin 2.50 H, Direct Bilirubin 1.88 H, AST 121 H, ALT 89 H, Alkaline Phosphatase 175 H, Total Protein 5.5 L, Albumin 2.1 L , Globulin 3.4 07/26/17 06:15: WBC 8.3, RBC 4.35 L, Hgb 13.6, Hct 41.4, MCV 95.2 H, MCH 31.3, MCHC 32.9, RDW 17.0 H, RDW Differential 56.9 H, Plt Count 152, MPV 11.8, Immature Gran % (Auto) 0.400, Neut % (Auto) 82.7 H, Lymph % (Auto) 5.2 L, Isabella % (Auto) 11.2 H, Eos % (Auto) 0.4, Baso % (Auto) 0.1, Absolute Neuts (auto) 6.9 , Absolute Lymphs (auto) 0.43 L, Total Counted Not Reportable Current Medications Acetaminophen (Tylenol) 650 mg PO Q6H PRN PRN PRN Reason: Mild Pain (1-3)/Temp > 100.7 F Al Hydroxide/Mg Hydroxide (Mylanta Ii) 30 ml PO Q6H PRN PRN PRN Reason: Gastric burning Albuterol Sulfate (Ventolin Aerosols) 2.5 mg INHALATION Q2H PRN PRN PRN Reason: dyspnea, wheezing Benzonatate (Tessalon Perle) 100 mg PO TID PRN PRN PRN Reason: cough Bisacodyl (Dulcolax) 5 mg PO DAILY PRN PRN PRN Reason: Constipation [facility] Admin: 07/26/17 07:36 Dose: 4 mg Docusate Sodium (Colace) 200 mg PO TID PRN PRN PRN Reason: Constipation Enoxaparin Sodium (Lovenox) 40 mg SC DAILY@0600 [facility] Heparin Sodium (Beef Lung) (Heparin 500 Unit/5 Ml (100/Ml)) 500 unit IV UD PRN PRN Reason: HEPARIN FLUSH Hydromorphone HCl (Dilaudid Inj) 1 mg IV Q3H PRN PRN PRN Reason: SEVERE PAIN (6-10/10) Last Admin: 07/26/17 08:04 Dose: 1 mg Hydromorphone HCl (Dilaudid Tablet) 2 mg PO Q4H PRN PRN PRN Reason: SEVERE PAIN (6-10/10) Sodium Chloride () 1,000 mls @ 250 mls/hr IV .Q4H [facility] Last Admin: 07/26/17 07:40 Dose: 250 mls/hr Pantoprazole Sodium 40 mg/ (Sodium Chloride) 110 mls @ 330 mls/hr IV Q24 [facility] Last Admin: 07/26/17 09:22 Dose: 330 mls/hr Ketorolac Tromethamine (Toradol) 15 mg IV Q8 [facility] Stop: 07/27/17 14:01 Last Admin: 07/26/17 07:35 Dose: 15 mg Magnesium Hydroxide (Milk Of Magnesia) 30 ml PO DAILY PRN PRN PRN Reason: Constipation Memantine (Namenda) 10 mg PO BID [facility] Last Admin: 07/25/17 23:12 Dose: 10 mg Metoprolol Tartrate (Lopressor (Beta Leticia)) 25 mg PO BID [facility] Last Admin: 07/26/17 07:36 Dose: 25 mg Ondansetron HCl (Zofran) 4 mg IV Q6H PRN PRN PRN Reason: nausea, emesis Last Admin: 07/26/17 08:04 Dose: 4 mg Promethazine HCl (Phenergan) 12.5 mg IM Q4H PRN PRN PRN Reason: NAUSEA/VOMITING Sodium Chloride () 10 ml IV UD PRN PRN Reason: VAD FLUSH Last Admin: 07/26/17 08:05 Dose: 10 ml Medical Necessity - Tobacco Use Smoking Status: Former smoker Assessment/Plan All Active Problems (Last Updated 07/16/17 @ 15:07 by Day Aldana MD) Upper abdominal pain (Acute) Metastasis to adrenal gland (Acute) Bone metastases (Acute) Acute pancreatitis (Acute) The patient is a 51 y/o M w/ PMHx: Obesity, Chronic Normocytic Anemia, Chronic COPD w/ Hx of Chronic Hypoxic Respiratory Failure, HTN, Obesity, Diabetes mellitus type II, 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 ED on 07/26/17 with recurrent nausea, emesis, abdominal pain. (1) Acute pancreatitis w/ abdominal pain, N/V: ED CT A/P w/ decreased inflammatory changes in the peripancreatic region, enlarged nodular densities in both adrenal glands, infiltration in the lingular segment of the left upper lobe as well as bilateral lower lobes, given intractable N/V, ED placed NGT and some concern for feculent material although no noted bowel obstruction on CT, admitted to [place], maintain on aggressive IVFs, NPO, PPI, IV/po pain control, trend lipase. Lipase 2770 upon admission, AST/ALT 121/89. Surgery consulted and GBUS w/ slightly thickened gallbladder wall without definitive stones to assess for possible need for any intervention, i.e. cholecystostomy tube. (2) Suspected HCAP PNA, Possible GN Organism: ED CT A/P w/ decreased inflammatory changes in the peripancreatic region, enlarged nodular densities in both adrenal glands, infiltration in the lingular segment of the left upper lobe as well as bilateral lower lobe although ? lung mets. Will maintain on oxygen with wean as tolerated to room air, continue ATC duonebs, PRN albuterol, initiate IV Zosyn and Vancomycin, HOB, IS parameters w/ pending sputum cultures and urine antigens. Lactic acid pending. (3) Small Cell Lung CA w/ Metastatic Disease: Metastatic disease to bone, brain and lung. Treated w/ chemotherapy and radiation, recently completed cranial palliative radiation. Mag and phos pending. Transition oral Decadron to IV. (3) Chronic Anemia, Thrombocytopenia: Admission CBC with WBC 8.8, Hgb 14.8, Plts 159, improved from prior. Trend. (4) Elevated LFTs: Noted elevations prior, admission AST/ALT 121/89, noted elevations prior, most recent admission w/ noted 81/186, likely associated w/ #1 , trend. (5) Chronic COPD w/ Hx of Chronic Hypoxic Respiratory Failure: Off chronic O2 since starting chemotherapy and radiation, continue ATC duonebs, PRN albuterol, HOB, IS parameters. ? Concurrent PNA as noted #2. (6) Diabetes mellitus type II: NPO status, accu checks, ISS. (7) Hypertension: Discontinue oral metoprolol and transition to IV with hold parameters, PRN hydralazine. (8) GERD: PPI. (9) DVT Prophylaxis: SCDs, lovenox. (10) CODE status: Discussed CODE status at length including difference between FULL code, DNR-CCA and DNR-CC status and his prognosis which given his severe comorbidities would be poor. Discussed that it currently is clinically stable but this would be in the event of sudden cardiac event or pulmonary event. Patient and family were very tearful during discussions and do notes having difficulty advancing his status secondary to his young age despite his severe comorbidities and advanced metastatic cancer. Currently will remain full code and patient and family will continue to think about our discussions. Advanced Care Planning Face to Face Time: 25 minutes. Code Visit Inpatient E&M: 74035 Subs Hosp L3 Procedures: 75657 Advncd Care Plan 30 Min
[2017-07-26 11:32] LABS: Magnesium 1.4 mg/dL (1.6-2.6)
[2017-07-26 11:43] LABS: Phosphorus 1.9 mg/dL (2.5-4.9)
[2017-07-26] MEDS: proMETHazine 25 MG/ML Syringe 12.5 MG IV (11:46)
[2017-07-26 11:48] LABS: Lactic Acid 1.5 mmol/L (0.4-2.0)
[2017-07-26] MEDS: 0.9% Normal Saline 1,000 ML 999 ML IV (12:03)
--- NOTE | 2017-07-26 12:09 | PCM.RX.CS ---
Consult Pharmacy has been consulted to manage selected antiobiotic: Vancomycin Type of Consult: New start Suspected Infection: Pneumonia Prior Doses of Antibiotics Received/Current Regimen: NONE Labs: Sodium 144 mmol/L (136-145) 07/26/17 06:15 Potassium 3.4 mmol/L (3.5-5.1) L 07/26/17 06:15 Chloride 105 mmol/L (98-107) 07/26/17 06:15 Carbon Dioxide 29.0 mmol/L (21.0-32.0) 07/26/17 06:15 Anion Gap 10 (5-15) 07/26/17 06:15 BUN 4 mg/dL (7-18) L 07/26/17 06:15 Creatinine 0.33 mg/dL (0.70-1.30) L 07/26/17 06:15 Est GFR (MDRD) Af Amer 365 mL/min (>60) 07/26/17 06:15 Est GFR (MDRD) Non-Af 302 mL/min (>60) 07/26/17 06:15 BUN/Creatinine Ratio 12.2 RATIO (10-20) 07/26/17 06:15 Glucose 79 mg/dL (74-106) 07/26/17 06:15 Weight used for dosin kg Estimated Creatinine Clearance: 287 ML/MIN Goal Trough: 15-20 mcg/mL Pharmacy Plan for Drug Dosing: Pharmacy Service will continue to monitor and adjust dosing as required. 1. VANCOMYCIN 2000MG X1 07/26/17 @1300 2. VANCOMYCIN 1500MG Q8HRS TO START 07/26/17 @2100 3. TROUGH PRIOR TO 4TH TOTAL DOSE 07/27/17 @2030
--- NOTE | 2017-07-26 12:28 | CASEMGMT ---
Tertiary Hospitals in-network with [facility] Community Plan: [facility], [facility], [facility], [facility], [facility], [facility], [facility].
--- NOTE | 2017-07-26 12:51 | NURSING ---
spoke with [facility] Pharmacist regarding timing of iv medications/antibiotics that are ordered. states Zosyn compatable with both mag and potassium so start those first and then pharmacy will adjust timing of other medications as needed.
[2017-07-26] MEDS: proCHLORPERazine 10 MG/2 ML Vial IV ×2 (13:02→18:04)
[2017-07-26] MEDS: 0.9% NaCl IVPB Med Flush (250 mL) 15 ML IV ×2 (13:02→13:15)
[2017-07-26] MEDS: Piperacil/Tazobactam 3.375 GM/50 ML ML IV (13:03)
[2017-07-26] MEDS: Metoprolol Tartrate 5 MG/5 ML Vial IV ×2 (13:16→16:46)
--- NOTE | 2017-07-26 14:18 | CASEMGMT ---
Social Work Note MARYJO received message from Jarvis Shaver, tax manager public with [facility] requesting this worker to call her back in regards to discharge plans. Jarvis provided direct number [phone] and fax [phone]. MARYJO placed a call back to Jarvis Shaver. MARYJO left message for Jarvis updating her that at this time this worker is unsure of discharge plans for pt. MARYJO informed Jarvis that earlier his RN had mentioned that pt may be transferred to another hospital but at this time it is not certain yet. MARYJO will update Jarvis when discharge plans are confirmed. Plan: GERALD Nava MASTER ELECTRICIAN, HEAD GROWER
--- NOTE | 2017-07-26 15:18 | NURSING ---
spoke with Vangie pharmcist again regarding meds/compatability/med & atb timing/turn machine operator. Vangie states meds on mar are compatable with dilaudid turn machine operator.
[2017-07-26] MEDS: HYDROmorphone PCA 0.2 MG/ML 100 ML BAG 20 MG IV (15:38)
--- NOTE | 2017-07-26 16:00 | PCM.DC.SUM ---
Discharge Date and Diagnosis - Problem List Patient Problems: Active and Suspected Problems (Last Updated 07/16/17 @ 15:07 by Day Aldana MD) Upper abdominal pain (Acute) Date of Admission: 07/25/17 Date of Discharge: 07/26/17 - Primary Discharge Diagnosis Active and Suspected Problems (Last Updated 07/16/17 @ 15:07 by Day Aldana MD) (1) Acute pancreatitis w/ abdominal pain, N/V w/ Elevated LFTs and Hyperbilirubinemia (2) Suspected HCAP PNA, Possible GN Organism (3) Small Cell Lung CA w/ Metastatic Disease (4) Chronic Anemia, Thrombocytopenia (5) Chronic COPD w/ Hx of Chronic Hypoxic Respiratory Failure (6) Diabetes mellitus type II (7) Hypertension (8) GERD - Secondary Discharge Diagnosis Chronic Problems (Last Updated 07/16/17 @ 15:07 by Day Aldana MD) Asthma with COPD (Chronic) Obesity (BMI 30-39.9) (Chronic) Brain metastases (Chronic) Morbid obesity with BMI of 45.0-49.9, adult (Chronic) Prediabetes (Chronic) 01/04/17 HgbA1c 6.4%. SCLC (small cell lung carcinoma) (Chronic) SVC obstruction (Chronic) DM (diabetes mellitus) (Chronic) COPD (chronic obstructive pulmonary disease) (Chronic) Sleep disorder breathing (Chronic) Tobacco dependence in remission (Chronic) Chronic hypoxemic respiratory failure (Chronic) Morbid obesity with BMI of 50.0-59.9, adult (Chronic) Hypertension (Chronic) Hospital Course and Treatment Imaging Results: 07/27/17 05:55 CT Abd [Abdomen/Pelvis WITH Contrast] [CT] AM (NON MEDS) Chest PA and Lateral [RAD] AM (NON MEDS) Dr. 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 ED CT A/P w/ decreased inflammatory changes in the peripancreatic region, enlarged nodular densities in both adrenal glands, infiltration in the lingular segment of the left upper lobe as well as bilateral lower lobes w/ Lipase 2770 upon admission, AST/ALT 152/121, T Bili 2.60-->07/26/17 T Bili 2.50, AST/ALT 121/89. In the ED given intractable nausea and emesis, ED placed NGT and some concern for feculent material although no noted bowel obstruction on CT, admitted to [place] eventually with admission of telemetry given need for IV PRN agents, maintained on aggressive IVFs, NPO status, continued NGT to LIWS, PPI, IV/po pain control. Given severity of presentation, mild appearance of GB, Surgery consulted. Dr. Lares noted given his deterioration with inability for appropriate oral intake and frequent pancreatitis with new hyperbilirubinemia with gallbladder wall thickening recommended repeat CT scan in a.m. and if appropriate cholecystostomy tube may be placed by interventional radiology if remained otherwise recommendation for initiation of transfer to tertiary facility for endoscopic referral for possible pancreatic stent placement. Upon admission the patient had not been on abx therapy; however, given tachycardia and ill appearance with review of CT noted possible PNA, although does have metastatic lung CA, decision to initiation therapy w/ oxygen supplementation, ATC duonebs, PRN albuterol, IV Zosyn and Vancomycin given recent admissions, HOB, IS parameters w/ requested sputum cultures and urine antigens. Lactic acid obtained upon admission, 2.0, repeat given appearance 1.6-->1.5. Patient as noted with history of Small Cell Lung CA w/ Metastatic Disease to bone, brain and lung. Treated w/ chemotherapy and radiation, recently completed cranial palliative radiation. Mag and phos obtained and both supplemented IV. Given inability to tolerate clamping of his NG and oral medication regimen from home, also transitioned his decadron to IV as well as his BB to IV regimen. Patient transfer to arranged per Dr. Lares recommendation with plan if remained into 07/27/17 AM would obtain repeat CT A/P and if distended GB would discuss again with IR possibility of percutaneous cholecystostomy tube to attempt to improvement patient symptoms. Per discussion with [facility], EKG repeat obtained prior to transfer to assure no need for cardiac floor. Patient accepted [facility] per Dr. Jerez. Home Medications: Medications to take at Discharge Omeprazole Magnesium [Prilosec Otc] 40 mg PO DAILY 01/17/17 Ondansetron [Zofran] 8 mg PO Q8H PRN PRN 06/26/17 Docusate Sodium [Colace] 200 mg PO TID PRN PRN 07/04/17 Metoprolol Tartrate [Lopressor (beta asim)] 25 mg PO BID 07/16/17 Benzonatate [Tessalon Perle] 100 mg PO TID PRN PRN capsule 07/22/17 HYDROmorphone tablet [Dilaudid] 2 mg PO Q4H PRN PRN 3 Days #10 tab 07/22/17 proMETHazine tablet [Phenergan tablet] 25 mg PO Q6H PRN PRN #20 tab 07/22/17 Albuterol Inhaler [Ventolin Hfa (SP)] 2 puff INHALATION Q4H PRN PRN 07/25/17 Memantine HCl 10 mg PO BID 07/25/17 Oxycodone [Oxyir] 10 mg PO Q4H PRN PRN 07/25/17 Primary Care Physician: Carlos Kennedy DO [Primary Care Provider] - Disposition: Acute care Hospital Minutes spent on discharge:: 35 Patient Condition:: Poor Medical Necessity - Tobacco Use Smoking Status: Former smoker Meaningful Use Info Meaningful Use Diagnoses (Choose all that apply): None applicable Code Visit Inpatient E&M: 88881 Disch Hosp
--- NOTE | 2017-07-26 16:38 | EKG12_ITS ---
Test Reason : TACHYCARDIA Blood Pressure : / mmHG Vent. Rate : 133 BPM Atrial Rate : 133 BPM P-R Int : 138 ms QRS Dur : 086 ms QT Int : 394 ms P-R-T Axes : 033 017 078 degrees QTc Int : 586 ms Sinus tachycardia Otherwise normal ECG When compared with ECG of 25-JUL-2017 07:37, ST no longer depressed in Anterior leads T wave inversion no longer evident in Lateral leads Confirmed by GHANSHYAM WINSTON, DARSHAN ([id number]), video editor BOAZ SANTOS ([id number]) on 08/09/2017 4:01:37 PM Referred By: Francois Gibson Confirmed By:ADRSHAN MORRISSEY MD
[2017-07-26] MEDS: Dextrose 50%-Water 25 GM/50 ML DISP.SYRIN IV (18:58)
[2017-07-26 19:11] LABS: Bedside Glucose 66 mg/dL (70-110)
--- NOTE | 2017-07-26 21:46 | NURSING ---
Transport arrived and pt left at 2130hrs. ARCHITECTURAL MODELER discontinued just prior to pt leaving. pt voided rust colored thick urine 200ml prior to leaving. Phoned [facility] to advise pt was on his way.
--- NOTE | 2017-07-27 11:18 | CASEMGMT ---
Social Work Note SW placed a call to pt's family independence case manager Jarvis Sivakumar with [employer] and left her a message updating her that pt was transferred to [facility] last night. Katharine Nava EXECUTIVE ADVISOR, CLINICAL RESOURCE MANAGER
== END 2017-07-26 21:30 | disposition short-term general hospital (02) | DRG 204 ==
LOC: ED 07:42 → MS3 15:47
PROVIDERS: Admitting Provider Hospitalist; Emergency Provider Emergency Medicine; Family Provider Family Medicine; PCP Family Medicine; Visit Provider Family Medicine
DX: K85.90 Acute pancreatitis without necrosis or infection, unspecified (principal); J96.11 Chronic respiratory failure with hypoxia; D69.6 Thrombocytopenia, unspecified; J15.6 Pneumonia due to other Gram-negative bacteria; C79.31 Secondary malignant neoplasm of brain; C34.90 Malignant neoplasm of unspecified part of unspecified bronchus or lung; C78.00 Secondary malignant neoplasm of unspecified lung; C79.51 Secondary malignant neoplasm of bone; J44.0 Chronic obstructive pulmonary disease with (acute) lower respiratory infection; K21.9 Gastro-esophageal reflux disease without esophagitis; I10 Essential (primary) hypertension; E11.9 Type 2 diabetes mellitus without complications; D64.9 Anemia, unspecified; Y95 Nosocomial condition; E66.9 Obesity, unspecified; Z68.39 Body mass index [BMI] 39.0-39.9, adult; Z92.3 Personal history of irradiation; Z87.891 Personal history of nicotine dependence
CPT/HCPCS: 36591; 74018; 74177; 76705; 80048; 80053; 80076; 81001; 82150; 82962; 83605; 83690; 83735; 84100; 84484; 85025; 85610; 85730; 93005; 94640; 97802; 99285; J7030; J7040; J7050; Q9967; A4216; J1170; J2405

== ENCOUNTER 2017-07-28 17:13 | Emergency (ER) | payer MEDICAID, SELFPAY ==
[2017-03-01 11:31] VITALS: BMI 53.3
[2017-07-28 17:14] VITALS: BP 115/68; PULSE 125; RESP 16; TEMP 36.6; O2SAT 92; BMI 38.0
--- NOTE | 2017-07-28 18:20 | ED.VISSUMM ---
- ER Visit Summary Date of Service: 07/28/17 Chief Complaint: Increased swelling and increased pain History of Present Illness: The patient is a 52 M who was recently admitted to [facility]. He was transferred to [facility] to have a teacher counselor evaluate him for possible stenting of his pancreatic duct. Patient, and daughter states no specials exist at the [facility]. They stated they were feeding him through his nasogastric tube and administering Dilaudid for his pain. Because nothing was being done patient signed out AGAINST MEDICAL ADVICE and he returned to [facility] with port still accessed and nasogastric tube still in place. When I entered the room I asked patient what his expectations were and what the expectations of his family work. It was determined that they were under the believe that he could live for some time. They understand that he has cancer and that this is not curable. He informed me that he was diagnosed with small cell carcinoma December 2016. Daughter and states that he had a negative PET scan. He underwent chemo and radiation therapy for the small cell carcinoma. In spite of treatment he now has metastasis to bone, brain and apparently hepatobiliary system. Patient was asked if anyone discussed with him CODE STATUS. He is response was I know I need to make a decision by tomorrow . Patient was informed there is no timeframe or specific date a decision needs to be made. Patient was informed that his wishes would be honored and respected. When asked what they were informed with regards to cure rate life expectancy the patient and family responded R does not deal in time expectancy. Patient was informed based on the type of cancer he has cure rate is very poor. Also discussed the fact that in spite of radiation and chemo he now has spread to multiple areas of his body. 's expectation that he will be able to eat again, which he has not in months. 's expectation was for his swelling to resolve. Patient has a more realistic expectation and realizes his prognosis is very poor his life expectancy is short. He again was asked what he would like. After lengthy discussion it was determined he would like to enjoy the remaining time he has with his and family. He would like to be able to enjoy that time at home. He was asked if he is in palliative care. Patient and family responded yes . After lengthy discussion and after giving my recommendation that he was a family member since it was asked the hospice nurse was contacted. Physical Examination: Vital signs are remarkable for a heart rate of 125. Patient is edematous/has anasarca. He has multiple bruises from recent IV draws and attempts. He appears pale. There may be slight icterus to his conjunctival. Heart is rapid and regular. Lungs are clear to auscultation. Abdomen is tender. Patient does not wish for his heart to be restarted. He does not wish to be placed on life support. Will sign DNR Comfort Care only documents. Test Results: None were obtained Emergency Department Course and Treatment: Hospice nurse was contacted and will see patient in the emergency department. His goal is to be able to go home and enjoy the remaining time he has with his and children. Treatment Plan: Consult hospice Disposition: Awaiting hospice evaluation. Discharge from ER to hospice. Impression: Metastatic small cell carcinoma of the lung Anasarca History of COPD History of diabetes History of hypertension History of superior vena cava obstruction This note was generated with Earnest dictation software. It may contain incorrect words, spelling, and punctuation that were not noted in review of the chart prior to signing ED Disposition - Plan for ED Patient: Chief Complaint: Edema Referrals: Carlos Kennedy DO [Primary Care Provider] -
--- NOTE | 2017-07-28 18:28 | ED.DCSUM_ITS ---
- ER Visit Summary Date of Service: 07/28/17 Chief Complaint: Increased swelling and increased pain History of Present Illness: The patient is a 52 M who was recently admitted to [facility]. He was transferred to [facility] to have a purchase order checker evaluate him for possible stenting of his pancreatic duct. Patient, and daughter states no specials exist at the [facility]. They stated they were feeding him through his nasogastric tube and administering Dilaudid for his pain. Because nothing was being done patient signed out AGAINST MEDICAL ADVICE and he returned to [facility] with port still accessed and nasogastric tube still in place. When I entered the room I asked patient what his expectations were and what the expectations of his family work. It was determined that they were under the believe that he could live for some time. They understand that he has cancer and that this is not curable. He informed me that he was diagnosed with small cell carcinoma December 2016. Daughter and states that he had a negative PET scan. He underwent chemo and radiation therapy for the small cell carcinoma. In spite of treatment he now has metastasis to bone, brain and apparently hepatobiliary system. Patient was asked if anyone discussed with him CODE STATUS. He is response was I know I need to make a decision by tomorrow . Patient was informed there is no timeframe or specific date a decision needs to be made. Patient was informed that his wishes would be honored and respected. When asked what they were informed with regards to cure rate life expectancy the patient and family responded R does not deal in time expectancy. Patient was informed based on the type of cancer he has cure rate is very poor. Also discussed the fact that in spite of radiation and chemo he now has spread to multiple areas of his body. 's expectation that he will be able to eat again, which he has not in months. 's expectation was for his swelling to resolve. Patient has a more realistic expectation and realizes his prognosis is very poor his life expectancy is short. He again was asked what he would like. After lengthy discussion it was determined he would like to enjoy the remaining time he has with his and family. He would like to be able to enjoy that time at home. He was asked if he is in palliative care. Patient and family responded yes . After lengthy discussion and after giving my recommendation that he was a family member since it was asked the hospice nurse was contacted. Physical Examination: Vital signs are remarkable for a heart rate of 125. Patient is edematous/has anasarca. He has multiple bruises from recent IV draws and attempts. He appears pale. There may be slight icterus to his conjunctival. Heart is rapid and regular. Lungs are clear to auscultation. Abdomen is tender. Patient does not wish for his heart to be restarted. He does not wish to be placed on life support. Will sign DNR Comfort [facility] only documents. Test Results: None were obtained Emergency Department Course and Treatment: Hospice nurse was contacted and will see patient in the emergency department. His goal is to be able to go home and enjoy the remaining time he has with his and children. Treatment Plan: Consult hospice Disposition: Awaiting hospice evaluation. Discharge from ER to hospice. Impression: Metastatic small cell carcinoma of the lung Anasarca History of COPD History of diabetes History of hypertension History of superior vena cava obstruction This note was generated with [employer] dictation software. It may contain incorrect words, spelling, and punctuation that were not noted in review of the chart prior to signing ED Disposition - Plan for ED Patient: Chief Complaint: Edema Referrals: Carlos Kennedy DO [Primary Care Provider] -
[2017-07-28] MEDS: HYDROmorphone 1 MG/ML Syringe 2 MG IV (18:51)
[2017-07-28 18:54] VITALS: BP 142/85; PULSE 123; RESP 20; O2SAT 94
[2017-07-28 19:25] VITALS: BP 142/85; PULSE 121; RESP 22; O2SAT 94
--- NOTE | 2017-07-28 19:26 | ED.RN ---
pt is discharged to hospice. pt transported via squad.
== END 2017-07-28 19:27 ==
LOC: ED 17:52
PROVIDERS: Emergency Provider Emergency Medicine; Family Provider Family Medicine; PCP Family Medicine
DX: C34.90 Malignant neoplasm of unspecified part of unspecified bronchus or lung (principal); C79.31 Secondary malignant neoplasm of brain; C79.51 Secondary malignant neoplasm of bone; C78.7 Secondary malignant neoplasm of liver and intrahepatic bile duct; R60.1 Generalized edema; J44.9 Chronic obstructive pulmonary disease, unspecified; E11.9 Type 2 diabetes mellitus without complications; I10 Essential (primary) hypertension; E66.9 Obesity, unspecified; Z79.891 Long term (current) use of opiate analgesic; Z79.899 Other long term (current) drug therapy; Z92.3 Personal history of irradiation; Z92.21 Personal history of antineoplastic chemotherapy
CPT/HCPCS: 96374; 99282